=== PATIENT | female | born 1995 | race Caucasian/White ===

== ENCOUNTER → 2019-11-25 09:38 | Outpatient (CLI) | payer OTHER, SELFPAY ==
[2019-11-25 09:36] VITALS: BMI 23.1
--- NOTE | 2019-11-25 09:39 | RAD_ITS ---
STUDY: X-RAY - LEFT KNEE REASON FOR EXAM: Fall one month ago. TECHNIQUE: 4 view(s) of the knee. COMPARISON: None. FINDINGS: Normal visualized distal femur. Normal visualized proximal tibia and fibula. Normal proximal tibiofibular articulation. Normal medial femorotibial compartment. Normal lateral femorotibial compartment. Normal patellofemoral articulation. The soft tissue structures are unremarkable. RAD/Knee 4 or More Views IMPRESSION: Normal x-ray examination of the left knee. Electronically Signed: Pradeep Olivo MD at 10:12 EST Tel , Service support ,
== END ==
PROVIDERS: Referring Provider Orthopaedic Surgery; Visit Provider Orthopaedic Surgery
DX: M25.562 Pain in left knee (principal)
CPT/HCPCS: 73564

== ENCOUNTER 2019-12-01 12:55 | Outpatient (RCR) | payer OTHER, SELFPAY ==
[2019-11-25 09:36] VITALS: BMI 23.1
--- NOTE | 2019-12-01 14:41 | HP.PTEVAL ---
Patient's Visit Information NATHANAEL MOSCOSO is a 24 year old F referred to Physical Therapy by Dr. Kavitha Hrenandez DO with a diagnosis of LEFT ACL TEAR. Date of Evaluation: 12/01/19 Physical Therapist: Lino Ng, PT, Cert MDT, OCS - Visit Plan Frequency: 1-2x /Week Duration: 4 Weeks Plan: PLANNING FOR MRI. PT INTERVENTION FLEXABLITY ,PRE'S QUADS/HAMS/HIP ,ROM,FUNCTION STRENGTHENING,MODALITIES - Subjective Findings: This 24 y/o female presents to physical therapy left ACL . Patient injuried left knee Oct 25 at her Wedding sliiped hurt knee . Patient went on honey almanza and works pain was minimal and edema. Patient plaanning for MRI Sunday at [facility]. Major compliant espinal of motion pain with extension . Aggravting factors ,kneeling squatting ,sore at end of day. Denies parathesia/tingling. Patient sleeping good. Patient has h/o of tearing right ACL x2 with one surgery. Patient has. SOCAIL:. 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 GAIT: ambulated with knee slightly flexed left. PALAPTION: unremarkable. EDEMA: absent. AROM: 5-145 degrees pain with extension. MMT: quads 4-/5,hams 4/5,hip abd 4/5,hip add 4-/5,ankle 5/5. FLEXABLITY: hamstring WFL - Special Tests L Knee Mariel - Meniscus: Negative L Knee Leo - ACL: Positive L Knee Anterior Drawer - ACL: Positive L Knee Posterior Drawer - PCL: Negative L Knee Valgus - MCL: Negative L Knee Varus - LCL: Negative - Goals Goal 1:: Patient I HEP. Goal Time Frame: 4-6 Weeks Goal 2:: Patient to normalize gait Goal Time Frame: 4-6 Weeks Goal 3:: Patient to increase strength quad/hams /hip 5/5 to improve function. Goal Time Frame: 4-6 Weeks Goal 4:: Patient be able to perform housework tasks and ADLS' with no pain Goal Time Frame: 4-6 Weeks Goal 5:: Patient to improve LEFS score by 10 points or > to improve function. Goal Time Frame: 4-6 Weeks - Rehabilitation Potential Physical Therapy Diagnosis: Patient injuried left knee suspect ACL tear with pain with certain activities ,decrease extension ,affects kneeling and working all day. Rehabilitation Potential: Good - Anticipated Interventions Patient/Client Instruction: Educate patient on: Condition, Plan of Care For the Purpose of:: To decrease pain, To increase ROM, To improve muscle performance and motor function, To improve ability to perform ADL's, To increase tolerance to activity/condition/position, To improve performance and independence with ADL's, To improve ability of physical actions for home/community/work/leisure, To improve health of tissue, To decrease soft tissue restriction, To increase flexibility/ROM Therapeutic Exercise to Include: Strength training, Postural training, Flexibilty training, Active ROM Comment: PRE'S QUADS/HAMS/HIP For the Purpose of:: To decrease pain, To increase ROM, To improve muscle performance and motor function, To increase tolerance to activity/condition/position, To improve ability of physical actions for home/community/work/leisure, To improve gait and locomotor functions, To improve health of tissue, To decrease soft tissue restriction, To improve endurance, To improve balance, To improve ability to perform tasks related to life management TENS: Yes IF ES: Yes Cryotherapy (ice pack, ice massage): Yes Thermo therapy (hot pack): Yes Ultrasound (thermal/non thermal): Yes For the Purpose of:: To decrease pain, To increase ROM, To improve nutrient delivery to tissue, To increase oxygenation perfusion, To improve health of tissue, To decrease soft tissue restriction Thank you for the opportunity to evaluate your patient. For Medicare and Medicare HMO plans, please review the plan of care and approve it. It will need to be FAXED BACK to us at [phone] for Medicare purposes. For Medicare only, by signing this I certify the plan of care. Please let me know if there are questions or concerns regarding this plan of care. Physician Signature: Date:
--- NOTE | 2020-01-21 08:48 | HP.PT.NRP ---
NATHANAEL MOSCOSO was seen in my office for initial evaluation on 12/01/19. The following Plan of Care was established for this patient: Initial Frequency: 1-2x /Week Initial Duration: 4 Weeks Patient/Client Instruction: Educate patient on: Condition, Plan of Care For the Purpose of:: To decrease pain, To increase ROM, To improve muscle performance and motor function, To improve ability to perform ADL's, To increase tolerance to activity/condition/position, To improve performance and independence with ADL's, To improve ability of physical actions for home/community/work/leisure, To improve health of tissue, To decrease soft tissue restriction, To increase flexibility/ROM Therapeutic Exercise to Include: Strength training, Postural training, Flexibilty training, Active ROM For the Purpose of:: To decrease pain, To increase ROM, To improve muscle performance and motor function, To increase tolerance to activity/condition/position, To improve ability of physical actions for home/community/work/leisure, To improve gait and locomotor functions, To improve health of tissue, To decrease soft tissue restriction, To improve endurance, To improve balance, To improve ability to perform tasks related to life management TENS: Yes IF ES: Yes Cryotherapy (ice pack, ice massage): Yes Thermo therapy (hot pack): Yes Ultrasound (thermal/non thermal): Yes For the Purpose of:: To decrease pain, To increase ROM, To improve nutrient delivery to tissue, To increase oxygenation perfusion, To improve health of tissue, To decrease soft tissue restriction This patient was last seen in our office . Pertinent comments regarding their Physical therapy will appear below: Patient seen for knee pain . Anticipated ACL ,provided HEP. Did have MRI showing ACL tear. At this point I will be discontinuing this patient from physical therapy. I would be happy to see this patient again in the future if found appropriate by the physician. Thank you! Lino Ng, PT, Cert MDT, OCS
== END 2019-12-01 19:00 | disposition home or self-care (01) ==
LOC: PT 12:55
PROVIDERS: Referring Provider Orthopaedic Surgery; Visit Provider Orthopaedic Surgery
DX: S83.512D Sprain of anterior cruciate ligament of left knee, subsequent encounter (principal)
CPT/HCPCS: 97110; 97161

== ENCOUNTER → 2019-12-06 08:32 | Outpatient (CLI) | payer OTHER, SELFPAY ==
[2019-11-25 09:36] VITALS: BMI 23.1
--- NOTE | 2019-12-06 08:32 | MRI_ITS ---
STUDY: MRI LEFT KNEE REASON FOR EXAM: Female, 24 years old. Pain and tightness. Status post trauma. Unable to fully extend knee. TECHNIQUE: Standardized fat and water weighted pulse sequences were obtained in all 3 orthogonal planes. COMPARISON: None. FINDINGS: Normal medial meniscus. There is minimal low-grade cartilage degeneration in the medial joint compartment. Normal medial femoral condyle and tibial plateau. Normal medial collateral ligamentous complex (MCL). Normal distal semimembranosus, gracilis and semitendinosus tendons. Normal lateral meniscus. There is minimal low-grade cartilage degeneration in the lateral joint compartment. There is linear high signal identified in the proximal tibia which may represent a contusion however underlying microtrabecular fractures aren''t excluded. Normal proximal tibiofibular articulation. Normal lateral collateral (fibular) ligament. Normal popliteus tendon. Normal biceps femoris tendon. There is poor visualization of the anterior cruciate ligament suggestive of complete tear. Normal posterior cruciate ligament (PCL). Normal congruent patellofemoral articulation. Normal hyaline cartilage of the patellofemoral compartment. Normal medial and lateral patellar retinaculum. Normal quadriceps tendon. Normal patellar tendon. Normal Hoffa''s fat pad. There is a moderate suprapatellar effusion. There is a moderately sized Lee''s cyst. The soft tissues are unremarkable. The otherwise visualized osseous structures are unremarkable. MRI/Lower Ext Joint Only (Routine) IMPRESSION: Complete tear of the anterior cruciate ligament. Increased signal in the proximal tibia laterally may represent a contusion or stress reaction however underlying microtrabecular fractures aren''t excluded. Mild degenerative changes. Joint effusion and popliteal cyst. Electronically Signed: Chepe Malin, at 12:55 EST Tel , Service support ,
== END ==
PROVIDERS: Referring Provider Orthopaedic Surgery; Visit Provider Orthopaedic Surgery
DX: S89.92XA Unspecified injury of left lower leg, initial encounter (principal)
CPT/HCPCS: 73721

== ENCOUNTER 2020-04-21 06:01 | Day surgery (SDC) | payer OTHER, SELFPAY ==
[2020-02-12 10:02] VITALS: BMI 23.1
[2020-03-30 09:23] VITALS: BMI 23.1
[2020-04-21] VITALS (7 sets, daily range): BP systolic 122–141; BP diastolic 75–90; PULSE 81–116; RESP 16; TEMP 36.4–37.1; O2SAT 98–100; BMI 28.8
[2020-04-21 06:36] LABS: Internal QC Validated? YES +Cl - CLEAR BKGD; Pregnancy, Urine Negative Negative
[2020-04-21] MEDS: Lactated Ringers 1,000 ML 100 ML IV (06:54)
--- NOTE | 2020-04-21 07:24 | PCM.HP.BLA ---
History and Physical I have re-examined the patient. There are no clinical changes since date of exam. Patient is off of her control for the last month Intake Vital Signs 03/30/20 BMI 23.1 Intake Visit Reasons: left knee Allergies No Known Allergies Allergy (Verified 12/11/19 08:45) [facility] Social History (Updated 03/30/20 @ 09:[address] Kavitha Hernandez, DO) Smoking Status: Never smoker HPI HPI Details: Patient was informed that this visit will be billed to patient. This visit was conducted during COVID-19 pandemic. NATHANAEL MOSCOSO, is a 24 F who presents to the office today for left knee given out once since last visit. stopped control 1.5 weeks ago. Denies numbness, tingling or other associated symptoms. left knee instability, no locking up of left knee. see chart. ROS Const Constitutional: No anorexia, body ache, chills, excessive sweating, fatigue, fever(s), frequent falls, decreased energy, malaise, night sweats, weakness, weight change, sleep problems, abnormal sleep pattern, change in appetite or other Eyes Eyes: No blurry vision, change in vision, double vision, discharge, dry eyes, bulging eyes, floaters, visual disturbances, eye pain, light sensitivity, spots in vision, tunnel vision or other ENT ENT: No difficulty swallowing Cardio Cardiology: No chest pain at rest, chest pain with exertion, leg pain with exertion, excessive sweating, shortness of breath, dyspnea on exertion, generalized swelling, irregular heart rhythm, lightheadedness, orthopnea, radiating jaw, neck or arm pain, fast heart rate, slow heart rate, palpitations or other Gastro GI: No abdominal pain, belching, bloating, change in bowel habits, change in stool character, coffee ground emesis, constipation, cramping, diarrhea, heartburn, difficulty swallowing, feeling full early, excessive flatus, incontinent of stools, Vomiting blood/hematemesis, blood in stool, loose stools, Black,tarry stools, nausea/dyspepsia, pain with swallowing, vomiting or other Genitourinary-Female: No difficulty urinating, burning urination, painful urination, urinary incontinence, urinary frequency, urinary urgency, urinary hesitancy, urinary retention, blood in urine, Frequent nighttime urination/ nocturia, post void dribbling, suprapubic fullness, side pain, sexual problems, genital lesions, genital itching, hot flashes, abnormal periods, abnormal vaginal bleeding, absent period, painful periods, light periods, heavy periods, difficulty getting , painful intercourse, pelvic pain, vaginal dryness, vaginal odor, Vaginal Itching or other Musc Musculoskeletal: Positive for joint pain Neuro Neurology: No weakness, frequent falls or visual disturbances Psych Psychiatric: No abnormal sleep pattern, No change in appetite Endo Endocrine: No excessive sweating or fatigue Assessment & Plan Plan Reviewed the pre-operative plans with the patient. Risks and benefits of the procedure were fully explained, including but not limited to infection, neurovascular injury, continued pain, arthritis, stiffness, need for further surgery, re-injury, DVT, PE, general risks of anesthesia, and loss of limb or life. The patient understands all the risks and does wish to proceed with Surgery for left ACL with quad tendon graft.. remove nose rings remove one acrylic nail We discussed the current risk associated COVID-19. While it is understood that there is a community spread of COVID 19 the risk of katie COVID-19 while at [facility] is very low, however, the risk cannot be completely mitigated because of the community spread of the disease. We discussed in detail the risk of exposure to and or potential harm posed by the COVID-19 virus with having a surgery/procedure at this time versus the risk of delaying the surgery/procedure. Is not possible to know either the risk of delaying the surgery procedure or chance of getting an infection with perfect accuracy, but a joint decision was made to proceed at this time with a schedule surgery/procedure as indicated on the consent form. Patient was notified that we will need to comply with any screening or testing [facility] wishes to perform or that surgery may be delayed for any positive results. virtual video visit time spent 12 min Coding Level of Care Code Attention Lorenzo
[2020-04-21] MEDS: Cefazolin 2 GM in 0.9% Normal Saline 100 ML IV (07:26)
--- NOTE | 2020-04-21 07:30 | OP.PCM_ITS ---
Report of Operation Date of Procedure: 04/21/20 Pre-Operative Diagnosis: left knee acl tear Post-Operative Diagnosis: same Surgery/Procedure Performed:: left knee arthroscopy, acl reconstruction with quad tendon autograft with allograft supp math professor: Guanaco Mario Type of Anesthesia:: General Anesthesiologist: Hayden Amaya Estimated Blood Loss (mL): min Fluids Replaced: 1100ml lr Description of Procedure: Preop note Patient is a 25-year-old female who injured her left knee at a wedding. Patient continued instability episodes despite conservative therapy treatment. Patient failed conservative treatment MRI confirms a complete ACL tear. Risk benefits alternatives were discussed with patient. Risk include but not limited to blood loss, blood clot, infection, neurovascular, failure procedure, loss of life and loss of limb. Patient is aware like proceed with left knee arthroscopy ACL reconstruction allograft autograft repair as indicated. Operative note Patient seen and examined preoperative holding area. Left knee was marked. Patient brought the operating room placed supine on the operating table. Signed, anesthesia, antibiotics were administered. The left knee was prepped and draped in usual sterile technique with a tourniquet around her upper thigh. All bony prominences well-padded and SCDs placed on her contralateral limb. We marked out our incisions for our portal placement as well as anterior medial distal tibia and proximal femur for the laterally for the flip cut. We marked o ut our incision about a centimeter proximal to the pole of patella for quad tendon harvest. We measured about 7 cm proximal to this just for to get adequate length. The left leg was elevated exsanguinated and tourniquet was raised her pressure of 250 torr. Timeout was performed. We then used a 15 blade to make a transverse horizontal incision a centimeter proximal to the proximal pole of the patella about a centimeter half to 2 cm in length. We then directed down and remove the fat pad. We then used a Ray-Bo to sweep away any of the fat pad off the quad tendon we had good visualization of the quad tendon at that time. There were then used a 9 double blade cutter. We used our scope and let up the skin to know where the aim marked and then did a kevin on the skin at the angle that we need to position arm 9 double blade towards to harvest the quad tendon. We then cut starting a centimeter proximal patella and going proximal and ensuring that we had good cutting of the quad tendon. We then extended the incision of the quad distally to the patella and then started retrieving her patella tendon quad tendon. We note that the quad tendon was quite thin and we did breach the capsule so we repaired the capsule and the entire repaired the tendon and then we did harvest it proximally. We noted that we did have quite the size of wound wanted at least a 9 we had probably around a 7-1/2 quad tendon once we had harvested because is quite small we still had encroached upon the capsule at that point so we had maintained we then retrieve as much of the graft as we could without violating too much. Then prepared the graft in standard technique on the back table with the Arthrex graft link. We repaired the quad tendon harvest site again. We then moved to the arthroscopy. We created an anterior lateral portal began our diagnostic arthroscopy. The patellofemoral joint was unremarkable moved to the medial joint line created anteromedial portal under direct visualization. The medial meniscus was intact and stable probing. The medial meniscus medial femoral condyle medial to the tibial plateau were intact the ACL was obviously torn in the notch the PCL was intact. Please note that also preoperatively we did perform a Lockman on patient prior to obtaining her graft and she was positive. The lateral meniscus was intact and stable probing. We then performed extensive synovectomy she had extensive synovitis in the anterior lateral anteromedial recesses. We then performed a notchplasty as she had a quite narrow notch. We measured the graft on the back table to be a 10. We then used a flip braid cutter standard technique and and drilled her femoral tunnel tibia to backed about 25 mm. We then flipped him did our tibial tunnel and did that about 30 mm with a flip cutter. We then irrigated the knee with any copious wet with copious necessarily sterile saline to get rid of any bony debris. We then placed our graft through the medial portal up through the femoral tunnel flipped the button on the lateral femoral cortex and did visualize this. We then brought the graft through the tibial tunnel and then cycled the graft about 20 times. We then placed our button in standard technique on the anterior tibial cortex and then and performed a reverse Lockman as we are tightening it down to bone. We then oversewed and cut the remaining stitches. We then grabbed the femoral side again up with a white and pulled the quad tendon further into the femoral condyle if able we had a little bit more that we were able to bring into the femoral side. We then pe rformed a Lockman which was negative at that point. We irrigated the knee with copious nonsterile saline. Tourniquet was deflated. Sterile dressings were applied after the portals were closed with interrupted 4 oh nylons in the anterior tibia the incision was closed with Vicryl and a running 4-0 Monocryl in the distal lateral femoral incision was closed with 2-0 Vicryl and 4-0 nylon. Sterile dressings were applied ablation brace was applied to the left knee. Patient tolerated procedure no complication transferred recovery room in stable condition. Postoperative note Toe-touch weightbearing on left leg with crutches Range of motion 0-90 when seated Locked brace in extension during ambulation and at night Call with increased pain numbness tingling further issues arise Follow-up in 2 days Hospital pharmacy has prescriptions Dragon disclaimer This note was generated with [employer] dictation software. It may contain incorrect words, spelling, and punctuation that were not noted in checking the note before signing. Grafts/Implants Used: acl quad tendon autograft, supplemental ant tib allograft
--- NOTE | 2020-04-21 07:30 | DCINST_ITS ---
Discharge Diet: No Restrictions - ttwb left leg 2 weeks, january rom 0-90 as tolerated, lock brace in extension at night for sleep and during ambulation, follow up with janay for dressing change and brace adjustment, call with concerns, ice/elevate toes above nose/ankle pumps Discharge Activity: May Not Drive May shower in (days): 1 Ice area for (Minutes): 20 - Every hour while awake. Weight Bearing Status: Weight bearing as tolerated Keep extremity elevated above heart level: Operative Extremity Call your doctor if your incision/area has: Continuous Slow Oozing, Sudden Increased Bleeding, Increased Pain/ Swelling, Increased Redness, Foul Smelling Discharge Call your doctor if you observe: Fever of 101 or Higher, Coldness, Increased Pain, Numbness or Tingling, Change in Color, Calf discomfort Allergies/Adverse Reactions: Allergies No Known Allergies Allergy (Verified 04/21/20 06:24) Medications to take at Discharge Ibuprofen [Motrin] 400 mg PO Q6H PRN 05/07/14 norgestimate 0.25 mg-ethinyl estradiol 35 mcg tablet 1 tab PO DAILY 11/25/19 Ondansetron [Zofran] 8 mg PO Q8H PRN PRN #20 tab 04/21/20 Oxycodone HCl/Acetaminophen [Percocet 5/325] 1 - 2 tab PO Q6H PRN PRN 5 Days #28 tab 04/21/20 The following prescriptions were given: Oxycodone HCl/Acetaminophen [Percocet 5/325] 1 - 2 tab PO Q6H PRN PRN 5 Days #28 tab PRN Reason: Pain Transmission Status: Received by [facility] Ondansetron [Zofran] 8 mg PO Q8H PRN PRN #20 tab PRN Reason: Nausea Transmission Status: Received by [facility] Orders to be completed after discharge: CORONAVIRUS 19, MINH SCREEN Time Frame: 04/16/20, Facility: [facility], Location: Laboratory Primary Care Physician: Care Physician,No Primary [Primary Care Provider] - Test Results: Test results from this visit will be discussed in further detail at your follow- up appointment, if applicable. Please Follow Up With: Kavitha Hernandez, DO - [phone]
[2020-04-21] MEDS: Mupirocin Ointment 22gm Tube 1 APPLIC (10:14)
[2020-04-21] MEDS: Epinephrine (1 mg/ml) 1 MG/ML VIAL (10:14)
== END 2020-04-21 12:50 | disposition home or self-care (01) ==
LOC: SDC 06:02 → AC 06:03
PROVIDERS: Anesthesiology; Referring Provider Orthopaedic Surgery; Visit Provider Orthopaedic Surgery
PROC: (CPT 29888; principal; 2020-04-21 07:10)
DX: S83.512A Sprain of anterior cruciate ligament of left knee, initial encounter (principal); X58.XXXA Exposure to other specified factors, initial encounter; Y93.9 Activity, unspecified; Y92.89 Other specified places as the place of occurrence of the external cause
CPT/HCPCS: 01400; 29888; 64447; 81025; 87635; C1713; G2023; J7120; J2405; U0003

== ENCOUNTER 2021-11-10 10:10 | Outpatient (CLI) | payer BC, SELFPAY ==
[2021-11-10 10:51] LABS: Hemoglobin A1c 5.3 % (3.8-5.6)
[2021-11-10 11:22] LABS: Estradiol 53.3 pg/mL; Follicle Stimulating Hormone 4.6 mIU/mL; Luteinizing Hormone 11.5 mIU/mL
[2021-11-13 19:07] LABS: Testosterone, % Free 1.58 % (0.50-2.80); Testosterone, Free 0.84 ng/dL (0.10-0.85); Testosterone, Total 53 ng/dL (13-71)
[2021-11-14 17:02] LABS: HPV Reflexed? NOT INDICATED
== END 2021-11-10 23:59 | disposition home or self-care (01) ==
LOC: PAVLAB 10:11
PROVIDERS: Referring Provider Obstetrics & Gynecology; Visit Provider Obstetrics & Gynecology
DX: Z12.4 Encounter for screening for malignant neoplasm of cervix (principal); N91.2 Amenorrhea, unspecified
CPT/HCPCS: 36415; 82627; 82670; 83001; 83002; 83036; 84402; 84403; 84443; 88175; 82626; G0145

== ENCOUNTER 2021-11-22 07:54 | Outpatient (CLI) | payer BC, SELFPAY ==
--- NOTE | 2021-11-22 08:00 | US_ITS ---
STUDY: ULTRASOUND OF THE FEMALE PELVIS - COMPLETE REASON FOR EXAM: Female, 26 years old. Amenorrhea LMP: 11/21/2021. TECHNIQUE: Transabdominal and Transvaginal TECHNICAL QUALITY: Adequate. COMPARISON: None. FINDINGS: The uterus is anteverted and is tilted to the left side of the pelvis. The uterus measures 7.5 cm x 3.6 cm x 3.5 cm. There is a Nabothian cyst of the cervix. The endometrium measures 8.5 mm in thickness, and is hyperechoic. There is no demonstrated endometrial mass. There is no demonstrated myometrial mass. I.U.D. - The patient does not have an I.U.D. The right ovary is visualized. The right ovary measures 4.6 cm x 3.2 cm by 2.5 cm. Small follicles are seen. There is no visualized right adnexal mass or complex lesion. There is normal arterial and normal venous vascularity. The left ovary is visualized. The left ovary measures 4.6 cm x 3.6 cm x 1.9 cm. Small follicles are seen. There is no visualized left adnexal mass or complex lesion. There is normal arterial and normal venous vascularity. There is no fluid in the cul-de-sac. The pre void volume of the bladder was 409 ml. . US/Pelvic (Non ) IMPRESSION: Normal female pelvis. Electronically Signed: Maykel Toth MD at 12:23 EST ,
--- NOTE | 2021-11-22 08:00 | US_ITS ---
STUDY: ULTRASOUND OF THE FEMALE PELVIS - COMPLETE REASON FOR EXAM: Female, 26 years old. Amenorrhea LMP: 11/21/2021. TECHNIQUE: Transabdominal and Transvaginal TECHNICAL QUALITY: Adequate. COMPARISON: None. FINDINGS: The uterus is anteverted and is tilted to the left side of the pelvis. The uterus measures 7.5 cm x 3.6 cm x 3.5 cm. There is a Nabothian cyst of the cervix. The endometrium measures 8.5 mm in thickness, and is hyperechoic. There is no demonstrated endometrial mass. There is no demonstrated myometrial mass. I.U.D. - The patient does not have an I.U.D. The right ovary is visualized. The right ovary measures 4.6 cm x 3.2 cm by 2.5 cm. Small follicles are seen. There is no visualized right adnexal mass or complex lesion. There is normal arterial and normal venous vascularity. The left ovary is visualized. The left ovary measures 4.6 cm x 3.6 cm x 1.9 cm. Small follicles are seen. There is no visualized left adnexal mass or complex lesion. There is normal arterial and normal venous vascularity. There is no fluid in the cul-de-sac. The pre void volume of the bladder was 409 ml. . US/Transvaginal Non- IMPRESSION: Normal female pelvis. Electronically Signed: Maykel Toth MD at 12:23 EST ,
== END 2021-11-22 23:59 | disposition home or self-care (01) ==
PROVIDERS: Visit Provider Obstetrics & Gynecology
DX: N91.2 Amenorrhea, unspecified (principal)
CPT/HCPCS: 76830; 76856

== ENCOUNTER → 2022-08-31 | Outpatient (CLI) | payer BC, SELFPAY ==
[2022-08-31 12:28] LABS: Amphetamine Urine VISTA NEGATIVE (<1000 ng/mL); Barbiturate Urine VISTA NEGATIVE (< 200 ng/mL); Benzodiazepine Urine VISTA NEGATIVE (< 200 ng/mL); Cocaine Urine VISTA NEGATIVE (< 300 ng/mL); Ecstacy Urine VISTA NEGATIVE (< 500 ng/mL); Methadone Urine VISTA NEGATIVE (< 300 ng/mL); PCP Urine VISTA NEGATIVE (< 25 ng/mL); THC Urine VISTA NEGATIVE (< 50 ng/mL); Vista UDS pH Range 7
[2022-09-01 22:06] LABS: Chlamydia By Nucleic Acid AMP Negative (Negative)
[2022-09-01 22:50] LABS: Gonococcus By Nucleic Acid AMP Negative (Negative)
== END | disposition home or self-care (01) ==
PROVIDERS: Visit Provider Obstetrics & Gynecology
DX: Z34.90 Encounter for supervision of normal pregnancy, unspecified, unspecified trimester (principal)
CPT/HCPCS: 80307; 87086; 87088; 87491; 87591

== ENCOUNTER → 2022-10-02 | Outpatient (CLI) | payer BC, SELFPAY ==
[2022-10-02 12:11] LABS: Absolute Lymphocyte Count 1.87 X10^3/uL (0.83-4.51); Absolute Neutrophil Count 8.7 X10^3/uL (2.0-7.7); Basophil# 0.05 X10^3/uL; Basophil% 0.4 % (0-1); Eosinophil# 0.12 X10^3/uL; Hematocrit 38.1 % (37-47); Hemoglobin 12.8 g/dL (12.0-15.0); Lymphocyte # 1.87 X10^3/ul (0.83-4.51); Lymphocyte % 15.8 % (19-41); Mean Corp Hgb Conc 33.6 g/dL (32-36); Mean Corpuscular Hgb 27.9 pg (27.0-32.0); Mean Corpuscular Volume 83.2 fL (81-99); Mean Platelet Vol. 8.2 fl (6.2-12.0); Monocyte# 0.79 X10^3/uL; Monocyte% 6.7 % (0-10); NRBC Flagged by Analyzer 0 % (0-5); Neutrophil # 8.67 X10^3/uL (2.7-7.7); Neutrophil % 73.2 % (47-70); Platelet Count 354 K/mm3 (150-450); RBC Distribution Width CV 13.2 % (11.6-14.6); Red Blood Count 4.58 M/mm3 (4.2-5.4); White Blood Count 11.8 K/mm3 (4.4-11.0)
[2022-10-02 12:15] LABS: Glucose Challenge Gest 1H 50g 145 mg/dL (70-140)
[2022-10-03 11:09] LABS: HIV - WCH Non-Reactive (Nonreactive); Hepatitis B Surface Antigen Non-Reactive (Nonreactive); Hepatitis C Antibody Non-Reactive (Nonreactive); Rubella IgG Equiv (Nonreactive); Syphilis Antibodies Non-reactive
== END | disposition home or self-care (01) ==
LOC: LAB 11:46
PROVIDERS: Visit Provider Obstetrics & Gynecology
DX: Z34.90 Encounter for supervision of normal pregnancy, unspecified, unspecified trimester (principal)
CPT/HCPCS: 36415; 82950; 85025; 86703; 86762; 86780; 86803; 86850; 86900; 86901; 87340

== ENCOUNTER → 2022-10-09 | Outpatient (CLI) | payer BC, SELFPAY ==
[2022-10-09 08:08] LABS: Glucose GTT-Gestation. Fasting 90 mg/dL (<105)
[2022-10-09 08:09] LABS: Glucose GTT-Gestational 1 Hr 170 mg/dL (<190)
[2022-10-09 09:38] LABS: Glucose GTT-Gestational 2 Hr 151 mg/dL (<165)
[2022-10-09 11:13] LABS: Glucose GTT-Gestational 3 Hr 135 L (<145)
== END | disposition home or self-care (01) ==
LOC: LAB 06:51
PROVIDERS: Referring Provider Nurse Practitioner Women's Health; Visit Provider Nurse Practitioner Women's Health
DX: Z13.1 Encounter for screening for diabetes mellitus (principal)
CPT/HCPCS: 36415; 82951; 82952

== ENCOUNTER → 2023-01-08 | Outpatient (CLI) | payer BC, SELFPAY ==
[2023-01-08 08:26] LABS: Hematocrit 37.3 % (37-47); Mean Corp Hgb Conc 32.2 g/dL (32-36); Mean Corpuscular Hgb 27.9 pg (27.0-32.0); Mean Corpuscular Volume 86.7 fL (81-99); Mean Platelet Vol. 8.3 fl (6.2-12.0); POSITIVE COUNT YES; POSITIVE MORPHOLOGY YES; Platelet Count 265 K/mm3 (150-450); RBC Distribution Width CV 13.7 % (11.6-14.6); RBC Distribution Width SD 42.6 fl (35.1-43.9); White Blood Count 12.8 K/mm3 (4.4-11.0)
[2023-01-08 08:27] LABS: Differential Indicated MANUAL DIFF
[2023-01-08 09:07] LABS: Glucose Challenge Gest 1H 50g 162 mg/dL (70-140)
[2023-01-08 09:33] LABS: HIV - WCH Non-Reactive (Nonreactive); Syphilis Antibodies Non-reactive
[2023-01-08 09:49] LABS: Lymphocyte 15 % (19-41); Monocyte 2 % (0-10); Myelocyte 4 % (0-0); Neutrophil-Band 6 % (0-5); Neutrophil-Segmented 73 % (47-70); Nucleated Red Bld Cells,Manual 1 % (0-5); Total Cells Counted 100 (MANUAL DIFF)
[2023-01-08 09:50] LABS: Absolute Neutrophil Count 10.1 X10^3/uL (2.0-7.7)
[2023-01-08 09:51] LABS: Absolute Lymphocyte Count 1.95 X10^3/uL (0.83-4.51); Platelet Estimate ADEQUATE (ADEQ); Red Cell Morphology NORM C+C NORMAL (NORM C&C)
[2023-01-10 10:47] LABS: Pathologist Review Reviewed
== END | disposition home or self-care (01) ==
LOC: PAVLAB 08:07
PROVIDERS: Referring Provider Obstetrics & Gynecology; Visit Provider Obstetrics & Gynecology
DX: O09.90 Supervision of high risk pregnancy, unspecified, unspecified trimester (principal); Z3A.00 Weeks of gestation of pregnancy not specified
CPT/HCPCS: 36415; 82950; 85025; 86703; 86780

== ENCOUNTER → 2023-01-11 | Outpatient (CLI) | payer BC, SELFPAY ==
[2023-01-11 08:06] LABS: Glucose GTT-Gestation. Fasting 85 mg/dL (<105)
[2023-01-11 08:46] LABS: Glucose GTT-Gestational 1 Hr 181 mg/dL (<190)
[2023-01-11 09:54] LABS: Glucose GTT-Gestational 2 Hr 158 mg/dL (<165)
[2023-01-11 11:11] LABS: Glucose GTT-Gestational 3 Hr 76 L (<145)
== END | disposition home or self-care (01) ==
LOC: LAB 06:52
PROVIDERS: Referring Provider Registered Nurse; Visit Provider Registered Nurse
DX: Z13.1 Encounter for screening for diabetes mellitus (principal)
CPT/HCPCS: 36415; 82951; 82952

== ENCOUNTER → 2023-03-05 | Outpatient (CLI) | payer BC, SELFPAY | END | disposition home or self-care (01) | LOC: LABSPEC 13:15 | PROVIDERS: Referring Provider Obstetrics & Gynecology; Visit Provider Obstetrics & Gynecology | DX: O09.90 Supervision of high risk pregnancy, unspecified, unspecified trimester (principal); Z3A.00 Weeks of gestation of pregnancy not specified | CPT/HCPCS: 87081 ==

== ENCOUNTER 2023-03-24 22:55 | Outpatient (CLI) | payer BC, SELFPAY ==
[2023-03-24 23:11] VITALS: BP 126/79; PULSE 65; PULSE 68; TEMP 36.5; O2SAT 100
[2023-03-24 23:17] VITALS: BMI 34.2
[2023-03-25] MEDS: LACTATED RINGERS 500 ML 999 ML IV
--- NOTE | 2023-03-25 00:13 | US_ITS ---
STUDY: ABDOMINAL ULTRASOUND - RIGHT UPPER QUADRANT REASON FOR VISIT: Female, 27 years old Upper abdominal pain TECHNIQUE: Ultrasound evaluation of the right upper quadrant was performed with real-time and static parks-scale imaging. TECHNICAL QUALITY: Adequate. COMPARISON: None. FINDINGS: Liver: The liver measures 15.6 cm. There is normal echogenicity of the liver. The bile ducts are within normal limits. There is hepatic color flow. The direction of portal flow is hepatopetal. There is no demonstrated mass lesion. Gallbladder: Normal distended gallbladder. The gallbladder wall measures 3 mm. There is a negative sonographic Zelaya''s sign. There is no pericholecystic fluid. There are multiple echogenic structures within the gallbladder, consistent with multiple gallstones. Common Bile Duct (C.B.D.): The common bile duct measures 4 mm. Pancreas: Normal size of the head and body of the pancreas. There is normal echogenicity of the pancreas. There is no demonstrated pancreatic mass or cyst. Right Kidney: Normal size of the right kidney. The right kidney measures 12.6 x 4.8 x 5.7 cm. Normal renal cortex. The right cortex measures cm. There is no demonstrated renal mass or cyst. There is no right hydronephrosis. US/Gallbladder IMPRESSION: 1. Gallstones Electronically Signed: Tung Plascencia MD at 9:49 EDT ,
[2023-03-25 00:21] LABS: Absolute Lymphocyte Count 1.55 X10^3/uL (0.83-4.51); Absolute Neutrophil Count 10.5 X10^3/uL (2.0-7.7); Basophil# 0.08 X10^3/uL; Basophil% 0.6 % (0-1); Eosinophil# 0.02 X10^3/uL; Eosinophils% 0.2 % (0-5); Hematocrit 41.3 % (37-47); Hemoglobin 13.1 g/dL (12.0-15.0); Lymphocyte # 1.55 X10^3/ul (0.83-4.51); Lymphocyte % 11.9 % (19-41); Mean Corp Hgb Conc 31.7 g/dL (32-36); Mean Corpuscular Hgb 27.3 pg (27.0-32.0); Mean Corpuscular Volume 86.2 fL (81-99); Mean Platelet Vol. 9.2 fl (6.2-12.0); Monocyte# 0.61 X10^3/uL; Monocyte% 4.7 % (0-10); NRBC Flagged by Analyzer 0 % (0-5); Neutrophil % 80.2 % (47-70); Platelet Count 280 K/mm3 (150-450); RBC Distribution Width CV 13.8 % (11.6-14.6); RBC Distribution Width SD 42.7 fl (35.1-43.9); Red Blood Count 4.79 M/mm3 (4.2-5.4); White Blood Count 13.1 K/mm3 (4.4-11.0)
[2023-03-25] MEDS: Lactated Ringers 1,000 ML 200 ML IV ×2 (00:35→05:26)
[2023-03-25 00:42] LABS: ALB/GLOB Ratio 0.8 RATIO (0.9-2.4); AST(SGOT) 20 U/L (15-37); Alanine Aminotransfer ALT/SGPT 29 U/L (13-56); Albumin, Serum 3.2 g/dL (3.2-5.0); Alkaline Phosphatase 127 U/L (45-117); Amylase 115 U/L (25-115); Anion Gap 7 (5-15); BUN 8 mg/dL (7-18); BUN/Creat Ratio 12.6 RATIO (10-20); Calcium,Total 9.3 mg/dL (8.5-10.1); Chloride 107 mmol/L (98-107); Creatinine, Serum 0.64 mg/dL (0.55-1.02); EST Glomerular Filtration Rate 119 mL/min (>60); Est Glom Filt Rate - Afr Amer 144 mL/min (>60); Globulin 3.9 g/dL (2.2-4.2); Glucose 119 mg/dL (74-106); Lipase 47 U/L (13-75); Potassium 3.3 mmol/L (3.5-5.1); Protein, Total 7.1 g/dL (6.4-8.2); Sodium Level 138 mmol/L (136-145)
[2023-03-25 00:50] LABS: Color, Urine Yellow (Yellow); Glucose, Dipstick Normal (Normal); Leukocyte Esterase-Dipstick 25 /ul (Negative); Nitrite-Dipstick Negative (Negative); Occult Blood-Urine 10 /ul (Negative); Protein-Dipstick 30 mg/dl (Negative); Urine Bilirubin Dipstick Negative (Negative); Urine Clarity Clear (Clear); Urine Urobilinogen Normal (Normal); Urine pH 6.5 (5.0 - 8.0)
[2023-03-25 00:52] LABS: Ketone-Dipstick 150 mg/dl (Negative)
[2023-03-25] MEDS: Ondansetron 4 MG/2 ML Vial IV (01:21)
[2023-03-25] MEDS: Acetaminophen 500 MG Tablet 1000 MG PO (01:21)
[2023-03-25 02:59] VITALS: BP 120/74; PULSE 64; TEMP 36.5; O2SAT 99
[2023-03-25 07:16] VITALS: BP 109/64; PULSE 107
[2023-03-25 07:17] VITALS: TEMP 36.3
--- NOTE | 2023-03-25 08:10 | OB.TRI.HP_ITS ---
HPI - General General Date of Admission: 03/25/23 Date of Service: 03/25/23 HPI Narrative NATHANAEL MOSCOSO, is a 27 F who presents with complaints of bilateral upper abdominal pain and vomiting since eating at 1900 the night prior. She denies headache, dizziness, blurred vision, contractions, vaginal bleeding. + movement. Maternal Data Information ZEYNEP Calculator Estimated Delivery Date Method Current WG Current Estimate 03/30/23 LMP (Certain) 39w 2d Other Estimates 04/04/23 Ultrasound #1 38w 4d Final ZEYNEP: 03/30/23 Final ZEYNEP Source: US >20 weeks Gestational age: 39.2 weeks PFSH PFSH Medical History Amenorrhea Anovulatory cycle Single umbilical artery Home Medications PNV no.151-iron 27 mg-folic 800 mcg-omega3 260 qt-cal-ohc-fish capsule cap PO 08/29/22 [History Last Taken 03/24/23] blood sugar diagnostic (Blood Glucose Test strips) #50 ea 01/12/23 [Rx Last Taken Unknown] blood-glucose meter #1 ea 01/12/23 [Rx Last Taken Unknown] lancets #100 ea 01/12/23 [Rx Last Taken Unknown] blood-glucose sensor (Dexcom G6 Sensor device) #3 ea 02/06/23 [Rx Last Taken Unknown] Allergy/AdvReac Type Severity Reaction Status Date / Time No Known Allergies Allergy Verified 03/24/23 23:19 Surgical History S/P ACL repair Social History adopted: No household members: spouse housing: house current occupational status: employed 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 current occupational exposures/hazards: No pets and animals: Yes (Not managing litterbox ) pets and animals: cat(s), dog(s) and farm animals history of recent travel: No sexually active: Yes Smoking Status: Never smoker alcohol intake: never substance use type: does not use well-balanced diet: daily or most days caffeine: No eating out: 1-3 times/week during the past year weight has: remained stable what type of physical activity do you participate in: none wilfred/pentecostal: None seatbelt use: always do you feel safe at home: Yes 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 1 Elective abortions Hx Para 0 Spontaneous abortions Hx # Term Pregnancies Ectopic pregnancies Hx # Pregnancies Multiple births # of living children 0 Visit Details Expected Delivery Route/Plan Labor Preferences- CB/BF classes: signed up February 17 labor support person: Tito labor intervention preferences: [] pain management options preferred: [] cut cord/dad catch: [] : [] PP control planned: [] discussed possible routes of delivery and associated risks: [] special requests: [] Plans Covid status: discussed Flu vaccine: discussed Tdap vaccine: discussed benefits, thinking about recieving vaccine Rhogam: [] LARC form signed:completed Problem list reviewed and updated with the most current plan of care details and appropriate orders placed. Relevant counseling for the gestational age provided. Continue routine care and follow up unless otherwise noted in visit notes/problem list details OB Flowsheet Initial Weight: Not Recorded Date -?-?-?-?-?-?-?-?-?-?-?-?- EGA Weight BP Urine Prot -?-?-?-?-?-?-?-?-?-?-?-?- Glucose FHR FuHt Pres Dilation -?-?-?-?-?-?-?-?-?-?-?-?- Effaced St Visit Note 08/31/22 -?-?-?-?-?-?-?-?-?-?-?-?- 9w 6d 192 lb 136/88 -?-?-?-?-?-?-?-?-?-?-?-?- 185 -?-?-?-?-?-?-?-?-?-?-?-?- SM- some bleedin g postcoital, 2mm suchorionic hematoma resolving seen. CRL cons with LMP 09/29/22 -?-?-?-?-?-?-?-?-?-?-?-?- 14w 0d 196 lb 124/81 Negative -?-?-?-?-?-?-?-?-?-?-?-?- Negative 160 -?-?-?-?-?-?-?-?-?-?-?-?- SM- no vb lof 10/26/22 -?-?-?-?-?-?-?-?-?-?-?-?- 17w 6d 200 lb 6 oz 126/72 Nega tive -?-?-?-?-?-?-?-?-?-?-?-?- Negative 154 -?-?-?-?-?-?-?-?-?-?-?-?- -No VB, LOF. N o FM yet. Denies concerns. 11/20/22 -?-?-?-?-?-?-?-?-?-?-?-?- 21w 3d 204 lb 2 oz 118/70 Nega tive -?-?-?-?-?-?-?-?-?-?-?-?- Negative 148 -?-?-?-?-?-?-?-?-?-?-?-?- -No VB, LOF. G ood FM. echo and growth US is 12/0112/18/22 -?-?-?-?-?-?-?-?-?-?-?-?- 25w 3d 212 lb 6 oz 115/73 Nega tive -?-?-?-?-?-?-?-?-?-?-?-?- Negative 140 26 -?-?-?-?-?-?-?-?-?-?-?-?- SM- no vb lof go od fm no regular ctx 01/08/23 -?-?-?-?-?-?-?-?-?-?-?-?- 28w 3d 216 lb 125/82 Negative -?-?-?-?-?-?-?-?-?-?-?-?- Negative 153 29 -?-?-?-?-?-?-?-?-?-?-?-?- LC- no vb/lof/ct x. good fm. larc signed. awaiting glucose results. LC- no vb/lof/ctx. good fm. larc signed.1hr GCT 162, 3 hour GTT ordered. obtaining growth scan today for 2 VC 01/22/23 -?-?-?-?-?-?-?-?-?-?-?-?- 30w 3d 213 lb 8 oz 113/78 -?-?-?-?-?-?-?-?-?-?-?-?- 140 31 -?-?-?-?-?-?-?-?-?-?-?-?- SM- no vb lof go od fm no regular ctx discussed BS testing 02/06/23 -?-?-?-?-?-?-?-?-?-?-?-?- 32w 4d 215 lb 4 oz 119/80 Nega tive -?-?-?-?-?-?-?-?-?-?-?-?- Negative 140 34 -?-?-?-?-?-?-?-?-?-?-?-?- SM- no vb lof go od fm no regular ctx discussed possibly getting a dexcom reader. BS controlled 02/22/23 -?-?-?-?-?-?-?-?-?-?-?-?- 34w 6d 215 lb 2 oz 120/78 Nega tive -?-?-?-?-?-?-?-?-?-?-?-?- Negative 34 -?-?-?-?-?-?-?-?-?-?-?-?- JV- fasting leve ls in the 70's, 2 hr pp all normal but 2 in the 130's. overall doing well. Next ultrasound 03/06. 03/05/23 -?-?-?-?-?-?-?-?-?-?-?-?- 36w 3d 216 lb 6 oz 115/71 -?-?-?-?-?-?-?-?-?-?-?-?- 130 37 Cephalic -?-?-?-?-?-?-?-?-?-?-?-?- SM- no vb lof go od fm no regular ctx gbs today 03/15/23 -?-?-?-?-?-?-?-?-?-?-?-?- 37w 6d 216 lb 8 oz 114/79 Nega tive -?-?-?-?-?-?-?-?-?-?-?-?- Negative 140 38 Cephalic 2 -?-?-?-?-?-?-?-?-?-?-?-?- 30 -2 JV- reacti vce nst. glucose log normal, normal growth on ultrasound. no indication per m to deliver before 40 weeks at this time. continue monitoring and deliver at 40 weeks unless other problems arise. 03/20/23 -?-?-?-?-?-?-?-?-?--?-?-?- 38w 4d 213 lb 2 oz 110/75 Nega tive -?-?-?-?-?-?-?-?-?-?-?-?- Negative 120 38 Cephalic -?-?-?-?-?-?-?-?-?-?-?-?- JV- reactive nst . plan is for delivery at 40 weeks and continued nsts. growth is appropriate (done for 2 vessel cord) glucose levels do not exceed 120 pp) 03/24/23 -?-?-?-?-?-?-?-?-?-?-?-?- 39w 1d 211 lb 12.8 oz 126/7 9 120/74 109/64 -?-?-?-?-?-?-?-?-?-?-?-?- -?-?-?-?-?-?-?-?-?-?-?-?- ROS Constitutional Constitutional: Reports systems reviewed and no addt'l complaints, except as documented; Denies fever(s) Cardiovascular Cardiovascular: Reports systems reviewed and no addt'l complaints, except as documented Respiratory/Chest Respiratory/Chest: Reports systems reviewed and no addt'l complaints, except as documented Gastrointestinal Gastrointestinal: Reports abdominal pain, nausea and vomiting; Denies cramping or diarrhea Genitourinary Genitourinary: Reports movement Details: present; Denies burning urination, contractions, difficulty urinating, dysuria, flank pain, hematuria, urinary frequency, urinary hesitancy, urinary incontinence or urinary urgency Musculoskeletal Musculoskeletal: Reports back pain Integumentary Integumentary: Reports systems reviewed and no addt'l complaints, except as documented Neurologic Neurologic: Reports systems reviewed and no addt'l complaints, except as documented and headache(s); Denies confusion or dizziness Psychiatric Psychiatric: Reports systems reviewed and no addt'l complaints, except as documented Endocrine Endocrinology: Reports systems reviewed and no addt'l complaints, except as documented Hematologic/Lymphatic Hematologic/Lymphatic: Reports systems reviewed and no addt'l complaints, except as documented Allergic/Immunologic Allergic/Immunologic: Reports systems reviewed and no addt'l complaints, except as documented Physical Exam Const General Appearance: cooperative and comfortable Neck full ROM Resp normal respiratory effort, no retractions and no use of accessory muscles Cardio regular rate and regular rhythm GI soft to palpation, non-tender and non-distended Inspection: gravid Palpation: rebound tenderness present epigastric quandrants Back/Spine no CVA tenderness, normal ROM and normal to inspection Extremity normal to inspection and full ROM Neuro moves all extremities Psych mental status grossly normal NST FHR Rate Baby A Baseline: 135 Variability:: Moderate Accelerations:: 15 x 15 Decelerations:: None NST Reactive:: Yes FHR Category:: Category I Uterine Activity:: irregular Assessment & Plan (1) Abdominal pain affecting : COMMENT: 03/25-wp for evaluation PLAN: CBC, T/S CMP Lipase/ Amylase Urine culture Ultrasound of RUQ Plan reviewed with Dr Osorio, agrees with plan. (2) Gestational diabetes mellitus (GDM): COMMENT: nutrition consult, testing 4x daily, delivery by 40 weeks. IOL set up for 03/30/23 at 7am pit/art (3) Single umbilical artery: COMMENT: 2 vessel. nl echo. growth every 4 wks weekly NST at 36 weeks. 32wgrowth 62%-36 week growth 47% (4) Rubella non-immune status, antepartum: COMMENT: Update MMR post (5) Obesity affecting : COMMENT: 1 TM GCT encouraged healthy weight gain (6) Supervision of high risk , antepartum: COMMENT: [id number], ZEYNEP 03/30/23, boy Maximus Tito (7) : QUALIFIERS: Weeks of gestation: 38 weeks Qualified Code(s): Z3A.38 - 38 weeks gestation of COMMENT: GBS neg, declined genetic & carrier testing, 10/03/22 abn GCT, ordered 3 Hr GTT, 10/10 nl GTT. Charges/Coding Multi Select Codes Visit Charges Office Visit/Consults: 19239 OV L3 Est Urinary/Genital Urinary/Genital CPT Codes: 40109-52 non-stress test Interp
[2023-03-25] MEDS: Amox/Clavulanate 500 MG Tablet PO (09:09)
== END 2023-03-25 10:25 | disposition home or self-care (01) ==
LOC: WPOUT 22:58 → WP 22:58
PROVIDERS: Referring Provider Advanced Practice Midwife; Visit Provider Advanced Practice Midwife
DX: O99.891 Other specified diseases and conditions complicating pregnancy (principal); O24.419 Gestational diabetes mellitus in pregnancy, unspecified control; O99.213 Obesity complicating pregnancy, third trimester; R10.11 Right upper quadrant pain; R10.12 Left upper quadrant pain; E66.9 Obesity, unspecified; Z3A.38 38 weeks gestation of pregnancy
CPT/HCPCS: 96365; 96375; 96366 ×10; 36415; 59025; 59050; 76705; 80053; 81002; 82150; 83690; 85025; 86850; 86900; 86901; 87086; 87088; 99221; J7120; G0378; J2405

== ENCOUNTER 2023-03-30 07:00 | Inpatient (IN) | payer BC, SELFPAY ==
[2023-03-30] VITALS (84 sets, daily range): BP systolic 84–138; BP diastolic 51–91; PULSE 66–156; TEMP 35.9–37.3; O2SAT 80–100; BMI 34.0
[2023-03-30] MEDS: Lactated Ringers 1,000 ML 50 ML IV (07:56)
[2023-03-30 08:11] LABS: Absolute Lymphocyte Count 1.38 X10^3/uL (0.83-4.51); Absolute Neutrophil Count 6.1 X10^3/uL (2.0-7.7); Basophil# 0.04 X10^3/uL; Basophil% 0.5 % (0-1); Eosinophil# 0.06 X10^3/uL; Eosinophils% 0.7 % (0-5); Hematocrit 36.4 % (37-47); Hemoglobin 12.2 g/dL (12.0-15.0); Lymphocyte # 1.38 X10^3/ul (0.83-4.51); Mean Corp Hgb Conc 33.5 g/dL (32-36); Mean Corpuscular Hgb 28.1 pg (27.0-32.0); Mean Corpuscular Volume 83.9 fL (81-99); Mean Platelet Vol. 8.9 fl (6.2-12.0); Monocyte# 0.82 X10^3/uL; Monocyte% 9.5 % (0-10); NRBC Flagged by Analyzer 0 % (0-5); Neutrophil # 6.11 X10^3/uL (2.7-7.7); Neutrophil % 71.1 % (47-70); Platelet Count 268 K/mm3 (150-450); RBC Distribution Width CV 13.5 % (11.6-14.6); RBC Distribution Width SD 41.5 fl (35.1-43.9); Red Blood Count 4.34 M/mm3 (4.2-5.4); White Blood Count 8.6 K/mm3 (4.4-11.0)
[2023-03-30] MEDS: Oxytocin 15 Units/NS 250ml 15 UNITS/250 ML IV.SOLN 2 UNITS IV (08:26)
[2023-03-30 08:31] LABS: Bedside Glucose 81 mg/dL (74-106)
--- NOTE | 2023-03-30 08:31 | HP.PCM.OB_ITS ---
HPI - General General Date of Admission: 03/30/23 HPI Narrative NATHANAEL MOSCOSO, is a 27 F who presents for IOL secondary to GDM no vb lof good fm no regular ctx Maternal Data Information ZEYNEP Calculator Estimated Delivery Date Method Current WG Current Estimate 03/30/23 LMP (Certain) 40w 0d Other Estimates 04/04/23 Ultrasound #1 39w 2d PFSH PFSH Medical History Amenorrhea Anovulatory cycle Single umbilical artery Home Medications PNV no.151-iron 27 mg-folic 800 mcg-omega3 260 nz-eaz-ofy-fish capsule 1 cap PO DAILY 08/29/22 [History Last Taken 03/29/23] blood sugar diagnostic (Blood Glucose Test strips) #50 ea 01/12/23 [Rx Last Taken Unknown] blood-glucose meter #1 ea 01/12/23 [Rx Last Taken Unknown] lancets #100 ea 01/12/23 [Rx Last Taken Unknown] blood-glucose sensor (Dexcom G6 Sensor device) #3 ea 02/06/23 [Rx Last Taken Unknown] amoxicillin 500 mg-potassium clavulanate 125 mg tablet (Augmentin) 1 tab PO TID UTI 5 days #15 tabs 03/25/23 [Rx Last Taken 03/29/23] Allergy/AdvReac Type Severity Reaction Status Date / Time No Known Allergies Allergy Verified 03/28/23 08:32 Surgical History S/P ACL repair Social History adopted: No household members: spouse housing: house current occupational status: employed 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 current occupational exposures/hazards: No pets and animals: Yes (Not managing litterbox ) pets and animals: cat(s), dog(s) and farm animals history of recent travel: No sexually active: Yes Smoking Status: Never smoker alcohol intake: never substance use type: does not use well-balanced diet: daily or most days caffeine: No eating out: 1-3 times/week during the past year weight has: remained stable what type of physical activity do you participate in: none wilfred/jew: None seatbelt use: always do you feel safe at home: Yes 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 1 Elective abortions Hx Para 0 Spontaneous abortions Hx # Term Pregnancies Ectopic pregnancies Hx # Pregnancies Multiple births # of living children 0 Visit Details Expected Delivery Route/Plan Labor Preferences- CB/BF classes: signed up February 17 labor support person: Tito labor intervention preferences: [] pain management options preferred: [] cut cord/dad catch: [] : [] PP control planned: [] discussed possible routes of delivery and associated risks: [] special requests: [] Plans Covid status: discussed Flu vaccine: discussed Tdap vaccine: discussed benefits, thinking about recieving vaccine Rhogam: [] LARC form signed:completed Problem list reviewed and updated with the most current plan of care details and appropriate orders placed. Relevant counseling for the gestational age provided. Continue routine care and follow up unless otherwise noted in visit notes/problem list details OB Flowsheet Initial Weight: Not Recorded Date -?-?-?-?-?-?-?-?-?-?-?-?- EGA Weight BP Urine Prot -?-?-?-?-?-?-?-?-?-?-?-?- Glucose FHR FuHt Pres Dilation -?-?-?-?-?-?-?-?-?-?-?-?- Effaced St Visit Note 08/31/22 -?-?-?-?-?-?-?-?-?-?-?-?- 9w 6d 192 lb 136/88 -?-?-?-?-?-?-?-?-?-?-?-?- 185 -?-?-?-?-?-?-?-?-?-?-?-?- SM- some bleedin g postcoital, 2mm suchorionic hematoma resolving seen. CRL cons with LMP 09/29/22 -?-?-?-?-?-?-?-?-?-?-?-?- 14w 0d 196 lb 124/81 Negative -?-?-?-?-?-?-?-?-?-?-?-?- Negative 160 -?-?-?-?-?-?-?-?-?-?-?-?- SM- no vb lof 10/26/22 -?-?-?-?-?-?-?-?-?-?-?-?- 17w 6d 200 lb 6 oz 126/72 Nega tive -?-?-?-?-?-?-?-?-?-?-?-?- Negative 154 -?-?-?-?-?-?-?-?-?-?-?-?- MH-No VB, LOF. N o FM yet. Denies concerns. 11/20/22 -?-?-?-?-?-?-?-?-?-?-?-?- 21w 3d 204 lb 2 oz 118/70 Nega tive -?--?-?-?-?-?-?-?-?-?-?-?- Negative 148 -?-?-?-?-?-?-?-?-?-?-?-?- -No VB, LOF. G ood FM. echo and growth US is 12/0112/18/22 -?-?-?-?-?-?-?-?-?-?-?-?- 25w 3d 212 lb 6 oz 115/73 Nega tive -?-?-?-?-?-?-?-?-?-?-?-?- Negative 140 26 -?-?-?-?-?-?-?-?-?-?-?-?- SM- no vb lof go od fm no regular ctx 01/08/23 -?-?-?-?-?-?-?-?-?-?-?-?- 28w 3d 216 lb 125/82 Negative -?-?-?-?-?-?-?-?-?-?-?-?- Negative 153 29 -?-?-?-?-?-?-?-?-?-?-?-?- LC- no vb/lof/ct x. good fm. larc signed. awaiting glucose results. LC- no vb/lof/ctx. good fm. larc signed.1hr GCT 162, 3 hour GTT ordered. obtaining growth scan today for 2 VC 01/22/23 -?-?-?-?-?-?-?-?-?-?-?-?- 30w 3d 213 lb 8 oz 113/78 -?-?-?-?-?-?-?-?-?-?-?-?- 140 31 -?-?-?-?-?-?-?-?-?-?-?-?- SM- no vb lof go od fm no regular ctx discussed BS testing 02/06/23 -?-?-?-?-?-?-?-?-?-?-?-?- 32w 4d 215 lb 4 oz 119/80 Nega tive -?-?-?-?-?-?-?-?-?-?-?-?- Negative 140 34 -?-?-?-?-?-?-?-?-?-?-?-?- SM- no vb lof go od fm no regular ctx discussed possibly getting a dexcom reader. BS controlled 02/22/23 -?-?-?-?-?-?-?-?-?-?-?-?- 34w 6d 215 lb 2 oz 120/78 Nega tive -?-?-?-?-?-?-?-?-?-?-?-?- Negative 34 -?-?-?-?-?-?-?-?-?-?-?-?- JV- fasting leve ls in the 70's, 2 hr pp all normal but 2 in the 130's. overall doing well. Next ultrasound 03/06. 03/05/23 -?-?-?-?-?-?-?-?-?-?-?-?- 36w 3d 216 lb 6 oz 115/71 -?-?-?-?-?-?-?-?-?-?-?-?- 130 37 Cephalic -?-?-?-?-?-?-?-?-?-?-?-?- SM- no vb lof go od fm no regular ctx gbs today 03/15/23 -?-?-?-?-?-?-?-?-?-?-?-?- 37w 6d 216 lb 8 oz 114/79 Nega tive -?-?-?-?-?-?-?-?-?-?-?-?- Negative 140 38 Cephalic 2 -?-?-?-?-?-?-?-?-?-?-?-?- 30 -2 JV- reacti vce nst. glucose log normal, normal growth on ultrasound. no indication per [facility] to deliver before 40 weeks at this time. continue monitoring and deliver at 40 weeks unless other problems arise. 03/20/23 -?-?-?-?-?-?-?-?-?-?-?--?- 38w 4d 213 lb 2 oz 110/75 Nega tive -?-?-?-?-?-?-?-?-?-?-?-?- Negative 120 38 Cephalic -?-?-?-?-?-?-?-?-?-?-?-?- JV- reactive nst . plan is for delivery at 40 weeks and continued nsts. growth is appropriate (done for 2 vessel cord) glucose levels do not exceed 120 pp) 03/28/23 -?-?-?-?-?-?-?-?-?-?-?-?- 39w 5d 211 lb 6 oz 116/80 Nega tive -?-?-?-?-?-?-?-?-?-?-?-?- Negative 120 39 Cephalic 2 -?-?-?-?-?-?-?-?-?-?-?-?- 60 -2 LC- reacti ve nst. consent signed for IOL on sunday reviewed IOL process. membrane swept today.all fastings and pp in range NST FHR Rate Baby A Baseline: 130 Variability:: Moderate Accelerations:: 15 x 15 Decelerations:: None NST Reactive:: Yes FHR Category:: Category I Uterine Activity:: irregular ROS Constitutional Constitutional: Reports systems reviewed and no addt'l complaints, except as documented Eyes Eyes: Denies change in vision ENT HEENT: Reports systems reviewed and no addt'l complaints, except as documented; Denies headache(s) Cardiovascular Cardiovascular: Reports systems reviewed and no addt'l complaints, except as documented; Denies chest pain or dyspnea Respiratory/Chest Respiratory/Chest: Reports systems reviewed and no addt'l complaints, except as documented Gastrointestinal Gastrointestinal: Reports systems reviewed and no addt'l complaints, except as documented; Denies abdominal pain Genitourinary Genitourinary: Reports systems reviewed and no addt'l complaints, except as documented, contractions Details: present (irregular) and movement Details: present; Denies dysuria or genital lesions Musculoskeletal Musculoskeletal: Reports systems reviewed and no addt'l complaints, except as documented Neurologic Neurologic: Reports systems reviewed and no addt'l complaints, except as documented Endocrine Endocrinology: Reports systems reviewed and no addt'l complaints, except as documented Vital Signs Vital Signs Vital Signs: 03/30/23 07:23 03/30/23 07:23 03/30/23 07:28 Temperature Temperature Source Pulse Rate 89 84 Blood Pressure BP Systolic BP Diastolic Pulse Ox 97 03/30/23 07:28 03/30/23 07:33 03/30/23 07:33 Temperature Temperature Source Pulse Rate 85 Blood Pressure BP Systolic BP Diastolic Pulse Ox 97 97 03/30/23 07:40 03/30/23 08:04 03/30/23 08:05 Temperature Temperature Source Temporal Pulse Rate Blood Pressure 112/70 BP Systolic 112 BP Diastolic 70 Pulse Ox 82 03/30/23 08:05 03/30/23 08:04 Temperature 98.6 F Temperature Source Pulse Rate 81 Blood Pressure BP Systolic BP Diastolic Pulse Ox Weight Weight: 210 lb 6.4 oz Body Mass Index (BMI) 34.0 Physical Exam Const alert, oriented x3, no apparent distress and healthy appearing HEENT normocephalic and moist oral mucous membranes Head and Scalp: atraumatic Neck full ROM, no lymphadenopathy, supple and thyroid normal General: trachea midline Lymph Lymphatic: no lymphadenopathy noted Chest inspection of chest normal Resp normal respiratory effort Cardio regular rate GI normal to inspection, nondistended, normoactive bowel sounds, soft to palpation and non-tender Inspection: gravid external exam normal Manual OB Exam: estimated gestational size appropriate, presentation cephalic, dilated, effaced and station Extremity normal to inspection General Extremity: Negative for edema Skin no rashes or lesions noted Neuro no focal motor deficits and deep tendon reflexes 2+ bilaterally Motor Exam: strength 5/5 throughout and clonus absent Psych mental status grossly normal Labs Labs Labs: Blood Type A POSITIVE Antibody Screen NEGATIVE Hct 36.4 % (37-47) L Hgb 12.2 g/dL (12.0-15.0) Pap Smear Negative Syphilis Total Ab Non-reactive Rubella IgG Antibody Equiv (Nonreactive) Hep Bs Antigen Non-Reactive (Nonreactive) Chlamydia DNA ([facility]) Negative (Negative) Neisseria gonorrhoeae DNA ([facility]) Negative (Negative) HIV 1&2 Antibody Non-Reactive (Nonreactive) Glucose 1 Hr 50 gm 162 mg/dL (70-140) H Assessment & Plan (1) Gestational diabetes mellitus (GDM): COMMENT: nutrition consult, testing 4x daily, delivery by 40 weeks. IOL set up for 03/30/23 at 7am pit/art (2) Single umbilical artery: COMMENT: 2 vessel. nl echo. growth every 4 wks weekly NST at 36 weeks. 32wgrowth 62%-36 week growth 47% (3) Rubella non-immune status, antepartum: COMMENT: Update MMR post (4) Obesity affecting : COMMENT: 1 TM GCT encouraged healthy weight gain (5) Supervision of high risk , antepartum: COMMENT: [id number], ZEYNEP 03/30/23, boy Maximus Tito (6) : QUALIFIERS: Weeks of gestation: 39 weeks Qualified Code(s): Z3A.39 - 39 weeks gestation of COMMENT: GBS neg, declined genetic & carrier testing, 10/03/22 abn GCT, ordered 3 Hr GTT, 10/10 nl GTT. (7) Encounter for induction of labor: COMMENT: pit and fb PLAN: Plan Patient presents IOL, plan management for with fb pit. Pain management: plans epidural. GBS negative. Management of any complications: gdm check bs per protocol I have reviewed the PFSH and made any clinically relevant updates.
[2023-03-30 08:44] LABS: Syphilis Antibodies Non-reactive
[2023-03-30] MEDS: 0.9% Normal Saline Single 100 ML IV.SOLN. INTRA-UTER (08:44)
[2023-03-30 10:10] LABS: Bedside Glucose 77 mg/dL (74-106)
[2023-03-30] MEDS: LACTATED RINGERS 500 ML 999 ML IV ×3 (12:19→15:27)
[2023-03-30] MEDS: fentaNYL-bupivacaine (epidural) 100 ML BAG EPIDURAL (13:43)
[2023-03-30 14:31] LABS: Bedside Glucose 84 mg/dL (74-106)
[2023-03-30 15:07] LABS: Bedside Glucose 81 mg/dL (74-106)
[2023-03-30 16:06] LABS: Bedside Glucose 79 mg/dL (74-106)
[2023-03-30 17:33] LABS: Bedside Glucose 84 mg/dL (74-106)
--- NOTE | 2023-03-30 18:56 | OP.PCM_ITS ---
Assessment & Plan (1) Encounter for induction of labor: COMMENT: pit and fb (2) Gestational diabetes mellitus (GDM): COMMENT: nutrition consult, testing 4x daily, delivery by 40 weeks. IOL set up for 03/30/23 at 7am pit/art (3) Rubella non-immune status, antepartum: COMMENT: Update MMR post (4) Obesity affecting : COMMENT: 1 TM GCT encouraged healthy weight gain (5) Supervision of high risk , antepartum: COMMENT: [id number], ZEYNEP 03/30/23, boy Maximus Tito (6) : QUALIFIERS: Weeks of gestation: 39 weeks Qualified Code(s): Z3A.39 - 39 weeks gestation of COMMENT: GBS neg, declined genetic & carrier testing, 10/03/22 abn GCT, ordered 3 Hr GTT, 10/10 nl GTT. (7) Single umbilical artery: COMMENT: 2 vessel. nl echo. growth every 4 wks weekly NST at 36 weeks. 32wgrowth 62%-36 week growth 47% Maternal Data Information ZEYNEP Calculator Estimated Delivery Date Method Current WG Current Estimate 03/30/23 LMP (Certain) 40w 0d Other Estimates 04/04/23 Ultrasound #1 39w 2d Final ZEYNEP: 03/30/23 Gestational age: 40 weeks Vaginal Delivery Maternal Presentation Maternal Presentation: Medically Indicated Induction Type of Induction: Pitocin, Art Bulb and Amniotomy Operative Information Date of Procedure: 03/30/23 Pre-Operative Diagnosis: 27 y/o @ 40 weeks 0 days, IOL for single umbilical artery and gestational diabetes Post-Operative Diagnosis: 27 y/o @ 40 weeks 0 days, IOL for single umbilical artery and gestational diabetes Surgery / Procedure Performed: Spontaneous Vaginal Delivery Type of Anesthesia: Epidural Drain: Art to straight drain Estimated Blood Loss: 100cc Findings Description of Procedure: Patient began pushing and delivered the head in the MIRTHA presentation. The head was delivered atraumatically. The anterior and posterior shoulders delivered without complication followed by the rest of the and the infant was placed on the maternal abdomen. Delayed cord clamping was employed for approximately 60 seconds. Cord was clamped and cut and gentle traction was applied to the cord and the placenta delivered spontaneously immediately following it was noted to be intact with three-vessel cord. The perineum and vagina were inspected and noted to have no laceration. EBL was 100 cc. Patient and tolerated delivery well. Presentation: Vertex Amniotic Membrane Rupture Type: Artificial Amniotic Fluid Description: Clear Placental Delivery Description: Spontaneous Placenta Disposition: [facility] Cord Vessel Description: 2 Vessels A Gender: Male (1 minute): 8 (5 minute): 9 Delayed Cord Clamping: Yes Post Vaginal Delivery Medications Given After Delivery: IV Pitocin Episiotomy Description: None Laceration: None Complication Complications: None Multi Select Codes Urinary/Genital Urinary/Genital CPT Codes: 34527 Vaginal Delivery [facility]
[2023-03-30] MEDS: Oxytocin 15 Units/NS 250ml 15 UNITS/250 ML IV.SOLN 83 UNITS IV (19:23)
[2023-03-30 20:52] LABS: Bedside Glucose 89 mg/dL (74-106)
[2023-03-30] MEDS: Amox/Clavulanate 500 MG Tablet PO (21:42)
[2023-03-31 00:37] VITALS: BP 98/53; PULSE 83; RESP 16; TEMP 36.7
[2023-03-31 03:48] VITALS: BP 105/56; PULSE 92; RESP 16; TEMP 36.6
[2023-03-31] MEDS: Amox/Clavulanate 500 MG Tablet PO ×2 (06:07→15:13)
[2023-03-31 06:30] LABS: Bedside Glucose 73 mg/dL (74-106)
[2023-03-31] MEDS: Naproxen 500 MG Tablet PO (09:21)
[2023-03-31 09:22] VITALS: BP 113/70; PULSE 79; RESP 16; TEMP 36.6; O2SAT 98
--- NOTE | 2023-03-31 10:35 | DCINST_ITS ---
Discharge Instructions Diet Discharge Diet: No restrictions Activity Discharge Activity: Return to Normal Activity, May Not Drive (while taking narcotic pain medications.) and May Shower May resume sexual activity in: 4-6 weeks Dressing / Incision Call your doctor if your incision/area has: Continuous Slow Oozing, Sudden Increased Bleeding, Increased Pain/ Swelling, Increased Redness and Foul Smelling Discharge Follow Up Care Please Follow Up With: Dotty Hernandez, When: Call [phone] to make an appointment with your doctor in 6 weeks. If you had elevated blood pressure or 4th degree laceration, you will need to be seen in 2 weeks. Test Results: Test results from this visit will be discussed in further detail at your follow- up appointment, if applicable. Discharge Plan Admission Admit Date/Time: 03/30/23 07:00 Primary Reason for Your Visit: vaginal delivery Attending Provider: Dotty Hernandez Primary Care Provider: Jess Martin Primary Discharge Orders/Prescriptions Prescriptions: New naproxen 500 mg tablet 500 mg PO BID PRN (Reason: pain) Qty: 30 0RF Continued [id number] 27 mg iron-800 mcg-260 mg capsule 1 cap PO DAILY (DME) Dexcom G6 Sensor Device See Rx Instructions .Route Qty: 3 8RF Rx Instructions: As directed amoxicillin-pot clavulanate [Augmentin] 500-125 mg tablet 1 tab PO TID 5 Days Qty: 15 0RF (DME) blood-glucose meter Misc See Rx Instructions .MEDSUPPLY Qty: 1 0RF Rx Instructions: As directed- Test fasting and 2 hours after meals (DME) lancets Misc See Rx Instructions .MEDSUPPLY Qty: 100 6RF Rx Instructions: As directed (DME) Blood Glucose Test Strip See Rx Instructions .Route Qty: 50 10RF Rx Instructions: As directed-fasting & 2 HR PP Referrals / Follow Up: Care Physician,No Primary [Primary Care Provider] - Disposition Disposition (needs filled in before D/C Order can be placed): Home, Self Care
--- NOTE | 2023-03-31 10:38 | PCM.PN.OB ---
Subjective Subjective Patient doing well without complaints. Tolerating PO. Ambulating and voiding without difficulty. Feeding well. Denies chest pain, shortness of breath, calf pain/swelling, fevers, chills, lightheadedness. Objective Data Objective Data Vital Signs: Vital Signs Temp Pulse Resp BP Pulse Ox O2 Del Method 97.9 F 79 16 113/70 98 Room Air 03/31/23 09:22 03/31/23 09:22 03/31/23 09:22 03/31/23 09:22 03/31/23 09:22 03/31/23 09:22 Oxygen Delivery Method Room Air Weight: 210 lb 6.4 oz Body Mass Index (BMI) 34.0 Intake & Output: Intake and Output for Last 24 Hours 03/29/23 03/30/23 03/31/23 23:59 23:59 23:59 Intake Total 2950.64 / 2950.64 Output Total 985 / 985 1000 / 1000 Balance 1965.64 / 1965.64 -1000 / -1000 Lab / Micro Data 03/30/23 07:56 Labs: Laboratory Results - last 24 hr 03/30/23 13:20: POC Glucose 84 03/30/23 14:37: POC Glucose 81 03/30/23 15:41: POC Glucose 79 03/30/23 17:05: POC Glucose 84 03/30/23 20:27: POC Glucose 89 03/31/23 06:09: POC Glucose 73 L ROS Constitutional Constitutional: Denies chills, fatigue, fever(s), poor appetite or weakness Eyes Eyes: Denies blurry vision, change in vision, seeing flashes or spots in vision ENT HEENT: Denies dizziness, headache(s), loss taste/smell or sore throat Cardiovascular Cardiovascular: Denies chest pain, dizziness, dyspnea, irregular heart rhythm, palpitations or rapid heart rate Respiratory/Chest Respiratory/Chest: Denies chest tightness, cough, dyspnea or breast pain Gastrointestinal Gastrointestinal: Denies abdominal pain, constipation or vomiting Genitourinary Genitourinary: Denies dysuria or flank pain Musculoskeletal Musculoskeletal: Denies difficulty walking, joint pain, limited range of motion or numbness Neurologic Neurologic: Denies abnormal movements, abnormal speech, dizziness, numbness, seizure-like activity or syncope Psychiatric Psychiatric: Denies anxiety, behavioral changes, change in appetite, confusion, depression or suicidal thoughts Physical Exam Const alert, oriented x3 and no apparent distress General Appearance: cooperative and comfortable Resp normal respiratory effort Cardio regular rate GI normal to inspection, nondistended, normoactive bowel sounds GI Narrative: uterus is firm below umbilicus Palpation: soft Back/Spine no CVA tenderness and thoraco-lumbar ROM normal Extremity normal to inspection, no clubbing, cyanosis or edema, no calf tenderness and no pedal edema Psych mental status grossly normal, thought process normal, cooperative, affect normal, speech normal, activity/motor behavior normal, denies homicidal ideation and denies suicidal ideation Assessment & Plan (1) Gestational diabetes mellitus (GDM): COMMENT: nutrition consult, testing 4x daily, delivery by 40 weeks. IOL set up for 03/30/23 at 7am reny/rubens (2) Obesity affecting : COMMENT: 1 TM GCT encouraged healthy weight gain (3) Status post vaginal delivery: PLAN: Plan s/p PPD # 1, delivered at 7 pm last night 1. routine post delivery care 2. breast feeding- support given 3. rh positive 4. rubella non- immune- vaccinate before dc if patient agrees 5. plan for dc to home tomorrow
[2023-03-31 11:28] VITALS: BP 104/80; PULSE 98; RESP 16; TEMP 36.2; O2SAT 98
[2023-03-31 17:21] VITALS: BP 104/69; PULSE 73; RESP 16; TEMP 36.8
[2023-03-31 20:13] VITALS: BP 113/71; PULSE 72; RESP 18; TEMP 36.5
[2023-04-01 01:47] VITALS: BP 100/61; PULSE 70; RESP 18
[2023-04-01] MEDS: Amox/Clavulanate 500 MG Tablet PO (05:57)
[2023-04-01 08:30] VITALS: BP 120/74; PULSE 77; RESP 16; TEMP 37.1; O2SAT 98
--- NOTE | 2023-04-01 09:26 | PCM.PN.OB ---
Subjective Subjective Patient doing well without complaints. Tolerating PO. Ambulating and voiding without difficulty. Feeding well. Denies chest pain, shortness of breath, calf pain/swelling, fevers, chills, lightheadedness. Objective Data Objective Data Vital Signs: Vital Signs Temp Pulse Resp BP Pulse Ox O2 Del Method 98.7 F 77 16 120/74 98 Room Air 04/01/23 08:30 04/01/23 08:30 04/01/23 08:30 04/01/23 08:30 04/01/23 08:30 04/01/23 08:30 Oxygen Delivery Method Room Air Weight: 210 lb 6.4 oz Body Mass Index (BMI) 34.0 Intake & Output: Intake and Output for Last 24 Hours 03/30/23 03/31/23 04/01/23 23:59 23:59 23:59 Intake Total 2950.64 / 2950.64 Output Total 985 / 985 1000 / 1000 Balance 1965.64 / 1965.64 -1000 / -1000 Lab / Micro Data 03/30/23 07:56 ROS Constitutional Constitutional: Denies chills, fatigue, fever(s), poor appetite or weakness Eyes Eyes: Denies blurry vision, change in vision, seeing flashes or spots in vision ENT HEENT: Denies dizziness, headache(s), loss taste/smell or sore throat Cardiovascular Cardiovascular: Denies chest pain, dizziness, dyspnea, irregular heart rhythm, palpitations or rapid heart rate Respiratory/Chest Respiratory/Chest: Denies chest tightness, cough, dyspnea or breast pain Gastrointestinal Gastrointestinal: Denies abdominal pain, constipation or vomiting Genitourinary Genitourinary: Denies dysuria or flank pain Musculoskeletal Musculoskeletal: Denies difficulty walking, joint pain, limited range of motion or numbness Neurologic Neurologic: Denies abnormal movements, abnormal speech, dizziness, numbness, seizure-like activity or syncope Psychiatric Psychiatric: Denies anxiety, behavioral changes, change in appetite, confusion, depression or suicidal thoughts Physical Exam Const alert, oriented x3 and no apparent distress General Appearance: cooperative and comfortable Resp normal respiratory effort Cardio regular rate GI normal to inspection, nondistended, normoactive bowel sounds GI Narrative: uterus is firm below umbilicus Palpation: soft Back/Spine no CVA tenderness and thoraco-lumbar ROM normal Extremity normal to inspection, no clubbing, cyanosis or edema, no calf tenderness and no pedal edema Psych mental status grossly normal, thought process normal, cooperative, affect normal, speech normal, activity/motor behavior normal, denies homicidal ideation and denies suicidal ideation Assessment & Plan (1) Status post vaginal delivery: (2) Gestational diabetes mellitus (GDM): COMMENT: nutrition consult, testing 4x daily, delivery by 40 weeks. IOL set up for 03/30/23 at 7am pit/art (3) Rubella non-immune status, antepartum: COMMENT: Update MMR post (4) Obesity affecting : COMMENT: 1 TM GCT encouraged healthy weight gain (5) Supervision of high risk , antepartum: COMMENT: [id number], ZEYNEP 03/30/23, boy Maximus Tito (6) : QUALIFIERS: Weeks of gestation: 39 weeks Qualified Code(s): Z3A.39 - 39 weeks gestation of COMMENT: GBS neg, declined genetic & carrier testing, 10/03/22 abn GCT, ordered 3 Hr GTT, 10/10 nl GTT. (7) Single umbilical artery: COMMENT: 2 vessel. nl echo. growth every 4 wks weekly NST at 36 weeks. 32wgrowth 62%-36 week growth 47% PLAN: Plan s/p PPD # 2 1. routine post delivery care 2. breast feeding- support given 3. rh positive 4. rubella non- immune, vaccinated since delivery 5. dc to home today
== END 2023-04-01 11:14 | disposition home or self-care (01) | DRG 807 ==
PROVIDERS: Registered Nurse; Admitting Provider Obstetrics & Gynecology; Referring Provider Obstetrics & Gynecology; Visit Provider Obstetrics & Gynecology
DX: O24.420 Gestational diabetes mellitus in childbirth, diet controlled (principal); Z37.0 Single live birth; O43.193 Other malformation of placenta, third trimester; O99.214 Obesity complicating childbirth; Z3A.40 40 weeks gestation of pregnancy
CPT/HCPCS: 59025; 59050; 82962; 85025; 86780; 86850; 86900; 86901; 99221; J7120; G0378

== ENCOUNTER → 2023-05-09 | Outpatient (CLI) | payer BC, SELFPAY | END | disposition home or self-care (01) | PROVIDERS: Visit Provider Obstetrics & Gynecology | DX: N76.4 Abscess of vulva (principal) | CPT/HCPCS: 87070; 87077; 87186; 87205 ==

== ENCOUNTER → 2024-10-24 | Outpatient (CLI) | payer BC, SELFPAY ==
[2024-10-24 12:16] LABS: Absolute Lymphocyte Count 1.45 X10^3/uL (0.83-4.51); Absolute Neutrophil Count 7.3 X10^3/uL (2.0-7.7); Basophil# 0.04 X10^3/uL; Basophil% 0.4 % (0-1); Eosinophil# 0.28 X10^3/uL; Eosinophils% 2.9 % (0-5); Hematocrit 39.6 % (37-47); Hemoglobin 13.1 g/dL (12.0-15.0); Lymphocyte # 1.45 X10^3/ul (0.83-4.51); Lymphocyte % 14.8 % (19-41); Mean Corp Hgb Conc 33.1 g/dL (32-36); Mean Corpuscular Hgb 27.3 pg (27.0-32.0); Mean Corpuscular Volume 82.7 fL (81-99); Mean Platelet Vol. 8.6 fl (6.2-12.0); Monocyte# 0.67 X10^3/uL; Monocyte% 6.9 % (0-10); NRBC Flagged by Analyzer 0 % (0-5); Neutrophil # 7.27 X10^3/uL (2.7-7.7); Neutrophil % 74.3 % (47-70); Platelet Count 358 K/mm3 (150-450); RBC Distribution Width CV 13.2 % (11.6-14.6); RBC Distribution Width SD 39.6 fl (35.1-43.9); Red Blood Count 4.79 M/mm3 (4.2-5.4); White Blood Count 9.8 K/mm3 (4.4-11.0)
[2024-10-24 13:12] LABS: HIV - WCH Non-Reactive (Nonreactive); Hepatitis B Surface Antigen Non-Reactive (Nonreactive); Hepatitis C Antibody Non-Reactive (Nonreactive); Rubella IgG Equiv (Nonreactive); Syphilis Antibodies Non-reactive
[2024-10-24 13:35] LABS: Hemoglobin A1c 5.2 % (3.8-5.6)
[2024-10-29 22:06] LABS: Chlamydia By Nucleic Acid AMP Negative (Negative); Gonococcus By Nucleic Acid AMP Negative (Negative)
== END | disposition home or self-care (01) ==
LOC: BWCLAB 09:22
PROVIDERS: Referring Provider Advanced Practice Midwife; Visit Provider Advanced Practice Midwife
DX: O99.210 Obesity complicating pregnancy, unspecified trimester (principal); Z3A.00 Weeks of gestation of pregnancy not specified; O09.90 Supervision of high risk pregnancy, unspecified, unspecified trimester
CPT/HCPCS: 36415; 83036; 85025; 86703; 86762; 86780; 86803; 86850; 86900; 86901; 87086; 87340; 87491; 87591

== ENCOUNTER → 2025-02-18 | Outpatient (CLI) | payer BC, SELFPAY ==
[2025-02-18 12:23] LABS: Absolute Lymphocyte Count 1.57 X10^3/uL (0.83-4.51); Absolute Neutrophil Count 7.5 X10^3/uL (2.0-7.7); Basophil# 0.06 X10^3/uL; Basophil% 0.6 % (0-1); Eosinophil# 0.19 X10^3/uL; Eosinophils% 1.9 % (0-5); Hematocrit 37.2 % (37-47); Hemoglobin 12.3 g/dL (12.0-15.0); Lymphocyte # 1.57 X10^3/ul (0.83-4.51); Lymphocyte % 15.5 % (19-41); Mean Corp Hgb Conc 33.1 g/dL (32-36); Mean Corpuscular Hgb 28.2 pg (27.0-32.0); Mean Corpuscular Volume 85.3 fL (81-99); Monocyte% 5.9 % (0-10); NRBC Flagged by Analyzer 0 % (0-5); Neutrophil # 7.47 X10^3/uL (2.7-7.7); Platelet Count 324 K/mm3 (150-450); RBC Distribution Width CV 13.5 % (11.6-14.6); RBC Distribution Width SD 41.3 fl (35.1-43.9); Red Blood Count 4.36 M/mm3 (4.2-5.4); White Blood Count 10.1 K/mm3 (4.4-11.0)
[2025-02-18 13:52] LABS: Glucose Challenge Gest 1H 50g 112 mg/dL (70-140); HIV Nonreactive (Nonreactive); Syphilis Antibodies Nonreactive (Nonreactive)
== END | disposition home or self-care (01) ==
PROVIDERS: Obstetrics & Gynecology; Referring Provider Advanced Practice Midwife; Visit Provider Advanced Practice Midwife
DX: O09.92 Supervision of high risk pregnancy, unspecified, second trimester (principal); Z13.1 Encounter for screening for diabetes mellitus; Z3A.00 Weeks of gestation of pregnancy not specified
CPT/HCPCS: 36415; 82950; 85025; 86703; 86780

== ENCOUNTER → 2025-04-17 | Outpatient (CLI) | payer BC, SELFPAY | END | disposition home or self-care (01) | LOC: LABSPEC 16:13 | PROVIDERS: Referring Provider Obstetrics & Gynecology; Visit Provider Obstetrics & Gynecology | DX: O09.93 Supervision of high risk pregnancy, unspecified, third trimester (principal); Z3A.00 Weeks of gestation of pregnancy not specified | CPT/HCPCS: 87077; 87081; 87186 ==

== ENCOUNTER 2025-05-19 05:16 | Inpatient (IN) | payer BC, SELFPAY ==
[2025-05-19] VITALS (42 sets, daily range): BP systolic 107–152; BP diastolic 58–95; PULSE 77–110; RESP 15–16; TEMP 36.2–37; O2SAT 97–99; BMI 34.7
--- OUTSIDE RECORDS SUMMARY | 2025-05-19 04:26 | XMS RPT_ITS | CCD ---
Author Organization [facility] Care Team Providers Care Sql Analyst Name Role Phone Care Physician, No Primary Primary Care Provider Unavailable Care Physician, No Primary Referring Provider Un available Dr. Goldie Ng Attending Provider 1(330 ) Care Physician, No Primary Primary Care Provider Unavailable Care Physician, No Primary Referring Provider Un available Dr. Goldie Ng Attending Provider 1(330 ) Kvng MARKETING WRITER, JUNIOR Kang Attending Provider 1(330 ) FUNMI Basurto Attending Provider 1(330) Care Physician, No Primary Primary Care Provider Unavailable Care Physician, No Primary Referring Provider Un available Dr. Goldie Ng Attending Provider 1(330 ) Dr. Dotty Hernandez Attending Provider [phone] FUNMI Nieves Attending Provider 1(330) FUNMI Nieves Referring Provider 1(330) FUNMI Nieves Other Provider 1(330) Dr. Dotty Hernandez Admit Provider Dr. Dotty Hernandez Referring Provider 1( 30) Dr. Dotty Hernandez Other Provider Care Physician, No Primary Primary Care Provider Unavailable Care Physician, No Primary Referring Provider Un available Dr. Goldie Ng Attending Provider 1(330 ) FUNMI Basurto Attending Provider 1(330) NO PRIMARY CARE, MD Primary Care Unavailable ZIYAD BENNETT Attending Unavailable GOLDIE NG Referring Unavailabl e Care Physician, No Primary Primary Care Provider Unavailable Care Physician, No Primary Referring Provider Un available Tammi Nieves CNM Attending Provider [phone] Ezequiel CHOUDHARY, Tammi Referring Provider [phone] Jo PERDOMO, Dr. Amezcua Attending Provider [phone] Kvng GÓMEZ-CPearl Attending Provider 1(330) Dr. Dotty Hernandez DO Attending Provider Care Physician, No Primary Primary Care Provider Unavailable Care Physician, No Primary Referring Provider Un available Ezequiel CHOUDHARY, Tammi Attending Provider 1(330) Ezequiel CNM, Tammi Referring Provider [phone] Care Physician, No Primary Primary Care Provider Unavailable Care Physician, No Primary Referring Provider Un available Jo PERDOMO, Dr. Amezcua Attending Provider Dr. Goldie Ng MD Referring Provider [phone] Care Physician, No Primary Primary Care Provider Unavailable Care Physician, No Primary Referring Provider Un available Kvng GÓMEZ-CPearl Attending Provider [phone] Care Physician, No Primary Primary Care Unava ilable Goldie Ng Referring Unavailable Goldie Ng Attending Unavailable Care Physician, No Primary Primary Care Unava ilable Care Physician, No Primary Referring Unava ilable Goldie Ng Attending Unavailable Care Physician, No Primary Primary Care Unava ilable Care Physician, No Primary Referring Unava ilable Goldie Ng Attending Unavailable Care Physician, No Primary Primary Care Unava ilable Care Physician, No Primary Referring Unava ilable Tammi Nieves Attending Unavailable Care Physician, No Primary Primary Care Unava ilable Care Physician, No Primary Referring Unava ilable Dotty Hernandez [facility] Care Physician, No Primary Primary Care Unava ilable Care Physician, No Primary Referring Unava ilable Paty Romero Attending Unavailable Care Physician, No Primary Primary Care Unava ilable Care Physician, No Primary Referring Unava ilable Goldie Ng Attending Unavailable Care Physician, No Primary Primary Care Unava ilable Care Physician, No Primary Referring Unava ilable Tammi Nieves Attending Unavailable Care Physician, No Primary Primary Care Unava ilable Care Physician, No Primary Referring Unava ilable Pearl Calderon NP Attending Unavailable Care Physician, No Primary Primary Care Unava ilable Tammi Nieves Attending Unavailable Care Physician, No Primary Referring Unava ilable Care Physician, No Primary Referring Unava ilable Care Physician, No Primary Primary Care Unava ilable Kvng MARKETING WRITER, Pearl Attending Unavailable Care Physician, No Primary Primary Care Unava ilable Dotty Hernandez Attending Unavailabl e Care Physician, No Primary Referring Unava ilable Care Physician, No Primary Primary Care Unava ilable Care Physician, No Primary Referring Unava ilable Tammi Nieves Attending Unavailable Care Physician, No Primary Primary Care Unava ilable Care Physician, No Primary Referring Unava ilable Goldie Ng Attending Unavailable Care Physician, No Primary Referring Unava ilable Care Physician, No Primary Primary Care Unava ilable Goldie Ng Attending Unavailable Care Physician, No Primary Referring Unava ilable Care Physician, No Primary Primary Care Unava ilable Dotty Hernandez [facility] Care Physician, No Primary Primary Care Unava ilable Tammi Nieves Attending Unavailable Ezequiel, Tammi Referring Unavailable Care Physician, No Primary Primary Care Unava ilable Tammi Nieves Attending Unavailable Tammi Nieves Referring Unavailable Medications Current Medications Medication Drug Class(es) Dates Sig (Normalized) Sig (Original) [place]-3 Fatty Acids 1,000 mg capsule (12 sources) Start: 10-09-2024 take 1 capsule by mouth once daily [place]-3 Fatty Acids 1,000 mg capsule Active 2000 mg PO daily October 09, 2024 1:00am [id number]-Hkki-Tw-F0-J faye-Epa-Fish (7 sources) Start: 08-29-2022 take 1 capsule by mouth once daily Nqf838-Vnow-Fo-E6- Xrj-Nni-Mpqr Active 1 CAP PO DAILY August 29, 2022 1:00am Start: 08-29-2022 Qni488-Pgzn-Qa -R4-Qzr-Ahh-Fish Active CAP PO August 29, 2022 1:00am Start: 08-29-2022 Ajw370-Zita-Ia -U9-Icw-Dwd-Fish Active CAP PO August 29, 2022 12:00am Hwh594-Xmqg-Vm-C8-Sja-Ghe-Ud sh 27 mg iron-800 mcg-260 mg capsule (12 sources) Start: 08-29-2022 Ycm779-Glwj-Vr-F7-Ckv-Sdm-Yi sh 27 mg iron-800 mcg-260 mg capsule Active 1 NMA PO DAILY August 29, 2022 1:00am Start: 08-29-2022 Pgl099-Tqrf-Gg -X3-Oys-Tjf-Fish 27 mg iron-800 mcg-260 mg capsule Active 1 NMA PO DAILY August 29, 2022 1:00am Completed/Discontinued Medications Medication Drug Class(es) Dates Sig (Normalized) Sig (Original) acetaminophen 325 mg / oxyCODONE hydrochloride 5 mg oral tablet (19 sources) Opioid Agonist Start: 04-21-2020 End: 04-26-2020 take 1-2 tablets by mouth every six hours as needed for pain Oxycodone-Acetaminop hen 1 TABLET tablet Discontinued 1 - 2 {tbl} PO EVERY 6 HOURS NEEDED as needed for Pain 25 02April 21, 2020 April 25, 2020 12:00am April 26, 2020 12:02am Postoperative pain Other acute postprocedural pain stop all other tylenol and narcotics Start: 04-21-2020 End: 04-26-2020 take 1-2 tablets by mouth every six hours as needed Oxycodone-Acetaminophen Discontinued 1 - 2 TABLET PO EVERY 6 HOURS NEEDED 28 April 21, 2020 April 26, 2020 12:02am stop all other tylenol and narcotics amoxicillin 875 mg / clavulanate 125 mg oral tablet (20 sources) Penicillin-class Antibacterial Start: 05-09-2023 End: 05-21-2024 Amoxicillin-Pot Clavulanate 875-125 mg tablet Discontinued 1 {tbl} PO TWICE A DAY 14 0 May 09, 2023 12:00am May 21, 2024 11:25am Start: 05-09-2023 take 1 tablet by sahara twice daily Amoxicillin-Pot Clavulanate Active 1 TABLET PO TWICE A DAY 14 May 09, 2023 12:00am Start: 03-25-2023 End: 05-09-2023 Amoxicillin-Pot Clavulanate (Augmentin) 500-125 mg tablet Discontinued 1 {tbl} PO THREE TIMES A DAY 15 5 0 March 25, 2023 12:00am May 09, 2023 1:37pm Supervision of high risk , antepartum Urinary tract infection affecting , antepartum Supervision of high risk , unspecified, unspecified trimester Unspecified infection of urinary tract in , unspecified trimester UTI Blood-Glucose Meter (3 sources) Start: 01-12-2023 End: 05-09-2023 Blood-Glucose Meter Disconti nued 0 .MEDSUPPLY 1 January 12, 2023 12:00am May 09, 2023 1:38pm As directed- Test fasting and 2 hours after meals Start: 01-12-2023 Blood-Glucose Meter Active 0 .MEDSUPPLY 1 January 12, 2023 12:00am As directed- Test fasting and 2 hours after meals Blood-Glucose Meter misc (12 sources) Start: 01-12-2023 End: 05-09-2023 Blood-Glucose Meter misc Dis continued 0 .MEDSUPPLY 1 0 January 12, 2023 12:00am May 09, 2023 1:38pm As directed- Test fasting and 2 hours after meals Start: 01-12-2023 End: 05-09-2023 Blood-Glucose Meter misc Dis continued 0 .MEDSUPPLY 1 January 12, 2023 12:00am May 09, 2023 1:38pm As directed- Test fasting and 2 hours after meals Blood-Glucose Sensor (Dexcom G6 Sensor) device (15 sources) Start: 02-06-2023 End: 05-09-2023 Blood-Glucose Sensor (Dexcom G6 Sensor) device Discontinued 0 .Route 3 February 06, 2023 12:00am May 09, 2023 1:38pm As directed Start: 02-06-2023 End: 05-09-2023 Blood-Glucose Sensor (Dexcom G6 Sensor) device Discontinued 0 .Route February 06, 2023 12:00am May 09, 2023 1:38pm As directed Start: 02-06-2023 Blood-Glucose Sensor (Dexcom G6 Sensor) device Active 0 .Route 3 February 06, 2023 12:00am As directed cholecalciferol 0.05 mg oral capsule (13 sources) Vitamin D Start: 05-09-2023 End: 10-09-2024 take 1 capsule by mouth once daily Cholecalciferol (Vitamin D3) 50 mcg (2,000 unit) capsule Discontinued 50 ug PO DAILY May 09, 2023 12:00am October 09, 2024 9:22am clomiPHENE citrate 50 mg oral tablet (19 sources) Estrogen Agonist/Antago nist Start: 11-29-2021 End: 08-29-2022 take 3 tablets by mouth once daily Clomiphene Citrate 50 mg tablet Discontinued 50 mg PO DAILY 5 5 2 November 29, 2021 1:00am August 29, 2022 11:30am take on day 3 of cycle x 5 days Norgestimate-Ethinyl Estradiol (19 sources) Progestin, Estrogen Start: 11-25-2019 End: 11-10-2021 Norgestimate-Ethinyl Estradiol 0.25-35 mg-mcg tablet Discontinued 1 {tbl} PO DAILY November 25, 2019 1:00am November 10, 2021 10:39am Start: 11-25-2019 End: 11-10-2021 take 1 tablet by mouth once daily Norgestimate-Ethinyl Estradiol Discontinued 1 TABLET PO DAILY November 25, 2019 1:00am November 10, 2021 10:39am Start: 11-25-2019 End: 11-10-2021 take 1 tablet by mouth once daily Norgestimate-Ethinyl Estradiol Discontinued 1 TABLET PO DAILY November 25, 2019 12:00am November 10, 2021 9:39am ibuprofen 400 mg oral tablet (19 sources) Nonsteroidal Anti-inflammatory Drug Start: 05-07-2014 End: 11-10-2021 take 1 tablet by mouth every six hours as needed Ibuprofen 400 MG tablet Discontinued 400 mg PO EVERY 6 HOURS NEEDED May 07, 2014 12:00am November 10, 2021 10:38am medroxyPROGESTERone acetate 5 mg oral tablet (19 sources) Progestin Start: 11-10-2021 End: 08-29-2022 take 1 tablet by mouth once daily Medroxyprogesterone 5 mg tablet Discontinued 5 mg PO DAILY 7 8 November 10, 2021 1:00am August 29, 2022 11:30am naproxen 500 mg oral tablet (14 sources) Nonsteroidal Anti-inflammatory Drug Start: 03-31-2023 End: 05-09-2023 take 1 tablet by mouth twice daily as needed for pain Naproxen 500 mg tablet Discontinued 500 mg PO TWICE A DAY as needed for pain 30 0 March 31, 2023 12:00am May 09, 2023 1:37pm ondansetron 8 mg oral tablet (19 sources) Serotonin-3 Receptor Antagonist Start: 04-21-2020 End: 06-01-2020 take 1 tablet by mouth every eight hours as needed for nausea Ondansetron Hcl 8 MG tablet Discontinued 8 mg PO EVERY 8 HOURS NEEDED as needed for Nausea 20 0 April 21, 2020 12:00am June 01, 2020 8:24am polymyxin b 65073 unt/ml / trimethoprim 1 mg/ml ophthalmic solution (12 sources) Dihydrofolate Reductase Inhibitor Antibacterial, Polymyxin-class Antibacterial Start: 11-22-2023 End: 11-29-2023 Polymyxin B Sulf-Trimethoprim 10,000 unit- 1 mg/mL drops Discontinued 1 NMA OPHTHALMIC Q3H 10 7 0 November 22, 2023 1:00am November 28, 2023 1:00am November 29, 2023 1:05am while awake; do not exceed 6 doses in 24 hours Problems Active Problems Problem Classification Problem Date Documented Date Episodic/Chronic Bacterial infection; unspecified site (20 sources) Bacteria present; Translations: [Streptococcus, group B, as the cause of diseases classified elsewhere] Onset: 05-14-2025 04-20-2025 Episodic Comment on above: PCN in labor Cardiac and circulatory congenital anomalies (20 sources) Single umbilical artery; Translations: [Congenital absence and hypoplasia of umbilical artery] 01-08-2023 Chronic Comment on above: 2 vessel. nl e cho. growth every 4 wksweekly NST at 36 weeks. 32wgrowth 62%-36 week growth 47% Diabetes or abnormal glucose tolerance complicating ; childbirth; or the puerperium (20 sources) Impaired glucose tolerance in ; Translations: [Abnormal glucose complicating ] Onset: 05-14-2025 01-08-2023 Episodic Comment on above: 1 hour GCT 162, 3 ho ur GTT ordered nutrition consult, t esting 4x daily, delivery by 40 weeks.IOL set up for 03/30/23 at 7am pit/art Female infertility (19 sources) Anovulation; Translations: [Female infertility associated with anovulation] 08-29-2022 Chronic Inflammation; infection of eye (except that caused by tuberculosis or sexually transmitteddisease) (12 sources) Acute infectious conjunctivitis; Translations: [Unspecified acute conjunctivitis, bilateral] 10-09-2024 Episodic Inflammatory diseases of female pelvic organs (14 sources) Abscess of labia; Translations: [Abscess of vulva] 05-09-2023 Episodic Menstrual disorders (20 sources) Amenorrhea; Translations: [Amenorrhea, unspecified] Onset: 05-21-2024 08-29-2022 Chronic Other complications of (20 sources) Maternal obesity complicating , childbirth and the puerperium, antepartum; Translations: [Obesity complicating , unspecified trimester] 09-29-2022 Chronic Comment on above: HgbA1c 1 TM GCT encouraged healthy weight gain Other complications of (20 sources) Obesity complicating , unspecified trimester; Translations: [Obesity complicating , childbirth, or the puerperium, unspecified as to episode of care or not applicable] Onset: 11-25-2024 Chronic Other complications of (1 source) Obesity complicating , second trimester; Translations: [Obesity complicating , second trimester] Onset: 05-14-2025 Chronic Other complications of (20 sources) High risk ; Translations: [Supervision of high risk , unspecified, unspecified trimester] 08-29-2022 Episodic Comment on above: PRR, , ZEYNEP , PC Maximus, Tito [id number], ZEYNEP 03/30/23 , boy Maximus Tito PRR, , ZEYNEP , surprise PC Maximus, Tito Other complications of (20 sources) Rubella non-immune; Translations: [Supervision of other high risk pregnancies, unspecified trimester] 10-04-2022 Episodic Comment on above: Update MMR post part um(pt did not get booster after last ) Other complications of (20 sources) Supervision of other high risk pregnancies, unspecified trimester; Translations: [Other specified complications of , antepartum condition or complication] Onset: 05-14-2025 10-26-2022 Episodic Other complications of (15 sources) Abdominal pain in ; Translations: [Other specified related conditions, unspecified trimester] 03-25-2023 Episodic Comment on above: for evaluati on Other complications of (15 sources) Urinary tract infection in ; Translations: [Unspecified infection of urinary tract in , unspecified trimester] 03-25-2023 Episodic Comment on above: asymptomatic at 39 w eeks Augmentin Other complications of (5 sources) Other specified related conditions, unspecified trimester; Translations: [Other specified complications of , unspecified as to episode of care or not applicable] 03-25-2023 Episodic Other complications of (2 sources) Unspecified infection of urinary tract in , unspecified trimester; Translations: [Infections of genitourinary tract in , antepartum condition or complication] 03-28-2023 Episodic Other complications of (20 sources) History of gestational diabetes mellitus; Translations: [Supervision of with other poor reproductive or obstetric history, unspecified trimester] 12-24-2024 Episodic Comment on above: HgbA1c nl w/NOB Other complications of (1 source) Supervision of high risk , unspecified, third trimester; Translations: [Supervision of high risk , unspecified, third trimester] Onset: 05-14-2025 Episodic Other complications of (1 source) Supervision of with other poor reproductive or obstetric history, unspecified trimester; Translations: [Supervision of with other poor reproductive or obstetric history, unspecified trimester] Onset: 05-14-2025 Episodic Other complications of (1 source) Supervision of high risk , unspecified, second trimester; Translations: [Supervision of high risk , unspecified, second trimester] Onset: 02-24-2025 Episodic Other female genital disorders (17 sources) History of past delivery; Translations: [Status post vaginal delivery] 03-31-2023 Episodic Other nutritional; endocrine; and metabolic disorders (19 sources) Body mass index 30+ - obesity; Translations: [Body mass index (BMI) 30.0-30.9, adult] 09-29-2022 Chronic Other nutritional; endocrine; and metabolic disorders (3 sources) Body mass index (BMI) 30.0-30.9, adult; Translations: [Body Mass Index 30.0-30.9, adult] Chronic Other and delivery including normal (20 sources) ; Translations: [Encounter for supervision of normal , unspecified, unspecified trimester] Episodic Comment on above: pit and fb declined NIPT & Swain ier testing. nl anatomy. GBS neg, declined ge netic & carrier testing, 10/03/22 abn GCT, ordered 3 Hr GTT, 10/10 nl GTT. Update MMR post part um(pt did not get booster after last ) Residual codes; unclassified (1 source) 40 weeks gestation of ; Translations: [40 weeks gestation of ] Onset: 05-14-2025 Episodic Residual codes; unclassified (1 source) 39 weeks gestation of ; Translations: [39 weeks gestation of ] Onset: 05-07-2025 Episodic Residual codes; unclassified (1 source) 38 weeks gestation of ; Translations: [38 weeks gestation of ] Onset: 04-30-2025 Episodic Residual codes; unclassified (1 source) 37 weeks gestation of ; Translations: [37 weeks gestation of ] Onset: 04-23-2025 Episodic Residual codes; unclassified (1 source) 36 weeks gestation of ; Translations: [36 weeks gestation of ] Onset: 04-17-2025 Episodic Residual codes; unclassified (1 source) 27 weeks gestation of ; Translations: [27 weeks gestation of ] Onset: 02-18-2025 Episodic Unclassified (1 source) Other underimmunization status; Translations: [Other underimmunization status] Onset: 05-14-2025 Past or Other Problems Problem Classification Problem Date Documented Da te Episodic/Chronic Other complications of (20 sources) Supervision of high risk , unspecified, unspecified trimester; Translations: [Supervision of unspecified high-risk ] Onset: 10-24-2024 Episodic Residual codes; unclassified (1 source) 11 weeks gestation of ; Translations: [11 weeks gestation of ] Onset: 10-24-2024 Episodic Results Test Name Value Interpretation Reference Range Facility Chief Contract Officer Office Visit Reporton 05-18-2025 Chief Contract Officer Office Visit Report [facility] [address], [address] [place] [address] OFFICE VISIT Date of Service: 05/18/25 MR#: [id number] Acct: [id number] Name: NATHANAEL MOSCOSO Klever Rep #: [id number] : 1995 Provider: FUNMI Doe ams Age/Sex: 30/F Location: [facility] [place] Status: Signed Intake Vital Signs 05/14/25 09:27 05/18/25 08:37 Height 5 ft 6.5 in 5 ft 6.5 in Weight: 216 lb 4 oz BMI 34.4 BP 121/84 H Intake Visit Reasons: MEMBRANE SWEEP Chief Complaint: Membrane Sweep Veneer Layer Required: No Is patient in pain?: No Allergies No Known Allergies Allergy (Verified 05/18/25 08:34) Medications ???Medication ???Instructions ???Recorded ???Confirmed ???Type PNV no.151-iron 27 mg-folic 800 1 cap PO DAILY 08/29/22 05/18/25 History mcg-omega3 260 kn-pgn-xay-fish capsule omega-3 fatty acids 1,000 mg 2,000 mg PO QDAY 10/09/24 05/18/25 History capsule Last Menstrual Period: 08/07/24 : No PFSH PFSH Medical History UTI (urinary tract infection) Gallstone Gestational diabetes Single umbilical artery Anovulatory cycle Amenorrhea Surgical History S/P ACL repair Social History adopted: No household members: spouse and children housing: house number of children: 1 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 occupational exposures/hazards: No pets and animals: Yes (Not managing litterbox ) pets and animals: cat(s), dog(s) and farm animals history of recent travel: No sexually active: Yes Smoking Status: Never smoker alcohol intake: never substance use type: does not use well-balanced diet: daily or most days caffeine: No eating out: rarely or never during the past year weight has: decreased > 10 lbs what type of physical activity do you participate in: walking frequency: 3-4 times per week duration: 30-45 minutes/day wilfred/sabianism: None seatbelt use: always do you feel safe at home: Yes 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 Date Name GA/Weeks Outcome Route Bth Weight Infant Gen Labor Lgth Anesthesia Del Locatn Provider FOB 03/30/23 Maximus 40 live - full term 8lbs 3oz Male epidural [facility] Fredy Arreolash Delivery Date: 03/30/23 Last Updated by: Cinda Angeles Gestational diabetes, single umbilical artery HPI MEMBRANE SWEEP Details: NATHANAEL MOSCOSO is a 30 year old who presents for routine OB visit. OB Visit ZEYNEP Calculator Estimated Delivery Date Method Current WG Current Estimate 05/14/25 LMP (Certain) 40w 4d Other Estimates 05/20/25 Ultrasound #1 39w 5d Expected Delivery Route/Plan Labor Preferences- CB/BF classes: no labor support person: Tito labor intervention preferences: [] pain management options preferred: epidural cut cord/dad catch: cord : yes PP control planned: discussed discussed possible routes of delivery and associated risks: [] special requests: [] Specific Issue/Plans Covid status: [] Flu vaccine: [] Tdap vaccine: declines Rhogam: NA LARC form signed: yes . movement and labor precautions reviewed. Problem list reviewed and updated with the most current plan of care details and appropriate orders placed. Relevant counseling for the gestational age provided. Continue routine care and follow up unless otherwise noted in visit notes/problem list details Initial Weight: Not Recorded Date -???-???-???-???-???-?? ?-???-???-???-???-???-? ??- EGA Weight BP Urine Prot -???-???-???-???-???-?? ?-???-???-???-???-???-? ??- Glucose FHR FuHt Pres Dilation -???-???-???-???-???-?? ?-???-???-???-???-???-? ??- Effaced St Visit Note 10/24/24 -???-???-???-???-???-?? ?-???-???-???-???-???-? ??- 11w 1d 184 lb 116/70 -???-???-???-???-???-?? ?-???-???-???-???-???-? ??- 181 -???-???-???-???-???-?? ?-???-???-???-???-???-? ??- KW-CRL cons with dates. declines NIPT. 11/26/24 -???-???-???-???-???-?? ?-???-???-???-???-???-? ??- 15w 6d 189 lb 4 oz 129/78 -???-???-???-???-???-?? ?-???-???-???-???-???-? ??- 150 -???-???-???-???-???-?? ?-???-???-???-???-???-? ??- SM- no vb cr amping 12/24/24 -???-???-???-???-???-?? ?-???-???-???-???-???-? ??- 19w 6d 192 lb 6 oz 120/72 Negative -???-???-???-???-???-?? ?-???-???-???-???-???-? ??- Negative 156 -???-???-???-???-???-?? ?-???-???-???-???-???-? ??- -No VB. Violet herrera (more content not included)... Normal [facility] - Chemistry and C hemistry - challengeOrdered By: Goldie Ng on 05-14-2025 Glucose Ql (U) Negative [facility] - UrinalysisOrder ed By: Goldie Ng on 05-14-2025 Protein Ql (U) Negative [facility] Chief Contract Officer Office Visit Reporton 05-14-2025 Chief Contract Officer Office Visit Report [facility] [address], [address] [place] [address] OFFICE VISIT Date of Service: 05/14/25 MR#: [id number] Acct: [id number] Name: NATHANAEL MOSCOSO Rep #: [id number] : 1995 Provider: Dr. Goldie elizondo MD Age/Sex: 30/F Location: [facility] [place] Status: Signed Intake Vital Signs 03/04/25 08:52 05/07/25 10:19 05/14/25 09:24 05/14/25 09:27 Height 5 ft 6.5 in 5 ft 6.5 in 5 ft 6.5 in 5 ft 6.5 in Weight: 215 lb 7 oz BMI 34.2 BP 128/84 H Intake Visit Reasons: 40wk ob *HAPPY DUE DATE Veneer Layer Required: No Is patient in pain?: No Allergies No Known Allergies Allergy (Verified 05/14/25 09:24) Medications ???Medication ???Instructions ???Recorded ???Confirmed ???Type PNV no.151-iron 27 mg-folic 800 1 cap PO DAILY 08/29/22 05/14/25 History mcg-omega3 260 ro-akv-xpa-fish capsule omega-3 fatty acids 1,000 mg 2,000 mg PO QDAY 10/09/24 05/14/25 History capsule Last Menstrual Period: 08/07/24 Zika: Zika virus screening: Negative : No PFSH PFSH Medical History UTI (urinary tract infection) Gallstone Gestational diabetes Single umbilical artery Anovulatory cycle Amenorrhea Surgical History S/P ACL repair Social History adopted: No household members: spouse and children housing: house number of children: 1 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 occupational exposures/hazards: No pets and animals: Yes (Not managing litterbox ) pets and animals: cat(s), dog(s) and farm animals history of recent travel: No sexually active: Yes Smoking Status: Never smoker alcohol intake: never substance use type: does not use well-balanced diet: daily or most days caffeine: No eating out: rarely or never during the past year weight has: decreased > 10 lbs what type of physical activity do you participate in: walking frequency: 3-4 times per week duration: 30-45 minutes/day wilfred/sabianism: None seatbelt use: always do you feel safe at home: Yes 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 Date Name GA/Weeks Outcome Route Bth Weight Infant Gen Labor Lgth Anesthesia Del Locatn Provider FOB 03/30/23 Maximus 40 live - full term 8lbs 3oz Male epidural [facility] Fredy Hernandez [facility] Delivery Date: 03/30/23 Last Updated by: Cinda Angeles Gestational diabetes, single umbilical artery HPI 40wk ob *HAPPY DUE DATE Details: NATHANAEL MOSCOSO is a 30 year old who presents for routine OB visit. OB Visit ZEYNEP Calculator Estimated Delivery Date Method Current WG Current Estimate 05/14/25 LMP (Certain) 40w 0d Other Estimates 05/20/25 Ultrasound #1 39w 1d Expected Delivery Route/Plan Labor Preferences- CB/BF classes: no labor support person: Tito labor intervention preferences: [] pain management options preferred: epidural cut cord/dad catch: cord : yes PP control planned: discussed discussed possible routes of delivery and associated risks: [] special requests: [] Specific Issue/Plans Covid status: [] Flu vaccine: [] Tdap vaccine: declines Rhogam: NA LARC form signed: yes . movement and labor precautions reviewed. Problem list reviewed and updated with the most current plan of care details and appropriate orders placed. Relevant counseling for the gestational age provided. Continue routine care and follow up unless otherwise noted in visit notes/problem list details Initial Weight: Not Recorded Date -???-???-???-???-???-?? ?-???-???-???-???-???-? ??- EGA Weight BP Urine Prot -???-???-???-???-???-?? ?-???-???-???-???-???-? ??- Glucose FHR FuHt Pres Dilation -???-???-???-???-???-?? ?-???-???-???-???-???-? ??- Effaced St Visit Note 10/24/24 -???-???-???-???-???-?? ?-???-???-???-???-???-? ??- 11w 1d 184 lb 116/70 -???-???-???-???-???-?? ?-???-???-???-???-???-? ??- 181 -???-???-???-???-???-?? ?-???-???-???-???-???-? ??- KW-CRL cons with dates. declines NIPT. 11/26/24 -???-???-???-???-???-?? ?-???-???-???-???-???-? ??- 15w 6d 189 lb 4 oz 129/78 -???-???-???-???-???-?? ?-???-???-???-???-???-? ??- 150 -???-???-???-???-???-?? ?-???-???-???-???-???-? ??- SM- no vb cr amping 12/24/24 -???-???-???-???-???-?? ?-???-???-???-???-???-? ??- 19w 6d 192 lb 6 oz 120/72 Negative -???-???-???-???-???-?? ?-???-???-???-???-? (more content not included)... [facility] - Chemistry and C hemistry - challengeOrdered By: Dotty Olson on 05-07-2025 Glucose Ql (U) Negative [facility] - UrinalysisOrder ed By: Dotty Olson on 05-07-2025 Protein Ql (U) Negative [facility] Chief Contract Officer Office Visit Reporton 05-07-2025 Chief Contract Officer Office Visit Report [facility]'s [address], [address] [place] [address] OFFICE VISIT Date of Service: 05/07/25 MR#: [id number] Acct: [id number] Name: NATHANAEL MOSCOSO Klever Rep #: [id number] : 1995 Provider: Dr. Dotty Will DO Age/Sex: 30/F Location: [facility] [place] Status: Signed Intake Vital Signs 03/04/25 08:52 04/30/25 11:24 05/07/25 10:19 05/07/25 10:19 Height 5 ft 6.5 in 5 ft 6.5 in 5 ft 6.5 in 5 ft 6.5 in Weight: 212 lb 8 oz BMI 33.7 BP 126/82 H Intake Visit Reasons: 39wk ob Veneer Layer Required: No Is patient in pain?: No Allergies No Known Allergies Allergy (Verified 05/07/25 10:18) Medications ???Medication ???Instructions ???Recorded ???Confirmed ???Type PNV no.151-iron 27 mg-folic 800 1 cap PO DAILY 08/29/22 05/07/25 History mcg-omega3 260 mj-dyh-ire-fish capsule omega-3 fatty acids 1,000 mg 2,000 mg PO QDAY 10/09/24 05/07/25 History capsule Last Menstrual Period: 08/07/24 Zika: Zika virus screening: Negative : No PFSH PFSH Medical History UTI (urinary tract infection) Gallstone Gestational diabetes Single umbilical artery Anovulatory cycle Amenorrhea Surgical History S/P ACL repair Social History adopted: No household members: spouse and children housing: house number of children: 1 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 occupational exposures/hazards: No pets and animals: Yes (Not managing litterbox ) pets and animals: cat(s), dog(s) and farm animals history of recent travel: No sexually active: Yes Smoking Status: Never smoker alcohol intake: never substance use type: does not use well-balanced diet: daily or most days caffeine: No eating out: rarely or never during the past year weight has: decreased > 10 lbs what type of physical activity do you participate in: walking frequency: 3-4 times per week duration: 30-45 minutes/day wilfred/sabianism: None seatbelt use: always do you feel safe at home: Yes 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 Date Name GA/Weeks Outcome Route Bth Weight Gen Labor Lgth Anesthesia Del Locatn Provider FOB 03/30/23 Maximus 40 live - full term 8lbs 3oz Male epidural [facility] Fredy Hernandez [employer] Delivery Date: 03/30/23 Last Updated by: Cinda Angeles Gestational diabetes, single umbilical artery HPI 39wk ob Details: NATHANAEL MOSCOSO is a 30 year old who presents for routine OB visit. OB Visit ZEYNEP Calculator Estimated Delivery Date Method Current WG Current Estimate 05/14/25 LMP (Certain) 39w 0d Other Estimates 05/20/25 Ultrasound #1 38w 1d Expected Delivery Route/Plan Labor Preferences- CB/BF classes: no labor support person: Tito labor intervention preferences: [] pain management options preferred: epidural cut cord/dad catch: cord : yes PP control planned: discussed discussed possible routes of delivery and associated risks: [] special requests: [] Specific Issue/Plans Covid status: [] Flu vaccine: [] Tdap vaccine: declines Rhogam: NA LARC form signed: yes . movement and labor precautions reviewed. Problem list reviewed and updated with the most current plan of care details and appropriate orders placed. Relevant counseling for the gestational age provided. Continue routine care and follow up unless otherwise noted in visit notes/problem list details Initial Weight: Not Recorded Date -???-???-???-???-???-?? ?-???-???-???-???-???-? ??- EGA Weight BP Urine Prot -???-???-???-???-???-?? ?-???-???-???-???-???-? ??- Glucose FHR FuHt Pres Dilation -???-???-???-???-???-?? ?-???-???-???-???-???-? ??- Effaced St Visit Note 10/24/24 -???-???-???-???-???-?? ?-???-???-???-???-???-? ??- 11w 1d 184 lb 116/70 -???-???-???-???-???-?? ?-???-???-???-???-???-? ??- 181 -???-???-???-???-???-?? ?-???-???-???-???-???-? ??- KW-CRL cons with dates. declines NIPT. 11/26/24 -???-???-???-???-???-?? ?-???-???-???-???-???-? ??- 15w 6d 189 lb 4 oz 129/78 -???-???-???-???-???-?? ?-???-???-???-???-???-? ??- 150 -???-???-???-???-???-?? ?-???-???-???-???-???-? ??- SM- no vb cr amping 12/24/24 -???-???-???-???-???-?? ?-???-???-???-???-???-? ??- 19w 6d 192 lb 6 oz 120/72 Negative -???-???-???-???-???-?? ?-???-???-???-???-???-? ??- Negative 156 (more content not included)... Normal [facility] - Chemistry and C hemistry - challengeOrdered By: Tammi Nieves on 04-30-2025 Glucose Ql (U) Negative [facility] - UrinalysisOrder ed By: Tammi Nieves on 04-30-2025 Protein Ql (U) Negative [facility] Chief Contract Officer Office Visit Reporton 04-30-2025 Chief Contract Officer Office Visit Report [facility], [facility] [address] [place] [address] OFFICE VISIT Date of Service: 04/30/25 MR#: [id number] Acct: [id number] Name: NATHANAEL MOSCOSO Rep #: [id number] : 1995 Provider: FUNMI Doe ams Age/Sex: 30/F Location: [facility] [place] Status: Signed Intake Vital Signs 03/04/25 08:52 04/23/25 09:39 04/30/25 11:24 Height 5 ft 6.5 in 5 ft 6.5 in 5 ft 6.5 in Weight: 215 lb 8 oz BMI 34.2 BP 123/82 H Intake Visit Reasons: 38wk ob Chief Complaint: 38wk ob Veneer Layer Required: No Is patient in pain?: No Allergies No Known Allergies Allergy (Verified 04/30/25 11:23) Medications ???Medication ???Instructions ???Recorded ???Confirmed ???Type PNV no.151-iron 27 mg-folic 800 1 cap PO DAILY 08/29/22 04/30/25 History mcg-omega3 260 cw-zxw-hyl-fish capsule omega-3 fatty acids 1,000 mg 2,000 mg PO QDAY 10/09/24 04/30/25 History capsule Last Menstrual Period: 08/07/24 : No PFSH PFSH Medical History UTI (urinary tract infection) Gallstone Gestational diabetes Single umbilical artery Anovulatory cycle Amenorrhea Surgical History S/P ACL repair Social History adopted: No household members: spouse and children housing: house number of children: 1 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 occupational exposures/hazards: No pets and animals: Yes (Not managing litterbox ) pets and animals: cat(s), dog(s) and farm animals history of recent travel: No sexually active: Yes Smoking Status: Never smoker alcohol intake: never substance use type: does not use well-balanced diet: daily or most days caffeine: No eating out: rarely or never during the past year weight has: decreased > 10 lbs what type of physical activity do you participate in: walking frequency: 3-4 times per week duration: 30-45 minutes/day wilfred/sabianism: None seatbelt use: always do you feel safe at home: Yes 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 Date Name GA/Weeks Outcome Route Bth Weight Gen Labor Lgth Anesthesia Del Locatn Provider FOB 03/30/23 Maximus 40 live - full term 8lbs 3oz Male epidural [facility] Fredy Hernandez [employer] Delivery Date: 03/30/23 Last Updated by: Cinda Angeles Gestational diabetes, single umbilical artery HPI 38wk ob Details: NATHANAEL MOSCOSO is a 30 year old who presents for routine OB visit. OB Visit ZEYNEP Calculator Estimated Delivery Date Method Current WG Current Estimate 05/14/25 LMP (Certain) 38w 0d Other Estimates 05/20/25 Ultrasound #1 37w 1d Expected Delivery Route/Plan Labor Preferences- CB/BF classes: no labor support person: Tito labor intervention preferences: [] pain management options preferred: epidural cut cord/dad catch: cord : yes PP control planned: discussed discussed possible routes of delivery and associated risks: [] special requests: [] Specific Issue/Plans Covid status: [] Flu vaccine: [] Tdap vaccine: declines Rhogam: NA LARC form signed: yes . movement and labor precautions reviewed. Problem list reviewed and updated with the most current plan of care details and appropriate orders placed. Relevant counseling for the gestational age provided. Continue routine care and follow up unless otherwise noted in visit notes/problem list details Initial Weight: Not Recorded Date -???-???-???-???-???-?? ?-???-???-???-???-???-? ??- EGA Weight BP Urine Prot -???-???-???-???-???-?? ?-???-???-???-???-???-? ??- Glucose FHR FuHt Pres Dilation -???-???-???-???-???-?? ?-???-???-???-???-???-? ??- Effaced St Visit Note 10/24/24 -???-???-???-???-???-?? ?-???-???-???-???-???-? ??- 11w 1d 184 lb 116/70 -???-???-???-???-???-?? ?-???-???-???-???-???-? ??- 181 -???-???-???-???-???-?? ?-???-???-???-???-???-? ??- KW-CRL cons with dates. declines NIPT. 11/26/24 -???-???-???-???-???-?? ?-???-???-???-???-???-? ??- 15w 6d 189 lb 4 oz 129/78 -???-???-???-???-???-?? ?-???-???-???-???-???-? ??- 150 -???-???-???-???-???-?? ?-???-???-???-???-???-? ??- SM- no vb cr amping 12/24/24 -???-???-???-???-???-?? ?-???-???-???-???-???-? ??- 19w 6d 192 lb 6 oz 120/72 Negative -???-???-???-???-???-?? ?-???-???-???-???-???-? ??- Negative 156 -???-???-???-???-???-?? ?-???-???-???-???-???-? ??- MH-No VB. Fe (more content not included)... Normal [facility] - Chemistry and C hemistry - challengeOrdered By: Goldie Ng on 04-23-2025 Glucose Ql (U) Negative [facility] - UrinalysisOrder ed By: Goldie Ng on 04-23-2025 Protein Ql (U) Negative [facility] Chief Contract Officer Office Visit Reporton 04-23-2025 Chief Contract Officer Office Visit Report [facility] [address], [address] [place] [address] OFFICE VISIT Date of Service: 04/23/25 MR#: [id number] Acct: [id number] Name: NATHANAEL MOSCOSO Rep #: [id number] : 1995 Provider: Dr. Goldie elizondo MD Age/Sex: 30/F Location: [facility] [place] Status: Signed Intake Vital Signs 02/18/25 09:49 04/17/25 10:21 04/23/25 09:39 Height 5 ft 6.5 in 5 ft 6.5 in 5 ft 6.5 in Weight: 211 lb BMI 33.5 BP 131/77 H Intake Visit Reasons: 37 wk ob Veneer Layer Required: No Is patient in pain?: No Allergies No Known Allergies Allergy (Verified 04/23/25 09:42) Medications ???Medication ???Instructions ???Recorded ???Confirmed ???Type PNV no.151-iron 27 mg-folic 800 1 cap PO DAILY 08/29/22 04/23/25 History mcg-omega3 260 dr-xxq-jaq-fish capsule omega-3 fatty acids 1,000 mg 2,000 mg PO QDAY 10/09/24 04/23/25 History capsule Last Menstrual Period: 08/07/24 Zika: Zika virus screening: Negative : No PFSH PFSH Medical History UTI (urinary tract infection) Gallstone Gestational diabetes Single umbilical artery Anovulatory cycle Amenorrhea Surgical History S/P ACL repair Social History adopted: No household members: spouse and children housing: house number of children: 1 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 occupational exposures/hazards: No pets and animals: Yes (Not managing litterbox ) pets and animals: cat(s), dog(s) and farm animals history of recent travel: No sexually active: Yes Smoking Status: Never smoker alcohol intake: never substance use type: does not use well-balanced diet: daily or most days caffeine: No eating out: rarely or never during the past year weight has: decreased > 10 lbs what type of physical activity do you participate in: walking frequency: 3-4 times per week duration: 30-45 minutes/day wilfred/sabianism: None seatbelt use: always do you feel safe at home: Yes 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 Date Name GA/Weeks Outcome Route Bth Weight Gen Labor Lgth Anesthesia Del Locatn Provider FOB 03/30/23 Maximus 40 live - full term 8lbs 3oz Male epidural [facility] D r. Liz Wesley Francis Delivery Date: 03/30/23 Last Updated by: Cinda Angeles Gestational diabetes, single umbilical artery HPI 37 wk ob Details: NATHANAEL MOSCOSO is a 30 year old who presents for routine OB visit. OB Visit ZEYNEP Calculator Estimated Delivery Date Method Current WG Current Estimate 05/14/25 LMP (Certain) 37w 0d Other Estimates 05/20/25 Ultrasound #1 36w 1d Expected Delivery Route/Plan Labor Preferences- CB/BF classes: no labor support person: Tito labor intervention preferences: [] pain management options preferred: epidural cut cord/dad catch: cord : yes PP control planned: discussed discussed possible routes of delivery and associated risks: [] special requests: [] Specific Issue/Plans Covid status: [] Flu vaccine: [] Tdap vaccine: declines Rhogam: NA LARC form signed: yes . movement and labor precautions reviewed. Problem list reviewed and updated with the most current plan of care details and appropriate orders placed. Relevant counseling for the gestational age provided. Continue routine care and follow up unless otherwise noted in visit notes/problem list details Initial Weight: Not Recorded Date -???-???-???-???-???-?? ?-???-???-???-???-???-? ??- EGA Weight BP Urine Prot -???-???-???-???-???-?? ?-???-???-???-???-???-? ??- Glucose FHR FuHt Pres Dilation -???-???-???-???-???-?? ?-???-???-???-???-???-? ??- Effaced St Visit Note 10/24/24 -???-???-???-???-???-?? ?-???-???-???-???-???-? ??- 11w 1d 184 lb 116/70 -???-???-???-???-???-?? ?-???-???-???-???-???-? ??- 181 -???-???-???-???-???-?? ?-???-???-???-???-???-? ??- KW-CRL cons with dates. declines NIPT. 11/26/24 -???-???-???-???-???-?? ?-???-???-???-???-???-? ??- 15w 6d 189 lb 4 oz 129/78 -???-???-???-???-???-?? ?-???-???-???-???-???-? ??- 150 -???-???-???-???-???-?? ?-???-???-???-???-???-? ??- SM- no vb cr amping 12/24/24 -???-???-???-???-???-?? ?-???-???-???-???-???-? ??- 19w 6d 192 lb 6 oz 120/72 Negative -???-???-???-???-???-?? ?-???-???-???-???-???-? ??- Negative 156 -???-???-???-???-???-?? ?-???-???-???-?? (more content not included)... Normal [facility] Rule out Beta Strep (Grp. B) on 04-23-2025 THERESA Rule out Beta Strep (Grp. B) Streptococcus agalactiae (B) Amount Growth 3+ Streptococcus agalactiae (B): REACTION Ampicillin Islt OLIMPIA <=0.25 cefTRIAXone Islt OLIMPIA <=0.12 S Clindamycin Islt OLIMPIA R Clindamycin.induced Susc Islt POS Linezolid Islt OLIMPIA <=2 S Vancomycin Islt OLIMPIA 0.25 S Normal [facility] Comment on above: Performed By: #### M [id number] ####[facility] [id number] [place], [address] Chief Contract Officer Office Visit Reporton 04-17-2025 Chief Contract Officer Office Visit Report [facility]'s [address], [address] [place] [address] OFFICE VISIT Date of Service: 04/17/25 MR#: [id number] Acct: [id number] Name: NATHANAEL MOSCOSO Rep #: [id number] : 1995 Provider: Dr. Goldie elizondo MD Age/Sex: 29/F Location: [facility] [place] Status: Signed Intake Vital Signs 04/09/25 13:43 04/17/25 10:21 Height 5 ft 6.5 in 5 ft 6.5 in Weight: 210 lb BMI 33.3 BP 123/77 H Intake Visit Reasons: 36 WK OB Veneer Layer Required: No Is patient in pain?: No Allergies No Known Allergies Allergy (Verified 04/17/25 10:23) Medications ???Medication ???Instructions ???Recorded ???Confirmed ???Type PNV no.151-iron 27 mg-folic 800 1 cap PO DAILY 08/29/22 04/17/25 History mcg-omega3 260 dz-csb-nfd-fish capsule omega-3 fatty acids 1,000 mg 2,000 mg PO QDAY 10/09/24 04/17/25 History capsule Last Menstrual Period: 08/07/24 Zika: Zika virus screening: Negative : No PFSH PFSH Medical History UTI (urinary tract infection) Gallstone Gestational diabetes Single umbilical artery Anovulatory cycle Amenorrhea Surgical History S/P ACL repair Social History adopted: No household members: spouse and children housing: house number of children: 1 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 occupational exposures/hazards: No pets and animals: Yes (Not managing litterbox ) pets and animals: cat(s), dog(s) and farm animals history of recent travel: No sexually active: Yes Smoking Status: Never smoker alcohol intake: never substance use type: does not use well-balanced diet: daily or most days caffeine: No eating out: rarely or never during the past year weight has: decreased > 10 lbs what type of physical activity do you participate in: walking frequency: 3-4 times per week duration: 30-45 minutes/day wilfred/sabianism: None seatbelt use: always do you feel safe at home: Yes 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 Date Name GA/Weeks Outcome Route Bth Weight Gen Labor Lgth Anesthesia Del Locatn Provider FOB 03/30/23 Maximus 40 live - full term 8lbs 3oz Male epidural [facility] Fredy Arreolash Delivery Date: 03/30/23 Last Updated by: Cinda Angeles Gestational diabetes, single umbilical artery HPI 36 WK OB Details: NATHANAEL MOSCOSO is a 29 year old who presents for routine OB visit. OB Visit ZEYNEP Calculator Estimated Delivery Date Method Current WG Current Estimate 05/14/25 LMP (Certain) 36w 1d Other Estimates 05/20/25 Ultrasound #1 35w 2d Expected Delivery Route/Plan Labor Preferences- CB/BF classes: no labor support person: Tito labor intervention preferences: [] pain management options preferred: epidural cut cord/dad catch: cord : yes PP control planned: discussed discussed possible routes of delivery and associated risks: [] special requests: [] Specific Issue/Plans Covid status: [] Flu vaccine: [] Tdap vaccine: declines Rhogam: NA LARC form signed: yes . movement and labor precautions reviewed. Problem list reviewed and updated with the most current plan of care details and appropriate orders placed. Relevant counseling for the gestational age provided. Continue routine care and follow up unless otherwise noted in visit notes/problem list details Initial Weight: Not Recorded Date -???-???-???-???-???-?? ?-???-???-???-???-???-? ??- EGA Weight BP Urine Prot -???-???-???-???-???-?? ?-???-???-???-???-???-? ??- Glucose FHR FuHt Pres Dilation -???-???-???-???-???-?? ?-???-???-???-???-???-? ??- Effaced St Visit Note 10/24/24 -???-???-???-???-???-?? ?-???-???-???-???-???-? ??- 11w 1d 184 lb 116/70 -???-???-???-???-???-?? ?-???-???-???-???-???-? ??- 181 -???-???-???-???-???-?? ?-???-???-???-???-???-? ??- KW-CRL cons with dates. declines NIPT. 11/26/24 -???-???-???-???-???-?? ?-???-???-???-???-???-? ??- 15w 6d 189 lb 4 oz 129/78 -???-???-???-???-???-?? ?-???-???-???-???-???-? ??- 150 -???-???-???-???-???-?? ?-???-???-???-???-???-? ??- SM- no vb cr amping 12/24/24 -???-???-???-???-???-?? ?-???-???-???-???-???-? ??- 19w 6d 192 lb 6 oz 120/72 Negative -???-???-???-???-???-?? ?-???-???-???-???-???-? ??- Negative 156 -???-???-???-???-???-?? ?-???-???-???-???-???-? ??- MH-No VB. Fe e (more content not included)... Normal [facility] Screening beta-hemolytic Str eptococcus cultureOrdered By: Goldie Ng on 04-17-2025 Beta-hemolytic Streptococcus culture Streptococcus agalactiae (B) Abnormal [facility] - Chemistry and C hemistry - challengeOrdered By: Dotty Olson on 04-09-2025 Glucose Ql (U) Negative [facility] - UrinalysisOrder ed By: Dotty Olson on 04-09-2025 Protein Ql (U) Negative [facility] Chief Contract Officer Office Visit Reporton 04-09-2025 Chief Contract Officer Office Visit Report [address], [address] [place] [address] OFFICE VISIT Date of Service: 04/09/25 MR#: [id number] Acct: [id number] Name: NATHANAEL MOSCOSO Rep #: [id number] : 1995 Provider: Dr. Dotty Will DO Age/Sex: 29/F Location: [facility] [place] Status: Signed Intake Vital Signs 02/18/25 09:49 03/26/25 14:33 04/09/25 13:43 Height 5 ft 6.5 in 5 ft 6.5 in 5 ft 6.5 in Weight: 209 lb 2 oz BMI 33.2 BP 107/72 Intake Visit Reasons: 35 wk ob Veneer Layer Required: No Is patient in pain?: No Allergies No Known Allergies Allergy (Verified 04/09/25 13:44) Medications ???Medication ???Instructions ???Recorded ???Confirmed ???Type PNV no.151-iron 27 mg-folic 800 1 cap PO DAILY 08/29/22 04/09/25 History mcg-omega3 260 cm-awq-zde-fish capsule omega-3 fatty acids 1,000 mg 2,000 mg PO QDAY 10/09/24 04/09/25 History capsule Last Menstrual Period: 08/07/24 Zika: Zika virus screening: Negative : No PFSH PFSH Medical History UTI (urinary tract infection) Gallstone Gestational diabetes Single umbilical artery Anovulatory cycle Amenorrhea Surgical History S/P ACL repair Social History adopted: No household members: spouse and children housing: house number of children: 1 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 occupational 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/hazards: No pets and animals: Yes (Not managing litterbox ) pets and animals: cat(s), dog(s) and farm animals history of recent travel: No sexually active: Yes Smoking Status: Never smoker alcohol intake: never substance use type: does not use well-balanced diet: daily or most days caffeine: No eating out: rarely or never during the past year weight has: decreased > 10 lbs what type of physical activity do you participate in: walking frequency: 3-4 times per week duration: 30-45 minutes/day wilfred/sabianism: None seatbelt use: always do you feel safe at home: Yes 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 Date Name GA/Weeks Outcome Route Bth Weight Gen Labor Lgth Anesthesia Del Locatn Provider FOB 03/30/23 Maximus 40 live - full term 8lbs 3oz Male epidural [facility] D r. Liz Francis Delivery Date: 03/30/23 Last Updated by: Cinda Angeles Gestational diabetes, single umbilical artery HPI 35 wk ob Details: NATHANAEL MOSCOSO is a 29 year old who presents for routine OB visit. OB Visit ZEYNEP Calculator Estimated Delivery Date Method Current WG Current Estimate 05/14/25 LMP (Certain) 35w 0d Other Estimates 05/20/25 Ultrasound #1 34w 1d Expected Delivery Route/Plan Labor Preferences- CB/BF classes: no labor support person: Tito labor intervention preferences: [] pain management options preferred: epidural cut cord/dad catch: cord : yes PP control planned: discussed discussed possible routes of delivery and associated risks: [] special requests: [] Specific Issue/Plans Covid status: [] Flu vaccine: [] Tdap vaccine: declines Rhogam: NA LARC form signed: yes Problem list reviewed and updated with the most current plan of care details and appropriate orders placed. Relevant counseling for the gestational age provided. Continue routine care and follow up unless otherwise noted in visit notes/problem list details Initial Weight: Not Recorded Date -???-???-???-???-???-?? ?-???-???-???-???-???-? ??- EGA Weight BP Urine Prot -???-???-???-???-???-?? ?-???-???-???-???-???-? ??- Glucose FHR FuHt Pres Dilation -???-???-???-???-???-?? ?-???-???-???-???-???-? ??- Effaced St Visit Note 10/24/24 -???-???-???-???-???-?? ?-???-???-???-???-???-? ??- 11w 1d 184 lb 116/70 -???-???-???-???-???-?? ?-???-???-???-???-???-? ??- 181 -???-???-???-???-???-?? ?-???-???-???-???-???-? ??- KW-CRL cons with dates. declines NIPT. 11/26/24 -???-???-???-???-???-?? ?-???-???-???-???-???-? ??- 15w 6d 189 lb 4 oz 129/78 -???-???-???-???-???-?? ?-???-???-???-???-???-? ??- 150 -???-???-???-???-???-?? ?-???-???-???-???-???-? ??- SM- no vb cr amping 12/24/24 -???-???-???-???-???-?? ?-???-???-???-???-???-? ??- 19w 6d 192 lb 6 oz 120/72 Negative -???-???-???-???-???-?? ?-???-???-???-???-???-? ??- Negative 156 -???-???-???-???-???-?? ?-???-???-???-???-???-? ??- MH-No VB. Fe sharon david. MFM US (more content not included)... Normal [facility] - Chemistry and C hemistry - challengeOrdered By: Goldie Ng on 03-26-2025 Glucose Ql (U) Negative [facility] - UrinalysisOrder ed By: Goldie Ng on 03-26-2025 Protein Ql (U) Negative [facility] Chief Contract Officer Office Visit Reporton 03-26-2025 Chief Contract Officer Office Visit Report [facility] [address], [address] [place] [address] OFFICE VISIT Date of Service: 03/26/25 MR#: [id number] Acct: [id number] Name: NATHANAEL MOSCOSO Rep #: [id number] : 1995 Provider: Dr. Goldie elizondo MD Age/Sex: 29/F Location: [facility] [place] Status: Signed Intake Vital Signs 02/18/25 09:49 03/04/25 08:52 03/26/25 14:28 03/26/25 14:33 Height 5 ft 6.5 in 5 ft 6.5 in 5 ft 6.5 in 5 ft 6.5 in Weight: 199 lb 8 oz 203 lb 6 oz 209 lb BMI 31.7 32.3 33.2 BP 113/76 104/66 113/74 Intake Visit Reasons: 33 wk ob Veneer Layer Required: No Is patient in pain?: No Allergies No Known Allergies Allergy (Verified 03/26/25 14:28) Medications ???Medication ???Instructions ???Recorded ???Confirmed ???Type PNV no.151-iron 27 mg-folic 800 1 cap PO DAILY 08/29/22 03/26/25 History mcg-omega3 260 di-rtt-ven-fish capsule omega-3 fatty acids 1,000 mg 2,000 mg PO QDAY 10/09/24 03/26/25 History capsule Last Menstrual Period: 08/07/24 Zika: Zika virus screening: Negative : No PFSH PFSH Medical History UTI (urinary tract infection) Gallstone Gestational diabetes Single umbilical artery Anovulatory cycle Amenorrhea Surgical History S/P ACL repair Social History adopted: No household members: spouse and children housing: house number of children: 1 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 occupational exposures/hazards: No pets and animals: Yes (Not managing litterbox ) pets and animals: cat(s), dog(s) and farm animals history of recent travel: No sexually active: Yes Smoking Status: Never smoker alcohol intake: never substance use type: does not use well-balanced diet: daily or most days caffeine: No eating out: rarely or never during the past year weight has: decreased > 10 lbs what type of physical activity do you participate in: walking frequency: 3-4 times per week duration: 30-45 minutes/day wilfred/sabianism: None seatbelt use: always do you feel safe at home: Yes 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 Date Name GA/Weeks Outcome Route Bth Weight Infant Gen Labor Lgth [facility]esthesia Del [facility] Provider FOB 03/30/23 Maximus 40 live - full term 8lbs 3oz Male epidural [facility] Fredy Hernandez Tito Delivery Date: 03/30/23 Last Updated by: Cinda Angeles Gestational diabetes, single umbilical artery HPI 33 wk ob Details: NATHANAEL MOSCOSO is a 29 year old who presents for routine OB visit. OB Visit ZEYNEP Calculator Estimated Delivery Date Method Current WG Current Estimate 05/14/25 LMP (Certain) 33w 0d Other Estimates 05/20/25 Ultrasound #1 32w 1d Expected Delivery Route/Plan Labor Preferences- CB/BF classes: no labor support person: Tito labor intervention preferences: [] pain management options preferred: epidural cut cord/dad catch: cord : yes PP control planned: discussed discussed possible routes of delivery and associated risks: [] special requests: [] Specific Issue/Plans Covid status: [] Flu vaccine: [] Tdap vaccine: declines Rhogam: NA LARC form signed: yes Problem list reviewed and updated with the most current plan of care details and appropriate orders placed. Relevant counseling for the gestational age provided. Continue routine care and follow up unless otherwise noted in visit notes/problem list details Initial Weight: Not Recorded Date -???-???-???-???-???-?? ?-???-???-???-???-???-? ??- EGA Weight BP Urine Prot -???-???-???-???-???-?? ?-???-???-???-???-???-? ??- Glucose FHR FuHt Pres Dilation -???-???-???-???-???-?? ?-???-???-???-???-???-? ??- Effaced St Visit Note 10/24/24 -???-???-???-???-???-?? ?-???-???-???-???-???-? ??- 11w 1d 184 lb 116/70 -???-???-???-???-???-?? ?-???-???-???-???-???-? ??- 181 -???-???-???-???-???-?? ?-???-???-???-???-???-? ??- KW-CRL cons with dates. declines NIPT. 11/26/24 -???-???-???-???-???-?? ?-???-???-???-???-???-? ??- 15w 6d 189 lb 4 oz 129/78 -???-???-???-???-???-?? ?-???-???-???-???-???-? ??- 150 -???-???-???-???-???-?? ?-???-???-???-???-???-? ??- SM- no vb cr amping 12/24/24 -???-???-???-???-???-?? ?-???-???-???-???-???-? ??- 19w 6d 192 lb 6 oz 120/72 Negative -???-???-???-???-???-?? ?-???-???-???-???-???-? ??- Negative 156 -???-???-???-???-??? (more content not included)... Normal [facility] - Chemistry and C hemistry - challengeOrdered By: Pearl Calderon on 03-04-2025 Glucose Ql (U) Negative [facility] - UrinalysisOrder ed By: Pearl Calderon on 03-04-2025 Protein Ql (U) Negative [facility] Chief Contract Officer Office Visit Reporton 03-04-2025 Chief Contract Officer Office Visit Report [facility]'s [address], [address] [place] [address] OFFICE VISIT Date of Service: 03/04/25 MR#: [id number] Acct: [id number] Name: NATHANAEL MOSCOSO Rep #: [id number] : 1995 Provider: JUNIOR lopez Age/Sex: 29/F Location: [facility] [place] Status: Signed Intake Vital Signs 12/24/24 08:27 02/18/25 09:49 03/04/25 08:52 Height 5 ft 6.5 in 5 ft 6.5 in 5 ft 6.5 in Weight: 203 lb 6 oz BMI 32.3 BP 104/66 Intake Visit Reasons: 30 wk ob Chief Complaint: 30 Week OB Veneer Layer Required: No Is patient in pain?: No Allergies No Known Allergies Allergy (Verified 03/04/25 08:51) Medications ???Medication ???Instructions ???Recorded ???Confirmed ???Type PNV no.151-iron 27 mg-folic 800 1 cap PO DAILY 08/29/22 03/04/25 History mcg-omega3 260 gq-lgg-cgy-fish capsule omega-3 fatty acids 1,000 mg 2,000 mg PO QDAY 10/09/24 03/04/25 History capsule Last Menstrual Period: 08/07/24 Zika: Zika virus screening: Negative : Yes PFSH PFSH Medical History UTI (urinary tract infection) Gallstone Gestational diabetes Single umbilical artery Anovulatory cycle Amenorrhea Surgical History S/P ACL repair Social History adopted: No household members: spouse and children housing: house number of children: 1 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 occupational exposures/hazards: No pets and animals: Yes (Not managing litterbox ) pets and animals: cat(s), dog(s) and farm animals history of recent travel: No sexually active: Yes Smoking Status: Never smoker alcohol intake: never substance use type: does not use well-balanced diet: daily or most days caffeine: No eating out: rarely or never during the past year weight has: decreased > 10 lbs what type of physical activity do you participate in: walking frequency: 3-4 times per week duration: 30-45 minutes/day wilfred/sabianism: None seatbelt use: always do you feel safe at home: Yes 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 Date Name GA/Weeks Outcome Route Bth Weight Infant Gen Labor Lgth Anesthesia Del Locatn Provider FOB 03/30/23 Maximus 40 live - full term 8lbs 3oz Male epidural [facility] D r. Liz Francis Delivery Date: 03/30/23 Last Updated by: Cinda Angeles Gestational diabetes, single umbilical artery HPI 30 wk ob Details: NATHANAEL MOSCOSO is a 29 year old who presents for routine OB visit. OB Visit ZEYNEP Calculator Estimated Delivery Date Method Current WG Current Estimate 05/14/25 LMP (Certain) 29w 6d Other Estimates 05/20/25 Ultrasound #1 29w 0d Expected Delivery Route/Plan Labor Preferences- CB/BF classes: no labor support person: Tito labor intervention preferences: [] pain management options preferred: epidural cut cord/dad catch: cord : yes PP control planned: discussed discussed possible routes of delivery and associated risks: [] special requests: [] Specific Issue/Plans Covid status: [] Flu vaccine: [] Tdap vaccine: declines Rhogam: NA LARC form signed: yes Problem list reviewed and updated with the most current plan of care details and appropriate orders placed. Relevant counseling for the gestational age provided. Continue routine care and follow up unless otherwise noted in visit notes/problem list details Initial Weight: Not Recorded Date -???-???-???-???-???-?? ?-???-???-???-???-???-? ??- EGA Weight BP Urine Prot -???-???-???-???-???-?? ?-???-???-???-???-???-? ??- Glucose FHR FuHt Pres Dilation -???-???-???-???-???-?? ?-???-???-???-???-???-? ??- Effaced St Visit Note 10/24/24 -???-???-???-???-???-?? ?-???-???-???-???-???-? ??- 11w 1d 184 lb 116/70 -???-???-???-???-???-?? ?-???-???-???-???-???-? ??- 181 -???-???-???-???-???-?? ?-???-???-???-???-???-? ??- KW-CRL cons with dates. declines NIPT. 11/26/24 -???-???-???-???-???-?? ?-???-???-???-???-???-? ??- 15w 6d 189 lb 4 oz 129/78 -???-???-???-???-???-?? ?-???-???-???-???-???-? ??- 150 -???-???-???-???-???-?? ?-???-???-???-???-???-? ??- SM- no vb cr amping 12/24/24 -???-???-???-???-???-?? ?-???-???-???-???-???-? ??- 19w 6d 192 lb 6 oz 120/72 Negative -???-???-???-???-???-?? ?-???-???-???-???-???-? ??- Negative 156 -???-???-???-???-???-?? ?-???-???-???-???-???-? ??- -No V (more content not included)... Normal [facility] Absolute lymphocyte countOrd ered By: Dotty Olson on 02-18-2025 Lymphocytes Auto (Unsp spec) [#/Vol] 1.57 10*3/uL 0.83-4.51 [facility] Absolute neutrophil countOrd ered By: Dotty Olson on 02-18-2025 Neutrophils (Bld) [#/Vol] 7.5 10*3/uL 2.0-7.7 [facility] Automated lymphocyte count a s percentage of total leukocytesOrdered By: Dotty Olson on 02-18-2025 Lymphocytes/100 WBC Auto (Unsp spec) 15.5 % Low 19-41 [facility] Basophil percentageOrdered B y: Dotty Olson on 02-18-2025 Basophils/100 WBC (Bld) 0.6 % 0-1 [facility] CBC W/Diff, Automatedon 01-30 Absolute Lymph 1.57 X10 3/uL Normal 0.83-4.51 [facility] Comment on above: Performed By: #### L 3890.6006, L100.0100, L501.0250, L509.8002 ####[facility] [address] [place], [address] Absolute Neut 7.5 X10 3/uL Normal 2.0-7.7 [facility] Comment on above: Performed By: #### L 3890.6006, L100.0100, L501.0250, L509.8002 ####[facility] [address] [place], [address] Basophils/100 WBC (Bld) 0.6 % Normal 0-1 [facility] Comment on above: Performed By: #### L 3890.6006, L100.0100, L501.0250, L509.8002 ####[facility] [address] [place], [address] Eosinophils/100 WBC (Bld) 1.9 % Normal 0-5 [facility] Comment on above: Performed By: #### L 3890.6006, L100.0100, L501.0250, L509.8002 ####[facility] [address] [place], [address] Erythrocyte distribution width (RBC) [Ratio] 13.5 % Normal 11.6-14.6 [facility] Comment on above: Performed By: #### L 3890.6006, L100.0100, L501.0250, L509.8002 ####[facility] [address] [place], [address] Hematocrit (Bld) [Volume fraction] 37.2 % Normal 37-47 [facility] Comment on above: Performed By: #### L 3890.6006, L100.0100, L501.0250, L509.8002 ####[facility] [address] [place], [address] Hemoglobin (Bld) [Mass/Vol] 12.3 g/dL Normal 12.0-15.0 [facility] Comment on above: Performed By: #### L 3890.6006, L100.0100, L501.0250, L509.8002 ####[facility] [address] [place], [address] IG% 2.100 High 0.0-0.9 [facility] Comment on above: Result Comment: IG% - Immature Granulocytes (promyelocytes, myelocytes and metamyelocytes) > 1% indicates that a LEFT SHIFT is Present. Performed By: #### L 3890.6006, L100.0100, L501.0250, L509.8002 ####[facility] [address] [place], [address] Lymphocytes/100 WBC (Bld) 15.5 % Low 19-41 [facility] Comment on above: Performed By: #### L 3890.6006, L100.0100, L501.0250, L509.8002 ####[facility] [address] [place], [address] MCH (RBC) [Entitic mass] 28.2 pg Normal 27.0-32.0 [facility] Comment on above: Performed By: #### L 3890.6006, L100.0100, L501.0250, L509.8002 ####[facility] [address] [place], [address] MCHC (RBC) [Mass/Vol] 33.1 g/dL Normal 32-36 [facility] Comment on above: Performed By: #### L 3890.6006, L100.0100, L501.0250, L509.8002 ####[facility] [address] [place], [address] MCV (RBC) [Entitic vol] 85.3 fL Normal 81-99 [facility] Comment on above: Performed By: #### L 3890.6006, L100.0100, L501.0250, L509.8002 ####[facility] [address] [place], [address] Monocytes/100 WBC (Bld) 5.9 % Normal 0-10 [facility] Comment on above: Performed By: #### L 3890.6006, L100.0100, L501.0250, L509.8002 ####[facility] [address] [place], [address] Neutrophils/100 WBC (Bld) 74.0 % High 47-70 [facility] Comment on above: Performed By: #### L 3890.6006, L100.0100, L501.0250, L509.8002 ####[facility] [address] [place], [address] Nucleated RBC (Bld) [#/Vol] 0 10*3/uL Normal 0-5 [facility] Comment on above: Performed By: #### L 3890.6006, L100.0100, L501.0250, L509.8002 ####[facility] [address] [place], [address] Platelet mean volume (Bld) [Entitic vol] 9.0 fL Normal 6.2-12.0 [facility] Comment on above: Performed By: #### L 3890.6006, L100.0100, L501.0250, L509.8002 ####[facility] [address] [place], [address] Platelets (Bld) [#/Vol] 324 10*3/uL Normal 150-450 [facility] Comment on above: Performed By: #### L 3890.6006, L100.0100, L501.0250, L509.8002 ####[facility] [address] [place], [address] RBC (Bld) [#/Vol] 4.36 10*6/uL Normal 4.2-5.4 [facility] Comment on above: Performed By: #### L 3890.6006, L100.0100, L501.0250, L509.8002 ####[facility] [address] [place], [address] RDW SD 41.3 fl Normal 35.1-43.9 [facility] Comment on above: Performed By: #### L 3890.6006, L100.0100, L501.0250, L509.8002 ####[facility] [address] [place], [address] WBC (Bld) [#/Vol] 10.1 10*3/uL Normal 4.4-11.0 [facility] Comment on above: Performed By: #### L 3890.6006, L100.0100, L501.0250, L509.8002 ####[facility] [address] [place], [address] Eosinophil percentageOrdered By: Dotty Olson on 02-18-2025 Eosinophils/100 WBC (Bld) 1.9 % 0-5 [facility] Erythrocyte distribution wid th ratioOrdered By: Dotty Olson on 02-18-2025 Erythrocyte distribution width (RBC) [Ratio] 13.5 % 11.6-14.6 [facility] Erythrocyte distribution wid th standard deviationOrdered By: Dotty Olson on 02-18-2025 Erythrocyte distribution width (RBC) [Ratio] 41.3 fl 35.1-43.9 [facility] Glucose Challenge Gest 1H 50 kirt 02-18-2025 GLU GEST 50g 1H 112 mg/dL Normal 70-140 [facility] Comment on above: Performed By: #### L 3890.6006, L100.0100, L501.0250, L509.8002 ####[facility] [address] [place], [address] Glucose measurement at 2 bladimir rs post-dose gestational glucose tolerance testOrdered By: Dotty Olson on 02-18-2025 Glucose [Mass/Vol] 112 mg/dL 70-140 [facility] HIVon 02-18-2025 HIV Non-Reactive Normal Nonreactive [facility] Comment on above: Result Comment: Non- Reactive Reactive Repeatedly reactive samples must be confirmed according to CDC recommended confirmatory algorithms. The subresults for either HIVAG or AHIV can be used as an aid in the selection of the confirmation algorithm for reactive samples. Send out specimens with Reactive results to [facility] for confirmation. Order the HIV antibody detection and differentiation: #[id number] Performed By: #### L 3890.6006, L100.0100, L501.0250, L509.8002 ####[facility] [address] [place], [place], [id number] Hematocrit Auto (Bld) [Volum e fraction]Ordered By: Dotty Olson on 02-18-2025 Hematocrit (Bld) [Volume fraction] 37.2 % 37-47 [facility] Hemoglobin measurementOrdere d By: Dotty Olson on 02-18-2025 Hemoglobin (Bld) [Mass/Vol] 12.3 g/dL 12.0-15.0 [facility] Immature granulocytes/100 WB C Auto (Bld)Ordered By: Dotty Olson on 02-18-2025 Immature granulocytes/100 WBC (Bld) 2.100 % High 0.0-0.9 [facility] Comment on above: IG% - Immature Granu locytes (promyelocytes, myelocytes and metamyelocytes) > 1% indicates that a LEFT SHIFT is Present. Laboratory - Chemistry and C hemistry - challengeOrdered By: Tammi Nieves on 02-18-2025 Glucose Ql (U) Negative [facility] - UrinalysisOrder ed By: Tammi Nieves on 02-18-2025 Protein Ql (U) Negative [facility] MCV (mean corpuscular volume ) determinationOrdered By: Dotty Olson on 02-18-2025 MCV (RBC) [Entitic vol] 85.3 fL 81-99 [facility] Mean corpuscular hemoglobin (MCH) determinationOrdered By: Dotty Olson on 02-18-2025 MCH (RBC) [Entitic mass] 28.2 pg 27.0-32.0 [facility] Mean corpuscular hemoglobin concentration (MCHC) determinationOrdered By: Dotty Olson on 02-18-2025 MCHC (RBC) [Mass/Vol] 33.1 g/dL 32-36 [facility] Mean platelet volume determi nationOrdered By: Dotty Olson on 02-18-2025 Platelet mean volume (Bld) [Entitic vol] 9.0 fL 6.2-12.0 [facility] Monocyte percentageOrdered B y: Dotty Olson on 02-18-2025 Monocytes/100 WBC (Bld) 5.9 % 0-10 [facility] Neutrophil percentageOrdered By: Dotty Olson on 02-18-2025 Neutrophils/100 WBC (Bld) 74.0 % High 47-70 [facility] No Panel InformationOrdered By: Dotty Olson on 02-18-2025 HIV (1&2) Antibody Non-Reactive Nonreactive [facility] Comment on above: Non-ReactiveReactive Repeatedly reactive samples must be confirmed according to CDC recommended confirmatory algorithms. The subresults for either HIVAG or AHIV can be used as an aid in the selection of the confirmation algorithm for reactive samples.Send out specimens with Reactive results to [facility] for confirmation.Order the HIV antibody detection and differentiation: #[id number] Nucleated red blood cell per centageOrdered By: Dotty Olson on 02-18-2025 Nucleated RBC/100 WBC (Bld) [Ratio] 0 % 0-5 [facility] Chief Contract Officer Office Visit Reporton 02-18-2025 Chief Contract Officer Office Visit Report [facility] [place] [address], [address] [place] [address] OFFICE VISIT Date of Service: 02/18/25 MR#: [id number] Acct: [id number] Name: NATHANAEL MOSCOSO Rep #: [id number] : 1995 Provider: FUNMI Doe ams Age/Sex: 29/F Location: [facility] [place] Status: Signed Intake Vital Signs 12/24/24 08:27 01/21/25 09:31 02/18/25 09:49 Height 5 ft 6.5 in 5 ft 6.5 in 5 ft 6.5 in Weight: 199 lb 8 oz BMI 31.7 BP 113/76 Intake Visit Reasons: 26wk ob *25w6d Chief Complaint: 26 wk OB Veneer Layer Required: No Is patient in pain?: No Allergies No Known Allergies Allergy (Verified 02/18/25 09:47) Medications ???Medication ???Instructions ???Recorded ???Confirmed ???Type PNV no.151-iron 27 mg-folic 800 1 cap PO DAILY 08/29/22 02/18/25 History mcg-omega3 260 do-pfe-tpj-fish capsule omega-3 fatty acids 1,000 mg 2,000 mg PO QDAY 10/09/24 02/18/25 History capsule Last Menstrual Period: 08/07/24 : No Have you fallen in the past year?: No PFSH PFSH Medical History UTI (urinary tract infection) Gallstone Gestational diabetes Single umbilical artery Anovulatory cycle Amenorrhea Surgical History S/P ACL repair Social History adopted: No household members: spouse and children housing: house number of children: 1 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 occupational exposures/hazards: No pets and animals: Yes (Not managing litterbox ) pets and animals: cat(s), dog(s) and farm animals history of recent travel: No sexually active: Yes Smoking Status: Never smoker alcohol intake: never substance use type: does not use well-balanced diet: daily or most days caffeine: No eating out: rarely or never during the past year weight has: decreased > 10 lbs what type of physical activity do you participate in: walking frequency: 3-4 times per week duration: 30-45 minutes/day wilfred/sabianism: None seatbelt use: always do you feel safe at home: Yes 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 Date Name GA/Weeks Outcome Route Bth Weight Gen Labor Lgth Anesthesia Del Locatn Provider FOB 03/30/23 Maximus 40 live - full term 8lbs 3oz Male epidural [facility] D regine Hernandez [facility] Delivery Date: 03/30/23 Last Updated by: Cinda Angeles Gestational diabetes, single umbilical artery HPI 26wk ob *25w6d Details: NATHANAEL MOSCOSO is a 29 year old who presents for routine OB visit. OB Visit ZEYNEP Calculator Estimated Delivery Date Method Current WG Current Estimate 05/14/25 LMP (Certain) 27w 6d Other Estimates 05/20/25 Ultrasound #1 27w 0d Expected Delivery Route/Plan Labor Preferences- CB/BF classes: [] labor support person: [] labor intervention preferences: [] pain management options preferred: [] cut cord/dad catch: [] : [] PP control planned: [] discussed possible routes of delivery and associated risks: [] special requests: [] Specific Issue/Plans Covid status: [] Flu vaccine: [] Tdap vaccine: [] Rhogam: [] LARC form signed: [] Problem list reviewed and updated with the most current plan of care details and appropriate orders placed. Relevant counseling for the gestational age provided. Continue routine care and follow up unless otherwise noted in visit notes/problem list details Initial Weight: Not Recorded Date -???-???-???-???-???-?? ?-???-???-???-???-???-? ??- EGA Weight BP Urine Prot -???-???-???-???-???-?? ?-???-???-???-???-???-? ??- Glucose FHR FuHt Pres Dilation -???-???-???-???-???-?? ?-???-???-???-???-???-? ??- Effaced St Visit Note 10/24/24 -???-???-???-???-???-?? ?-???-???-???-???-???-? ??- 11w 1d 184 lb 116/70 -???-???-???-???-???-?? ?-???-???-???-???-???-? ??- 181 -???-???-???-???-???-?? ?-???-???-???-???-???-? ??- KW-CRL cons with dates. declines NIPT. 11/26/24 -???-???-???-???-???-?? ?-???-???-???-???-???-? ??- 15w 6d 189 lb 4 oz 129/78 -???-???-???-???-???-?? ?-???-???-???-???-???-? ??- 150 -???-???-???-???-???-?? ?-???-???-???-???-???-? ??- SM- no vb cr amping 03/26/25 -???-???-???-???-???-?? ?-???-???-???-???-???-? ??- 19w 6d 192 lb 6 oz 120/72 Negative -???-???-???-???-???-?? ?-???-???-???-???-???-? ??- Negative 156 -???-???-???-???-???-?? ?-???-???-???-???-???-? ??- -No ORQUIDEA. Violet david. M дмитрий (more content not included)... Normal [facility] Platelet countOrdered By: Joel Olson on 02-18-2025 Platelets (Bld) [#/Vol] 324 10*3/uL 150-450 [facility] RBC Auto (Bld) [#/Vol]Ordere d By: Dotty Olson on 02-18-2025 RBC (Bld) [#/Vol] 4.36 10*6/uL 4.2-5.4 [facility] Syphilis Antibodieson 2024 Syphilis Abs Non-Reactive Normal Nonreactive [facility] Comment on above: Performed By: #### L 3890.6006, L100.0100, L501.0250, L509.8002 ####[facility] [address] [place], [address] White blood cell (WBC) count Ordered By: Dotty Olson on 02-18-2025 WBC (Bld) [#/Vol] 10.1 10*3/uL 4.4-11.0 [facility] Laboratory - Chemistry and C hemistry - challengeOrdered By: Dotty Olson on 01-21-2025 Glucose Ql (U) Negative [facility] Laboratory - UrinalysisOrder ed By: Dotty Olson on 01-21-2025 Protein Ql (U) Negative [facility] Chief Contract Officer Office Visit Reporton 01-21-2025 Chief Contract Officer Office Visit Report [facility] [address], [address] [place] [address] OFFICE VISIT Date of Service: 01/21/25 MR#: [id number] Acct: [id number] Name: NATHANAEL MOSCOSO Rep #: [id number] : 1995 Provider: Dr. Dotty Will DO Age/Sex: 29/F Location: [facility] [place] Status: Signed Intake Vital Signs 12/24/24 08:27 01/21/25 09:30 01/21/25 09:31 Height 5 ft 6.5 in 5 ft 6.5 in 5 ft 6.5 in Weight: 197 lb 8 oz BMI 31.4 BP 108/68 Intake Visit Reasons: 22 wk ob Veneer Layer Required: No Is patient in pain?: No Allergies No Known Allergies Allergy (Verified 01/21/25 09:30) Medications ???Medication ???Instructions ???Recorded ???Confirmed ???Type PNV no.151-iron 27 mg-folic 800 1 cap PO DAILY 08/29/22 01/21/25 History mcg-omega3 260 bz-cgs-zva-fish capsule omega-3 fatty acids 1,000 mg 2,000 mg PO QDAY 10/09/24 01/21/25 History capsule Last Menstrual Period: 08/07/24 Zika: Zika virus screening: Negative : No PFSH PFSH Medical History UTI (urinary tract infection) Gallstone Gestational diabetes Single umbilical artery Anovulatory cycle Amenorrhea Surgical History S/P ACL repair Social History adopted: No household members: spouse and children housing: house number of children: 1 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 occupational exposures/hazards: No pets and animals: Yes (Not managing litterbox ) pets and animals: cat(s), dog(s) and farm animals history of recent travel: No sexually active: Yes Smoking Status: Never smoker alcohol intake: never substance use type: does not use well-balanced diet: daily or most days caffeine: No eating out: rarely or never during the past year weight has: decreased > 10 lbs what type of physical activity do you participate in: walking frequency: 3-4 times per week duration: 30-45 minutes/day wilfred/sabianism: None seatbelt use: always do you feel safe at home: Yes 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 Date Name GA/Weeks Outcome Route Bth Weight Infant Gen Labor Lgth Anesthesia Del Locatn Provider FOB 03/30/23 Maximus 40 live - full term 8lbs 3oz Male epidural [facility] D regine [facility] Delivery Date: 03/30/23 Last Updated by: Cinda Angeles Gestational diabetes, single umbilical artery HPI 22 wk ob Details: NATHANAEL MOSCOSO is a 29 year old who presents for routine OB visit. OB Visit ZEYNEP Calculator Estimated Delivery Date Method Current WG Current Estimate 05/14/25 LMP (Certain) 23w 6d Other Estimates 05/20/25 Ultrasound #1 23w 0d Expected Delivery Route/Plan Labor Preferences- CB/BF classes: [] labor support person: [] labor intervention preferences: [] pain management options preferred: [] cut cord/dad catch: [] : [] PP control planned: [] discussed possible routes of delivery and associated risks: [] special requests: [] Specific Issue/Plans Covid status: [] Flu vaccine: [] Tdap vaccine: [] Rhogam: [] LARC form signed: [] Problem list reviewed and updated with the most current plan of care details and appropriate orders placed. Relevant counseling for the gestational age provided. Continue routine care and follow up unless otherwise noted in visit notes/problem list details Initial Weight: Not Recorded Date -???-???-???-???-???-?? ?-???-???-???-???-???-? ??- EGA Weight BP Urine Prot -???-???-???-???-???-?? ?-???-???-???-???-???-? ??- Glucose FHR FuHt Pres Dilation -???-???-???-???-???-?? ?-???-???-???-???-???-? ??- Effaced St Visit Note 10/24/24 -???-???-???-???-???-?? ?-???-???-???-???-???-? ??- 11w 1d 184 lb 116/70 -???-???-???-???-???-?? ?-???-???-???-???-???-? ??- 181 -???-???-???-???-???-?? ?-???-???-???-???-???-? ??- KW-CRL cons with dates. declines NIPT. 11/26/24 -???-???-???-???-???-?? ?-???-???-???-???-???-? ??- 15w 6d 189 lb 4 oz 129/78 -???-???-???-???-???-?? ?-???-???-???-???-???-? ??- 150 -???-???-???-???-???-?? ?-???-???-???-???-???-? ??- SM- no vb cr amping 12/24/24 -???-???-???-???-???-?? ?-???-???-???-???-???-? ??- 19w 6d 192 lb 6 oz 120/72 Negative -???-???-???-???-???-?? ?-???-???-???-???-???-? ??- Negative 156 -???-???-???-???-???-?? ?-???-???-???-???-???-? ??- -No ORQUIDEA. Violet david. MFM US tomorrow 01/21/ (more content not included)... Normal [facility] Laboratory - Chemistry and C hemistry - challengeOrdered By: Pearl Calderon on 12-24-2024 Glucose Ql (U) Negative [facility] Laboratory - UrinalysisOrder ed By: Pearl Calderon on 12-24-2024 Protein Ql (U) Negative [facility] Chief Contract Officer Office Visit Reporton 12-24-2024 Chief Contract Officer Office Visit Report [facility] [address], [address] [place] [address] OFFICE VISIT Date of Service: 12/24/24 MR#: [id number] Acct: [id number] Name: NATHANAEL MOSCOSO Rep #: [id number] : 1995 Provider: JUNIOR lopez Age/Sex: 29/F Location: [facility] [place] Status: Signed Intake Vital Signs 11/26/24 11:29 12/24/24 08:27 Height 5 ft 6.5 in 5 ft 6.5 in Weight: 192 lb 6 oz BMI 30.6 BP 120/72 Intake Visit Reasons: 18wk ob Chief Complaint: 18 Week OB Veneer Layer Required: No Is patient in pain?: No Allergies No Known Allergies Allergy (Verified 12/24/24 08:26) Medications ???Medication ???Instructions ???Recorded ???Confirmed ???Type PNV no.151-iron 27 mg-folic 800 1 cap PO DAILY 08/29/22 12/24/24 History mcg-omega3 260 gg-wsb-mlo-fish capsule omega-3 fatty acids 1,000 mg 2,000 mg PO QDAY 10/09/24 12/24/24 History capsule Last Menstrual Period: 08/07/24 Zika: Zika virus screening: Negative : No PFSH PFSH Medical History UTI (urinary tract infection) Gallstone Gestational diabetes Single umbilical artery Anovulatory cycle Amenorrhea Surgical History S/P ACL repair Social History adopted: No household members: spouse and children housing: house number of children: 1 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 occupational exposures/hazards: No pets and animals: Yes (Not managing litterbox ) pets and animals: cat(s), dog(s) and farm animals history of recent travel: No sexually active: Yes Smoking Status: Never smoker alcohol intake: never substance use type: does not use well-balanced diet: daily or most days caffeine: No eating out: rarely or never during the past year weight has: decreased > 10 lbs what type of physical activity do you participate in: walking frequency: 3-4 times per week duration: 30-45 minutes/day wilfred/sabianism: None seatbelt use: always do you feel safe at home: Yes 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 Date Name GA/Weeks Outcome Route Bth Weight Infant Gen Labor Lgth Anesthesia Del Locatn Provider FOB 03/30/23 Maximus 40 live - full term 8lbs 3oz Male epidural [facility] Fredy Hernandez [facility] Delivery Date: 03/30/23 Last Updated by: Cinda Angeles Gestational diabetes, single umbilical artery HPI 18wk ob Details: NATHANAEL MOSCOSO is a 29 year old who presents for routine OB visit. OB Visit ZEYNEP Calculator Estimated Delivery Date Method Current WG Current Estimate 05/14/25 LMP (Certain) 19w 6d Other Estimates 05/20/25 Ultrasound #1 19w 0d Expected Delivery Route/Plan Labor Preferences- CB/BF classes: [] labor support person: [] labor intervention preferences: [] pain management options preferred: [] cut cord/dad catch: [] : [] PP control planned: [] discussed possible routes of delivery and associated risks: [] special requests: [] Specific Issue/Plans Covid status: [] Flu vaccine: [] Tdap vaccine: [] Rhogam: [] LARC form signed: [] Problem list reviewed and updated with the most current plan of care details and appropriate orders placed. Relevant counseling for the gestational age provided. Continue routine care and follow up unless otherwise noted in visit notes/problem list details Initial Weight: Not Recorded Date -???-???-???-???-???-?? ?-???-???-???-???-???-? ??- EGA Weight BP Urine Prot -???-???-???-???-???-?? ?-???-???-???-???-???-? ??- Glucose FHR FuHt Pres Dilation -???-???-???-???-???-?? ?-???-???-???-???-???-? ??- Effaced St Visit Note 10/24/24 -???-???-???-???-???-?? ?-???-???-???-???-???-? ??- 11w 1d 184 lb 116/70 -???-???-???-???-???-?? ?-???-???-???-???-???-? ??- 181 -???-???-???-???-???-?? ?-???-???-???-???-???-? ??- KW-CRL cons with dates. declines NIPT. 11/26/24 -???-???-???-???-???-?? ?-???-???-???-???-???-? ??- 15w 6d 189 lb 4 oz 129/78 -???-???-???-???-???-?? ?-???-???-???-???-???-? ??- 150 -???-???-???-???-???-?? ?-???-???-???-???-???-? ??- SM- no vb cr amping 12/24/24 -???-???-???-???-???-?? ?-???-???-???-???-???-? ??- 19w 6d 192 lb 6 oz 120/72 Negative -???-???-???-???-???-?? ?-???-???-???-???-???-? ??- Negative 156 -???-???-???-???-???-?? ?-???-???-???-???-???-? ??- -No VB. Violet david. MFM US tomorrow ACOG Fi (more content not included)... Normal [facility] Chief Contract Officer Office Visit Reporton 11-26-2024 Chief Contract Officer Office Visit Report [facility] [address], [address] [place] [address] OFFICE VISIT Date of Service: 11/26/24 MR#: [id number] Acct: [id number] Name: NATHANAEL MOSCOSO Rep #: [id number] : 1995 Provider: Dr. Goldie elizondo MD Age/Sex: 29/F Location: [facility] [place] Status: Signed Intake Vital Signs 05/21/24 11:22 11/26/24 11:29 Height 5 ft 6.5 in 5 ft 6.5 in Weight: 189 lb 4 oz BMI 30.0 BP 129/78 H Intake Visit Reasons: 14wk OB Veneer Layer Required: No Is patient in pain?: No Feel stressed/tense/nervous/ anxious/difficulty sleeping: not at all Allergies No Known Allergies Allergy (Verified 11/26/24 11:30) Medications ???Medication ???Instructions ???Recorded ???Confirmed ???Type PNV no.151-iron 27 mg-folic 800 1 cap PO DAILY 08/29/22 11/26/24 History mcg-omega3 260 mo-zrj-dqv-fish capsule omega-3 fatty acids 1,000 mg 2,000 mg PO QDAY 10/09/24 11/26/24 History capsule Last Menstrual Period: 08/07/24 Zika: Zika virus screening: Negative : No Have you fallen in the past year?: No PFSH PFSH Medical History UTI (urinary tract infection) Gallstone Gestational diabetes Single umbilical artery Anovulatory cycle Amenorrhea Surgical History S/P ACL repair Social History adopted: No household members: spouse and children housing: house number of children: 1 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 occupational exposures/hazards: No pets and animals: Yes (Not managing litterbox ) pets and animals: cat(s), dog(s) and farm animals history of recent travel: No sexually active: Yes Smoking Status: Never smoker alcohol intake: never substance use type: does not use well-balanced diet: daily or most days caffeine: No eating out: rarely or never during the past year weight has: decreased > 10 lbs what type of physical activity do you participate in: walking frequency: 3-4 times per week duration: 30-45 minutes/day wilfred/sabianism: None seatbelt use: always do you feel safe at home: Yes 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 Date Name GA/Weeks Outcome Route Bth Weight Infant Gen Labor Lgth Anesthesia Del Locatn Provider FOB 03/30/23 Maximus 40 live - full term 8lbs 3oz Male epidural [facility] Delivery Date: 03/30/23 Last Updated by: Cinda Angeles Gestational diabetes, single umbilical artery HPI 14wk OB Details: NATHANAEL MOSCOSO is a 29 year old who presents for routine OB visit. OB Visit ZEYNEP Calculator Estimated Delivery Date Method Current WG Current Estimate 05/14/25 LMP (Certain) 15w 6d Other Estimates 05/20/25 Ultrasound #1 15w 0d Expected Delivery Route/Plan Labor Preferences- CB/BF classes: [] labor support person: [] labor intervention preferences: [] pain management options preferred: [] cut cord/dad catch: [] : [] PP control planned: [] discussed possible routes of delivery and associated risks: [] special requests: [] Specific Issue/Plans Covid status: [] Flu vaccine: [] Tdap vaccine: [] Rhogam: [] LARC form signed: [] Problem list reviewed and updated with the most current plan of care details and appropriate orders placed. Relevant counseling for the gestational age provided. Continue routine care and follow up unless otherwise noted in visit notes/problem list details Initial Weight: Not Recorded Date -???-???-???-???-???-?? ?-???-???-???-???-???-? ??- EGA Weight BP Urine Prot -???-???-???-???-???-?? ?-???-???-???-???-???-? ??- Glucose FHR FuHt Pres Dilation -???-???-???-???-???-?? ?-???-???-???-???-???-? ??- Effaced St Visit Note 10/24/24 -???-???-???-???-???-?? ?-???-???-???-???-???-? ??- 11w 1d 184 lb 116/70 -???-???-???-???-???-?? ?-???-???-???-???-???-? ??- 181 -???-???-???-???-???-?? ?-???-???-???-???-???-? ??- KW-CRL cons with dates. declines NIPT. 11/26/24 -???-???-???-???-???-?? ?-???-???-???-???-???-? ??- 15w 6d 189 lb 4 oz 129/78 -???-???-???-???-???-?? ?-???-???-???-???-???-? ??- 150 -???-???-???-???-???-?? ?-???-???-???-???-???-? ??- SM- no vb cr amping ACOG First Trimester First Trimester: Discussed Second Trimester Second Trimester: Signs and Symptoms of Labor, Selecting a care provider, Reproductive Life Plan (more content not included)... Normal [facility] Chlamydia/GC MINH aptimaon CHLAMY,NUC ACID Negative Normal Negative [facility] Comment on above: Performed By: #### L 7000.1800, M1.0 ####[facility] [address] [place], [place], [id number] GC BY NUC ACID Negative Normal Negative [facility] Comment on above: Performed By: #### L 7000.1800, M100.2200 ####[facility] [address] [place], [address] Urine Cultureon 10-25-2024 URC Culture exhibits no growth. Normal [facility] Comment on above: Performed By: #### L 0.1800, M100.2200 #### [facility] [address] [place], [address] Absolute lymphocyte countOrd ered By: Tammi Nieves on 10-24-2024 Lymphocytes Auto (Unsp spec) [#/Vol] 1.45 10*3/uL 0.83-4.51 [facility] Absolute neutrophil countOrd ered By: Tammi Nieves on 10-24-2024 Neutrophils (Bld) [#/Vol] 7.3 10*3/uL 2.0-7.7 [facility] Automated lymphocyte count a s percentage of total leukocytesOrdered By: Tammi Ezequiel on 10-24-2024 Lymphocytes/100 WBC Auto (Unsp spec) 14.8 % Low 19-41 [facility] Basophil percentageOrdered B y: Tammi Nieves on 10-24-2024 Basophils/100 WBC (Bld) 0.4 % 0-1 [facility] CBC W/Diff, Automatedon 10-02 Absolute Lymph 1.45 X10 3/uL Normal 0.83-4.51 [facility] Comment on above: Performed By: #### L 509.8000, L501.9985, L3890.6300, L3890.6100, L509.4005, BTS, L100.0100, L3890.6005 ####[facility] [address] [place], [address] Absolute Neut 7.3 X10 3/uL Normal 2.0-7.7 [facility] Comment on above: Performed By: #### L 509.8000, L501.9985, L3890.6300, L3890.6100, L509.4005, BTS, L100.0100, L3890.6005 ####[facility] [address] [place], [address] Basophils/100 WBC (Bld) 0.4 % Normal 0-1 [facility] Comment on above: Performed By: #### L 509.8000, L501.9985, L3890.6300, L3890.6100, L509.4005, BTS, L100.0100, L3890.6005 ####[facility] [address] [place], [address] Eosinophils/100 WBC (Bld) 2.9 % Normal 0-5 [facility] Comment on above: Performed By: #### L 509.8000, L501.9985, L3890.6300, L3890.6100, L509.4005, BTS, L100.0100, L3890.6005 ####[facility] [address] [place], [address] Erythrocyte distribution width (RBC) [Ratio] 13.2 % Normal 11.6-14.6 [facility] Comment on above: Performed By: #### L 509.8000, L501.9985, L3890.6300, L3890.6100, L509.4005, BTS, L100.0100, L3890.6005 ####[facility] [address] [place], [address] Hematocrit (Bld) [Volume fraction] 39.6 % Normal 37-47 [facility] Comment on above: Performed By: #### L 509.8000, L501.9985, L3890.6300, L3890.6100, L509.4005, BTS, L100.0100, L3890.6005 ####[facility] [address] [place], [address] Hemoglobin (Bld) [Mass/Vol] 13.1 g/dL Normal 12.0-15.0 [facility] Comment on above: Performed By: #### L 509.8000, L501.9985, L3890.6300, L3890.6100, L509.4005, BTS, L100.0100, L3890.6005 ####[facility] [address] [place], [address] IG% 0.700 Normal 0.0-0.9 [facility] Comment on above: Result Comment: IG% - Immature Granulocytes (promyelocytes, myelocytes and metamyelocytes) > 1% indicates that a LEFT SHIFT is Present. Performed By: #### L 509.8000, L501.9985, L3890.6300, L3890.6100, L509.4005, BTS, L100.0100, L3890.6005 ####[facility] [address] [place], [address] Lymphocytes/100 WBC (Bld) 14.8 % Low 19-41 [facility] Comment on above: Performed By: #### L 509.8000, L501.9985, L3890.6300, L3890.6100, L509.4005, BTS, L100.0100, L3890.6005 ####[facility] [address] [place], [address] MCH (RBC) [Entitic mass] 27.3 pg Normal 27.0-32.0 [facility] Comment on above: Performed By: #### L 509.8000, L501.9985, L3890.6300, L3890.6100, L509.4005, BTS, L100.0100, L3890.6005 ####[facility] [address] [place], [address] MCHC (RBC) [Mass/Vol] 33.1 g/dL Normal 32-36 [facility] Comment on above: Performed By: #### L 509.8000, L501.9985, L3890.6300, L3890.6100, L509.4005, BTS, L100.0100, L3890.6005 ####[facility] [address] [place], [address] MCV (RBC) [Entitic vol] 82.7 fL Normal 81-99 [facility] Comment on above: Performed By: #### L 509.8000, L501.9985, L3890.6300, L3890.6100, L509.4005, BTS, L100.0100, L3890.6005 ####[facility] [address] [place], [address] Monocytes/100 WBC (Bld) 6.9 % Normal 0-10 [facility] Comment on above: Performed By: #### L 509.8000, L501.9985, L3890.6300, L3890.6100, L509.4005, BTS, L100.0100, L3890.6005 ####[facility] [address] [place], [address] Neutrophils/100 WBC (Bld) 74.3 % High 47-70 [facility] Comment on above: Performed By: #### L 509.8000, L501.9985, L3890.6300, L3890.6100, L509.4005, BTS, L100.0100, L3890.6005 ####[facility] [address] [place], [address] Nucleated RBC (Bld) [#/Vol] 0 10*3/uL Normal 0-5 [facility] Comment on above: Performed By: #### L 509.8000, L501.9985, L3890.6300, L3890.6100, L509.4005, BTS, L100.0100, L3890.6005 ####[facility] [address] [place], [address] Platelet mean volume (Bld) [Entitic vol] 8.6 fL Normal 6.2-12.0 [facility] Comment on above: Performed By: #### L 509.8000, L501.9985, L3890.6300, L3890.6100, L509.4005, BTS, L100.0100, L3890.6005 ####[facility] [address] [place], [address] Platelets (Bld) [#/Vol] 358 10*3/uL Normal 150-450 [facility] Comment on above: Performed By: #### L 509.8000, L501.9985, L3890.6300, L3890.6100, L509.4005, BTS, L100.0100, L3890.6005 ####[facility] [address] [place], [address] RBC (Bld) [#/Vol] 4.79 10*6/uL Normal 4.2-5.4 [facility] Comment on above: Performed By: #### L 509.8000, L501.9985, L3890.6300, L3890.6100, L509.4005, BTS, L100.0100, L3890.6005 ####[facility] [address] [place], [address] RDW SD 39.6 fl Normal 35.1-43.9 [facility] Comment on above: Performed By: #### L 509.8000, L501.9985, L3890.6300, L3890.6100, L509.4005, BTS, L100.0100, L3890.6005 ####[facility] [address] [place], [address] WBC (Bld) [#/Vol] 9.8 10*3/uL Normal 4.4-11.0 [facility] Comment on above: Performed By: #### L 509.8000, L501.9985, L3890.6300, L3890.6100, L509.4005, BTS, L100.0100, L3890.6005 ####[facility] [address] [place], [address] Chlamydia trachomatis rRNA d etection by probe and target amplification methodOrdered By: Tammi Nieves on 10-24-2024 C. trachomatis rRNA MINH+probe Ql (Unsp spec) Negative Negative [facility] Eosinophil percentageOrdered By: Tammi Nieves on 10-24-2024 Eosinophils/100 WBC (Bld) 2.9 % 0-5 [facility] Erythrocyte distribution wid th ratioOrdered By: Tammi Nieves on 10-24-2024 Erythrocyte distribution width (RBC) [Ratio] 13.2 % 11.6-14.6 [facility] Erythrocyte distribution wid th standard deviationOrdered By: Tammi Nieves on 10-24-2024 Erythrocyte distribution width (RBC) [Ratio] 39.6 fl 35.1-43.9 [facility] HIV - WCHon 10-24-2024 HIV Non-Reactive Normal Nonreactive [facility] Comment on above: Order Comment: Reaso n for Exam: Performed By: #### L 509.8000, L501.9985, L3890.6300, L3890.6100, L509.4005, BTS, L100.0100, L3890.6005 ####[facility] [address] [place], [place], [id number] HIV 1 and HIV-2 antibody ass ay with HIV-1 p24 antigen detectionOrdered By: Tammi Nieves on 10-24-2024 HIV 1+2 Ab+HIV1 p24 Ag IA Ql Non-Reactive Nonreactive [facility] Hematocrit Auto (Bld) [Volum e fraction]Ordered By: Tammi Nieves on 10-24-2024 Hematocrit (Bld) [Volume fraction] 39.6 % 37-47 [facility] Hemoglobin A1con 10-24-2024 HbA1c (Bld) [Mass fraction] 5.2 % Normal 3.8-5.6 [facility] Comment on above: Result Comment: Norm al < 5.7 % Prediabetic 5.7 - 6.4 % Diabetic >or= 6.5 % Please note range changes. Performed By: #### L 509.8000, L501.9985, L3890.6300, L3890.6100, L509.4005, BTS, L100.0100, L3890.6005 ####[facility] [address] [place], [address] Hemoglobin A1c percentageOrd ered By: Tammi Nieves on 10-24-2024 HbA1c (Bld) [Mass fraction] 5.2 % 3.8-5.6 [facility] Comment on above: Normal < 5.7 % Predi abetic 5.7 - 6.4 % Diabetic >or= 6.5 % Please note range changes. Hemoglobin measurementOrdere d By: Tammi Nieves on 10-24-2024 Hemoglobin (Bld) [Mass/Vol] 13.1 g/dL 12.0-15.0 [facility] Hepatitis B Surface Antigeno n 10-24-2024 HEP B Surf Ag Non-Reactive Normal Nonreactive [facility] Comment on above: Order Comment: Reaso n for Exam: Performed By: #### L 509.8000, L501.9985, L3890.6300, L3890.6100, L509.4005, BTS, L100.0100, L3890.6005 ####[facility] [address] [place], [address] Hepatitis C Antibodyon 10-24 Hepatitis C AB Non-Reactive Normal Nonreactive [facility] Comment on above: Order Comment: Reaso n for Exam: Result Comment: Non Reactive: < 0.8 Equivocal: >/= 0.8 to < 1.0 Reactive: >/= 1.0 The CDC requires that a reactive/equivocal HCV antibody result be sent out for confirmation. HCV Quant by PCR testing. Performed By: #### L 509.8000, L501.9985, L3890.6300, L3890.6100, L509.4005, BTS, L100.0100, L3890.6005 ####[facility] [address] [place], [address] Immature granulocytes/100 WB C Auto (Bld)Ordered By: Tammi Nieves on 10-24-2024 Immature granulocytes/100 WBC (Bld) 0.700 % 0.0-0.9 [facility] Comment on above: IG% - Immature Granu locytes (promyelocytes, myelocytes and metamyelocytes) > 1% indicates that a LEFT SHIFT is Present. L509.8000on 10-24-2024 Syphilis Abs Non-Reactive Normal [facility] Comment on above: Order Comment: Marlao n for Exam: Performed By: #### L 509.8000, L501.9985, L3890.6300, L3890.6100, L509.4005, BTS, L100.0100, L3890.6005 ####[facility] [address] [place], [address] MCV (mean corpuscular volume ) determinationOrdered By: Tammi Nieves on 10-24-2024 MCV (RBC) [Entitic vol] 82.7 fL 81-99 [facility] Mean corpuscular hemoglobin (MCH) determinationOrdered By: Tammi Nieves on 10-24-2024 MCH (RBC) [Entitic mass] 27.3 pg 27.0-32.0 [facility] Mean corpuscular hemoglobin concentration (MCHC) determinationOrdered By: Tammi Nieves on 10-24-2024 MCHC (RBC) [Mass/Vol] 33.1 g/dL 32-36 [facility] Mean platelet volume determi nationOrdered By: Tammi Nieves on 10-24-2024 Platelet mean volume (Bld) [Entitic vol] 8.6 fL 6.2-12.0 [facility] Monocyte percentageOrdered B y: Tammi Nieves on 10-24-2024 Monocytes/100 WBC (Bld) 6.9 % 0-10 [facility] Neisseria gonorrhoeae nuclei c acid detection by amplified probe techniqueOrdered By: Tammi Nieves on 10-24-2024 N. gonorrhoeae DNA MINH+probe Ql (Unsp spec) Negative Negative [facility] Neutrophil percentageOrdered By: Tammi Nieves on 10-24-2024 Neutrophils/100 WBC (Bld) 74.3 % High 47-70 [facility] Nucleated red blood cell per centageOrdered By: Tammi Nieves on 10-24-2024 Nucleated RBC/100 WBC (Bld) [Ratio] 0 % 0-5 [facility] Chief Contract Officer Office Visit Reporton 10-24-2024 Chief Contract Officer Office Visit Report [facility] [address] [place] [address], [address] [place] [address] OFFICE VISIT Date of Service: 10/24/24 MR#: [id number] Acct: [id number] Name: NATHANAEL MOSCOSO Rep #: [id number] : 1995 Provider: FUNMI Doe ams Age/Sex: 29/F Location: [facility] [place] Status: Signed Intake Vital Signs 05/21/24 11:22 10/24/24 08:58 10/24/24 08:58 Height 5 ft 6.5 in 5 ft 6.5 in Weight: 184 lb BMI 29.2 BP 116/70 Intake Visit Reasons: NOB LMP 08/07 Veneer Layer Required: No Is patient in pain?: No Allergies No Known Allergies Allergy (Verified 10/24/24 08:58) Medications ???Medication ???Instructions ???Recorded ???Confirmed ???Type PNV no.151-iron 27 mg-folic 800 1 cap PO DAILY 08/29/22 10/24/24 History mcg-omega3 260 gj-eam-ktc-fish capsule omega-3 fatty acids 1,000 mg 2,000 mg PO QDAY 10/09/24 10/24/24 History capsule Last Menstrual Period: 08/07/24 : Yes PFSH PFSH Medical History UTI (urinary tract infection) Gallstone Gestational diabetes Single umbilical artery Anovulatory cycle Amenorrhea Surgical History S/P ACL repair Social History adopted: No household members: spouse and children housing: house number of children: 1 service: No 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 occupational exposures/hazards: No pets and animals: Yes (Not managing litterbox ) pets and animals: cat(s), dog(s) and farm animals history of recent travel: No sexually active: Yes Smoking Status: Never smoker alcohol intake: never substance use type: does not use well-balanced diet: daily or most days caffeine: No eating out: rarely or never during the past year weight has: decreased > 10 lbs what type of physical activity do you participate in: walking frequency: 3-4 times per week duration: 30-45 minutes/day wilfred/sabianism: None seatbelt use: always do you feel safe at home: Yes 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 Date Name GA/Weeks Outcome Route Bth Weight Infant Gen Labor Lgth Anesthesia Del Locatn Provider FOB 03/30/23 Maximus 40 live - full term 8lbs 3oz Male epidural WC D r. Liz Francis Delivery Date: 03/30/23 Last Updated by: Cinda Angeles Gestational diabetes, single umbilical artery HPI NOB LMP 08/07 Details: NATHANAEL MOSCOSO is a 29 year old who presents for New OB visit. OB Visit ZEYNEP Calculator Estimated Delivery Date Method Current WG Current Estimate 05/14/25 LMP (Certain) 11w 1d Other Estimates 05/20/25 Ultrasound #1 10w 2d Comments: HIV: Urine Culture: Sequential Screen: NIPT Screen: Estimated Due Date: 05/14/25 Expected Delivery Route/Plan Labor Preferences- CB/BF classes: [] labor support person: [] labor intervention preferences: [] pain management options preferred: [] cut cord/dad catch: [] : [] PP control planned: [] discussed possible routes of delivery and associated risks: [] special requests: [] Specific Issue/Plans Covid status: [] Flu vaccine: [] Tdap vaccine: [] Rhogam: [] LARC form signed: [] Problem list reviewed and updated with the most current plan of care details and appropriate orders placed. Relevant counseling for the gestational age provided. Continue routine care and follow up unless otherwise noted in visit notes/problem list details Initial Weight: Not Recorded Date -???-???-???-???-???-?? ?-???-???-???-???-???-? ??- EGA Weight BP Urine Prot -???-???-???-???-???-?? ?-???-???-???-???-???-? ??- Glucose FHR FuHt Pres Dilation -???-???-???-???-???-?? ?-???-???-???-???-???-? ??- Effaced St Visit Note 10/24/24 -???-???-???-???-???-?? ?-???-???-???-???-???-? ??- 11w 1d 184 lb 116/70 -???-???-???-???-???-?? ?-???-???-???-???-???-? ??- 181 -???-???-???-???-???-?? ?-???-???-???-???-???-? ??- KW-CRL cons with dates. declines NIPT. Menstrual History Last Menstrual Period: 08/07/24 Reported LMP: definite Normal amount/duration: Yes Frequency in days: 35 post breast feeding On hormonal BC at conception: No hCG+: 09/13/24 Antepartum Record Genetic Screening: Congenital Heart Defect: Other, Neural Tube Defect: Other, Hemoglobinopathy Or Carrier: Other, Cystic Fibrosis: Other, Chromosome Abnormality: Other, Russ-Sachs: Other, Hemophilia: Oth (more content not included)... Normal [facility] Platelet countOrdered By: Shorty Nieves on 10-24-2024 Platelets (Bld) [#/Vol] 358 10*3/uL 150-450 [facility] RBC Auto (Bld) [#/Vol]Ordere d By: Tammi Nieves on 10-24-2024 RBC (Bld) [#/Vol] 4.79 10*6/uL 4.2-5.4 [facility] Rubella IgGon 10-24-2024 Rubella IgG Equiv Normal Nonreactive [facility] Comment on above: Order Comment: Reaso n for Exam: Result Comment: Anti body Results Interpretation of Immune Status Non Reactive Presumed Non-Immune Equivocal Equivocal Reactive Presumed Immune Performed By: #### L 509.8000, L501.9985, L3890.6300, L3890.6100, L509.4005, BTS, L100.0100, L3890.6005 ####[facility] [address] [place], [address] Serum Treponema species anti body detectionOrdered By: Tammi Nieves on 10-24-2024 Treponema sp Ab Ql (S) Non-Reactive [facility] Type AND Screenon 10-24-2024 ABO and Rh group Nom (Bld) Blood group A Rh(D) positive Normal [facility] Comment on above: Order Comment: PN Performed By: #### L 509.8000, L501.9985, L3890.6300, L3890.6100, L509.4005, BTS, L100.0100, L3890.6005 ####[facility] [address] [place], [address] Urine cultureOrdered By: Dave Nieves on 10-24-2024 Bacteria identified Cx Nom (U) Culture exhibits no growth. [facility] White blood cell (WBC) count Ordered By: Tammi Nieves on 10-24-2024 WBC (Bld) [#/Vol] 9.8 10*3/uL 4.4-11.0 [facility] Chief Contract Officer Office Visit Reporton 05-21-2024 Chief Contract Officer Office Visit Report 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) Veneer Layer Required: No Is patient in pain?: No Allergies No Known Allergies Allergy (Verified 05/21/24 11:24) Medications ???Medication ???Instructions ???Recorded ???Confirmed ???Type PNV no.151-iron 27 mg-folic 800 1 cap PO DAILY 08/29/22 05/21/24 History mcg-omega3 260 qb-ofx-oho-fish capsule cholecalciferol (vitamin D3) 50 50 mcg PO DAILY 05/09/23 05/21/24 History mcg (2,000 unit) capsule Is last menstrual period known: Yes Last Menstrual Period: 03/13/24 Post menopausal: No Patient : No : Yes Control Method: none PFSH Medical History UTI (urinary tract infection) Gallstone Gestational diabetes Single umbilical artery Anovulatory cycle Amenorrhea Surgical History S/P ACL repair Social History adopted: No household members: spouse housing: house number of children: 1 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 occupational exposures/hazards: No pets and animals: Yes (Not managing litterbox ) pets and animals: cat(s), dog(s) and farm animals history of recent travel: No sexually active: Yes Smoking Status: Never smoker alcohol intake: never substance use type: does not use well-balanced diet: daily or most days caffeine: No eating out: 1-3 times/week during the past year weight has: remained stable what type of physical activity do you participate in: none wilfred/sabianism: None seatbelt use: always do you feel safe at home: Yes 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 Date Name GA/Weeks Outcome Route Bth Weight Gen Labor Lgth Anesthesia Del Locatn Provider FOB 03/30/23 Maximus 40 live - full term 8lbs 3oz Male epidural [facility] D r. Liz Francis Delivery Date: 03/30/23 Last Updated by: Cinda Angeles Gestational diabetes, single umbilical artery HPI Encounter for routine gynecological examination Details: NATHANAEL MOSCOSO is a 29 year old who presents for annual exam. She is currently - just at night. LMP was March 13 and has not had one since. Last PAP: 2021; negative. History of abnormal PAP: no Last mammogram: None History of abnormal mammogram: n/a Colon cancer screening: None Other preventative health care screenings: Primary Care Doctor: Does not have. Female Reproductive History Last Menstrual Period: 03/13/24 Associated symptoms: irregular since; currently . Questions: metorrhagia: No, sexually active: Yes, dyspareunia: No and PCB: No ROS Const Constitutional: Denies chills, fatigue, fever(s), headache(s) or weight loss Eyes Eyes: Denies change in vision ENT ENT: Denies dizziness Resp Resp: Denies cough GI GI: Denies abdominal pain, constipation or nausea : Denies difficulty voiding, dysuria, hematuria, nipple discharge, pelvic pain, prolapse symptoms, urinary incontinence, vaginal discharge, vaginal dryness, vaginal odor or vaginal pruritus Skin Skin/Breast: Denies alopecia, rash, breast mass, breast pain, breast skin changes or nipple discharge Neuro Neuro: Denies dizziness Psych Psych: Denies anxiety or depression Endo Endo: Denies cold intolerance, excessive sweating or heat intolerance Exam Const General: cooperative, healthy appearing, comfortable, no acute distress, well groomed and well hydrated Nutritional Appearance: well nourished Orientation: alert, awake and oriented x3 HENMT Head: normal to inspection and normocephalic Ears: hearing grossly normal bilaterally and external ears normal Nose: external nose normal Face and sinus: normal facial exam Eyes General: appearance normal, both eyes and all related structures Neck Neck: normal visual inspection, full ROM and no lymphadenopathy Thyroid: thyroid normal Chest Chest palpation inspection: normal inspection of the chest Breast inspection: normal inspection of the breasts and parris (more content not included)... Normal [facility] Bacteria identified Cx Nom ( Wound)Ordered By: Dotty Olson on 05-09-2023 Wound Culture Staphylococcus epidermidis [facility] Gram stain for investigation of transfusion reactionOrdered By: Dotty Olson on 05-09-2023 Microscopic observation Gram stain Nom (Unsp spec) [facility] Glucose Glucometer (BldC) [M ass/Vol]Ordered By: Dottycasandra Olson on 03-31-2023 Glucose [Mass/Vol] 73 mg/dL 74-106 [facility] Comment on above: MANAGEMENT OF PATIEN T CARE PER NURSING PROTOCOL Absolute lymphocyte countOrd ered By: Genet Basurto on 03-30-2023 Lymphocytes Auto (Unsp spec) [#/Vol] 1.38 10*3/uL 0.83-4.51 [facility] Basophil percentageOrdered B y: Genet Basurto on 03-30-2023 Basophils/100 WBC (Bld) 0.5 % 0-1 [facility] Eosinophils/100 WBC (Bld) 0.7 % 0-5 [facility] Neutrophils (Bld) [#/Vol] 6.1 10*3/uL 2.0-7.7 [facility] Neutrophils/100 WBC (Bld) 71.1 % 47-70 [facility] WBC (Bld) [#/Vol] 8.6 10*3/uL 4.4-11.0 [facility] Blood erythrocytes count (nu mber/volume)Ordered By: Genet Basurto on 03-30-2023 RBC (Bld) [#/Vol] 4.34 10*6/uL 4.2-5.4 [facility] Blood hemoglobin measurement (mass/volume)Ordered By: Genet Basurto on 03-30-2023 Hemoglobin (Bld) [Mass/Vol] 12.2 g/dL 12.0-15.0 [facility] Blood lymphocytes/100 leukoc ytesOrdered By: Genet Basurto on 03-30-2023 Lymphocytes/100 WBC (Bld) 16.0 % 19-41 [facility] Blood monocytes/100 leukocyt esOrdered By: Genet Basurto on 03-30-2023 Monocytes/100 WBC (Bld) 9.5 % 0-10 [facility] Blood platelet mean volumeOr dered By: Genet Basurto on 03-30-2023 Platelet mean volume (Bld) [Entitic vol] 8.9 fL 6.2-12.0 [facility] Determination of erythrocyte mean corpuscular volume (MCV)Ordered By: Genet Basurto on 03-30-2023 MCV (RBC) [Entitic vol] 83.9 fL 81-99 [facility] Hematocrit Auto (Bld) [Volum e fraction]Ordered By: Genet Basurto on 03-30-2023 Hematocrit (Bld) [Volume fraction] 36.4 % 37-47 [facility] Laboratory - Hematology and Cell countsOrdered By: Genet Basurto on 03-30-2023 Erythrocyte distribution width (RBC) [Entitic vol] 41.5 fL 35.1-43.9 [facility] Erythrocyte distribution width (RBC) [Ratio] 13.5 % 11.6-14.6 [facility] Immature granulocytes/100 WBC (Bld) 2.200 % 0.0-0.9 [facility] Comment on above: IG% - Immature Granu locytes (promyelocytes, myelocytes and metamyelocytes) > 1% indicates that a LEFT SHIFT is Present. MCH (RBC) [Entitic mass] 28.1 pg 27.0-32.0 [facility] Nucleated RBC/100 WBC (Bld) [Ratio] 0 % 0-5 [facility] MCHC Auto (RBC) [Mass/Vol]Or dered By: Genet Basurto on 03-30-2023 MCHC (RBC) [Mass/Vol] 33.5 g/dL 32-36 [facility] Platelets bldOrdered By: Liberty Basurto on 03-30-2023 Platelets (Bld) [#/Vol] 268 10*3/uL 150-450 [facility] Serum Treponema species anti body detectionOrdered By: Genet Basurto on 03-30-2023 Treponema sp Ab Ql (S) Non-Reactive [facility] Laboratory - Chemistry and C hemistry - challengeon 03-28-2023 Glucose Ql (U) Negative [facility] Laboratory - Urinalysison Protein Ql (U) Negative [facility] Absolute lymphocyte countOrd ered By: Tammi Nieves on 03-24-2023 Lymphocytes Auto (Unsp spec) [#/Vol] 1.55 10*3/uL 0.83-4.51 [facility] Basophil percentageOrdered B y: Tammi Nieves on 03-24-2023 Amylase [Catalytic activity/Vol] 115 U/L 25-115 [facility] Basophils/100 WBC (Bld) 0.6 % 0-1 [facility] Bilirubin [Mass/Vol] 0.30 mg/dL 0.20-1.00 [facility] Comment on above: For patients on eltr ombopag therapy, use of Dimension [place] TBIL is not recommended. Chloride [Moles/Vol] 107 mmol/L 98-107 [facility] Eosinophils/100 WBC (Bld) 0.2 % 0-5 [facility] Glucose [Mass/Vol] 119 mg/dL 74-106 [facility] Comment on above: Fasting Glucose resu lt from 100 to 125 mg/dL suggests IMPAIRED HOMEOSTASIS per A.D.A. criteria. Neutrophils (Bld) [#/Vol] 10.5 10*3/uL 2.0-7.7 [facility] Neutrophils/100 WBC (Bld) 80.2 % 47-70 [facility] Potassium [Moles/Vol] 3.3 mmol/L 3.5-5.1 [facility] Protein [Mass/Vol] 7.1 g/dL 6.4-8.2 [facility] Sodium [Moles/Vol] 138 mmol/L 136-145 [facility] WBC (Bld) [#/Vol] 13.1 10*3/uL 4.4-11.0 [facility] Bilirubin Test strip Ql (U)O rdered By: Tammi Nieves on 03-24-2023 Bilirubin Ql (U) Negative Negative [facility] Blood erythrocytes count (nu mber/volume)Ordered By: Tammi Nieves on 03-24-2023 RBC (Bld) [#/Vol] 4.79 10*6/uL 4.2-5.4 [facility] Blood hemoglobin measurement (mass/volume)Ordered By: Tammi Nieves on 03-24-2023 Hemoglobin (Bld) [Mass/Vol] 13.1 g/dL 12.0-15.0 [facility] Blood lymphocytes/100 leukoc ytesOrdered By: Tammi Nieves on 03-24-2023 Lymphocytes/100 WBC (Bld) 11.9 % 19-41 [facility] Blood monocytes/100 leukocyt esOrdered By: Tammi Nieves on 03-24-2023 Monocytes/100 WBC (Bld) 4.7 % 0-10 [facility] Blood platelet mean volumeOr dered By: Tammi Nieves on 03-24-2023 Platelet mean volume (Bld) [Entitic vol] 9.2 fL 6.2-12.0 [facility] Culture, urineOrdered By: Shorty Nieves on 03-24-2023 Bacteria identified Cx Nom (U) Mixed Gram Pos & Gram Neg Org [facility] Determination of erythrocyte mean corpuscular volume (MCV)Ordered By: Tammi Nieves on 03-24-2023 MCV (RBC) [Entitic vol] 86.2 fL 81-99 [facility] Hematocrit Auto (Bld) [Volum e fraction]Ordered By: Tammi Nieves on 03-24-2023 Hematocrit (Bld) [Volume fraction] 41.3 % 37-47 [facility] Ketones Test strip Ql (U)Ord ered By: Tammi Nieves on 03-24-2023 Ketones Ql (U) 150 mg/dl Negative [facility] Comment on above: CRITICAL VALUE *HCRI TICAL VALUE VERIFIED. CALLED TO Fariha MITCHELL RN WP03/25/23 0051 Tristan Gutiérrez.RESULTS READ BACK BY SAME. Laboratory - Chemistry and C hemistry - challengeOrdered By: Tammi Nieves on 03-24-2023 ALP [Catalytic activity/Vol] 127 U/L 45-117 [facility] ALT [Catalytic activity/Vol] 29 U/L 13-56 [facility] CO2 [Moles/Vol] 24.0 mmol/L 21.0-32.0 [facility] Globulin (S) [Mass/Vol] 3.9 g/dL 2.2-4.2 [facility] Lipase [Catalytic activity/Vol] 47 U/L 13-75 [facility] Comment on above: Please note:LIPASE r evised reference range effective 23. New Lipase methodology. Expected to produce lower values than the previous assay method. NEW Reference Range: 13 - 75 U/L Urea nitrogen/Creatinine [Mass ratio] 12.6 mg/mg 10-20 [facility] Laboratory - Hematology and Cell countsOrdered By: Tammi Nieves on 03-24-2023 Erythrocyte distribution width (RBC) [Entitic vol] 42.7 fL 35.1-43.9 [facility] Erythrocyte distribution width (RBC) [Ratio] 13.8 % 11.6-14.6 [facility] Immature granulocytes/100 WBC (Bld) 2.400 % 0.0-0.9 [facility] Comment on above: IG% - Immature Granu locytes (promyelocytes, myelocytes and metamyelocytes) > 1% indicates that a LEFT SHIFT is Present. MCH (RBC) [Entitic mass] 27.3 pg 27.0-32.0 [facility] Nucleated RBC/100 WBC (Bld) [Ratio] 0 % 0-5 [facility] MCHC Auto (RBC) [Mass/Vol]Or dered By: Tammi Nieves on 03-24-2023 MCHC (RBC) [Mass/Vol] 31.7 g/dL 32-36 [facility] Nitrite Test strip Ql (U)Ord ered By: Tammi Nieves on 03-24-2023 Nitrite Ql (U) Negative Negative [facility] No Panel InformationOrdered By: Tammi Nieves on 03-24-2023 Estimated Creatinine Clearance Calc 124.70 ml/min [facility] Estimated GFR (MDRD) Amer 144 mL/min >60 [facility] Comment on above: GFR Calc Estimated GFR (MDRD) Non-Af Amer 119 mL/min >60 [facility] Comment on above: Non- GFR Calc Platelets bldOrdered By: Dave Nieves on 03-24-2023 Platelets (Bld) [#/Vol] 280 10*3/uL 150-450 [facility] Protein Test strip Ql (U)Ord ered By: Tammi Nieves on 03-24-2023 Protein Ql (U) 30 mg/dl Negative [facility] Serum or plasma albumin sarmad urement (mass/volume)Ordered By: Tammi Nieves on 03-24-2023 Albumin [Mass/Vol] 3.2 g/dL 3.2-5.0 [facility] Serum or plasma albumin/glob ulin mass ratioOrdered By: Tammi Nieves on 03-24-2023 Albumin/Globulin [Mass ratio] 0.8 {ratio} 0.9-2.4 [facility] Serum or plasma calcium sarmad urement (mass/volume)Ordered By: Tammi Nieves on 03-24-2023 Calcium [Mass/Vol] 9.3 mg/dL 8.5-10.1 [facility] Serum or plasma creatinine m easurement (mass/volume)Ordered By: Tammi Nieves on 03-24-2023 Creatinine [Mass/Vol] 0.64 mg/dL 0.55-1.02 [facility] Comment on above: The validity of the calculated GFR & GFRAA in patients over 70 years has not been determined. Clinical correlation is essential. Serum or plasma urea nitroge n measurement (mass/volume)Ordered By: Tammi Nieves on 03-24-2023 Urea nitrogen [Mass/Vol] 8 mg/dL 7-18 [facility] Thin prep Papanicolaou smear with manual screeningOrdered By: Tammi Nieves on 03-24-2023 Thin prep Papanicolaou smear with manual screening 20 U/L 15-37 [facility] Thin prep Papanicolaou smear with manual screening 7 5-15 [facility] Urine blood detectionOrdered By: Tammi Nieves on 03-24-2023 RBC Ql (U) 10 /ul Negative [facility] Urine clarityOrdered By: Dave Nieves on 03-24-2023 Clarity (U) Clear Clear [facility] Urine color determinationOrd ered By: Tammi Nieves on 03-24-2023 Color (U) Yellow Yellow [facility] Urine glucose detectionOrder ed By: Tammi Nieves on 03-24-2023 Glucose Ql (U) Normal mg/dl Normal [facility] Urine leukocyte esterase det ection by dipstickOrdered By: Tammi Nieves on 03-24-2023 Leukocyte esterase Test strip Ql (U) 25 /ul Negative [facility] Urine pHOrdered By: Tammi tavera on 03-24-2023 pH (U) 6.5 [pH] 5.0 - 8.0 [facility] Urine specific gravity measu rementOrdered By: Tammi Nieves on 03-24-2023 Specific gravity (U) [Rel density] 1.020 1.002-1.030 [facility] Urobilinogen Auto test strip Ql (U)Ordered By: Tammi Nieves on 03-24-2023 Urobilinogen Ql (U) Normal mg/dl Normal [facility] Laboratory - Chemistry and C hemistry - challengeon 03-20-2023 Glucose Ql (U) Negative [facility] Laboratory - Urinalysison Protein Ql (U) Negative [facility] Laboratory - Chemistry and C hemistry - challengeon 03-15-2023 Glucose Ql (U) Negative [facility] Laboratory - Urinalysison Protein Ql (U) Negative [facility] No Panel InformationOrdered By: Dr. Ng on 03-08-2023 Group B Streptococcus Culture Group B Beta Streptococcus is not isolated. [facility] No Panel InformationOrdered By: Goldie Ng on 03-05-2023 Group B Streptococcus Culture Group B Beta Streptococcus is not isolated. [facility] Laboratory - Chemistry and C hemistry - challengeon 02-22-2023 Glucose Ql (U) Negative [facility] Laboratory - Urinalysison Protein Ql (U) Negative [facility] Laboratory - Chemistry and C hemistry - challengeon 02-06-2023 Glucose Ql (U) Negative [facility] Laboratory - Urinalysison Protein Ql (U) Negative [facility] Quantitative serum or plasma 3 hour gestational glucose tolerance panelOrdered By: Genet Basurto on 01-11-2023 Glucose tolerance 3 hours gestational panel See comment [facility] Comment on above: FASTING 85 Col: 12/30 12/21 0656GLUCOSE TOLERANCE TEST FOR Reference Interval GESTATIONAL DIABETES Fasting <105 mg/dL 1 hour <190 mg/dl 2 hour <165 mg/dl 3 hour <145 mg/dl 1 HR GLU 181 Col: 01/11/23 0759 2 HR GLU 158 Col: 01/11/23 0900 3 HR GLU 76 Col: 01/11/23 1002 Absolute lymphocyte countOrd ered By: Dr. Ng on 01-08-2023 Lymphocytes Auto (Unsp spec) [#/Vol] 1.95 10*3/uL 0.83-4.51 [facility] Basophil percentageOrdered B y: Dr. Ng on 01-08-2023 Basophil percentage Not Reportable [facility] Basophil percentage 1 % 0-5 [facility] Neutrophils (Bld) [#/Vol] 10.1 10*3/uL 2.0-7.7 [facility] WBC (Bld) [#/Vol] 12.8 10*3/uL 4.4-11.0 [facility] Blood band neutrophil count as percentage of total leukocytesOrdered By: Dr. Ng on 01-08-2023 Band form neutrophils/100 WBC (Bld) 6 % 0-5 [facility] Blood erythrocytes count (nu mber/volume)Ordered By: Dr. Ng on 01-08-2023 RBC (Bld) [#/Vol] 4.30 10*6/uL 4.2-5.4 [facility] Blood hemoglobin measurement (mass/volume)Ordered By: Dr. Ng on 01-08-2023 Hemoglobin (Bld) [Mass/Vol] 12.0 g/dL 12.0-15.0 [facility] Blood lymphocytes/100 leukoc ytesOrdered By: Dr. Ng on 01-08-2023 Lymphocytes/100 WBC (Bld) 15 % 19-41 [facility] Blood monocytes/100 leukocyt esOrdered By: Dr. Ng on 01-08-2023 Monocytes/100 WBC (Bld) 2 % 0-10 [facility] Blood platelet adequacy dete ction by light microscopyOrdered By: Dr. Ng on 01-08-2023 Platelets LM Ql (Bld) ADEQUATE ADEQ [facility] Blood platelet mean volumeOr dered By: Dr. Ng on 01-08-2023 Platelet mean volume (Bld) [Entitic vol] 8.3 fL 6.2-12.0 [facility] Blood segmented neutrophils/ [address]: [address] Ng on 01-08-2023 Segmented neutrophils/100 WBC (Bld) 73 % 47-70 [facility] Determination of erythrocyte mean corpuscular volume (MCV)Ordered By: Dr. gN on 01-08-2023 MCV (RBC) [Entitic vol] 86.7 fL 81-99 [facility] Gestational diabetes screen 1-hour screen with 50g oral glucose loadOrdered By: Dr. Ng on 01-08-2023 Glucose 1 Hr post 50 g glucose PO [Mass/Vol] 162 mg/dL 70-140 [facility] HIV 1 and HIV-2 antibody ass ay with HIV-1 p24 antigen detectionOrdered By: Dr. Ng on 01-08-2023 HIV 1+2 Ab+HIV1 p24 Ag IA Ql Non-Reactive Nonreactive [facility] Hematocrit Auto (Bld) [Volum e fraction]Ordered By: Dr. Ng on 01-08-2023 Hematocrit (Bld) [Volume fraction] 37.3 % 37-47 [facility] Laboratory - Chemistry and C hemistry - challengeon 01-08-2023 Glucose Ql (U) Negative [facility] Laboratory - Hematology and Cell countsOrdered By: Dr. Ng on 01-08-2023 Erythrocyte distribution width (RBC) [Entitic vol] 42.6 fL 35.1-43.9 [facility] Erythrocyte distribution width (RBC) [Ratio] 13.7 % 11.6-14.6 [facility] MCH (RBC) [Entitic mass] 27.9 pg 27.0-32.0 [facility] Myelocytes/100 WBC (Bld) 4 % 0-0 [facility] Laboratory - Urinalysison Protein Ql (U) Negative [facility] MCHC Auto (RBC) [Mass/Vol]Or dered By: Dr. Ng on 01-08-2023 MCHC (RBC) [Mass/Vol] 32.2 g/dL 32-36 [facility] Platelets bldOrdered By: Dr. Ng on 01-08-2023 Platelets (Bld) [#/Vol] 265 10*3/uL 150-450 [facility] RBC morphologyOrdered By: Dr Emerson Ng on 01-08-2023 RBC morphology finding Nom (Bld) NORM C+C NORMAL NORM C&C [facility] Review by pathologistOrdered By: Dr. Ng on 01-08-2023 Pathologist review Karl (Unsp spec) [Interp] Reviewed [facility] Comment on above: Previous reported re sult: Cally melgar Edited by: RGOOD on 01/10/23:1047Neutrophilic leukocytosis with left shift. Clinical correlation necessary.Reynaldo Modi M.D. 01/10/23 AMENDED REPORT 01/10/23 1047 PATH REV previously reported as: January Serum Treponema species anti body detectionOrdered By: Dr. Ng on 01-08-2023 Treponema sp Ab Ql (S) Non-Reactive [facility] Total cell countOrdered By: Dr. Ng on 01-08-2023 Cells counted Molgen (Bld/Tiss) [#] 100 MANUAL DIFF [facility] Laboratory - Chemistry and C hemistry - challengeon 12-18-2022 Glucose Ql (U) Negative [facility] Laboratory - Urinalysison Protein Ql (U) Negative [facility] Laboratory - Chemistry and C hemistry - challengeon 11-20-2022 Glucose Ql (U) Negative [facility] Laboratory - Urinalysison Protein Ql (U) Negative [facility] Laboratory - Chemistry and C hemistry - challengeon 10-26-2022 Glucose Ql (U) Negative [facility] Laboratory - Urinalysison Protein Ql (U) Negative [facility] Quantitative serum or plasma 3 hour gestational glucose tolerance panelOrdered By: Pearl Calderon on 10-09-2022 Glucose tolerance 3 hours gestational panel See comment [facility] Comment on above: FASTING 90 Col: 06/23 0658GLUCOSE TOLERANCE TEST FOR Reference Interval GESTATIONAL DIABETES Fasting <105 mg/dL 1 hour <190 mg/dl 2 hour <165 mg/dl 3 hour <145 mg/dl 1 HR GLU 170 Col: 10/09/22 0754 2 HR GLU 151 Col: 10/09/22 0856 3 HR GLU 135 Col: 10/09/22 0957 Absolute lymphocyte countOrd ered By: Dr. Ng on 10-02-2022 Lymphocytes Auto (Unsp spec) [#/Vol] 1.87 10*3/uL 0.83-4.51 [facility] Basophil percentageOrdered B y: Dr. Ng on 10-02-2022 Basophils/100 WBC (Bld) 0.4 % 0-1 [facility] Eosinophils/100 WBC (Bld) 1.0 % 0-5 [facility] Neutrophils (Bld) [#/Vol] 8.7 10*3/uL 2.0-7.7 [facility] Neutrophils/100 WBC (Bld) 73.2 % 47-70 [facility] WBC (Bld) [#/Vol] 11.8 10*3/uL 4.4-11.0 [facility] Blood erythrocytes count (nu mber/volume)Ordered By: Dr. Ng on 10-02-2022 RBC (Bld) [#/Vol] 4.58 10*6/uL 4.2-5.4 [facility] Blood hemoglobin measurement (mass/volume)Ordered By: Dr. Ng on 10-02-2022 Hemoglobin (Bld) [Mass/Vol] 12.8 g/dL 12.0-15.0 [facility] Blood lymphocytes/100 leukoc ytesOrdered By: Dr. Ng on 10-02-2022 Lymphocytes/100 WBC (Bld) 15.8 % 19-41 [facility] Blood monocytes/100 leukocyt esOrdered By: Dr. Ng on 10-02-2022 Monocytes/100 WBC (Bld) 6.7 % 0-10 [facility] Blood platelet mean volumeOr dered By: Dr. Ng on 10-02-2022 Platelet mean volume (Bld) [Entitic vol] 8.2 fL 6.2-12.0 [facility] Determination of erythrocyte mean corpuscular volume (MCV)Ordered By: Dr. Ng on 10-02-2022 MCV (RBC) [Entitic vol] 83.2 fL 81-99 [facility] Gestational diabetes screen 1-hour screen with 50g oral glucose loadOrdered By: Dr. Ng on 10-02-2022 Glucose 1 Hr post 50 g glucose PO [Mass/Vol] 145 mg/dL 70-140 [facility] HIV 1 and HIV-2 antibody ass ay with HIV-1 p24 antigen detectionOrdered By: Dr. Ng on 10-02-2022 HIV 1+2 Ab+HIV1 p24 Ag IA Ql Non-Reactive Nonreactive [facility] Hematocrit Auto (Bld) [Volum e fraction]Ordered By: Dr. Ng on 10-02-2022 Hematocrit (Bld) [Volume fraction] 38.1 % 37-47 [facility] Laboratory - Hematology and Cell countsOrdered By: Dr. Ng on 10-02-2022 Erythrocyte distribution width (RBC) [Entitic vol] 40.0 fL 35.1-43.9 [facility] Erythrocyte distribution width (RBC) [Ratio] 13.2 % 11.6-14.6 [facility] Immature granulocytes/100 WBC (Bld) 2.900 % 0.0-0.9 [facility] Comment on above: IG% - Immature Granu locytes (promyelocytes, myelocytes and metamyelocytes) > 1% indicates that a LEFT SHIFT is Present. MCH (RBC) [Entitic mass] 27.9 pg 27.0-32.0 [facility] Nucleated RBC/100 WBC (Bld) [Ratio] 0 % 0-5 [facility] MCHC Auto (RBC) [Mass/Vol]Or dered By: Dr. Ng on 10-02-2022 MCHC (RBC) [Mass/Vol] 33.6 g/dL 32-36 [facility] No Panel InformationOrdered By: Dr. Ng on 10-02-2022 Hepatitis B Surface Antigen Non-Reactive Nonreactive [facility] Hepatitis C Antibody Non-Reactive Nonreactive [facility] Comment on above: Non Reactive: < 0.8 Equivocal: >/= 0.8 to < 1.0 Reactive: >/= 1.0The CDC recommends that a reactive/equivocal HCV antibody result be followed up by the HCV Nucleic Acid Amplificationtest (230353) Rubella IgG Antibody Equiv Nonreactive [facility] Comment on above: Antibody Results Int erpretation of Immune Status Non Reactive Presumed Non-Immune Equivocal Equivocal Reactive Presumed Immune Platelets bldOrdered By: Dr. Ng on 10-02-2022 Platelets (Bld) [#/Vol] 354 10*3/uL 150-450 [facility] Serum Treponema species anti body detectionOrdered By: Dr. Ng on 10-02-2022 Treponema sp Ab Ql (S) Non-Reactive [facility] Laboratory - Chemistry and C hemistry - challengeon 09-29-2022 Glucose Ql (U) Negative [facility] Laboratory - Urinalysison Protein Ql (U) Negative [facility] Culture, urineOrdered By: Dr Emerson Ng on 09-02-2022 Bacteria identified Cx Nom (U) Positive [facility] Chlamydia trachomatis rRNA d etection by probe and target amplification methodOrdered By: Dr. Ng on 08-31-2022 C. trachomatis rRNA MINH+probe Ql (Unsp spec) Negative Negative [facility] Laboratory - Drug toxicology Ordered By: Dr. Ng on 08-31-2022 Amphetamines Ql (U) Negative <1000 ng/mL [facility] Benzodiazepines Ql (U) Negative < 200 ng/mL [facility] Cannabinoids Screen Ql (U) Negative < 50 ng/mL [facility] Cocaine Ql (U) Negative < 300 ng/mL [facility] Opiates Ql (U) Negative < 300 ng/mL [facility] Laboratory - Microbiology an d Antimicrobial susceptibilityOrdered By: Dr. Ng on 08-31-2022 N. gonorrhoeae DNA MINH+probe Ql (Unsp spec) Negative Negative [facility] Comment on above: Performed at: =[address] [id number] Director: Abigail Wayne MD, Phone: [phone] No Panel InformationOrdered By: Dr. Ng on 08-31-2022 MDMA (Ecstasy) Screen Negative < 500 ng/mL [facility] Urine Barbiturates Screen Negative < 200 ng/mL [facility] Urine Drug Screen Comment [facility] Comment on above: CONFIRMATORY TESTING FOR ALL POSITIVE URINE DRUG SCREENRESULTS WILL ONLY BE SENT OUT UPON PHYSICIAN ORDER. VISTA Urine Drug Screen methods provide only preliminaryanalytical test results. A more specific alternate chemicalmethod must be used in order to obtain a confirmedanalytical result. Gas chromatography/mass spectrometery(GC/MS) is the preferred confirmatory method. Clinicalconsideration and professional judgement should be appliedto any drug of abuse test result, particularly whenpreliminary positive results are used. URINE TCA TESTING MUST BE ORDERED SEPARATELY. USE TESTMNEMONIC: [facility] Urine Methadone Screen Negative < 300 ng/mL [facility] Urine phencyclidine (PCP) de tectionOrdered By: Dr. Ng on 08-31-2022 Phencyclidine Ql (U) Negative < 25 ng/mL [facility] Culture, urine Bacteria identified Cx Nom (U) Positive [facility] Work Phone: Vital Signs Date Time Vital Sign Value Performing Clinician Radha ackerman 05-18-2025 08:37-0400 Body height 168.91 cm No Primary Care Physician [facility] 05-18-2025 08:37-0400 Body mass index (BMI) [Ratio] 34.4 kg/m2 No Primary Care Physician [facility] 05-18-2025 08:37-0400 Body weight 98.08 kg No Primary Care Physician [facility] 05-18-2025 08:37-0400 Diastolic blood pressure 84 mm[Hg] No Primary Care Physician [facility] 05-18-2025 08:37-0400 Systolic blood pressure 121 mm[Hg] No Primary Care Physician [facility] 05-14-2025 09:27-0400 Body height 168.91 cm No Primary Care Physician [facility] 05-14-2025 09:24-0400 Body mass index (BMI) [Ratio] 34.2 kg/m2 No Primary Care Physician [facility] 05-14-2025 09:24-0400 Body weight 97.72 kg No Primary Care Physician [facility] 05-14-2025 09:24-0400 Diastolic blood pressure 84 mm[Hg] No Primary Care Physician [facility] 05-14-2025 09:24-0400 Systolic blood pressure 128 mm[Hg] No Primary Care Physician [facility] 05-07-2025 10:19-0400 Body height 168.91 cm No Primary Care Physician [facility] 05-07-2025 10:19-0400 Body mass index (BMI) [Ratio] 33.7 kg/m2 No Primary Care Physician [facility] 05-07-2025 10:19-0400 Body weight 96.38 kg No Primary Care Physician [facility] 05-07-2025 10:19-0400 Diastolic blood pressure 82 mm[Hg] No Primary Care Physician [facility] 05-07-2025 10:19-0400 Systolic blood pressure 126 mm[Hg] No Primary Care Physician [facility] 04-30-2025 11:24-0400 Body height 168.91 cm No Primary Care Physician [facility] 04-30-2025 11:24-0400 Body mass index (BMI) [Ratio] 34.2 kg/m2 No Primary Care Physician [facility] 04-30-2025 11:24-0400 Body weight 97.74 kg No Primary Care Physician [facility] 04-30-2025 11:24-0400 Diastolic blood pressure 82 mm[Hg] No Primary Care Physician [facility] 04-30-2025 11:24-0400 Systolic blood pressure 123 mm[Hg] No Primary Care Physician [facility] 04-23-2025 09:39-0400 Body height 168.91 cm No Primary Care Physician [facility] 04-23-2025 09:39-0400 Body mass index (BMI) [Ratio] 33.5 kg/m2 No Primary Care Physician [facility] 04-23-2025 09:39-0400 Body weight 95.7 kg No Primary Care Physician [facility] 04-23-2025 09:39-0400 Diastolic blood pressure 77 mm[Hg] No Primary Care Physician [facility] 04-23-2025 09:39-0400 Systolic blood pressure 131 mm[Hg] No Primary Care Physician [facility] 04-17-2025 10:21-0400 Body height 168.91 cm No Primary Care Physician [facility] 04-17-2025 10:21-0400 Body mass index (BMI) [Ratio] 33.3 kg/m2 No Primary Care Physician [facility] 04-17-2025 10:21-0400 Body weight 95.25 kg No Primary Care Physician [facility] 04-17-2025 10:21-0400 Diastolic blood pressure 77 mm[Hg] No Primary Care Physician [facility] 04-17-2025 10:21-0400 Systolic blood pressure 123 mm[Hg] No Primary Care Physician [facility] 04-09-2025 13:43-0400 Body height 168.91 cm No Primary Care Physician [facility] 04-09-2025 13:43-0400 Body mass index (BMI) [Ratio] 33.2 kg/m2 No Primary Care Physician [facility] 04-09-2025 13:43-0400 Body weight 94.85 kg No Primary Care Physician [facility] 04-09-2025 13:43-0400 Diastolic blood pressure 72 mm[Hg] No Primary Care Physician [facility] 04-09-2025 13:43-0400 Systolic blood pressure 107 mm[Hg] No Primary Care Physician [facility] 03-26-2025 14:33-0400 Body height 168.91 cm No Primary Care Physician [facility] 03-26-2025 14:28-0400 Body mass index (BMI) [Ratio] 33.2 kg/m2 No Primary Care Physician [facility] 03-26-2025 14:28-0400 Body weight 94.8 kg No Primary Care Physician [facility] 03-26-2025 14:28-0400 Diastolic blood pressure 74 mm[Hg] No Primary Care Physician [facility] 03-26-2025 14:28-0400 Systolic blood pressure 113 mm[Hg] No Primary Care Physician [facility] 03-04-2025 08:52-0400 Body height 168.91 cm No Primary Care Physician [facility] 03-04-2025 08:52-0400 Body mass index (BMI) [Ratio] 32.3 kg/m2 No Primary Care Physician [facility] 03-04-2025 08:52-0400 Body weight 92.24 kg No Primary Care Physician [facility] 03-04-2025 08:52-0400 Diastolic blood pressure 66 mm[Hg] No Primary Care Physician [facility] 03-04-2025 08:52-0400 Systolic blood pressure 104 mm[Hg] No Primary Care Physician [facility] 02-18-2025 09:49-0400 Body height 168.91 cm No Primary Care Physician [facility] 02-18-2025 09:49-0400 Body mass index (BMI) [Ratio] 31.7 kg/m2 No Primary Care Physician [facility] 02-18-2025 09:49-0400 Body weight 90.49 kg No Primary Care Physician [facility] 02-18-2025 09:49-0400 Diastolic blood pressure 76 mm[Hg] No Primary Care Physician [facility] 02-18-2025 09:49-0400 Systolic blood pressure 113 mm[Hg] No Primary Care Physician [facility] 01-21-2025 09:30-0400 Body mass index (BMI) [Ratio] 31.4 kg/m2 No Primary Care Physician [facility] 01-21-2025 09:30-0400 Body weight 89.58 kg No Primary Care Physician [facility] 01-21-2025 09:30-0400 Diastolic blood pressure 68 mm[Hg] No Primary Care Physician [facility] 01-21-2025 09:30-0400 Systolic blood pressure 108 mm[Hg] No Primary Care Physician [facility] 12-24-2024 08:27-0400 Body mass index (BMI) [Ratio] 30.6 kg/m2 No Primary Care Physician [facility] 12-24-2024 08:27-0400 Body weight 87.25 kg No Primary Care Physician [facility] 12-24-2024 08:27-0400 Diastolic blood pressure 72 mm[Hg] No Primary Care Physician [facility] 12-24-2024 08:27-0400 Systolic blood pressure 120 mm[Hg] No Primary Care Physician [facility] 11-26-2024 11:29-0500 Body mass index (BMI) [Ratio] 30 kg/m2 No Primary Care Physician [facility] 11-26-2024 11:29-0500 Body weight 85.84 kg No Primary Care Physician [facility] 11-26-2024 11:29-0500 Diastolic blood pressure 78 mm[Hg] No Primary Care Physician [facility] 11-26-2024 11:29-0500 Systolic blood pressure 129 mm[Hg] No Primary Care Physician [facility] 10-24-2024 08:58-0500 Body mass index (BMI) [Ratio] 29.2 kg/m2 No Primary Care Physician [facility] 10-24-2024 08:58-0500 Body weight 83.46 kg No Primary Care Physician [facility] 10-24-2024 08:58-0500 Diastolic blood pressure 70 mm[Hg] No Primary Care Physician [facility] 10-24-2024 08:58-0500 Systolic blood pressure 116 mm[Hg] No Primary Care Physician [facility] 05-09-2023 13:35-0400 Body height 167.64 cm No Primary Care Physician [facility] 05-09-2023 13:33-0400 Body mass index (BMI) [Ratio] 30.7 kg/m2 No Primary Care Physician [facility] 05-09-2023 13:33-0400 Body weight 86.18 kg No Primary Care Physician [facility] 05-09-2023 13:33-0400 Diastolic blood pressure 88 mm[Hg] No Primary Care Physician [facility] 05-09-2023 13:33-0400 Systolic blood pressure 128 mm[Hg] No Primary Care Physician [facility] 04-01-2023 08:30-0400 Body temperature 98.7 [degF] No [facility] [facility] 08:30-0400 Diastolic blood pressure 74 mm[Hg] No Primary Care Physician [facility] 04-01-2023 08:30-0400 Heart rate 77 /min No Primary Care Phys[facility] 04-01-2023 08:30-0400 Respiratory rate 16 /min No Primary Care Physician [facility] 04-01-2023 08:30-0400 SaO2% (BldA) [Mass fraction] 98 % No Primary Care Physician [facility] 04-01-2023 08:30-0400 Systolic blood pressure 120 mm[Hg] No Primary Care Physician [facility] 03-30-2023 07:22-0400 Body height 167.64 cm No Primary Care Physician [facility] 03-30-2023 07:22-0400 Body mass index (BMI) [Ratio] 34 kg/m2 No Primary Care Physician [facility] 03-30-2023 07:22-0400 Body weight 95.43 kg No Primary Care Physician [facility] 03-28-2023 08:33-0400 Body mass index (BMI) [Ratio] 34.1 kg/m2 No Primary Care Physician [facility] 03-28-2023 08:33-0400 Body weight 95.87 kg No Primary Care Physician [facility] 03-28-2023 08:33-0400 Diastolic blood pressure 80 mm[Hg] No Primary Care Physician [facility] 03-28-2023 08:33-0400 Systolic blood pressure 116 mm[Hg] No Primary Care Physician [facility] 03-25-2023 07:17-0400 Body temperature 97.4 [degF] No Primary Care Physician [facility] 03-25-2023 07:16-0400 Diastolic blood pressure 64 mm[Hg] No Primary Care Physician [facility] 03-25-2023 07:16-0400 Heart rate 107 /min No Primary Care Physician [facility] 03-25-2023 07:16-0400 Systolic blood pressure 109 mm[Hg] No Primary Care Physician [facility] 03-25-2023 02:59-0400 SaO2% (BldA) [Mass fraction] 99 % No Primary Care Physician [facility] 03-24-2023 23:17-0400 Body height 167.64 cm No Primary Care Physician [facility] 03-24-2023 23:17-0400 Body mass index (BMI) [Ratio] 34.2 kg/m2 No Primary Care Physician [facility] 03-24-2023 23:17-0400 Body weight 96.07 kg No Primary Care Physician [facility] 03-20-2023 08:12-0400 Body mass index (BMI) [Ratio] 33.8 kg/m2 No Primary Care Physician [facility] 03-20-2023 08:12-0400 Body weight 96.67 kg No Primary Care Physician [facility] 03-20-2023 08:12-0400 Diastolic blood pressure 75 mm[Hg] No Primary Care Physician [facility] 03-20-2023 08:12-0400 Systolic blood pressure 110 mm[Hg] No Primary Care Physician [facility] 03-15-2023 09:31-0400 Body mass index (BMI) [Ratio] 34.4 kg/m2 No Primary Care Physician [facility] 03-15-2023 09:31-0400 Body weight 98.2 kg No Primary Care Physician [facility] 03-15-2023 09:31-0400 Diastolic blood pressure 79 mm[Hg] No Primary Care Physician [facility] 03-15-2023 09:31-0400 Systolic blood pressure 114 mm[Hg] No Primary Care Physician [facility] 03-05-2023 10:37-0400 Body weight 98.14 kg No Primary Care Physician [facility] 03-05-2023 10:37-0400 Diastolic blood pressure 71 mm[Hg] No Primary Care Physician [facility] 03-05-2023 10:37-0400 Systolic blood pressure 115 mm[Hg] No Primary Care Physician [facility] 02-22-2023 09:10-0400 Body mass index (BMI) [Ratio] 34.2 kg/m2 No Primary Care Physician [facility] 02-22-2023 09:10-0400 Body weight 97.57 kg No Primary Care Physician [facility] 02-22-2023 09:10-0400 Diastolic blood pressure 78 mm[Hg] No Primary Care Physician [facility] 02-22-2023 09:10-0400 Systolic blood pressure 120 mm[Hg] No Primary Care Physician [facility] 02-06-2023 08:56-0400 Diastolic blood pressure 80 mm[Hg] No Primary Care Physician [facility] 02-06-2023 08:56-0400 Systolic blood pressure 119 mm[Hg] No Primary Care Physician [facility] 02-06-2023 08:26-0400 Body mass index (BMI) [Ratio] 34.7 kg/m2 No Primary Care Physician [facility] 02-06-2023 08:26-0400 Body weight 97.63 kg No Primary Care Physician [facility] 01-22-2023 08:28-0400 Body mass index (BMI) [Ratio] 33.9 kg/m2 No Primary Care Physician [facility] 01-22-2023 08:28-0400 Body weight 96.84 kg No Primary Care Physician [facility] 01-22-2023 08:28-0400 Diastolic blood pressure 78 mm[Hg] No Primary Care Physician [facility] 01-22-2023 08:28-0400 Systolic blood pressure 113 mm[Hg] No Primary Care Physician [facility] 01-08-2023 08:36-0400 Body height 168.91 cm No Primary Care Physician [facility] 01-08-2023 08:36-0400 Body mass index (BMI) [Ratio] 34.3 kg/m2 No Primary Care Physician [facility] 01-08-2023 08:36-0400 Body weight 97.97 kg No Primary Care Physician [facility] 01-08-2023 08:36-0400 Diastolic blood pressure 82 mm[Hg] No Primary Care Physician [facility] 01-08-2023 08:36-0400 Systolic blood pressure 125 mm[Hg] No Primary Care Physician [facility] 12-18-2022 08:27-0400 Body mass index (BMI) [Ratio] 33.7 kg/m2 No Primary Care Physician [facility] 12-18-2022 08:27-0400 Body weight 96.33 kg No Primary Care Physician [facility] 12-18-2022 08:27-0400 Diastolic blood pressure 73 mm[Hg] No Primary Care Physician [facility] 12-18-2022 08:27-0400 Systolic blood pressure 115 mm[Hg] No Primary Care Physician [facility] 11-20-2022 09:53-0500 Body mass index (BMI) [Ratio] 32.4 kg/m2 No Primary Care Physician [facility] 11-20-2022 09:53-0500 Body weight 92.58 kg No Primary Care Physician [facility] 11-20-2022 09:53-0500 Diastolic blood pressure 70 mm[Hg] No Primary Care Physician [facility] 11-20-2022 09:53-0500 Systolic blood pressure 118 mm[Hg] No Primary Care Physician [facility] 10-26-2022 08:15-0500 Body mass index (BMI) [Ratio] 31.8 kg/m2 No Primary Care Physician [facility] 10-26-2022 08:15-0500 Body weight 90.88 kg No Primary Care Physician [facility] 10-26-2022 08:15-0500 Diastolic blood pressure 72 mm[Hg] No Primary Care Physician [facility] 10-26-2022 08:15-0500 Systolic blood pressure 126 mm[Hg] No Primary Care Physician [facility] 09-29-2022 08:04-0500 Body height 168.91 cm No Primary Care Physician [facility] 09-29-2022 08:04-0500 Body mass index (BMI) [Ratio] 31.1 kg/m2 No Primary Care Physician [facility] 09-29-2022 08:04-0500 Body weight 88.9 kg No Primary Care Physician [facility] 09-29-2022 08:04-0500 Diastolic blood pressure 81 mm[Hg] No Primary Care Physician [facility] 09-29-2022 08:04-0500 Systolic blood pressure 124 mm[Hg] No Primary Care Physician [facility] 08-31-2022 09:19-0500 Body height 168.91 cm No Primary Care Physician [facility] Work Phone: 08-31-2022 09:18-0500 Body mass index (BMI) [Ratio] 30.5 kg/m2 No Primary Care Physician [facility] 08-31-2022 09:18-0500 Body weight 87.08 kg No Primary Care Physician [facility] 08-31-2022 09:18-0500 Diastolic blood pressure 88 mm[Hg] No Primary Care Physician [facility] 08-31-2022 09:18-0500 Systolic blood pressure 136 mm[Hg] No Primary Care Physician [facility] Encounters Encounter Date Encounter Type Care Provider Facility Start: 05-18-2025 End: 05-18-2025 Patient encounter procedure Tammi Nieves CNM -[facility] Work Phone: Start: 05-18-2025 End: 05-18-2025 ambulatory No Primary Care Physician [facility] Start: 05-14-2025 End: 05-14-[address] Goldie Ng MD -[facility] Work Phone: Start: 05-14-2025 End: 05-14-2025 ambulatory No Primary Care Physician [facility] Start: 05-07-2025 End: 05-07-[address] Dotty Hernandez DO -[facility] Work Phone: Start: 05-07-2025 End: 05-07-2025 ambulatory No Primary Care Physician -[facility] Start: 04-30-2025 End: 04-30-2025 Patient encounter procedure Tammi Nieves CNM -[facility] Work Phone: Start: 04-30-2025 End: 04-30-2025 ambulatory No Primary Care Physician -[facility] Start: 04-23-2025 End: 04-23-[address] Goldie Ng MD -[facility] Work Phone: Start: 04-23-2025 End: 04-23-2025 ambulatory No Primary Care Physician [facility] Start: 04-17-2025 End: 04-17-2025 ambulatory No Primary Care Physician -[facility] Start: 04-17-2025 End: 04-17-[address] Goldie Ng MD -[facility] Work Phone: Start: 04-17-2025 End: 04-17-[address] Goldie Ng MD -[facility] Work Phone: Start: 04-17-2025 End: 04-17-2025 ambulatory No Primary Care Physician -[facility] Start: 04-17-2025 End: 04-17-2025 ambulatory No Primary Care Physician Facility:[facility] Start: 04-09-2025 End: 04-09-[address] Dotty Hernandez DO -[facility] Work Phone: Start: 04-09-2025 End: 04-09-2025 ambulatory No Primary Care Physician -[facility] Start: 03-26-2025 End: 03-26-[address] Goldie Ng MD -[facility] Work Phone: Start: 03-26-2025 End: 03-26-2025 ambulatory No Primary Care Physician [facility] Work Phone: Start: 03-04-2025 End: 03-04-2025 Patient encounter procedure Pearl PACHECO -[facility] Work Phone: Start: 03-04-2025 End: 03-04-2025 ambulatory No Primary Care Physician [facility] Work Phone: Start: 02-18-2025 End: 02-18-2025 Patient encounter procedure Tammi Nieves CNM -[facility] Work Phone: Start: 02-18-2025 End: 02-18-2025 ambulatory No Primary Care Physician [facility] Work Phone: Start: 02-18-2025 End: 02-18-2025 ambulatory No Primary Care Physician Facility:[facility] Start: 01-21-2025 End: 01-21-[address] Dotty Hernandez DO -[facility] Work Phone: Start: 01-21-2025 End: 01-21-2025 ambulatory No Primary Care Physician Facility:[facility] Start: 12-25-2024 End: 12-25-2024 ambulatory MD [facility] Start: 12-24-2024 End: 12-24-2024 Patient encounter procedure Pearl PACHECO -[facility] Work Phone: Start: 12-24-2024 End: 12-24-2024 ambulatory No Primary Care Physician Facility:[facility] Start: 11-26-2024 End: 11-26-[address] Goldie Ng MD -[facility] Work Phone: Start: 11-26-2024 End: 11-26-2024 ambulatory No Primary Care Physician Facility:[facility] Start: 10-24-2024 End: 10-24-2024 Patient encounter procedure Tammi Nieves CNM -[facility] Work Phone: Start: 10-24-2024 End: 10-24-2024 ambulatory No Primary Care Physician Facility:[facility] Start: 10-24-2024 End: 10-24-2024 ambulatory No Primary Care Physician Facility:[facility] Start: 05-21-2024 End: 05-21-2024 ambulatory No Primary Care Physician Facility:[facility] Start: 05-09-2023 End: 05-09-2023 ambulatory No Primary Care Physician [facility] Work Phone: Start: 05-09-2023 End: 05-09-2023 Patient encounter procedure No Primary Care Physician [facility] Spec[facility] Work Phone: Start: 05-09-2023 End: 05-09-2023 Patient encounter procedure No Primary Care Physician [facility] Work Phone: Start: 04-01-2023 Non-patient / Non-visit No Primary Care Physician [facility] Start: 03-31-2023 Non-patient / Non-visit No Primary Care Physician [facility] Start: 03-30-2023 Non-patient / Non-visit No Primary Care Physician [facility] Start: 03-30-2023 End: 04-01-2023 Evaluation and management of inpatient No Primary Care Physician [facility] Work Phone: Start: 03-28-2023 End: 03-28-2023 Patient encounter procedure No Primary Care Physician [facility] Work Phone: Start: 03-25-2023 Non-patient / Non-visit No Primary Care Physician [facility] Start: 03-24-2023 End: 03-25-2023 ambulatory No Primary Care Physician [facility] Work Phone: Start: 03-24-2023 End: 03-25-2023 Patient encounter procedure No Primary Care Physician [facility] Start: 03-20-2023 End: 03-20-2023 Patient encounter procedure No Primary Care Physician [facility] Start: 03-15-2023 End: 03-15-2023 Patient encounter procedure No Primary Care Physician [facility] Start: 03-05-2023 End: 03-05-2023 Patient encounter procedure No Primary Care Physician [facility] Start: 03-05-2023 End: 03-05-2023 Patient encounter procedure No Primary Care Physician [facility] Start: 02-22-2023 End: 02-22-2023 Patient encounter procedure No Primary Care Physician [facility] Start: 02-06-2023 End: 02-06-2023 Patient encounter procedure No Primary Care Physician [facility] Start: 01-22-2023 End: 01-22-2023 Patient encounter procedure No Primary Care Physician [facility] Start: 01-11-2023 End: 01-11-2023 Patient encounter procedure No Primary Care Physician [facility] Start: 01-08-2023 End: 01-08-2023 ambulatory No Primary Care Physician [facility] Work Phone: Start: 01-08-2023 End: 01-08-2023 Patient encounter procedure No Primary Care Physician [facility] Start: 12-18-2022 End: 12-18-2022 Patient encounter procedure No Primary Care Physician [facility] Start: 11-20-2022 End: 11-20-2022 Patient encounter procedure No Primary Care Physician [facility] Start: 10-26-2022 End: 10-26-2022 Patient encounter procedure No Primary Care Physician [facility] Start: 10-09-2022 End: 10-09-2022 ambulatory No Primary Care Physician [facility] Work Phone: Start: 10-09-2022 End: 10-09-2022 Patient encounter procedure No Primary Care Physician [facility] Start: 10-02-2022 End: 10-02-2022 ambulatory No Primary Care Physician [facility] Work Phone: Start: 10-02-2022 End: 10-02-2022 Patient encounter procedure No Primary Care Physician [facility] Start: 09-29-2022 End: 09-29-2022 Patient encounter procedure No Primary Care Physician [facility] Start: 08-31-2022 End: 08-31-2022 ambulatory No Primary Care Physician [facility] Work Phone: Start: 08-31-2022 End: 08-31-2022 Patient encounter procedure No Primary Care Physician [facility] Start: 08-31-2022 End: 08-31-2022 Patient encounter procedure No Primary Care Physician [facility] Procedures Date Procedure Procedure Detail Performing Clinician Start: 04-17-2025 Beta-hemolytic Streptococcus culture No Primary Care Physician Start: 02-18-2025 Serologic test for syphilis No Primary Care Physician Start: 10-24-2024 Urine culture No Primar y Care Physician Start: 10-24-2024 Hepatitis B surface antigen measurement No Primary Care Physician Start: 10-24-2024 Hepatitis C antibody measurement No Primary Care Physician Comment on above: Non Reactive: < 0.8 Equivocal: >/= 0.8 to < 1.0 Reactive: >/= 1.0The CDC requires that a reactive/equivocal HCV antibody result be sent out for confirmation. HCV Quant by PCR testing. Start: 10-24-2024 Rubella IgG measurement No Primary Care Physician Comment on above: Antibody Results Int erpretation of Immune Status Non Reactive Presumed Non-Immune Equivocal Equivocal Reactive Presumed Immune Start: 05-09-2023 Investigation of transfusion reaction No Primary Care Physician Start: 05-09-2023 Microbial culture, routine No Primary Care Physician Start: 03-25-2023 US scan of gallbladder No Primary Care Physician Start: 03-24-2023 Urine culture No Primar y Care Physician Start: 03-05-2023 Group B Streptococcu s Culture No Primary Care Physician Group B Streptococcu s Culture No Primary Care Physician Urine culture No Primary Car e Physician Urine culture No Primary Car e Physician Plan of Treatment Date Care Activity Detail Author Start: 04-17-2025 Beta-hemolytic Streptococcus culture Group B Streptococcus Culture [facility] Start: 04-17-2025 Streptococcus agalactiae [Presence] in Unspecified specimen by Organism specific culture [facility] Start: 02-18-2025 CBC W Auto Differential panel - Blood [facility] Start: 02-18-2025 Measurement of glucose 2 hours after glucose challenge for glucose tolerance test [facility] Start: 02-18-2025 Serologic test for syphilis [facility] Start: 02-18-2025 [facility] Start: 04-01-2023 Patient discharge [facility] Start: 03-30-2023 Administration of medication [facility] Start: 03-30-2023 Application of ice collar, cap or bag [facility] Start: 03-30-2023 Catheterization of vein [facility] Start: 03-30-2023 Introduction of urinary catheter [facility] Start: 03-30-2023 Measuring intake and output [facility] Start: 03-30-2023 Notification of physician [facility] Start: 03-30-2023 Procedure discontinued [facility] Start: 03-30-2023 Provision of activity privileges [facility] Start: 03-30-2023 Vital signs measurements [facility] Start: 03-30-2023 [facility] Start: 03-30-2023 Admission procedure [facility] Start: 03-25-2023 [facility] Start: 03-24-2023 Nonstress test [facility] Start: 03-24-2023 Obstetric monitoring [facility] Start: 03-24-2023 Vital signs measurements [facility] Start: 03-24-2023 [facility] Start: 03-24-2023 Iv infusion therapy prophylaxis/dx ea hour THER/PROPH/DIAG IV INF [facility] Start: 03-24-2023 Iv infusion therapy/prophylaxis /dx 1st to 1 hr THER/PROPH/DIAG IV INF INIT [facility] Start: 03-24-2023 Therapeutic injection iv push each new drug TX/PRO/DX INJ NEW DRUG [facility] Start: 03-24-2023 [facility] Start: 01-11-2023 [facility] Bacteria identified in Urine by Culture Urine Culture [facility] CBC W Auto Different ial panel - Blood [facility] Work Phone: Erythrocyte mean corpuscular volume determination [facility] Glucose [Mass/volume ] in Serum or Plasma --1 hour post 50 g glucose [facility] Work Phone: Hematocrit [Volume Fraction] of Blood [facility] Hemoglobin [Mass/vol ume] in Blood [facility] Hepatitis B surface antigen measurement [facility] Work Phone: Hepatitis C antibody measurement [facility] Work Phone: HIV 1+2 Ab+HIV1 p24 Ag [Presence] in Serum or Plasma by Immunoassay [facility] Work Phone: Leukocytes [#/volume ] in Blood [facility] Mean corpuscular hemoglobin concentration determination [facility] Mean corpuscular hemoglobin determination [facility] Neutrophil count [facility] Neutrophil percent differential count [facility] Patient Education [facility] Work Phone: Patient referral [facility] Work Phone: Platelets [#/volume] in Blood [facility] Red blood cell count [facility] Red cell distributio n width determination [facility] Rubella IgG measurement [facility] Work Phone: Streptococcus agalac tiae [Presence] in Unspecified specimen by Organism specific culture [facility] Treponema sp Ab [Pre sence] in Serum [facility] Work Phone: [facility] Payers Date Payer Category Payer Self-pay [id number] 2023 Unknown [id number] 1995 Unknown [id number] 2. [id number] Medicaid MEDICAID [id number] Unknown R EMANI [id number] 2.16.8 [id number] Unknown [id number] 2.16.8 [id number] Unknown [id number] 2.16.8 [id number] Unknown [id number] 2.16.8 [id number] Unknown [id number] 2.16.8 [id number] Unknown [id number] 2.16.8 [id number] Unknown [id number] 2.16.8 [id number] Unknown [id number] 2.16.8 [id number] Unknown [id number] 2.16.8 [id number] Unknown [id number] 2.16.8 [id number] Unknown [id number] 2.16.8 [id number] Unknown [id number] 2.16.8 [id number] Unknown [id number] 2.16.8 [id number] Unknown [id number] 2.16.8 [id number] Unknown [id number] 2.16.8 [id number] Unknown [id number] 2.16.8 [id number] Unknown [id number] 2.16.8 [id number] Unknown [id number] 2.16.8 [id number] Social History Date Type Detail Facility Start: 08-31-2022 End: 05-09-2023 Tobacco smoking status WAIS Unknown if ever smoked [facility] Start: 04-14-2020 Non-smoker [facility] Start: 1995 Sex Assigned At Female W [facility] Start: 10-09-2024 Tobacco smoking stat us WAIS Never smoked tobacco (finding) [facility] Medical Equipment Procedure Code Equipment Code Equipment Origin al Text Equipment Identifier Dates Arthroscopy, knee, with meniscectomy [employer] FDA Start: 04-21-2020 Arthroscopy, knee, with meniscectomy [employer]FT [employer] FDA Start: 04-21-2020 Arthroscopy, knee, with meniscectomy AUTOG[employer]FT [employer] FDA Start: 04-21-2020 Arthroscopy, knee, with meniscectomy AUTOG[employer]FT [employer] FDA Start: 04-21-2020 Arthroscopy, knee, with meniscectomy AUTOG[employer]FT [employer] FDA Start: 04-21-2020 Arthroscopy, knee, with meniscectomy AUTOGRAFT [employer] FDA Start: 04-21-2020 Arthroscopy, knee, with meniscectomy AUTOGRAFT [employer] FDA Start: 04-21-2020 Arthroscopy, knee, with meniscectomy AUTOG[employer]FT [employer] FDA Start: 04-21-2020 Arthroscopy, knee, with meniscectomy AUTOGRAFT [employer] FDA Start: 04-21-2020 Arthroscopy, knee, with meniscectomy AUTOG[employer]FT [employer] FDA Start: 04-21-2020 Arthroscopy, knee, with meniscectomy AUTOG[employer]FT [employer] FDA Start: 04-21-2020 Arthroscopy, knee, with meniscectomy AUTOG[employer]FT [employer] FDA Start: 04-21-2020 Arthroscopy, knee, with meniscectomy AUTOGRAFT [employer] FDA Start: 04-21-2020 Arthroscopy, knee, with meniscectomy AUTOG[employer]FT [employer] FDA Start: 04-21-2020 Arthroscopy, knee, with meniscectomy AUTOG[employer]FT [employer] FDA Start: 04-21-2020 Arthroscopy, knee, with meniscectomy AUTOG[employer]FT [employer] FDA Start: 04-21-2020 Arthroscopy, knee, with meniscectomy AUTOG[employer]FT [employer] FDA Start: 04-21-2020 Arthroscopy, knee, with meniscectomy [employer]FT [employer] FDA Start: 04-21-2020 Arthroscopy, knee, with meniscectomy [employer]FT [employer] FDA Start: 04-21-2020 Blood Sugar Diagnostic (Blood Glucose Test) strip Start: 01-12-2023 Lancets Start: 01-12-2023 Blood Sugar Diagnostic (Blood Glucose Test) strip Start: 01-12-2023 Lancets Start: 01-12-2023 Blood Sugar Diagnostic (Blood Glucose Test) strip Start: 01-12-2023 End: 05-09-2023 Lancets Start: 01-12-2023 End: 05-09-2023 Blood Sugar Diagnostic (Blood Glucose Test) strip Start: 01-12-2023 End: 05-09-2023 Lancets misc Start: 01-12-2023 End: 05-09-2023 Blood Sugar Diagnostic (Blood Glucose Test) strip Start: 01-12-2023 End: 05-09-2023 Lancets misc Start: 01-12-2023 End: 05-09-2023 Blood Sugar Diagnostic (Blood Glucose Test) strip Start: 01-12-2023 End: 05-09-2023 Lancets misc Start: 01-12-2023 End: 05-09-2023 Blood Sugar Diagnostic (Blood Glucose Test) strip Start: 01-12-2023 End: 05-09-2023 Lancets misc Start: 01-12-2023 End: 05-09-2023 Blood Sugar Diagnostic (Blood Glucose Test) strip Start: 01-12-2023 End: 05-09-2023 Lancets misc Start: 01-12-2023 End: 05-09-2023 Blood Sugar Diagnostic (Blood Glucose Test) strip Start: 01-12-2023 End: 05-09-2023 Lancets misc Start: 01-12-2023 End: 05-09-2023 Blood Sugar Diagnostic (Blood Glucose Test) strip Start: 01-12-2023 End: 05-09-2023 Lancets misc Start: 01-12-2023 End: 05-09-2023 Blood Sugar Diagnostic (Blood Glucose Test) strip Start: 01-12-2023 End: 05-09-2023 Lancets misc Start: 01-12-2023 End: 05-09-2023 Blood Sugar Diagnostic (Blood Glucose Test) strip Start: 01-12-2023 End: 05-09-2023 Lancets misc Start: 01-12-2023 End: 05-09-2023 Blood Sugar Diagnostic (Blood Glucose Test) strip Start: 01-12-2023 End: 05-09-2023 Lancets misc Start: 01-12-2023 End: 05-09-2023 Blood Sugar Diagnostic (Blood Glucose Test) strip Start: 01-12-2023 End: 05-09-2023 Lancets misc Start: 01-12-2023 End: 05-09-2023 Blood Sugar Diagnostic (Blood Glucose Test) strip Start: 01-12-2023 End: 05-09-2023 Lancets misc Start: 01-12-2023 End: 05-09-2023 Goals Date Patient Goal Desired Activity /State Clinical Notes 03-25-2023 to 05-18-2025 Note Date & Type Note Facility 05-18-2025 Progress note [facility] 05-14-2025 Progress note [facility] 05-07-2025 Progress note [facility] 04-30-2025 Progress note [facility] 04-23-2025 Progress note [facility] 04-17-2025 Progress note [facility] 02-18-2025 Progress note [facility] 01-21-2025 Evaluation note Diagnosis Onset Date Resolution History of gestational diabetes mellitus (GDM) in prior , currentl acute January 21, 2025 9:22am Obesity affecting acute January 21, 2025 9:22am acute January 21 9:22am Rubella non-immune status, antepartum acute January 21, 9:22am Supervision of high-risk acute January 21, 2025 9:22am History of gestational diabetes mellitus (GDM) in prior , currentl acute February 18, 2025 9 :44am Obesity affecting acute February 18, 2025 9 :44am acute February 18, 2025 9:44am Rubella non-immune status, antepartum acute February 18 9:44am Supervision of high-risk acute February 18 9:44am History of gestational diabetes mellitus (GDM) in prior , currentl acute March 04, 2025 8 :47am Obesity affecting acute March 04, 2025 8 :47am acute March 04, 2025 8:47am Rubella non-immune status, antepartum acute March 04 8:47am Supervision of high-risk acute March 04 8:47am History of gestational diabetes mellitus (GDM) in prior , currentl acute March 26, 2025 2:20pm Obesity affecting acute March 26, 2025 2:20pm acute March 26 2:20pm Rubella non-immune status, antepartum acute March 26 2:20pm Supervision of high-risk acute March 26 025 2:20pm History of gestational diabetes mellitus (GDM) in prior , currentl acute April 09, 2025 1:40pm Obesity affecting acute April 09, 2025 1:40pm acute April 09 1:40pm Rubella non-immune status, antepartum acute April 09 1:40pm Supervision of high-risk acute April 09 1:40pm History of gestational diabetes mellitus (GDM) in prior , currentl acute April 17, 2025 10:18am Obesity affecting acute April 17, 2025 10:18am acute April 17 10:18am Rubella non-immune status, antepartum acute April 17 10:18am Supervision of high-risk acute April 17 10:18am History of gestational diabetes mellitus (GDM) in prior , currentl acute April 23, 2025 9:34am Obesity affecting acute April 23, 2025 9:34am Positive GBS test acute April 232024 9:34am acute April 23 9:34am Rubella non-immune status, antepartum acute April 23 9:34am Supervision of high-risk acute April 23 9:34am History of gestational diabetes mellitus (GDM) in prior , currentl acute April 30, 2025 11:20am Obesity affecting acute April 30, 2025 11:20am Positive GBS test acute April 302024 11:20am acute April 30 11:20am Rubella non-immune status, antepartum acute April 30 11:20am Supervision of high-risk acute April 30 11:20am [facility] Work Phone: 1(398) 553-589104-23-2025 Evaluation note* Diagnosis Onset Date Resolution Status Admit Date History of gestational diabe guillermina mellitus (GDM) in prior , currentl acute January 21, 2025 9:22am Obesity affecting acute January 21, 2025 9:22am acute January 21 9:22am Rubella non-immune status, antepartum acute January 21, 2025 9:22am Supervision of high-risk acute January 21, 2025 9:22am History of gestational diabe guillermina mellitus (GDM) in prior , currentl acute February 18 9:44am Obesity affecting acute February 18, 2025 9:44am acute February 18, 2025 9:44am Rubella non-immune status, antepartum acute February 18, 2025 9 :44am Supervision of high-risk acute February 18, 2025 9 :44am History of gestational diabe guillermina mellitus (GDM) in prior , currentl acute March 04 8:47am Obesity affecting acute March 04, 2025 8:47am acute March 04, 2025 8:47am Rubella non-immune status, antepartum acute March 04, 2025 8 :47am Supervision of high-risk acute March 04, 2025 8 :47am History of gestational diabe guillermina mellitus (GDM) in prior , currentl acute March 26, 2:20pm Obesity affecting acute March 26, 2025 2:20pm acute March 26 2:20pm Rubella non-immune status, antepartum acute March 26, 2025 2:20pm Supervision of high-risk acute March 26, 2025 2:20pm History of gestational diabe guillermina mellitus (GDM) in prior , currentl acute April 09 1:40pm Obesity affecting acute April 09, 2025 1:40pm acute April 09 1:40pm Rubella non-immune status, antepartum acute April 09, 2025 1:40pm Supervision of high-risk acute April 09, 2025 1:40pm History of gestational diabe guillermina mellitus (GDM) in prior , currentl acute April 17 10:18am Obesity affecting acute April 17, 2025 10:18am acute April 17 10:18am Rubella non-immune status, antepartum acute April 17, 2025 10:18am Supervision of high-risk acute April 17, 2025 10:18am History of gestational diabe guillermina mellitus (GDM) in prior , currentl acute April 23 9:34am Obesity affecting acute April 23, 2025 9:34am Positive GBS test acute April 232024 9:34am acute April 23 9:34am Rubella non-immune status, antepartum acute April 23, 2025 9:34am Supervision of high-risk acute April 23, 2025 9:34am History of gestational diabe guillermina mellitus (GDM) in prior , currentl acute April 30 11:20am Obesity affecting acute April 30, 2025 11:20am Positive GBS test acute April 302024 11:20am acute April 30 11:20am Rubella non-immune status, antepartum acute April 30, 2025 11:20am Supervision of high-risk acute April 30, 2025 11:20am History of gestational diabe guillermina mellitus (GDM) in prior , currentl acute May 07, 2025 10:14am Obesity affecting acute May 07, 2025 10:14am Positive GBS test acute May 07, 2025 10:14am acute May 07 10:14am Rubella non-immune status, antepartum acute May 07, 2025 10:14am Supervision of high-risk acute May 07, 2025 10:14am [facility] Work Phone: 1([phone] 257-853304-23-2025 Evaluation note* Diagnosis Onset Date Resolution Status Admit Date History of gestational diabe guillermina mellitus (GDM) in prior , currentl acute January 21, 2025 9:22am Obesity affecting acute January 21, 2025 9:22am acute January 21 9:22am Rubella non-immune status, antepartum acute January 21, 2025 9:22am Supervision of high-risk acute January 21, 2025 9:22am History of gestational diabe guillermina mellitus (GDM) in prior , currentl acute February 18 9:44am Obesity affecting acute February 18, 2025 9:44am acute February 18, 2025 9:44am Rubella non-immune status, antepartum acute February 18, 2025 9 :44am Supervision of high-risk acute February 18, 2025 9 :44am History of gestational diabe guillermina mellitus (GDM) in prior , currentl acute March 04 8:47am Obesity affecting acute March 04, 2025 8:47am acute March 04, 2025 8:47am Rubella non-immune status, antepartum acute March 04, 2025 8 :47am Supervision of high-risk acute March 04, 2025 8 :47am History of gestational diabe guillermina mellitus (GDM) in prior , currentl acute March 26, 2 025 2:20pm Obesity affecting acute March 26, 2025 2:20pm acute March 26 2:20pm Rubella non-immune status, antepartum acute March 26, 2025 2:20pm Supervision of high-risk acute March 26, 2025 2:20pm History of gestational diabe guillermina mellitus (GDM) in prior , currentl acute April 09 1:40pm Obesity affecting acute April 09, 2025 1:40pm acute April 09 1:40pm Rubella non-immune status, antepartum acute April 09, 2025 1:40pm Supervision of high-risk acute April 09, 2025 1:40pm History of gestational diabe guillermina mellitus (GDM) in prior , currentl acute April 17 10:18am Obesity affecting acute April 17, 2025 10:18am acute April 17 10:18am Rubella non-immune status, antepartum acute April 17, 2025 10:18am Supervision of high-risk acute April 17, 2025 10:18am History of gestational diabe guillermina mellitus (GDM) in prior , currentl acute April 23 9:34am Obesity affecting acute April 23, 2025 9:34am Positive GBS test acute April 232024 9:34am acute April 23 9:34am Rubella non-immune status, antepartum acute April 23, 2025 9:34am Supervision of high-risk acute April 23, 2025 9:34am History of gestational diabe guillermina mellitus (GDM) in prior , currentl acute April 30 11:20am Obesity affecting acute April 30, 2025 11:20am Positive GBS test acute April 302024 11:20am acute April 30 11:20am Rubella non-immune status, antepartum acute April 30, 2025 11:20am Supervision of high-risk acute April 30, 2025 11:20am History of gestational diabe guillermina mellitus (GDM) in prior , currentl acute May 07, 2025 10:14am Obesity affecting acute May 07, 2025 10:14am Positive GBS test acute May 07, 2025 10:14am acute May 07 10:14am Rubella non-immune status, antepartum acute May 07, 2025 10:14am Supervision of high-risk acute May 07, 2025 10:14am History of gestational diabe guillermina mellitus (GDM) in prior , currentl acute May 14, 2025 9:18am Obesity affecting acute May 14, 2025 9:18am Positive GBS test acute May 14, 2025 9:18am acute May 14, 025 9:18am Rubella non-immune status, antepartum acute May 14 9:18am Supervision of high-risk acute May 14 9:18am [facility] Work Phone: [phone] 887-380404-23-2025 Evaluation note* Diagnosis Onset Date Resolution Status Admit Date History of gestational diabe guillermina mellitus (GDM) in prior , currentl acute January 21, 2025 9:22am Obesity affecting acute January 21, 2025 9:22am acute January 21 9:22am Rubella non-immune status, antepartum acute January 21, 2025 9:22am Supervision of high-risk acute January 21, 2025 9:22am History of gestational diabe guillermina mellitus (GDM) in prior , currentl acute February 18 9:44am Obesity affecting acute February 18, 2025 9:44am acute February 18, 2025 9:44am Rubella non-immune status, antepartum acute February 18, 2025 9 :44am Supervision of high-risk acute February 18, 2025 9 :44am History of gestational diabe guillermina mellitus (GDM) in prior , currentl acute March 04 8:47am Obesity affecting acute March 04, 2025 8:47am acute March 04, 2025 8:47am Rubella non-immune status, antepartum acute March 04, 2025 8 :47am Supervision of high-risk acute March 04, 2025 8 :47am History of gestational diabe guillermina mellitus (GDM) in prior , currentl acute March 26, 2 025 2:20pm Obesity affecting acute March 26, 2025 2:20pm acute March 26 2:20pm Rubella non-immune status, antepartum acute March 26, 2025 2:20pm Supervision of high-risk acute March 26, 2025 2:20pm History of gestational diabe guillermina mellitus (GDM) in prior , currentl acute April 09 1:40pm Obesity affecting acute April 09, 2025 1:40pm acute April 09 1:40pm Rubella non-immune status, antepartum acute April 09, 2025 1:40pm Supervision of high-risk acute April 09, 2025 1:40pm History of gestational diabe guillermina mellitus (GDM) in prior , currentl acute April 17 10:18am Obesity affecting acute April 17, 2025 10:18am acute April 17 10:18am Rubella non-immune status, antepartum acute April 17, 2025 10:18am Supervision of high-risk acute April 17, 2025 10:18am History of gestational diabe guillermina mellitus (GDM) in prior , currentl acute April 23 9:34am Obesity affecting acute April 23, 2025 9:34am Positive GBS test acute April 232024 9:34am acute April 23 9:34am Rubella non-immune status, antepartum acute April 23, 2025 9:34am Supervision of high-risk acute April 23, 2025 9:34am History of gestational diabe guillermina mellitus (GDM) in prior , currentl acute April 30 11:20am Obesity affecting acute April 30, 2025 11:20am Positive GBS test acute April 302024 11:20am acute April 30 11:20am Rubella non-immune status, antepartum acute April 30, 2025 11:20am Supervision of high-risk acute April 30, 2025 11:20am History of gestational diabe guillermina mellitus (GDM) in prior , currentl acute May 07, 2025 10:14am Obesity affecting acute May 07, 2025 10:14am Positive GBS test acute May 07, 2025 10:14am acute May 07 10:14am Rubella non-immune status, antepartum acute May 07, 2025 10:14am Supervision of high-risk acute May 07, 2025 10:14am History of gestational diabe guillermina mellitus (GDM) in prior , currentl acute May 14, 2025 9:18am Obesity affecting acute May 14, 2025 9:18am Positive GBS test acute May 14, 2025 9:18am acute May 14, 025 9:18am Rubella non-immune status, antepartum acute May 14 9:18am Supervision of high-risk acute May 14 9:18am History of gestational diabe guillermina mellitus (GDM) in prior , currentl acute May 18, 2025 8:33am Obesity affecting acute May 18, 2025 8:33am Positive GBS test acute May 18, 2025 8:33am acute May 18 8:33am Rubella non-immune status, antepartum acute May 18 8:33am Supervision of high-risk acute May 18 8:33am [facility] Work Phone: 1([phone] 413-659103-26-2025 Evaluation note* Diagnosis Onset Date Resolution Status Admit Date History of gestational diabe guillermina mellitus (GDM) in prior , currentl acute December 24, 2024 8:24am Obesity affecting acute December 24, 2024 8:24am acute December 24 8:24am Rubella non-immune status, antepartum acute December 24, 2024 8:24am Supervision of high-risk acute December 24, 2024 8:24am History of gestational diabe guillermina mellitus (GDM) in prior , currentl acute January 21, 2025 9:22am Obesity affecting acute January 21, 2025 9:22am acute January 21 9:22am Rubella non-immune status, antepartum acute January 21, 2025 9:22am Supervision of high-risk acute January 21, 2025 9:22am History of gestational diabe guillermina mellitus (GDM) in prior , currentl acute February 18 9:44am Obesity affecting acute February 18, 2025 9:44am acute February 18, 2025 9:44am Rubella non-immune status, antepartum acute February 18, 2025 9 :44am Supervision of high-risk acute February 18, 2025 9 :44am History of gestational diabe guillermina mellitus (GDM) in prior , currentl acute March 04 8:47am Obesity affecting acute March 04, 2025 8:47am acute March 04, 2025 8:47am Rubella non-immune status, antepartum acute March 04, 2025 8 :47am Supervision of high-risk acute March 04, 2025 8 :47am History of gestational diabe guillermina mellitus (GDM) in prior , currentl acute March 26, 025 2:20pm Obesity affecting acute March 26, 2025 2:20pm acute March 26 2:20pm Rubella non-immune status, antepartum acute March 26, 2025 2:20pm Supervision of high-risk acute March 26, 2025 2:20pm History of gestational diabe guillermina mellitus (GDM) in prior , currentl acute April 09, 025 1:40pm Obesity affecting acute April 09, 2025 1:40pm acute April 09 1:40pm Rubella non-immune status, antepartum acute April 09, 2025 1:40pm Supervision of high-risk acute April 09, 2025 1:40pm [facility] Work Phone: [phone] 738-396503-26-2025 Evaluation note* Diagnosis Onset Date Resolution Status Admit Date History of gestational diabe guillermina mellitus (GDM) in prior , currentl acute December 24, 2024 8:24am Obesity affecting acute December 24, 2024 8:24am acute December 24 8:24am Rubella non-immune status, antepartum acute December 24, 2024 8:24am Supervision of high-risk acute December 24, 2024 8:24am History of gestational diabe guillermina mellitus (GDM) in prior , currentl acute January 21, 2025 9:22am Obesity affecting acute January 21, 2025 9:22am acute January 21 9:22am Rubella non-immune status, antepartum acute January 21, 2025 9:22am Supervision of high-risk acute January 21, 2025 9:22am History of gestational diabe guillermina mellitus (GDM) in prior , currentl acute February 18 9:44am Obesity affecting acute February 18, 2025 9:44am acute February 18, 2025 9:44am Rubella non-immune status, antepartum acute February 18, 2025 9 :44am Supervision of high-risk acute February 18, 2025 9 :44am History of gestational diabe guillermina mellitus (GDM) in prior , currentl acute March 04 8:47am Obesity affecting acute March 04, 2025 8:47am acute March 04, 2025 8:47am Rubella non-immune status, antepartum acute March 04, 2025 8 :47am Supervision of high-risk acute March 04, 2025 8 :47am History of gestational diabe guillermina mellitus (GDM) in prior , currentl acute March 26, 025 2:20pm Obesity affecting acute March 26, 2025 2:20pm acute March 26 2:20pm Rubella non-immune status, antepartum acute March 26, 2025 2:20pm Supervision of high-risk acute March 26, 2025 2:20pm History of gestational diabe guillermina mellitus (GDM) in prior , currentl acute April 09, 025 1:40pm Obesity affecting acute April 09, 2025 1:40pm acute April 09 1:40pm Rubella non-immune status, antepartum acute April 09, 2025 1:40pm Supervision of high-risk acute April 09, 2025 1:40pm History of gestational diabe guillermina mellitus (GDM) in prior , currentl acute April 17, 10:18am Obesity affecting acute April 17, 2025 10:18am acute April 17 10:18am Rubella non-immune status, antepartum acute April 17, 2025 10:18am Supervision of high-risk acute April 17, 2025 10:18am [facility] Work Phone: [phone] Evaluation note* Diagnosis Onset Date Resolution Status Admit Date History of gestational diabe guillermina mellitus (GDM) in prior , currentl acute December 24, 2024 8:24am Obesity affecting acute December 24, 2024 8:24am acute December 24 8:24am Rubella non-immune status, antepartum acute December 24, 2024 8:24am Supervision of high-risk acute December 24, 2024 8:24am History of gestational diabe guillermina mellitus (GDM) in prior , currentl acute January 21, 2025 9:22am Obesity affecting acute January 21, 2025 9:22am acute January 21 9:22am Rubella non-immune status, antepartum acute January 21, 2025 9:22am Supervision of high-risk acute January 21, 2025 9:22am History of gestational diabe guillermina mellitus (GDM) in prior , currentl acute February 18 9:44am Obesity affecting acute February 18, 2025 9:44am acute February 18, 2025 9:44am Rubella non-immune status, antepartum acute February 18, 2025 9 :44am Supervision of high-risk acute February 18, 2025 9 :44am History of gestational diabe guillermina mellitus (GDM) in prior , currentl acute March 04 8:47am Obesity affecting acute March 04, 2025 8:47am acute March 04, 2025 8:47am Rubella non-immune status, antepartum acute March 04, 2025 8 :47am Supervision of high-risk acute March 04, 2025 8 :47am History of gestational diabe guillermina mellitus (GDM) in prior , currentl acute March 26, 025 2:20pm Obesity affecting acute March 26, 2025 2:20pm acute March 26 2:20pm Rubella non-immune status, antepartum acute March 26, 2025 2:20pm Supervision of high-risk acute March 26, 2025 2:20pm History of gestational diabe guillermina mellitus (GDM) in prior , currentl acute April 09, 025 1:40pm Obesity affecting acute April 09, 2025 1:40pm acute April 09 1:40pm Rubella non-immune status, antepartum acute April 09, 2025 1:40pm Supervision of high-risk acute April 09, 2025 1:40pm History of gestational diabe guillermina mellitus (GDM) in prior , currentl acute April 17, 2 025 10:18am Obesity affecting acute April 17, 2025 10:18am acute April 17 10:18am Rubella non-immune status, antepartum acute April 17, 2025 10:18am Supervision of high-risk acute April 17, 2025 10:18am History of gestational diabe guillermina mellitus (GDM) in prior , currentl acute April 23 9:34am Obesity affecting acute April 23, 2025 9:34am Positive GBS test acute April 232024 9:34am acute April 23 9:34am Rubella non-immune status, antepartum acute April 23, 2025 9:34am Supervision of high-risk acute April 23, 2025 9:34am [facility] Work Phone: 1([phone]) 313-354202-26-2025 Evaluation note* Diagnosis Onset Date Resolution Status Admit Date History of gestational diabetes mellitus (GDM) in prior , currentl acute 2024 11:25am Obesity affecting acute November 26, 2024 11:25am acute November 26, 2024 11:25am Rubella non-immune status, antepartum acute November 26 11:25am Supervision of high-risk acute November 26 11:25am History of gestational diabetes mellitus (GDM) in prior , currentl acute December 24, 2024 8:24am Obesity affecting acute December 24, 2024 8:24am acute December 24 8:24am Rubella non-immune status, antepartum acute December 24, 2024 8:24am Supervision of high-risk acute December 24, 2024 8:24am History of gestational diabetes mellitus (GDM) in prior , currentl acute January 21, 2025 9:22am Obesity affecting acute January 21, 2025 9:22am acute January 21 9:22am Rubella non-immune status, antepartum acute January 21, 2025 9:22am Supervision of high-risk acute January 21, 2025 9:22am History of gestational diabetes mellitus (GDM) in prior , currentl acute February 182024 9:44am Obesity affecting acute February 18, 2025 9:44am acute February 18, 2025 9:44am Rubella non-immune status, antepartum acute February 18, 2025 9 :44am Supervision of high-risk acute February 18, 2025 9 :44am [facility] Work Phone: 1([phone]) 457-684402-26-2025 Evaluation note* Diagnosis Onset Date Resolution Status Admit Date History of gestational diabetes mellitus (GDM) in prior , currentl acute 2024 11:25am Obesity affecting acute November 26, 2024 11:25am acute November 26, 2024 11:25am Rubella non-immune status, antepartum acute November 26 11:25am Supervision of high-risk acute November 26 11:25am History of gestational diabetes mellitus (GDM) in prior , currentl acute December 24, 2024 8:24am Obesity affecting acute December 24, 2024 8:24am acute December 24 8:24am Rubella non-immune status, antepartum acute December 24, 2024 8:24am Supervision of high-risk acute December 24, 2024 8:24am History of gestational diabetes mellitus (GDM) in prior , currentl acute January 21, 2025 9:22am Obesity affecting acute January 21, 2025 9:22am acute January 21 9:22am Rubella non-immune status, antepartum acute January 21, 2025 9:22am Supervision of high-risk acute January 21, 2025 9:22am History of gestational diabetes mellitus (GDM) in prior , currentl acute February 182024 9:44am Obesity affecting acute February 18, 2025 9:44am acute February 18, 2025 9:44am Rubella non-immune status, antepartum acute February 18, 2025 9 :44am Supervision of high-risk acute February 18, 2025 9 :44am History of gestational diabetes mellitus (GDM) in prior , currentl acute March 042024 8:47am Obesity affecting acute March 04, 2025 8:47am acute March 04, 2025 8:47am Rubella non-immune status, antepartum acute March 04, 2025 8 :47am Supervision of high-risk acute March 04, 2025 8 :47am [facility] Work Phone: 1(970) 353-450202-26-2025 Evaluation note* Diagnosis Onset Date Resolution Status Admit Date History of gestational diabetes mellitus (GDM) in prior , currentl acute 2024 11:25am Obesity affecting acute November 26, 2024 11:25am acute November 26, 2024 11:25am Rubella non-immune status, antepartum acute November 26 11:25am Supervision of high-risk acute November 26 11:25am History of gestational diabetes mellitus (GDM) in prior , currentl acute December 24, 2024 8:24am Obesity affecting acute December 24, 2024 8:24am acute December 24 8:24am Rubella non-immune status, antepartum acute December 24, 2024 8:24am Supervision of high-risk acute December 24, 2024 8:24am History of gestational diabetes mellitus (GDM) in prior , currentl acute January 21, 2025 9:22am Obesity affecting acute January 21, 2025 9:22am acute January 21 9:22am Rubella non-immune status, antepartum acute January 21, 2025 9:22am Supervision of high-risk acute January 21, 2025 9:22am History of gestational diabetes mellitus (GDM) in prior , currentl acute February 182024 9:44am Obesity affecting acute February 18, 2025 9:44am acute February 18, 2025 9:44am Rubella non-immune status, antepartum acute February 18, 2025 9 :44am Supervision of high-risk acute February 18, 2025 9 :44am History of gestational diabetes mellitus (GDM) in prior , currentl acute March 042024 8:47am Obesity affecting acute March 04, 2025 8:47am acute March 04, 2025 8:47am Rubella non-immune status, antepartum acute March 04, 2025 8 :47am Supervision of high-risk acute March 04, 2025 8 :47am History of gestational diabetes mellitus (GDM) in prior , currentl acute March 022024 2:20pm Obesity affecting acute March 26, 2025 2:20pm acute March 26 2:20pm Rubella non-immune status, antepartum acute March 26, 2025 2:20pm Supervision of high-risk acute March 26, 2025 2:20pm [facility] Work Phone: 1(445) 856-612601-24-2025 Evaluation note* Diagnosis Onset Date Resolution Status Admit Date History of gestational diabetes mellitus (GDM) in prior , currentl acute 2024 8:50am Obesity affecting acute October 24, 2024 8:50am acute October 24, 2024 8:50am Rubella non-immune status, antepartum acute October 24 8:50am Supervision of high-risk acute October 24 8:50am History of gestational diabetes mellitus (GDM) in prior , currentl acute 2024 11:25am Obesity affecting acute November 26, 2024 11:25am acute November 26, 2024 11:25am Rubella non-immune status, antepartum acute November 26, 025 11:25am Supervision of high-risk acute November 26 025 11:25am History of gestational diabetes mellitus (GDM) in prior , currentl acute December 24, 2024 8:24am Obesity affecting acute December 24, 2024 8:24am acute December 24 8:24am Rubella non-immune status, antepartum acute December 24, 2024 8:24am Supervision of high-risk acute December 24, 2024 8:24am History of gestational diabetes mellitus (GDM) in prior , currentl acute January 21, 2025 9:22am Obesity affecting acute January 21, 2025 9:22am acute January 21 9:22am Rubella non-immune status, antepartum acute January 21, 2025 9:22am Supervision of high-risk acute January 21, 2025 9:22am History of gestational diabetes mellitus (GDM) in prior , currentl acute February 182024 9:44am Obesity affecting acute February 18, 2025 9:44am acute February 18, 2025 9:44am Rubella non-immune status, antepartum acute February 18, 2025 9 :44am Supervision of high-risk acute February 18, 2025 9 :44am [facility] Work Phone: 1(434) 222-736807-01-2023 Progress note Author Dotty Olson [facility] March 31, 2023 10:40am Note Date/Time March 31, 2023 10:40 am [facility] Medical Records Department [address] [place] [address] Progress Note - OBGYN 03/31/23 1038 MR#: [id number] Acct: [id number] Name: NATHANAEL MOSCOSO Rep #:[id number] : 1995 27 From: Dotty Hernandez DO PCP: Care Physician,No Primary Status :ADM IN Location: [place] [address] Subjective Subjective Patient doing well without complaints. Tolerating PO. Ambulating and voiding without difficulty. Feeding well. Denies chest pain, shortness of breath, calf pain/swelling, fevers, chills, lightheadedness. Objective Data Objective Data Vital Signs: Vital Signs Temp Pulse Resp BP Pulse Ox O2 Del Method 97.9 F 79 16 113/70 98 Room Air 03/31/23 09:22 03/31/23 09:22 03/31/23 09:22 03/31/23 09:22 03/31/23 09:22 03/31/23 09:22 Oxygen Delivery Method Room Air Weight: 210 lb 6.4 oz Body Mass Index (BMI) 34.0 Intake & Output: Intake and Output for Last 24 Hours 03/29/23 03/30/23 03/31/23 23:59 23:59 23:59 Intake Total 2950.64 / 2950.64 Output Total 985 / 985 1000 / 1000 Balance 1965.64 / 1965.64 -1000 / -1000 Lab / Micro Data 03/30/23 07:56 Labs: Laboratory Results - last 24 hr 03/30/23 13:20: POC Glucose 84 03/30/23 14:37: POC Glucose 81 03/30/23 15:41: POC Glucose 79 03/30/23 17:05: POC Glucose 84 03/30/23 20:27: POC Glucose 89 03/31/23 06:09: POC Glucose 73 L ROS Constitutional Constitutional: Denies chills, fatigue, fever(s), poor appetite or weakness Eyes Eyes: Denies blurry vision, change in vision, seeing flashes or spots in vision ENT HEENT: Denies dizziness, headache(s), loss taste/smell or sore throat Cardiovascular Cardiovascular: Denies chest pain, dizziness, dyspnea, irregular heart rhythm, palpitations or rapid heart rate Respiratory/Chest Respiratory/Chest: Denies chest tightness, cough, dyspnea or breast pain Gastrointestinal Gastrointestinal: Denies abdominal pain, constipation or vomiting Genitourinary Genitourinary: Denies dysuria or flank pain Musculoskeletal Musculoskeletal: Denies difficulty walking, joint pain, limited range of motion or numbness Neurologic Neurologic: Denies abnormal movements, abnormal speech, dizziness, numbness, seizure-like activity or syncope Psychiatric Psychiatric: Denies anxiety, behavioral changes, change in appetite, confusion, depression or suicidal thoughts Physical Exam Const alert, oriented x3 and no apparent distress General Appearance: cooperative and comfortable Resp normal respiratory effort Cardio regular rate GI normal to inspection, nondistended, normoactive bowel sounds GI Narrative: uterus is firm below umbilicus Palpation: soft Back/Spine no CVA tenderness and thoraco-lumbar ROM normal Extremity normal to inspection, no clubbing, cyanosis or edema, no calf tenderness and no pedal edema Psych mental status grossly normal, thought process normal, cooperative, affect normal, speech normal, activity/motor behavior normal, denies homicidal ideationand denies suicidal ideation Assessment & Plan (1) Gestational diabetes mellitus (GDM): COMMENT: nutrition consult, testing 4x daily, delivery by 40 weeks. IOL set up for 03/30/23 at 7am reny/rubens (2) Obesity affecting : COMMENT: 1 TM GCT encouraged healthy weight gain (3) Status post vaginal delivery: PLAN: Plan s/p PPD # 1, delivered at 7 pm last night 1. routine post delivery care 2. breast feeding- support given 3. rh positive 4. rubella non- immune- vaccinate before dc if patient agrees 5. plan for dc to home tomorrow 03/31/23 1040 <Electronically signed by Dotty Hernandez DO> Cosigner Signature (if applicable): CC: ~ Signed [facility] Work Phone: 1(732) 932-818007-01-2023 Discharge summary Author Dotty Olson [facility] March 31, 2023 10:36am Note Date/Time March 31, 2023 10:35 am [facility] Medical Records Department [address] [place] [address] Instructions for Home/Discharge Instructions 03/31/23 1035 MR#: [id number] Acct: [id number] Name: NATHANAEL MOSCOSO Rep #:[id number] : 1995 27 From: Dotty Hernandez DO PCP: Care Physician,No Primary Status :ADM IN Discharge Instructions Diet Discharge Diet: No restrictions Activity Discharge Activity: Return to Normal Activity, May Not Drive (while taking narcotic pain medications.) and May Shower May resume sexual activity in: 4-6 weeks Dressing / Incision Call your doctor if your incision/area has: Continuous Slow Oozing, Sudden Increased Bleeding, Increased Pain/ Swelling, Increased Redness and Foul Smelling Discharge Follow Up Care Please Follow Up With: Dotty Hernandez DO When: Call [phone] to make an appointment with your doctor in 6 weeks. If you had elevated blood pressure or 4th degree laceration, you will need to be seen in 2 weeks. Test Results: Test results from this visit will be discussed in further detail at your follow- up appointment, if applicable. Discharge Plan Admission Admit Date/Time: 03/30/23 07:00 Primary Reason for Your Visit: vaginal delivery Attending Provider: Dotty Hernandez Primary Care Provider: Care Physician,No Primary Discharge Orders/Prescriptions Prescriptions: New naproxen 500 mg tablet 500 mg PO BID PRN (Reason: pain) Qty: 30 0RF Continued [id number] 27 mg iron-800 mcg-260 mg capsule 1 cap PO DAILY (DME) Dexcom G6 Sensor Device See Rx Instructions .Route Qty: 3 8RF Rx Instructions: As directed amoxicillin-pot clavulanate [Augmentin] 500-125 mg tablet 1 tab PO TID 5 Days Qty: 15 0RF (DME) blood-glucose meter Misc See Rx Instructions .MEDSUPPLY Qty: 1 0RF Rx Instructions: As directed- Test fasting and 2 hours after meals (DME) lancets Misc See Rx Instructions .MEDSUPPLY Qty: 100 6RF Rx Instructions: As directed (DME) Blood Glucose Test Strip See Rx Instructions .Route Qty: 50 10RF Rx Instructions: As directed-fasting & 2 HR PP Referrals / Follow Up: Care Physician,No Primary [Primary Care Provider] - Disposition Disposition (needs filled in before D/C Order can be placed): Home, Self Care 03/31/23 1036<Electronically signed by Dotty Hernandez DO>Dotty Hernandez DO CC: No Primary Care Physician ~ Signed [facility] Work Phone: 1(661) 928-739906-30-2023 Procedure [facility] 03-30-2023 History and physical note Author Goldie Ng [facility] March 30, 2023 8:33am Note Date/Time March 30, 2023 8:33 am [facility] Medical Records Department [address] [place] [id number] 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 03/30/23 0831 MR#: [id number] Acct: [id number] Name: NATHANAEL MOSCOSO Rep #:[id number] : 1995 27 From: Goldie harris MD PCP: Care Physician,No Primary Status :ADM IN Location: [id number] HPI - General General Date of Admission: 03/30/23 HPI Narrative NATHANAEL MOSCOSO, is a 27 F who presents for IOL secondary to GDM no vb lof good fm no regular ctx Maternal Data Information ZEYNEP Calculator Estimated Delivery Date Method Current WG Current Estimate 03/30/23 LMP (Certain) 40w 0d Other Estimates 04/04/23 Ultrasound #1 39w 2d PFSH PFSH Medical History Amenorrhea Anovulatory cycle Single umbilical artery Home Medications PNV no.151-iron 27 mg-folic 800 mcg-omega3 260 ph-gly-van-fish capsule 1 cap PO DAILY 08/29/22 [History Last Taken 03/29/23] blood sugar diagnostic (Blood Glucose Test strips) #50 ea 01/12/23 [Rx Last Taken Unknown] blood-glucose meter #1 ea 01/12/23 [Rx Last Taken Unknown] lancets #100 ea 01/12/23 [Rx Last Taken Unknown] blood-glucose sensor (Dexcom G6 Sensor device) #3 ea 02/06/23 [Rx Last Taken Unknown] amoxicillin 500 mg-potassium clavulanate 125 mg tablet (Augmentin) 1 tab PO TID UTI 5 days #15 tabs 03/25/23 [Rx Last Taken 03/29/23] Allergy/AdvReac Type Severity Reaction Status Date / Time No Known Allergies Allergy Verified 03/28/23 08:32 Surgical History S/P ACL repair Social History adopted: No household members: spouse housing: house 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 occupational exposures/hazards: No pets and animals: Yes (Not managing litterbox ) pets and animals: cat(s), dog(s) and farm animals history of recent travel: No sexually active: Yes Smoking Status: Never smoker alcohol intake: never substance use type: does not use well-balanced diet: daily or most days caffeine: No eating out: 1-3 times/week during the past year weight has: remained stable what type of physical activity do you participate in: none wilfred/sabianism: None seatbelt use: always do you feel safe at home: Yes additional social history: - [employer]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 History 1 Elective abortions Hx Para 0 Spontaneous abortions Hx # Term Pregnancies Ectopic pregnancies Hx # Pregnancies Multiple births # of living children 0 Visit Details Expected Delivery Route/Plan Labor Preferences- CB/BF classes: signed up February 17 labor support person: Tito labor intervention preferences: [] pain management options preferred: [] cut cord/dad catch: [] : [] PP control planned: [] discussed possible routes of delivery and associated risks: [] special requests: [] Plans Covid status: discussed Flu vaccine: discussed Tdap vaccine: discussed benefits, thinking about recieving vaccine Rhogam: [] LARC form signed:completed Problem list reviewed and updated with the most current plan of care details and appropriate orders placed. Relevant counseling for the gestational age provided. Continue routine care and follow up unless otherwise noted in visit notes/problem list details OB Flowsheet Initial Weight: Not Recorded Date -?-?-?-?-?-?-?-?-?-?-?-?- EGA Weight BP Urine Prot -?-?-?-?-?-?-?-?-?-?-?-?- Glucose FHR FuHt Pres Dilation -?-?-?-?-?-?-?-?-?-?-?-?- Effaced St Visit Note 08/31/22 -?-?-?-?-?-?-?-?-?-?-?-?- 9w 6d 192 lb 136/88 -?-?-?-?-?-?-?-?-?-?-?-?- 185 -?-?-?-?-?-?-?-?-?-?-?-?- SM- some bleedin g postcoital, 2mm suchorionic hematoma resolving seen. CRL cons with LMP 09/29/22 -?-?-?-?-?-?-?-?-?-?-?-?- 14w 0d 196 lb 124/81 Negative -?-?-?-?-?-?-?-?-?-?-?-?- Negative 160 -?-?-?-?-?-?-?-?-?-?--?-?- SM- no vb lof 10/26/22 -?-?-?-?-?-?-?-?-?-?-?-?- 17w 6d 200 lb 6 oz 126/72 Nega tive -?-?-?-?-?-?-?-?-?-?-?-?- Negative 154 -?-?-?-?-?-?-?-?-?-?-?-?- MH-No VB, LOF. N o FM yet. Denies concerns. 11/20/22 -?-?-?-?-?-?-?-?-?-?-?-?- 21w 3d 204 lb 2 oz 118/70 Nega tive -?-?-?-?-?-?-?-?-?-?-?-?- Negative 148 -?-?-?-?-?-?-?-?-?-?-?-?- MH-No VB, LOF. G ood FM. echo and growth US is 12/0112/18/22 -?-?-?-?-?-?-?-?-?-?-?-?- 25w 3d 212 lb 6 oz 115/73 Nega tive -?-?-?-?-?-?-?-?-?-?-?-?- Negative 140 26 -?-?-?-?-?-?-?-?-?-?-?-?- SM- no vb lof go od fm no regular ctx 01/08/23 -?-?-?-?-?-?-?-?-?-?-?-?- 28w 3d 216 lb 125/82 Negative -?-?-?-?-?-?-?-?-?-?-?-?- Negative 153 29 -?-?-?-?-?-?-?-?-?-?-?-?- LC- no vb/lof/ct x. good fm. larc signed. awaiting glucose results. LC- no vb/lof/ctx. good fm. larc signed.1hr GCT 162, 3 hour GTT ordered. obtaining growth scan today for 2 VC 01/22/23 -?-?-?-?-?-?-?-?-?-?-?-?- 30w 3d 213 lb 8 oz 113/78 -?-?-?-?-?-?-?-?-?-?-?-?- 140 31 -?-?-?-?-?-?-?-?-?-?-?-?- SM- no vb lof go od fm no regular ctx discussed BS testing 02/06/23 -?-?-?-?-?-?-?-?-?-?-?-?- 32w 4d 215 lb 4 oz 119/80 Nega tive -?-?-?-?-?-?-?-?-?-?-?-?- Negative 140 34 -?-?-?-?-?-?-?-?-?-?-?-?- SM- no vb lof go od fm no regular ctx discussed possibly getting a dexcom reader. BS controlled 02/22/23 -?-?-?-?-?-?-?-?-?-?-?-?- 34w 6d 215 lb 2 oz 120/78 Nega tive -?-?-?-?-?-?-?-?-?-?-?-?- Negative 34 -?-?-?-?-?-?-?-?-?-?-?-?- JV- fasting leve ls in the 70's, 2 hr pp all normal but 2 in the 130's. overall doing well. Next ultrasound 03/06. 03/05/23 -?-?-?-?-?-?-?-?-?-?-?-?- 36w 3d 216 lb 6 oz 115/71 -?-?-?-?-?-?-?-?-?-?-?-?- 130 37 Cephalic -?-?-?-?-?-?-?-?-?-?-?-?- SM- no vb lof go od fm no regular ctx gbs today 03/15/23 -?-?-?-?-?-?-?-?-?-?-?-?- 37w 6d 216 lb 8 oz 114/79 Nega tive -?-?-?-?-?-?-?-?-?-?-?-?- Negative 140 38 Cephalic 2 -?-?-?-?-?-?-?-?-?-?-?-?- 30 -2 JV- reacti vce nst. glucose log normal, normal growth on ultrasound. no indication per m to deliver before 40 weeks at this time. continue monitoring and deliver at 40 weeks unless other problems arise. 03/20/23 -?-?-?-?-?-?-?--?-?-?-?-?- 38w 4d 213 lb 2 oz 110/75 Nega tive -?-?-?-?-?-?-?-?-?-?-?-?- Negative 120 38 Cephalic -?-?-?-?-?-?-?-?-?-?-?-?- JV- reactive nst . plan is for delivery at 40 weeks and continued nsts. growth is appropriate (done for 2 vessel cord) glucose levels do not exceed 120 pp) 03/28/23 -?-?-?-?-?-?-?-?-?-?-?-?- 39w 5d 211 lb 6 oz 116/80 Nega tive -?-?-?-?-?-?-?-?-?-?-?-?- Negative 120 39 Cephalic 2 -?-?-?-?-?-?-?-?-?-?-?-?- 60 -2 LC- reacti ve nst. consent signed for IOL on sunday reviewed IOL process. membrane swept today.all fastings and pp in range NST FHR Rate Baby A Baseline: 130 Variability:: Moderate Accelerations:: 15 x 15 Decelerations:: None NST Reactive:: Yes FHR Category:: Category I Uterine Activity:: irregular ROS Constitutional Constitutional: Reports systems reviewed and no addt'l complaints, except as documented Eyes Eyes: Denies change in vision ENT HEENT: Reports systems reviewed and no addt'l complaints, except as documented; Denies headache(s) Cardiovascular Cardiovascular: Reports systems reviewed and no addt'l complaints, except as documented; Denies chest pain or dyspnea Respiratory/Chest Respiratory/Chest: Reports systems reviewed and no addt'l complaints, except as documented Gastrointestinal Gastrointestinal: Reports systems reviewed and no addt'l complaints, except as documented; Denies abdominal pain Genitourinary Genitourinary: Reports systems reviewed and no addt'l complaints, except as documented, contractions Details: present (irregular) and movement Details: present; Denies dysuria or genital lesions Musculoskeletal Musculoskeletal: Reports systems reviewed and no addt'l complaints, except as documented Neurologic Neurologic: Reports systems reviewed and no addt'l complaints, except as documented Endocrine Endocrinology: Reports systems reviewed and no addt'l complaints, except as documented Vital Signs Vital Signs Vital Signs: 03/30/23 07:23 03/30/23 07:23 03/30/23 07:28 Temperature Temperature Source Pulse Rate 89 84 Blood Pressure BP Systolic BP Diastolic Pulse Ox 97 03/30/23 07:28 03/30/23 07:33 03/30/23 07:33 Temperature Temperature Source Pulse Rate 85 Blood Pressure BP Systolic BP Diastolic Pulse Ox 97 97 03/30/23 07:40 03/30/23 08:04 03/30/23 08:05 Temperature Temperature Source Temporal Pulse Rate Blood Pressure 112/70 BP Systolic 112 BP Diastolic 70 Pulse Ox 82 03/30/23 08:05 03/30/23 08:04 Temperature 98.6 F Temperature Source Pulse Rate 81 Blood Pressure BP Systolic BP Diastolic Pulse Ox Weight Weight: 210 lb 6.4 oz Body Mass Index (BMI) 34.0 Physical Exam Const alert, oriented x3, no apparent distress and healthy appearing HEENT normocephalic and moist oral mucous membranes Head and Scalp: atraumatic Neck full ROM, no lymphadenopathy, supple and thyroid normal General: trachea midline Lymph Lymphatic: no lymphadenopathy noted Chest inspection of chest normal Resp normal respiratory effort Cardio regular rate GI normal to inspection, nondistended, normoactive bowel sounds, soft to palpation and non-tender Inspection: gravid external exam normal Manual OB Exam: estimated gestational size appropriate, presentation cephalic, dilated, effaced and station Extremity normal to inspection General Extremity: Negative for edema Skin no rashes or lesions noted Neuro no focal motor deficits and deep tendon reflexes 2+ bilaterally Motor Exam: strength 5/5 throughout and clonus absent Psych mental status grossly normal Labs Labs Labs: Blood Type A POSITIVE Antibody Screen NEGATIVE Hct 36.4 % (37-47) L Hgb 12.2 g/dL (12.0-15.0) Pap Smear Negative Syphilis Total Ab Non-reactive Rubella IgG Antibody Equiv (Nonreactive) Hep Bs Antigen Non-Reactive (Nonreactive) Chlamydia DNA ([facility]) Negative (Negative) Neisseria gonorrhoeae DNA ([facility]) Negative (Negative) HIV 1&2 Antibody Non-Reactive (Nonreactive) Glucose 1 Hr 50 gm 162 mg/dL (70-140) H Assessment & Plan (1) Gestational diabetes mellitus (GDM): COMMENT: nutrition consult, testing 4x daily, delivery by 40 weeks. IOL set up for 03/30/23 at 7am reny/rubens (2) Single umbilical artery: COMMENT: 2 vessel. nl echo. growth every 4 wks weekly NST at 36 weeks. 32wgrowth 62%-36 week growth 47% (3) Rubella non-immune status, antepartum: COMMENT: Update MMR post (4) Obesity affecting : COMMENT: 1 TM GCT encouraged healthy weight gain (5) Supervision of high risk , antepartum: COMMENT: [id number], ZEYNEP 03/30/23, boy Maximus Tito (6) : QUALIFIERS: Weeks of gestation: 39 weeks Qualified Code(s): Z3A.39 - 39 weeks gestation of COMMENT: GBS neg, declined genetic & carrier testing, 10/03/22 abn GCT, ordered 3 Hr GTT, 10/10 nl GTT. (7) Encounter for induction of labor: COMMENT: pit and fb PLAN: Plan Patient presents IOL, plan management for with fb pit. Pain management: plans epidural. GBS negative. Management of any complications: gdm check bs per protocol I have reviewed the [facility] and made any clinically relevant updates. 03/30/23 0833 <Electronically signed by Goldie Ng MD> Cosigner Signature (if applicable): CC: Dr. Goldie Ng MD; No Primary Care Physician~ Signed [facility] Work Phone: 1(987) 969-453606-25-2023 History and physical note Author Tammi Nieves [facility] March 25, 2023 8:19am Note Date/Time March 25, 2023 8:19 am [facility] Medical Records Department [address] [place] [id number] OB Triage Physician Note 03/25/23 0810 MR#: [id number] Acct: [id number] Name: NATHANAEL MOSCOSO Rep #:[id number] : 1995 27 From: Tammi Nieves CNM PCP: Care Physician,No Primary Status :REG CLI Y Location: [id number] HPI - General General Date of Admission: 03/25/23 Date of Service: 03/25/23 HPI Narrative NATHANAEL MOSCOSO, is a 27 F who presents with complaints of bilateral upper abdominal pain and vomiting since eating at 1900 the night prior. She denies headache, dizziness, blurred vision, contractions, vaginal bleeding. + movement. Maternal Data Information ZEYNEP Calculator Estimated Delivery Date Method Current WG Current Estimate 03/30/23 LMP (Certain) 39w 2d Other Estimates 04/04/23 Ultrasound #1 38w 4d Final ZEYNEP: 03/30/23 Final ZEYNEP Source: US >20 weeks Gestational age: 39.2 weeks [facility] PFS Medical History Amenorrhea Anovulatory cycle Single umbilical artery Home Medications PNV no.151-iron 27 mg-folic 800 mcg-omega3 260 hm-nqx-bwk-fish capsule cap PO 08/29/22 [History Last Taken 03/24/23] blood sugar diagnostic (Blood Glucose Test strips) #50 ea 01/12/23 [Rx Last Taken Unknown] blood-glucose meter #1 ea 01/12/23 [Rx Last Taken Unknown] lancets #100 ea 01/12/23 [Rx Last Taken Unknown] blood-glucose sensor (Dexcom G6 Sensor device) #3 ea 02/06/23 [Rx Last Taken Unknown] Allergy/AdvReac Type Severity Reaction Status Date / Time No Known Allergies Allergy Verified 03/24/23 23:19 Surgical History S/P ACL repair Social History adopted: No household members: spouse housing: house 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 occupational exposures/hazards: No pets and animals: Yes (Not managing litterbox ) pets and animals: cat(s), dog(s) and farm animals history of recent travel: No sexually active: Yes Smoking Status: Never smoker alcohol intake: never substance use type: does not use well-balanced diet: daily or most days caffeine: No eating out: 1-3 times/week during the past year weight has: remained stable what type of physical activity do you participate in: none wilfred/sabianism: None seatbelt use: always do you feel safe at home: Yes additional social history: - [employer]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 History 1 Elective abortions Hx Para 0 Spontaneous abortions Hx # Term Pregnancies Ectopic pregnancies Hx # Pregnancies Multiple births # of living children 0 Visit Details Expected Delivery Route/Plan Labor Preferences- CB/BF classes: signed up February 17 labor support person: Tito labor intervention preferences: [] pain management options preferred: [] cut cord/dad catch: [] : [] PP control planned: [] discussed possible routes of delivery and associated risks: [] special requests: [] Plans Covid status: discussed Flu vaccine: discussed Tdap vaccine: discussed benefits, thinking about recieving vaccine Rhogam: [] LARC form signed:completed Problem list reviewed and updated with the most current plan of care details and appropriate orders placed. Relevant counseling for the gestational age provided. Continue routine care and follow up unless otherwise noted in visit notes/problem list details OB Flowsheet Initial Weight: Not Recorded Date -?-?-?-?-?-?-?-?-?-?-?-?- EGA Weight BP Urine Prot -?-?-?-?-?-?-?-?-?-?-?-?- Glucose FHR FuHt Pres Dilation -?-?-?-?-?-?-?-?-?-?-?-?- Effaced St Visit Note 08/31/22 -?-?-?-?-?-?-?-?-?-?-?-?- 9w 6d 192 lb 136/88 -?-?-?-?-?-?-?-?-?-?-?-?- 185 -?-?-?-?-?-?-?-?-?-?-?-?- SM- some bleedin g postcoital, 2mm suchorionic hematoma resolving seen. CRL cons with LMP 09/29/22 -?-?-?-?-?-?-?-?-?-?-?-?- 14w 0d 196 lb 124/81 Negative -?-?-?-?-?-?-?-?-?-?-?-?- Negative 160 -?-?-?-?-?-?-?-?-?-?-?-?- SM- no vb lof 10/26/22 -?-?-?-?-?-?-?-?-?-?-?-?- 17w 6d 200 lb 6 oz 126/72 Nega tive -?-?-?-?-?-?-?-?-?-?-?-?- Negative 154 -?-?-?-?-?-?-?-?-?-?-?-?- MH-No VB, LOF. N o FM yet. Denies concerns. 11/20/22 -?-?-?-?-?-?-?-?-?-?-?-?- 21w 3d 204 lb 2 oz 118/70 Nega tive -?-?-?-?-?-?--?-?-?-?-?-?- Negative 148 -?-?-?-?-?-?-?-?-?-?-?-?- -No VB, LOF. G ood FM. echo and growth US is 12/0112/18/22 -?-?-?-?-?-?-?-?-?-?-?-?- 25w 3d 212 lb 6 oz 115/73 Nega tive -?-?-?-?-?-?-?-?-?-?-?-?- Negative 140 26 -?-?-?-?-?-?-?-?-?-?-?-?- SM- no vb lof go od fm no regular ctx 01/08/23 -?-?-?-?-?-?-?-?-?-?-?-?- 28w 3d 216 lb 125/82 Negative -?-?-?-?-?-?-?-?-?-?-?-?- Negative 153 29 -?-?-?-?-?-?-?-?-?-?-?-?- LC- no vb/lof/ct x. good fm. larc signed. awaiting glucose results. LC- no vb/lof/ctx. good fm. larc signed.1hr GCT 162, 3 hour GTT ordered. obtaining growth scan today for 2 VC 01/22/23 -?-?-?-?-?-?-?-?-?-?-?-?- 30w 3d 213 lb 8 oz 113/78 -?-?-?-?-?-?-?-?-?-?-?-?- 140 31 -?-?-?-?-?-?-?-?-?-?-?-?- SM- no vb lof go od fm no regular ctx discussed BS testing 02/06/23 -?-?-?-?-?-?-?-?-?-?-?-?- 32w 4d 215 lb 4 oz 119/80 Nega tive -?-?-?-?-?-?-?-?-?-?-?-?- Negative 140 34 -?-?-?-?-?-?-?-?-?-?-?-?- SM- no vb lof go od fm no regular ctx discussed possibly getting a dexcom reader. BS controlled 02/22/23 -?-?-?-?-?-?-?-?-?-?-?-?- 34w 6d 215 lb 2 oz 120/78 Nega tive -?-?-?-?-?-?-?-?-?-?-?-?- Negative 34 -?-?-?-?-?-?-?-?-?-?-?-?- JV- fasting leve ls in the 70's, 2 hr pp all normal but 2 in the 130's. overall doing well. Next ultrasound 03/06. 03/05/23 -?-?-?-?-?-?-?-?-?-?-?-?- 36w 3d 216 lb 6 oz 115/71 -?-?-?-?-?-?-?-?-?-?-?-?- 130 37 Cephalic -?-?-?-?-?-?-?-?-?-?-?-?- SM- no vb lof go od fm no regular ctx gbs today 03/15/23 -?-?-?-?-?-?-?-?-?-?-?-?- 37w 6d 216 lb 8 oz 114/79 Nega tive -?-?-?-?-?-?-?-?-?-?-?-?- Negative 140 38 Cephalic 2 -?-?-?-?-?-?-?-?-?-?-?-?- 30 -2 JV- reacti vce nst. glucose log normal, normal growth on ultrasound. no indication per mfm to deliver before 40 weeks at this time. continue monitoring and deliver at 40 weeks unless other problems arise. 03/20/23 -?-?-?-?-?-?-?-?-?-?-?-?- 38w 4d 213 lb 2 oz 110/75 Nega tive -?-?-?-?-?-?-?-?-?-?-?-?- Negative 120 38 Cephalic -?-?-?-?-?-?-?-?-?-?-?-?- JV- reactive nst . plan is for delivery at 40 weeks and continued nsts. growth is appropriate (done for 2 vessel cord) glucose levels do not exceed 120 pp) 03/24/23 -?-?-?-?-?-?-?-?-?-?-?-?- 39w 1d 211 lb 12.8 oz 126/7 9 120/74 109/64 -?-?-?-?-?-?-?-?-?-?-?-?- -?-?-?-?-?-?-?-?-?-?-?-?- ROS Constitutional Constitutional: Reports systems reviewed and no addt'l complaints, except as documented; Denies fever(s) Cardiovascular Cardiovascular: Reports systems reviewed and no addt'l complaints, except as documented Respiratory/Chest Respiratory/Chest: Reports systems reviewed and no addt'l complaints, except as documented Gastrointestinal Gastrointestinal: Reports abdominal pain, nausea and vomiting; Denies cramping or diarrhea Genitourinary Genitourinary: Reports movement Details: present; Denies burning urination, contractions, difficulty urinating, dysuria, flank pain, hematuria, urinary frequency, urinary hesitancy, urinary incontinence or urinary urgency Musculoskeletal Musculoskeletal: Reports back pain Integumentary Integumentary: Reports systems reviewed and no addt'l complaints, except as documented Neurologic Neurologic: Reports systems reviewed and no addt'l complaints, except as documented and headache(s); Denies confusion or dizziness Psychiatric Psychiatric: Reports systems reviewed and no addt'l complaints, except as documented Endocrine Endocrinology: Reports systems reviewed and no addt'l complaints, except as documented Hematologic/Lymphatic Hematologic/Lymphatic: Reports systems reviewed and no addt'l complaints, except as documented Allergic/Immunologic Allergic/Immunologic: Reports systems reviewed and no addt'l complaints, except as documented Physical Exam Const General Appearance: cooperative and comfortable Neck full ROM Resp normal respiratory effort, no retractions and no use of accessory muscles Cardio regular rate and regular rhythm GI soft to palpation, non-tender and non-distended Inspection: gravid Palpation: rebound tenderness present epigastric quandrants Back/Spine no CVA tenderness, normal ROM and normal to inspection Extremity normal to inspection and full ROM Neuro moves all extremities Psych mental status grossly normal NST FHR Rate Baby A Baseline: 135 Variability:: Moderate Accelerations:: 15 x 15 Decelerations:: None NST Reactive:: Yes FHR Category:: Category I Uterine Activity:: irregular Assessment & Plan (1) Abdominal pain affecting : COMMENT: 03/25-wp for evaluation PLAN: CBC, T/S CMP Lipase/ Amylase Urine culture Ultrasound of RUQ Plan reviewed with Dr Ng, agrees with plan. (2) Gestational diabetes mellitus (GDM): COMMENT: nutrition consult, testing 4x daily, delivery by 40 weeks. IOL set up for 03/30/23 at 7am pit/art (3) Single umbilical artery: COMMENT: 2 vessel. nl echo. growth every 4 wks weekly NST at 36 weeks. 32wgrowth 62%-36 week growth 47% (4) Rubella non-immune status, antepartum: COMMENT: Update MMR post (5) Obesity affecting : COMMENT: 1 TM GCT encouraged healthy weight gain (6) Supervision of high risk , antepartum: COMMENT: [id number], ZEYNEP 03/30/23, boy Maximus Tito (7) : QUALIFIERS: Weeks of gestation: 38 weeks Qualified Code(s): Z3A.38 - 38 weeks gestation of COMMENT: GBS neg, declined genetic & carrier testing, 10/03/22 abn GCT, ordered 3 Hr GTT, 10/10 nl GTT. Charges/Coding Multi Select Codes Visit Charges Office Visit/Consults: 49757 OV L3 Est Urinary/Genital Urinary/Genital CPT Codes: 54139-93 non-stress test Interp 03/25/23 0819 <Electronically signed by Tammi wright CNM> Date _ Tammi Nieves CNM [place] Signature (if applicable): Date CC: FUNMI Nieves; No Primary Care Physician ~ Signed [facility] Work Phone: evaluation note* Diagnosis Onset Date Resolution Status BMI 30.0-30.9,adult acute acute Supervision of high risk , antepartum acute [facility] Work Phone: evaluation note* Diagnosis Onset Date Resolution Status acute Supervision of high risk , antepartum acute BMI 30.0-30.9,adult resolved Obesity affecting acute acute Supervision of high risk , antepartum acute [facility] Work Phone: evaluation note* Diagnosis Onset Date Resolution Status Obesity affecting acute acute Supervision of high risk , antepartum acute Obesity affecting acute acute Rubella non-immune status, antepartum acute Supervision of high risk , antepartum acute Obesity affecting acute acute Rubella non-immune status, antepartum acute Single umbilical artery acut e Supervision of high risk , antepartum acute Obesity affecting acute acute Rubella non-immune status, antepartum acute Single umbilical artery acut e Supervision of high risk , antepartum acute Obesity affecting acute acute Rubella non-immune status, antepartum acute Single umbilical artery acut e Supervision of high risk , antepartum acute [facility] Work Phone: evaluation note* Diagnosis Onset Date Resolution Status Obesity affecting acute acute Rubella non-immune status, antepartum acute Single umbilical artery acut e Supervision of high risk , antepartum acute Obesity affecting acute acute Rubella non-immune status, antepartum acute Single umbilical artery acut e Supervision of high risk , antepartum acute Gestational diabetes mellitus (GDM) acute Obesity affecting acute acute Rubella non-immune status, antepartum acute Single umbilical artery acut e Supervision of high risk , antepartum acute Gestational diabetes mellitus (GDM) acute Obesity affecting acute acute Rubella non-immune status, antepartum acute Single umbilical artery acut e Supervision of high risk , antepartum acute Gestational diabetes mellitus (GDM) acute Obesity affecting acute acute Rubella non-immune status, antepartum acute Single umbilical artery acut e Supervision of high risk , antepartum acute Gestational diabetes mellitus (GDM) acute Obesity affecting acute acute Rubella non-immune status, antepartum acute Single umbilical artery acut e Supervision of high risk , antepartum acute Gestational diabetes mellitus (GDM) acute Obesity affecting acute acute Rubella non-immune status, antepartum acute Single umbilical artery acut e Supervision of high risk , antepartum acute Gestational diabetes mellitus (GDM) acute Obesity affecting acute acute Rubella non-immune status, antepartum acute Single umbilical artery acut e Supervision of high risk , antepartum acute Abdominal pain affecting acute Gestational diabetes mellitus (GDM) acute Obesity affecting acute acute Rubella non-immune status, antepartum acute Single umbilical artery acut e Supervision of high risk , antepartum acute [facility] Work Phone: Evaluation note* Diagnosis Onset Date Resolution Status Obesity affecting acute acute Rubella non-immune status, antepartum acute Single umbilical artery acut e Supervision of high risk , antepartum acute Obesity affecting acute acute Rubella non-immune status, antepartum acute Single umbilical artery acut e Supervision of high risk , antepartum acute Gestational diabetes mellitus (GDM) acute Obesity affecting acute acute Rubella non-immune status, antepartum acute Single umbilical artery acut e Supervision of high risk , antepartum acute Gestational diabetes mellitus (GDM) acute Obesity affecting acute acute Rubella non-immune status, antepartum acute Single umbilical artery acut e Supervision of high risk , antepartum acute Gestational diabetes mellitus (GDM) acute Obesity affecting acute acute Rubella non-immune status, antepartum acute Single umbilical artery acut e Supervision of high risk , antepartum acute Gestational diabetes mellitus (GDM) acute Obesity affecting acute acute Rubella non-immune status, antepartum acute Single umbilical artery acut e Supervision of high risk , antepartum acute Gestational diabetes mellitus (GDM) acute Obesity affecting acute acute Rubella non-immune status, antepartum acute Single umbilical artery acut e Supervision of high risk , antepartum acute Gestational diabetes mellitus (GDM) acute Obesity affecting acute acute Rubella non-immune status, antepartum acute Single umbilical artery acut e Supervision of high risk , antepartum acute Gestational diabetes mellitus (GDM) acute Obesity affecting acute acute Rubella non-immune status, antepartum acute Single umbilical artery acut e Supervision of high risk , antepartum acute Abdominal pain affecting resolved Gestational diabetes mellitus (GDM) acute Obesity affecting acute acute Rubella non-immune status, antepartum acute Single umbilical artery acut e Supervision of high risk , antepartum acute Abdominal pain affecting resolved Urinary tract infection affe cting , antepartum resolved Encounter for induction of labor acute Gestational diabetes mellitus (GDM) acute Obesity affecting acute acute Rubella non-immune status, antepartum acute Single umbilical artery acut e Status post vaginal delivery acute Supervision of high risk , antepartum acute [facility] Work Phone: Evaluation note* Diagnosis Onset Date Resolution Status Obesity affecting acute acute Rubella non-immune status, antepartum acute Single umbilical artery acut e Supervision of high risk , antepartum acute Gestational diabetes mellitus (GDM) resolved Obesity affecting acute acute Rubella non-immune status, antepartum acute Single umbilical artery acut e Supervision of high risk , antepartum acute Gestational diabetes mellitus (GDM) resolved Obesity affecting acute acute Rubella non-immune status, antepartum acute Single umbilical artery acut e Supervision of high risk , antepartum acute Gestational diabetes mellitus (GDM) resolved Obesity affecting acute acute Rubella non-immune status, antepartum acute Single umbilical artery acut e Supervision of high risk , antepartum acute Gestational diabetes mellitus (GDM) resolved Obesity affecting acute acute Rubella non-immune status, antepartum acute Single umbilical artery acut e Supervision of high risk , antepartum acute Gestational diabetes mellitus (GDM) resolved Obesity affecting acute acute Rubella non-immune status, antepartum acute Single umbilical artery acut e Supervision of high risk , antepartum acute Gestational diabetes mellitus (GDM) resolved Obesity affecting acute acute Rubella non-immune status, antepartum acute Single umbilical artery acut e Supervision of high risk , antepartum acute Abdominal pain affecting resolved Gestational diabetes mellitus (GDM) resolved Obesity affecting acute acute Rubella non-immune status, antepartum acute Single umbilical artery acut e Supervision of high risk , antepartum acute Abdominal pain affecting resolved Gestational diabetes mellitus (GDM) resolved Urinary tract infection affe cting , antepartum resolved Encounter for induction of labor acute Obesity affecting acute acute Rubella non-immune status, antepartum acute Single umbilical artery acut e Status post vaginal delivery acute Supervision of high risk , antepartum acute Gestational diabetes mellitus (GDM) resolved Abscess of right genital labia acute Status post vaginal delivery acute [facility] Work Phone: Progress note Author Dotty Olson [facility] April 01, 2023 9:30am Note Date/Time April 01, 2023 9:31a m [facility] Medical Records Department [address] [place] [address] Progress Note - OBGYN 04/01/23925 MR#: [id number] Acct: [id number] Name: NATHANAEL MOSCOSO Rep #:[id number] : 1995 27 From: Dotty Hernandez DO PCP: Care Physician,No Primary Status :ADM IN Location: [id number] Subjective Subjective Patient doing well without complaints. Tolerating PO. Ambulating and voiding without difficulty. Feeding well. Denies chest pain, shortness of breath, calf pain/swelling, fevers, chills, lightheadedness. Objective Data Objective Data Vital Signs: Vital Signs Temp Pulse Resp BP Pulse Ox O2 Del Method 98.7 F 77 16 120/74 98 Room Air 04/01/23 08:30 04/01/23 08:30 04/01/23 08:30 04/01/23 08:30 04/01/23 08:30 04/01/23 08:30 Oxygen Delivery Method Room Air Weight: 210 lb 6.4 oz Body Mass Index (BMI) 34.0 Intake & Output: Intake and Output for Last 24 Hours 03/30/23 03/31/23 04/01/23 23:59 23:59 23:59 Intake Total 2950.64 / 2950.64 Output Total 985 / 985 1000 / 1000 Balance 1965.64 / 1965.64 -1000 / -1000 Lab / Micro Data 03/30/23 07:56 ROS Constitutional Constitutional: Denies chills, fatigue, fever(s), poor appetite or weakness Eyes Eyes: Denies blurry vision, change in vision, seeing flashes or spots in vision ENT HEENT: Denies dizziness, headache(s), loss taste/smell or sore throat Cardiovascular Cardiovascular: Denies chest pain, dizziness, dyspnea, irregular heart rhythm, palpitations or rapid heart rate Respiratory/Chest Respiratory/Chest: Denies chest tightness, cough, dyspnea or breast pain Gastrointestinal Gastrointestinal: Denies abdominal pain, constipation or vomiting Genitourinary Genitourinary: Denies dysuria or flank pain Musculoskeletal Musculoskeletal: Denies difficulty walking, joint pain, limited range of motion or numbness Neurologic Neurologic: Denies abnormal movements, abnormal speech, dizziness, numbness, seizure-like activity or syncope Psychiatric Psychiatric: Denies anxiety, behavioral changes, change in appetite, confusion, depression or suicidal thoughts Physical Exam Const alert, oriented x3 and no apparent distress General Appearance: cooperative and comfortable Resp normal respiratory effort Cardio regular rate GI normal to inspection, nondistended, normoactive bowel sounds GI Narrative: uterus is firm below umbilicus Palpation: soft Back/Spine no CVA tenderness and thoraco-lumbar ROM normal Extremity normal to inspection, no clubbing, cyanosis or edema, no calf tenderness and no pedal edema Psych mental status grossly normal, thought process normal, cooperative, affect normal, speech normal, activity/motor behavior normal, denies homicidal ideationand denies suicidal ideation Assessment & Plan (1) Status post vaginal delivery: (2) Gestational diabetes mellitus (GDM): COMMENT: nutrition consult, testing 4x daily, delivery by 40 weeks. IOL set up for 03/30/23 at 7am pit/art (3) Rubella non-immune status, antepartum: COMMENT: Update MMR post (4) Obesity affecting : COMMENT: 1 TM GCT encouraged healthy weight gain (5) Supervision of high risk , antepartum: COMMENT: [id number], ZEYNEP 03/30/23, boy Maximus Tito (6) : QUALIFIERS: Weeks of gestation: 39 weeks Qualified Code(s): Z3A.39 - 39 weeks gestation of COMMENT: GBS neg, declined genetic & carrier testing, 10/03/22 abn GCT, ordered 3 Hr GTT, 10/10 nl GTT. (7) Single umbilical artery: COMMENT: 2 vessel. nl echo. growth every 4 wks weekly NST at 36 weeks. 32wgrowth 62%-36 week growth 47% PLAN: Plan s/p PPD # 2 1. routine post delivery care 2. breast feeding- support given 3. rh positive 4. rubella non- immune, vaccinated since delivery 5. dc to home today 04/01/23 0930 <Electronically signed by Dotty Hernandez DO> Cosigner Signature (if applicable): CC: ~ Signed [facility] Work Phone: Progress note Author Tammi Nieves [facility] Note Date/Time February 18, 2025 10:10 am [facility] [address] [place] [address], [address] [place] [address] OFFICE VISIT Date of Service: 02/18/25 MR#: [id number] Acct: [id number] Name: NATHANAEL MOSCOSO Rep #: [id number] : 1995 Provider: FUNMI Nieves Age/Sex: 29/F Location: [email or web address] Status: Signed Intake Vital Signs 12/24/24 08:27 01/21/25 09:31 02/18/25 09:49 Height 5 ft 6.5 in 5 ft 6.5 in 5 ft 6.5 in Weight: 199 lb 8 oz BMI 31.7 BP 113/76 Intake Visit Reasons: 26wk ob *25w6d Chief Complaint: 26 wk OB Veneer Layer Required: No Is patient in pain?: No Allergies No Known Allergies Allergy (Verified 02/18/25 09:47) Medications ?Medication ?Instructions ?Recorded ?Confirmed ?Type PNV no.151-iron 27 mg-folic 800 1 cap PO DAILY Pregnan cy 08/29/22 02/18/25 History mcg-omega3 260 kw-gwz-ifh-fish capsule omega-3 fatty acids 1,000 mg 2,000 mg PO QDAY 10/09/24 02/18/25 History capsule Last Menstrual Period: 08/07/24 : No Have you fallen in the past year?: No PFSH PFSH Medical History UTI (urinary tract infection) Gallstone Gestational diabetes Single umbilical artery Anovulatory cycle Amenorrhea Surgical History S/P ACL repair Social History adopted: No household members: spouse and children housing: house number of children: 1 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 occupational exposures/hazards: No pets and animals: Yes (Not managing litterbox ) pets and animals: cat(s), dog(s) and farm animals history of recent travel: No sexually active: Yes Smoking Status: Never smoker alcohol intake: never substance use type: does not use well-balanced diet: daily or most days caffeine: No eating out: rarely or never during the past year weight has: decreased > 10 lbs what type of physical activity do you participate in: walking frequency: 3-4 times per week duration: 30-45 minutes/day wilfred/sabianism: None seatbelt use: always do you feel safe at home: Yes 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 Date Name GA/Weeks Outcome Route Bth Weight Infant Gen Labor Lgth Anesthesia Del Locatn Provider FOB 03/30/23 Maximus 40 live - full term 8lbs 3oz Male epi dural H Dr. Farrar Delivery Date: 03/30/23 Last Updated by: Cinda Angeles Gestational diabetes, single umbilical artery HPI 26wk ob *25w6d Details: NATHANAEL MOSCOSO is a 29 year old who presents for routine OB visit. OB Visit ZEYNEP Calculator Estimated Delivery Date Method Current WG Current Estimate 05/14/25 LMP (Certain) 27w 6d Other Estimates 05/20/25 Ultrasound #1 27w 0d Expected Delivery Route/Plan Labor Preferences- CB/BF classes: [] labor support person: [] labor intervention preferences: [] pain management options preferred: [] cut cord/dad catch: [] : [] PP control planned: [] discussed possible routes of delivery and associated risks: [] special requests: [] Specific Issue/Plans Covid status: [] Flu vaccine: [] Tdap vaccine: [] Rhogam: [] LARC form signed: [] Problem list reviewed and updated with the most current plan of care details and appropriate orders placed. Relevant counseling for the gestational age provided. Continue routine care and follow up unless otherwise noted in visit notes/problem list details Initial Weight: Not Recorded Date -?-?-?-?-?-?-?-?-?-?-?-?- EGA Weight BP Urine Prot -?-?-?-?-?-?-?-?-?-?-?-?- Glucose FHR FuHt Pres Dilation -?-?-?-?-?-?-?-?-?-?-?-?- Effaced St Visit Note 10/24/24 -?-?-?-?-?-?-?-?-?-?-?-?- 11w 1d 184 lb 116/70 -?-?-?-?-?-?-?-?-?-?-?-?- 181 -?-?-?-?-?-?-?-?-?-?-?-?- KW-CRL cons with dates. declines NIPT. 11/26/24 -?-?-?-?-?-?-?-?-?-?-?-?- 15w 6d 189 lb 4 oz 129/78 -?-?-?-?-?-?-?-?-?-?-?-?- 150 -?-?-?-?-?-?-?-?-?-?-?-?- SM- no vb crampi ng 12/24/24 -?-?-?-?-?-?-?-?-?-?-?-?- 19w 6d 192 lb 6 oz 120/72 Nega tive -?-?-?-?-?-?-?-?-?-?-?-?- Negative 156 -?-?-?-?-?-?-?-?-?-?-?-?- MH-No VB. Neetu david. LILIBETHM US tomorrow 01/21/25 -?-?-?-?-?-?-?-?-?-?-?-?- 23w 6d 197 lb 8 oz 108/68 Nega tive -?-?-?-?-?-?-?-?-?-?-?-?- Negative 137 -?-?-?-?-?-?-?-?-?-?-?-?- JV- anatomy scan reviewed. no complaints today, feeling good movement. 02/18/25 -?-?-?-?-?-?-?-?-?-?-?-?- 27w 6d 199 lb 8 oz 113/76 Nega tive -?-?-?-?-?-?-?-?-?-?-?-?- Negative 155 29 -?-?-?-?-?-?-?-?-?-?-?-?- KW- no vb/lof/ct x. good fm. glucose and larc today. declines Tdap ACOG First Trimester First Trimester: Discussed Second Trimester Second Trimester: Signs and Symptoms of Labor, Selecting a care provider, Reproductive Life Planning & Contreception, Care Planning, Depression/Anxiety and Intimate Partner Violence; Discussed Tobacco Cessation Third Trimester Third Trimester: Pain Management Plans, Labor support person(s), Immediate Larc, Movement Monitoring, Signs and Symptoms of Preeclampsia and [place] Education ROS Const Reports system reviewed and no additional complaints, except as documented Eyes Reports system reviewed and no additional complaints, except as documented ENT Reports system reviewed and no additional complaints, except as documented Card Reports system reviewed and no additional complaints, except as documented Resp Reports system reviewed and no additional complaints, except as documented GI Reports system reviewed and no additional complaints, except as documented, Denies nausea and Denies vomiting Reports system reviewed and no additional complaints, except as documented Musc Reports system reviewed and no additional complaints, except as documented Skin/Breast Reports system reviewed and no additional complaints, except as documented Neuro Yes system reviewed and no additional complaints, except as documented Psych Reports system reviewed and no additional complaints, except as documented Endo Reports system reviewed and no additional complaints, except as documented Crow/Lymph Reports system reviewed and no additional complaints, except as documented Aller/Immun Reports system reviewed and no additional complaints, except as documented Exam Const General: cooperative, healthy appearing and no acute distress Orientation: alert, awake and oriented x3 Neck Neck: normal visual inspection and full ROM Resp Effort & Inspection: normal respiratory effort, able to speak in complete sentences and symmetric chest movement GI Inspection: normal to inspection Palpation: soft and other Other: gravid Skin General: no rashes or lesions noted Neuro General: patient alert, patient awake and patient oriented x3 Cognition: normal cognition Speech: speech normal Gait: normal gait Motor: muscle tone normal throughout Extrem General: normal to inspection and full ROM Psych Appearance: grossly normal Mental Status: mental status grossly normal Mood: congruent mood Affect: normal affect Speech and Movement: speech and movement normal Attitude: cooperative Thought Process: normal Thought Content: normal Judgment: judgment good Results POC Urinalysis 2 Dip (Clinic) Office Urine Glucose Negative Last Edit by Bev Snow on 02/18/25 10:00 Office Urine Protein Negative Last Edit by Bev Snow on 02/18/25 10:00 Coding Level of Care Code OB Routine Diagnoses Obesity affecting in second trimester, unspecified obesity type O99.212 Obesity type affecting : unspecified obesity Trimester: second trimester History of gestational diabetes mellitus (GDM) in prior , currently O09.299; Z86.32 27 weeks gestation of Z3A.27 Weeks of gestation: 27 weeks Supervision of high risk in second trimester O09.92 Trimester: second trimester Rubella non-immune status, antepartum O09.899; Z28.39 Assessment and Plan Assessment and Plan (1) Obesity affecting : Status: Acute Qualifiers: Obesity type affecting : unspecified obesity Trimester: second trimester Qualified Code(s): O99.212 - Obesity complicating , second trimester Comment: HgbA1c (2) History of gestational diabetes mellitus (GDM) in prior , currently : Status: Acute Comment: HgbA1c nl w/NOB (3) : Status: Acute Qualifiers: Weeks of gestation: 27 weeks Qualified Code(s): Z3A.27 - 27 weeks gestation of Comment: declined NIPT & Carrier testing. nl anatomy. (4) Supervision of high-risk : Status: Acute Qualifiers: Trimester: second trimester Qualified Code(s): O09.92 - Supervision of high risk , unspecified, second trimester Comment: PRR, , ZEYNEP 05/14/25, PC Maximus, Tito (5) Rubella non-immune status, antepartum: Status: Acute Comment: Update MMR post (pt did not get booster after last ) Orders: Orders POC Urinalysis 2 Dip (Clinic) Today Plan Details Additional Comments: ACOG trimester education reviewed and updated. see problem list details for updated plan management information and see below for orders placed at this visit. GA appropriate handout given. Clinical Quality Measures Falls Risk Screening/Assistive Devices Have you fallen in the past year?: No 02/18/25 1010 <Electronically signed by Tammi wright CNM> Date _ Tammi Nieves CNM Cosigner Signature: Date (if applicable) CC: ~ [facility] Work Phone: Progress note Author Goldie Ng [facility] Note Date/Time April 17, 2025 11:1 0am [facility] [address], [address] [place] [address] OFFICE VISIT Date of Service: 04/17/25 MR#: [id number] Acct: [id number] Name: NATHANAEL MOSCOSO Rep #: [id number] : 1995 Provider: Dr. Joel Ng MD Age/Sex: 29/F Location: [facility] [place] Status: Signed Intake Vital Signs 04/09/25 13:43 04/17/25 10:21 Height 5 ft 6.5 in 5 ft 6.5 in Weight: 210 lb BMI 33.3 BP 123/77 H Intake Visit Reasons: 36 WK OB Veneer Layer Required: No Is patient in pain?: No Allergies No Known Allergies Allergy (Verified 04/17/25 10:23) Medications ?Medication ?Instructions ?Recorded ?Confirmed ?Type PNV no.151-iron 27 mg-folic 800 1 cap PO DAILY Pregnan cy 08/29/22 04/17/25 History mcg-omega3 260 qq-sia-ivw-fish capsule omega-3 fatty acids 1,000 mg 2,000 mg PO QDAY 10/09/24 04/17/25 History capsule Last Menstrual Period: 08/07/24 Zika: Zika virus screening: Negative : No PFSH PFSH Medical History UTI (urinary tract infection) Gallstone Gestational diabetes Single umbilical artery Anovulatory cycle Amenorrhea Surgical History S/P ACL repair Social History adopted: No household members: spouse and children housing: house number of children: 1 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 occupational exposures/hazards: No pets and animals: Yes (Not managing litterbox ) pets and animals: cat(s), dog(s) and farm animals history of recent travel: No sexually active: Yes Smoking Status: Never smoker alcohol intake: never substance use type: does not use well-balanced diet: daily or most days caffeine: No eating out: rarely or never during the past year weight has: decreased > 10 lbs what type of physical activity do you participate in: walking frequency: 3-4 times per week duration: 30-45 minutes/day wilfred/sabianism: None seatbelt use: always do you feel safe at home: Yes 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 Date Name GA/Weeks Outcome Route Bth Weight Infant Gen Labor Lgth Anesthesia Del Locatn Provider FOB 03/30/23 Maximus 40 live - full term 8lbs 3oz Male epi dural [facility] Dr. Farrar Delivery Date: 03/30/23 Last Updated by: Cinda Angeles Gestational diabetes, single umbilical artery HPI 36 WK OB Details: NATHANAEL MOSCOSO is a 29 year old who presents for routine OB visit. OB Visit ZEYNEP Calculator Estimated Delivery Date Method Current WG Current Estimate 05/14/25 LMP (Certain) 36w 1d Other Estimates 05/20/25 Ultrasound #1 35w 2d Expected Delivery Route/Plan Labor Preferences- CB/BF classes: no labor support person: Tito labor intervention preferences: [] pain management options preferred: epidural cut cord/dad catch: cord : yes PP control planned: discussed discussed possible routes of delivery and associated risks: [] special requests: [] Specific Issue/Plans Covid status: [] Flu vaccine: [] Tdap vaccine: declines Rhogam: NA LARC form signed: yes . movement and labor precautions reviewed. Problem list reviewed and updated with the most current plan of care details and appropriate orders placed. Relevant counseling for the gestational age provided. Continue routine care and follow up unless otherwise noted in visit notes/problem list details Initial Weight: Not Recorded Date -?-?-?-?-?-?-?-?-?-?-?-?- EGA Weight BP Urine Prot -?-?-?-?-?-?-?-?-?-?-?-?- Glucose FHR FuHt Pres Dilation -?-?-?-?-?-?-?-?-?-?-?-?- Effaced St Visit Note 10/24/24 -?-?-?-?-?-?-?-?-?-?-?-?- 11w 1d 184 lb 116/70 -?-?-?-?-?-?-?-?-?-?-?-?- 181 -?-?-?-?-?-?-?-?-?-?-?-?- KW-CRL cons with dates. declines NIPT. 11/26/24 -?-?-?-?-?-?-?-?-?-?-?-?- 15w 6d 189 lb 4 oz 129/78 -?-?-?-?-?-?-?-?-?-?-?-?- 150 -?-?-?-?-?-?-?-?-?-?-?-?- SM- no vb crampi ng 12/24/24 -?-?-?-?-?-?-?-?-?-?-?-?- 19w 6d 192 lb 6 oz 120/72 Nega tive -?-?-?-?-?-?-?-?-?-?-?-?- Negative 156 -?-?-?-?--?-?-?-?-?-?-?-?- -No VB. Neetu david. MFM US tomorrow 01/21/25 -?-?-?-?-?-?-?-?-?-?-?-?- 23w 6d 197 lb 8 oz 108/68 Nega tive -?-?-?-?-?-?-?-?-?-?-?-?- Negative 137 -?-?-?-?-?-?-?-?-?-?-?-?- JV- anatomy scan reviewed. no complaints today, feeling good movement. 02/18/25 -?-?-?-?-?-?-?-?-?-?-?-?- 27w 6d 199 lb 8 oz 113/76 Nega tive -?-?-?-?-?-?-?-?-?-?-?-?- Negative 155 29 -?-?-?-?-?-?-?-?-?-?-?-?- KW- no vb/lof/ct x. good fm. glucose and larc today. declines Tdap 03/04/25 -?-?-?-?-?-?-?-?-?-?-?-?- 29w 6d 203 lb 6 oz 104/66 Nega tive -?-?-?-?-?-?-?-?-?-?-?-?- Negative 153 30 -?-?-?-?-?-?-?-?-?-?-?-?- -No VB, LOF. g ood FM. Nl 28 wk labs. 03/26/25 -?-?-?-?-?-?-?-?-?-?-?-?- 33w 0d 209 lb 113/74 Negative -?-?-?-?-?-?--?-?-?-?-?-?- Negative 160 34 -?-?-?-?-?-?-?-?-?-?-?-?- SM- no vb lof go od fm n oregular ctx 04/09/25 -?-?-?-?-?-?-?-?-?-?-?-?- 35w 0d 209 lb 2 oz 107/72 Nega tive -?-?-?-?-?-?-?-?-?-?-?-?- Negative 145 36 -?-?-?-?-?-?-?-?-?-?-?-?- JV- no lof, vagi nal bleeding, or dec fm. 04/17/25 -?-?-?-?-?-?-?-?-?-?-?-?- 36w 1d 210 lb 123/77 -?-?-?-?-?-?-?-?-?-?-?-?- 140 37 Cephalic 1 -?-?-?-?-?-?-?-?-?-?-?-?- SM- no vb lof go od fm n oreuglar ctx gbs today ACOG First Trimester First Trimester: Discussed Second Trimester Second Trimester: Signs and Symptoms of Labor, Selecting a care provider, Reproductive Life Planning & Contreception, Care Planning, Depression/Anxiety and Intimate Partner Violence; Discussed Tobacco Cessation Third Trimester Third Trimester: Pain Management Plans, Labor support person(s), Immediate Larc, Circumcision preference, Movement Monitoring, Signs and Symptoms of Preeclampsia, Infant Feeding No , [place] Education, Family Medical Leave or Disability Forms, Depression and Intimate Partner Violence Coding Level of Care Code OB Routine Diagnoses Obesity affecting in second trimester, unspecified obesity type O99.212 Obesity type affecting : unspecified obesity Trimester: second trimester History of gestational diabetes mellitus (GDM) in prior , currently O09.299; Z86.32 Supervision of high risk in third trimester O09.93 Trimester: third trimester 36 weeks gestation of Z3A.36 Weeks of gestation: 36 weeks Rubella non-immune status, antepartum O09.899; Z28.39 Assessment and Plan Assessment and Plan (1) Obesity affecting : Status: Acute Qualifiers: Obesity type affecting : unspecified obesity Trimester: second trimester Qualified Code(s): O99.212 - Obesity complicating , second trimester Comment: HgbA1c (2) History of gestational diabetes mellitus (GDM) in prior , currently : Status: Acute Comment: HgbA1c nl w/NOB (3) Supervision of high-risk : Status: Acute Qualifiers: Trimester: third trimester Qualified Code(s): O09.93 - Supervision of high risk , unspecified, third trimester Comment: PRR, , ZEYNEP 05/14/25, surprise PC Maximus, Tito (4) : Status: Acute Qualifiers: Weeks of gestation: 36 weeks Qualified Code(s): Z3A.36 - 36 weeks gestation of Comment: declined NIPT & Carrier testing. nl anatomy. (5) Rubella non-immune status, antepartum: Status: Acute Comment: Update MMR post (pt did not get booster after last ) Orders: Orders POC Urinalysis 2 Dip (Clinic) Today Culture, Group B Streptococcus Today O09.93 - Supervision of high risk , unspecified, third trimester 04/17/25 1110 <Electronically signed by Goldie cannon MD> Date _ Goldie Ng MD Cosigner Signature: Date (if applicable) CC: ~ [facility] Work Phone: Progress note Author Goldie Ng [facility] Note Date/Time April 23, 2025 10:2 3am [facility] [address] [place] [address], [address] [place] [address] OFFICE VISIT Date of Service: 04/23/25 MR#: [id number] Acct: [id number] Name: NATHANAEL MOSCOSO Rep #: [id number] : 1995 Provider: Dr. Joel Ng MD Age/Sex: 30/F Location: [facility] [place] Status: Signed Intake Vital Signs 02/18/25 09:49 04/17/25 10:21 04/23/25 09:39 Height 5 ft 6.5 in 5 ft 6.5 in 5 ft 6.5 in Weight: 211 lb BMI 33.5 BP 131/77 H Intake Visit Reasons: 37 wk ob Veneer Layer Required: No Is patient in pain?: No Allergies No Known Allergies Allergy (Verified 04/23/25 09:42) Medications ?Medication ?Instructions ?Recorded ?Confirmed ?Type PNV no.151-iron 27 mg-folic 800 1 cap PO DAILY Pregnan cy 08/29/22 04/23/25 History mcg-omega3 260 dh-awk-asq-fish capsule omega-3 fatty acids 1,000 mg 2,000 mg PO QDAY 10/09/24 04/23/25 History capsule Last Menstrual Period: 08/07/24 Zika: Zika virus screening: Negative : No PFSH PFSH Medical History UTI (urinary tract infection) Gallstone Gestational diabetes Single umbilical artery Anovulatory cycle Amenorrhea Surgical History S/P ACL repair Social History adopted: No household members: spouse and children housing: house number of children: 1 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 occupational exposures/hazards: No pets and animals: Yes (Not managing litterbox ) pets and animals: cat(s), dog(s) and farm animals history of recent travel: No sexually active: Yes Smoking Status: Never smoker alcohol intake: never substance use type: does not use well-balanced diet: daily or most days caffeine: No eating out: rarely or never during the past year weight has: decreased > 10 lbs what type of physical activity do you participate in: walking frequency: 3-4 times per week duration: 30-45 minutes/day wilfred/sabianism: None seatbelt use: always do you feel safe at home: Yes 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 Date Name GA/Weeks Outcome Route Bth Weight Gen Labor Lgth Anesthesia Del Locatn Provider FOB 03/30/23 Maximus 40 live - full term 8lbs 3oz Male epi dural [facility] Dr. Farrar Delivery Date: 03/30/23 Last Updated by: Cinda Angeles Gestational diabetes, single umbilical artery HPI 37 wk ob Details: NATHANAEL MOSCOSO is a 30 year old who presents for routine OB visit. OB Visit ZEYNEP Calculator Estimated Delivery Date Method Current WG Current Estimate 05/14/25 LMP (Certain) 37w 0d Other Estimates 05/20/25 Ultrasound #1 36w 1d Expected Delivery Route/Plan Labor Preferences- CB/BF classes: no labor support person: Tito labor intervention preferences: [] pain management options preferred: epidural cut cord/dad catch: cord : yes PP control planned: discussed discussed possible routes of delivery and associated risks: [] special requests: [] Specific Issue/Plans Covid status: [] Flu vaccine: [] Tdap vaccine: declines Rhogam: NA LARC form signed: yes . movement and labor precautions reviewed. Problem list reviewed and updated with the most current plan of care details and appropriate orders placed. Relevant counseling for the gestational age provided. Continue routine care and follow up unless otherwise noted in visit notes/problem list details Initial Weight: Not Recorded Date -?-?-?-?-?-?-?-?-?-?-?-?- EGA Weight BP Urine Prot -?-?-?-?-?-?-?-?-?-?-?-?- Glucose FHR FuHt Pres Dilation -?-?-?-?-?-?-?-?-?-?-?-?- Effaced St Visit Note 10/24/24 -?-?-?-?-?-?-?-?-?-?-?-?- 11w 1d 184 lb 116/70 -?-?-?-?-?-?-?-?-?-?-?-?- 181 -?-?-?-?-?-?-?-?-?-?-?-?- KW-CRL cons with dates. declines NIPT. 11/26/24 -?-?-?-?-?-?-?-?-?-?-?-?- 15w 6d 189 lb 4 oz 129/78 -?-?-?-?-?-?-?-?-?-?-?-?- 150 -?-?-?-?-?-?-?-?-?-?-?-?- SM- no vb crampi ng 12/24/24 -?-?-?-?-?-?-?-?-?-?-?-?- 19w 6d 192 lb 6 oz 120/72 Nega tive -?-?-?-?-?-?-?-?-?-?-?-?- Negative 156 -?-?-?-?-?-?-?-?-?-?-?-?- MH-No VB. Neetu david. MFM US tomorrow 01/21/25 -?-?-?-?-?-?-?-?-?-?-?-?- 23w 6d 197 lb 8 oz 108/68 Nega tive -?-?-?-?-?-?-?-?-?-?-?-?- Negative 137 -?-?-?-?-?-?-?-?-?-?-?-?- JV- anatomy scan reviewed. no complaints today, feeling good movement. 02/18/25 -?-?-?-?-?-?-?-?-?-?-?-?- 27w 6d 199 lb 8 oz 113/76 Nega tive -?-?-?-?-?-?-?-?-?-?-?-?- Negative 155 29 -?-?-?-?-?-?-?-?-?-?-?-?- KW- no vb/lof/ct x. good fm. glucose and larc today. declines Tdap 03/04/25 -?-?-?-?-?-?-?-?-?-?-?-?- 29w 6d 203 lb 6 oz 104/66 Nega tive -?-?-?-?-?-?-?-?--?-?-?-?- Negative 153 30 -?-?-?-?-?-?-?-?-?-?-?-?- MH-No VB, LOF. g ood FM. Nl 28 wk labs. 03/26/25 -?-?-?-?-?-?-?-?-?-?-?-?- 33w 0d 209 lb 113/74 Negative -?-?-?-?-?-?-?-?-?-?-?-?- Negative 160 34 -?-?-?-?-?-?-?-?-?-?-?-?- SM- no vb lof go od fm n oregular ctx 04/09/25 -?-?-?-?-?-?-?-?-?-?-?-?- 35w 0d 209 lb 2 oz 107/72 Nega tive -?-?-?-?-?-?-?-?-?-?-?-?- Negative 145 36 -?-?-?-?-?-?-?-?-?-?-?-?- JV- no lof, vagi nal bleeding, or dec fm. 04/17/25 -?-?-?-?-?-?-?-?-?-?-?-?- 36w 1d 210 lb 123/77 -?-?-?-?-?-?-?-?-?-?-?-?- 140 37 Cephalic 1 -?-?-?-?-?-?-?-?-?-?-?-?- SM- no vb lof go od fm n oreuglar ctx gbs today 04/23/25 -?-?-?-?-?-?-?-?-?-?-?-?- 37w 0d 211 lb 131/77 Negative -?-?-?-?-?-?-?-?-?-?-?-?- Negative 140 38 Cephalic 1 .5 -?-?-?-?-?-?-?-?-?-?-?-?- 40 -3 SM- no vb lof good fm no regular ctx gbs pos ACOG First Trimester First Trimester: Discussed Second Trimester Second Trimester: Signs and Symptoms of Labor, Selecting a care provider, Reproductive Life Planning & Contreception, Care Planning, Depression/Anxiety and Intimate Partner Violence; Discussed Tobacco Cessation Third Trimester Third Trimester: Pain Management Plans, Labor support person(s), Immediate Larc, Circumcision preference, Movement Monitoring, Signs and Symptoms of Preeclampsia, Feeding No , Education, Family Medical Leave or Disability Forms, Depression and Intimate Partner Violence ROS Const Denies fever(s) GI Reports as per HPI and Denies abdominal pain Reports as per HPI, Denies abnormal vaginal bleeding, Denies dysuria and Denies vaginal discharge Exam Const General: healthy appearing, comfortable and no acute distress GI Inspection: normal to inspection Palpation: soft and nontender Results POC Urinalysis 2 Dip (Clinic) Office Urine Glucose Negative Last Edit by Pearl Esposito on 04/23/25 09:45 Office Urine Protein Negative Last Edit by Pearl Esposito on 04/23/25 09:45 Coding Level of Care Code OB Routine Diagnoses Positive GBS test B95.1 Obesity affecting in second trimester, unspecified obesity type O99.212 Obesity type affecting : unspecified obesity Trimester: second trimester History of gestational diabetes mellitus (GDM) in prior , currently O09.299; Z86.32 Supervision of high risk in third trimester O09.93 Trimester: third trimester 37 weeks gestation of Z3A.37 Weeks of gestation: 37 weeks Rubella non-immune status, antepartum O09.899; Z28.39 Assessment and Plan Assessment and Plan (1) Positive GBS test: Status: Acute Comment: PCN in labor (2) Obesity affecting : Status: Acute Qualifiers: Obesity type affecting : unspecified obesity Trimester: second trimester Qualified Code(s): O99.212 - Obesity complicating , second trimester Comment: HgbA1c (3) History of gestational diabetes mellitus (GDM) in prior , currently : Status: Acute Comment: HgbA1c nl w/NOB (4) Supervision of high-risk : Status: Acute Qualifiers: Trimester: third trimester Qualified Code(s): O09.93 - Supervision of high risk , unspecified, third trimester Comment: PRR, , ZEYNEP 05/14/25, surprise PC Maximus, Tito (5) : Status: Acute Qualifiers: Weeks of gestation: 37 weeks Qualified Code(s): Z3A.37 - 37 weeks gestation of Comment: declined NIPT & Carrier testing. nl anatomy. (6) Rubella non-immune status, antepartum: Status: Acute Comment: Update MMR post (pt did not get booster after last ) Orders: Orders POC Urinalysis 2 Dip (Clinic) Today 04/23/25 1023 <Electronically signed by Goldie cannon MD> Date _ Goldie Ng MD Cosigner Signature: Date (if applicable) CC: ~ [facility] Work Phone: Progress note Author Tammi Nieves [facility] Note Date/Time April 30, 2025 11:[facility] [address] [place] [address], [address] [place] [address] OFFICE VISIT Date of Service: 04/30/25 MR#: [id number] Acct: [id number] Name: NATHANAEL MOSCOSO Rep #: [id number] : 1995 Provider: FUNMI Nieves Age/Sex: 30/F Location: [facility] Status: Signed Intake Vital Signs 03/04/25 08:52 04/23/25 09:39 04/30/25 11:24 Height 5 ft 6.5 in 5 ft 6.5 in 5 ft 6.5 in Weight: 215 lb 8 oz BMI 34.2 BP 123/82 H Intake Visit Reasons: 38wk ob Chief Complaint: 38wk ob Veneer Layer Required: No Is patient in pain?: No Allergies No Known Allergies Allergy (Verified 04/30/25 11:23) Medications ?Medication ?Instructions ?Recorded ?Confirmed ?Type PNV no.151-iron 27 mg-folic 800 1 cap PO DAILY Pregnan cy 08/29/22 04/30/25 History mcg-omega3 260 at-uvn-ipp-fish capsule omega-3 fatty acids 1,000 mg 2,000 mg PO QDAY 10/09/24 04/30/25 History capsule Last Menstrual Period: 08/07/24 : No PFSH PFSH Medical History UTI (urinary tract infection) Gallstone Gestational diabetes Single umbilical artery Anovulatory cycle Amenorrhea Surgical History S/P ACL repair Social History adopted: No household members: spouse and children housing: house number of children: 1 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 occupational exposures/hazards: No pets and animals: Yes (Not managing litterbox ) pets and animals: cat(s), dog(s) and farm animals history of recent travel: No sexually active: Yes Smoking Status: Never smoker alcohol intake: never substance use type: does not use well-balanced diet: daily or most days caffeine: No eating out: rarely or never during the past year weight has: decreased > 10 lbs what type of physical activity do you participate in: walking frequency: 3-4 times per week duration: 30-45 minutes/day wilfred/sabianism: None seatbelt use: always do you feel safe at home: Yes 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 Date Name GA/Weeks Outcome Route Bth Weight Infant Gen Labor Lgth Anesthesia Del Locatn Provider FOB 03/30/23 Maximus 40 live - full term 8lbs 3oz Male epi dural [facility] Farrar Delivery Date: 03/30/23 Last Updated by: Cinda Angeles Gestational diabetes, single umbilical artery HPI 38wk ob Details: NATHANAEL MOSCOSO is a 30 year old who presents for routine OB visit. OB Visit ZEYNEP Calculator Estimated Delivery Date Method Current WG Current Estimate 05/14/25 LMP (Certain) 38w 0d Other Estimates 05/20/25 Ultrasound #1 37w 1d Expected Delivery Route/Plan Labor Preferences- CB/BF classes: no labor support person: Tito labor intervention preferences: [] pain management options preferred: epidural cut cord/dad catch: cord : yes PP control planned: discussed discussed possible routes of delivery and associated risks: [] special requests: [] Specific Issue/Plans Covid status: [] Flu vaccine: [] Tdap vaccine: declines Rhogam: NA LARC form signed: yes . movement and labor precautions reviewed. Problem list reviewed and updated with the most current plan of care details and appropriate orders placed. Relevant counseling for the gestational age provided. Continue routine care and follow up unless otherwise noted in visit notes/problem list details Initial Weight: Not Recorded Date -?-?-?-?-?-?-?-?-?-?-?-?- EGA Weight BP Urine Prot -?-?-?-?-?-?-?-?-?-?-?-?- Glucose FHR FuHt Pres Dilation -?-?-?-?-?-?-?-?-?-?-?-?- Effaced St Visit Note 10/24/24 -?-?-?-?-?-?-?-?-?-?-?-?- 11w 1d 184 lb 116/70 -?-?-?-?-?-?-?-?-?-?-?-?- 181 -?-?-?-?-?-?-?-?-?-?-?-?- KW-CRL cons with dates. declines NIPT. 11/26/24 -?-?-?-?-?-?-?-?-?-?-?-?- 15w 6d 189 lb 4 oz 129/78 -?-?-?-?-?-?-?-?-?-?-?-?- 150 -?-?-?-?-?-?-?-?-?-?-?-?- SM- no vb crampi ng 12/24/24 -?-?-?-?-?-?-?-?-?-?-?-?- 19w 6d 192 lb 6 oz 120/72 Nega tive -?-?-?-?-?-?-?-?-?-?-?-?- Negative 156 -?-?-?-?-?-?-?-?-?-?-?-?- MH-No VB. Neetu david. MFM US tomorrow 01/21/25 -?-?-?-?-?-?-?-?-?-?-?-?- 23w 6d 197 lb 8 oz 108/68 Nega tive -?-?-?-?-?-?-?-?-?-?-?-?- Negative 137 -?-?-?-?-?-?-?-?-?-?-?-?- JV- anatomy scan reviewed. no complaints today, feeling good movement. 02/18/25 -?-?-?-?-?-?-?-?-?-?-?-?- 27w 6d 199 lb 8 oz 113/76 Nega tive -?-?-?-?-?-?-?-?-?-?-?-?- Negative 155 29 -?-?-?-?-?-?-?-?-?-?-?-?- KW- no vb/lof/ct x. good fm. glucose and larc today. declines Tdap 03/04/25 -?-?-?-?-?-?-?-?-?-?-?-?- 29w 6d 203 lb 6 oz 104/66 Nega tive -?-?-?-?-?-?-?-?-?-?-?-?- Negative 153 30 -?-?-?-?-?-?-?-?-?-?-?-?- MH-No VB, LOF. g ood FM. Nl 28 wk labs. 03/26/25 -?-?-?-?-?-?-?-?-?-?-?-?- 33w 0d 209 lb 113/74 Negative -?-?-?-?-?-?-?-?-?-?-?-?- Negative 160 34 -?-?-?-?-?-?-?-?-?-?-?-?- SM- no vb lof go od fm n oregular ctx 04/09/25 -?-?-?-?-?-?-?-?-?-?-?-?- 35w 0d 209 lb 2 oz 107/72 Nega tive -?-?-?-?-?-?-?-?-?-?-?-?- Negative 145 36 -?-?-?-?-?-?-?-?-?-?-?-?- JV- no lof, vagi nal bleeding, or dec fm. 04/17/25 -?-?-?-?-?-?-?-?-?-?-?-?- 36w 1d 210 lb 123/77 -?-?-?-?-?-?-?-?-?-?-?-?- 140 37 Cephalic 1 -?-?-?-?-?-?-?-?-?-?-?-?- SM- no vb lof go od fm n oreuglar ctx gbs today 04/23/25 -?-?-?-?-?-?-?-?-?-?-?-?- 37w 0d 211 lb 131/77 Negative -?-?-?-?-?-?-?-?-?-?-?-?- Negative 140 38 Cephalic 1 .5 -?-?-?-?-?-?-?-?-?-?-?-?- 40 -3 SM- no vb lof good fm no regular ctx gbs pos 04/30/25 -?-?-?-?-?-?-?-?-?-?-?-?- 38w 0d 215 lb 8 oz 123/82 Nega tive -?-?-?-?-?-?-?-?-?-?-?-?- Negative 145 39 Cephalic 1 .5 -?-?-?-?-?-?-?-?-?-?-?-?- 40 -4 KW- no vb/ lof/ctx. good fm. handheld US to verify cephalic. ACOG First Trimester First Trimester: Discussed Second Trimester Second Trimester: Signs and Symptoms of Labor, Selecting a care provider, Reproductive Life Planning & Contreception, Care Planning, Depression/Anxiety and Intimate Partner Violence; Discussed Tobacco Cessation Third Trimester Third Trimester: Pain Management Plans, Labor support person(s), Immediate Larc, Circumcision preference, Movement Monitoring, Signs and Symptoms of Preeclampsia, Feeding No , [place] Education, Family Medical Leave or Disability Forms, Depression and Intimate Partner Violence ROS Const Reports system reviewed and no additional complaints, except as documented Eyes Reports system reviewed and no additional complaints, except as documented ENT Reports system reviewed and no additional complaints, except as documented Card Reports system reviewed and no additional complaints, except as documented Resp Reports system reviewed and no additional complaints, except as documented GI Reports system reviewed and no additional complaints, except as documented, Denies nausea and Denies vomiting Reports system reviewed and no additional complaints, except as documented Musc Reports system reviewed and no additional complaints, except as documented Skin/Breast Reports system reviewed and no additional complaints, except as documented Neuro Yes system reviewed and no additional complaints, except as documented Psych Reports system reviewed and no additional complaints, except as documented Endo Reports system reviewed and no additional complaints, except as documented Crow/Lymph Reports system reviewed and no additional complaints, except as documented Aller/Immun Reports system reviewed and no additional complaints, except as documented Exam Const General: cooperative, healthy appearing and no acute distress Orientation: alert, awake and oriented x3 Neck Neck: normal visual inspection and full ROM Resp Effort & Inspection: normal respiratory effort, able to speak in complete sentences and symmetric chest movement GI Inspection: normal to inspection Palpation: soft and other Other: gravid Skin General: no rashes or lesions noted Neuro General: patient alert, patient awake and patient oriented x3 Cognition: normal cognition Speech: speech normal Gait: normal gait Motor: muscle tone normal throughout Extrem General: normal to inspection and full ROM Psych Appearance: grossly normal Mental Status: mental status grossly normal Mood: congruent mood Affect: normal affect Speech and Movement: speech and movement normal Attitude: cooperative Thought Process: normal Thought Content: normal Judgment: judgment good Results POC Urinalysis 2 Dip (Clinic) 2 Office Urine Glucose Negative Last Edit by Bev Snow on 04/30/25 11:28 Office Urine Protein Negative Last Edit by Bev Snow on 04/30/25 11:28 Coding Level of Care Code OB Routine Diagnoses Positive GBS test B95.1 Obesity affecting in second trimester, unspecified obesity type O99.212 Obesity type affecting : unspecified obesity Trimester: second trimester History of gestational diabetes mellitus (GDM) in prior , currently O09.299; Z86.32 38 weeks gestation of Z3A.38 Weeks of gestation: 38 weeks Supervision of high risk in third trimester O09.93 Trimester: third trimester Rubella non-immune status, antepartum O09.899; Z28.39 Assessment and Plan Assessment and Plan (1) Positive GBS test: Status: Acute Comment: PCN in labor (2) Obesity affecting : Status: Acute Qualifiers: Obesity type affecting : unspecified obesity Trimester: second trimester Qualified Code(s): O99.212 - Obesity complicating , second trimester Comment: HgbA1c (3) History of gestational diabetes mellitus (GDM) in prior , currently : Status: Acute Comment: HgbA1c nl w/NOB (4) : Status: Acute Qualifiers: Weeks of gestation: 38 weeks Qualified Code(s): Z3A.38 - 38 weeks gestation of Comment: declined NIPT & Carrier testing. nl anatomy. (5) Supervision of high-risk : Status: Acute Qualifiers: Trimester: third trimester Qualified Code(s): O09.93 - Supervision of high risk , unspecified, third trimester Comment: PRR, , ZEYNEP 05/14/25, surprise PC Maximus, Tito (6) Rubella non-immune status, antepartum: Status: Acute Comment: Update MMR post (pt did not get booster after last ) Orders: Orders POC Urinalysis 2 Dip (Clinic) Today Plan Details Additional Comments: ACOG trimester education reviewed and updated. see problem list details for updated plan management information and see below for orders placed at this visit. GA appropriate handout given. 04/30/25 1146 <Electronically signed by Tammi wright CNM> Date _ Tammi Nieves CNM Cosigner Signature: Date (if applicable) CC: ~ [facility] Work Phone: Progress note Author Dotty Olson [facility] Note Date/Time May 07, 2025 10: 36am [facility] [address] [place] [address], [address] [place] [address] OFFICE VISIT Date of Service: 05/07/25 MR#: [id number] Acct: [id number] Name: NATHANAEL MOSCOSO Rep #: [id number] : 1995 Provider: Dr. Nette Hernandez, Age/Sex: 30/F Location: [facility] [place] Status: Signed Intake Vital Signs 03/04/25 08:52 04/30/25 11:24 05/07/25 10:19 05/07/25 10:19 Height 5 ft 6.5 in 5 ft 6.5 in 5 ft 6.5 in 5 ft 6.5 in Weight: 212 lb 8 oz BMI 33.7 BP 126/82 H Intake Visit Reasons: 39wk ob Veneer Layer Required: No Is patient in pain?: No Allergies No Known Allergies Allergy (Verified 05/07/25 10:18) Medications ?Medication ?Instructions ?Recorded ?Confirmed ?Type PNV no.151-iron 27 mg-folic 800 1 cap PO DAILY Pregnan cy 08/29/22 05/07/25 History mcg-omega3 260 fo-set-fkc-fish capsule omega-3 fatty acids 1,000 mg 2,000 mg PO QDAY 10/09/24 05/07/25 History capsule Last Menstrual Period: 08/07/24 Zika: Zika virus screening: Negative : No PFSH PFSH Medical History UTI (urinary tract infection) Gallstone Gestational diabetes Single umbilical artery Anovulatory cycle Amenorrhea Surgical History S/P ACL repair Social History adopted: No household members: spouse and children housing: house number of children: 1 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 occupational exposures/hazards: No pets and animals: Yes (Not managing litterbox ) pets and animals: cat(s), dog(s) and farm animals history of recent travel: No sexually active: Yes Smoking Status: Never smoker alcohol intake: never substance use type: does not use well-balanced diet: daily or most days caffeine: No eating out: rarely or never during the past year weight has: decreased > 10 lbs what type of physical activity do you participate in: walking frequency: 3-4 times per week duration: 30-45 minutes/day wilfred/sabianism: None seatbelt use: always do you feel safe at home: Yes 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 Date Name GA/Weeks Outcome Route Bth Weight Gen Labor Lgth Anesthesia Del Locatn Provider FOB 03/30/23 Maximus 40 live - full term 8lbs 3oz Male epi dural [facility] Dr. Farrar Delivery Date: 03/30/23 Last Updated by: Cinda Angeles Gestational diabetes, single umbilical artery HPI 39wk ob Details: NATHANAEL MOSCOSO is a 30 year old who presents for routine OB visit. OB Visit ZEYNEP Calculator Estimated Delivery Date Method Current WG Current Estimate 05/14/25 LMP (Certain) 39w 0d Other Estimates 05/20/25 Ultrasound #1 38w 1d Expected Delivery Route/Plan Labor Preferences- CB/BF classes: no labor support person: Tito labor intervention preferences: [] pain management options preferred: epidural cut cord/dad catch: cord : yes PP control planned: discussed discussed possible routes of delivery and associated risks: [] special requests: [] Specific Issue/Plans Covid status: [] Flu vaccine: [] Tdap vaccine: declines Rhogam: NA LARC form signed: yes . movement and labor precautions reviewed. Problem list reviewed and updated with the most current plan of care details and appropriate orders placed. Relevant counseling for the gestational age provided. Continue routine care and follow up unless otherwise noted in visit notes/problem list details Initial Weight: Not Recorded Date -?-?-?-?-?-?-?-?-?-?-?-?- EGA Weight BP Urine Prot -?-?-?-?-?-?-?-?-?-?-?-?- Glucose FHR FuHt Pres Dilation -?-?-?-?-?-?-?-?-?-?-?-?- Effaced St Visit Note 10/24/24 -?-?-?-?-?-?-?-?-?-?-?-?- 11w 1d 184 lb 116/70 -?-?-?-?-?-?-?-?-?-?-?-?- 181 -?-?-?-?-?-?-?-?-?-?-?-?- KW-CRL cons with dates. declines NIPT. 11/26/24 -?-?-?-?-?-?-?-?-?-?-?-?- 15w 6d 189 lb 4 oz 129/78 -?-?-?-?-?-?-?-?-?-?-?-?- 150 -?-?-?-?-?-?-?-?-?-?-?-?- SM- no vb crampi ng 12/24/24 -?-?-?-?-?-?-?-?-?-?-?-?- 19w 6d 192 lb 6 oz 120/72 Nega tive -?-?-?-?-?-?-?-?-?-?-?-?- Negative 156 -?-?-?-?-?-?-?-?-?-?-?-?- MH-No VB. Neetu david. MFM US tomorrow 01/21/25 -?-?-?-?-?-?-?-?-?-?-?-?- 23w 6d 197 lb 8 oz 108/68 Nega tive -?-?-?-?-?-?-?-?-?-?-?-?- Negative 137 -?-?-?-?-?-?-?-?-?-?-?-?- JV- anatomy scan reviewed. no complaints today, feeling good movement. 02/18/25 -?-?-?-?-?-?-?-?-?-?-?-?- 27w 6d 199 lb 8 oz 113/76 Nega tive -?-?-?-?-?-?-?-?-?-?-?-?- Negative 155 29 -?-?-?-?-?-?-?-?-?-?-?-?- KW- no vb/lof/ct x. good fm. glucose and larc today. declines Tdap 03/04/25 -?-?-?-?-?-?-?-?-?-?-?-?- 29w 6d 203 lb 6 oz 104/66 Nega tive -?-?-?-?-?-?-?-?-?-?-?-?- Negative 153 30 -?-?-?-?-?-?-?-?-?-?-?-?- MH-No VB, LOF. g ood FM. Nl 28 wk labs. 03/26/25 -?-?-?-?-?-?-?-?-?-?-?-?- 33w 0d 209 lb 113/74 Negative -?-?-?-?-?-?-?-?-?-?-?-?- Negative 160 34 -?-?-?-?-?-?-?-?-?-?-?-?- SM- no vb lof go od fm n oregular ctx 04/09/25 -?-?-?-?-?-?-?-?-?-?-?-?- 35w 0d 209 lb 2 oz 107/72 Nega tive -?-?-?-?-?-?-?-?-?-?-?-?- Negative 145 36 -?-?-?-?-?-?-?-?-?-?-?-?- JV- no lof, vagi nal bleeding, or dec fm. 04/17/25 -?-?-?-?-?-?-?-?-?-?-?-?- 36w 1d 210 lb 123/77 -?-?-?-?-?-?-?-?-?-?-?-?- 140 37 Cephalic 1 -?-?-?-?-?-?-?-?-?-?-?-?- SM- no vb lof go od fm n oreuglar ctx gbs today 04/23/25 -?-?-?-?-?-?-?-?-?-?-?-?- 37w 0d 211 lb 131/77 Negative -?-?-?-?-?-?-?-?-?-?-?-?- Negative 140 38 Cephalic 1 .5 -?-?-?-?-?-?-?-?-?-?-?-?- 40 -3 SM- no vb lof good fm no regular ctx gbs pos 04/30/25 -?-?-?-?-?-?-?-?-?-?-?-?- 38w 0d 215 lb 8 oz 123/82 Nega tive -?-?-?-?-?-?-?-?-?-?-?-?- Negative 145 39 Cephalic 1 .5 -?-?-?-?-?-?-?-?-?-?-?-?- 40 -4 KW- no vb/ lof/ctx. good fm. handheld US to verify cephalic. 05/07/25 -?-?-?-?-?-?-?-?-?-?-?-?- 39w 0d 212 lb 8 oz 126/82 Nega tive -?-?-?-?-?-?-?-?-?-?-?-?- Negative 140 39 Cephalic 1 .5 -?-?-?-?-?-?-?-?-?-?-?-?- 40 -3 JV- head s till ballotable. no lof, vaginal bleeding, or dec fm. ACOG First Trimester First Trimester: Discussed Second Trimester Second Trimester: Signs and Symptoms of Labor, Selecting a care provider, Reproductive Life Planning & Contreception, Care Planning, Depression/Anxiety and Intimate Partner Violence; Discussed Tobacco Cessation Third Trimester Third Trimester: Pain Management Plans, Labor support person(s), Immediate Larc, Circumcision preference, Movement Monitoring, Signs and Symptoms of Preeclampsia, Feeding No , [place] Education, Family Medical Leave or Disability Forms, Depression and Intimate Partner Violence Results POC Urinalysis 2 Dip (Clinic) Office Urine Glucose Negative Last Edit by Cinda Angeles on 05/07/25 10: 25 Office Urine Protein Negative Last Edit by Cinda Angeles on 05/07/25 10: 25 Coding Level of Care Code OB Routine Diagnoses Positive GBS test B95.1 Obesity affecting in second trimester, unspecified obesity type O99.212 Obesity type affecting : unspecified obesity Trimester: second trimester History of gestational diabetes mellitus (GDM) in prior , currently O09.299; Z86.32 Supervision of high risk in third trimester O09.93 Trimester: third trimester 39 weeks gestation of Z3A.39 Weeks of gestation: 39 weeks Rubella non-immune status, antepartum O09.899; Z28.39 Assessment and Plan Assessment and Plan (1) Positive GBS test: Status: Acute Comment: PCN in labor (2) Obesity affecting : Status: Acute Qualifiers: Obesity type affecting : unspecified obesity Trimester: second trimester Qualified Code(s): O99.212 - Obesity complicating , second trimester Comment: HgbA1c (3) History of gestational diabetes mellitus (GDM) in prior , currently : Status: Acute Comment: HgbA1c nl w/NOB (4) Supervision of high-risk : Status: Acute Qualifiers: Trimester: third trimester Qualified Code(s): O09.93 - Supervision of high risk , unspecified, third trimester Comment: PRR, , ZEYNEP 05/14/25, surprise PC Maximus, Tito (5) : Status: Acute Qualifiers: Weeks of gestation: 39 weeks Qualified Code(s): Z3A.39 - 39 weeks gestation of Comment: declined NIPT & Carrier testing. nl anatomy. (6) Rubella non-immune status, antepartum: Status: Acute Comment: Update MMR post (pt did not get booster after last ) Orders: Orders POC Urinalysis 2 Dip (Clinic) Today 05/07/25 1036 <Electronically signed by Dotty Jacobs DO> Date _ Dotty Hernandez DO [place] Signature: Date (if applicable) CC: ~ [facility] Work Phone: Progress note Author Goldie Ng [facility] Note Date/Time May 14, 2025 9: 54am [facility] [address], [address] [place] [address] OFFICE VISIT Date of Service: 05/14/25 MR#: [id number] Acct: [id number] Name: NATHANAEL MOSCOSO Rep #: [id number] : 1995 Provider: Dr. Joel Ng MD Age/Sex: 30/F Location: [facility] Status: Signed Intake Vital Signs 03/04/25 08:52 05/07/25 10:19 05/14/25 09:24 05/14/25 09:27 Height 5 ft 6.5 in 5 ft 6.5 in 5 ft 6.5 in 5 ft 6.5 in Weight: 215 lb 7 oz BMI 34.2 BP 128/84 H Intake Visit Reasons: 40wk ob *HAPPY DUE DATE Veneer Layer Required: No Is patient in pain?: No Allergies No Known Allergies Allergy (Verified 05/14/25 09:24) Medications ?Medication ?Instructions ?Recorded ?Confirmed ?Type PNV no.151-iron 27 mg-folic 800 1 cap PO DAILY Pregnan cy 08/29/22 05/14/25 History mcg-omega3 260 pv-ebj-czk-fish capsule omega-3 fatty acids 1,000 mg 2,000 mg PO QDAY 10/09/24 05/14/25 History capsule Last Menstrual Period: 08/07/24 Zika: Zika virus screening: Negative : No PFSH PFSH Medical History UTI (urinary tract infection) Gallstone Gestational diabetes Single umbilical artery Anovulatory cycle Amenorrhea Surgical History S/P ACL repair Social History adopted: No household members: spouse and children housing: house number of children: 1 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 occupational exposures/hazards: No pets and animals: Yes (Not managing litterbox ) pets and animals: cat(s), dog(s) and farm animals history of recent travel: No sexually active: Yes Smoking Status: Never smoker alcohol intake: never substance use type: does not use well-balanced diet: daily or most days caffeine: No eating out: rarely or never during the past year weight has: decreased > 10 lbs what type of physical activity do you participate in: walking frequency: 3-4 times per week duration: 30-45 minutes/day wilfred/sabianism: None seatbelt use: always do you feel safe at home: Yes 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 Date Name GA/Weeks Outcome Route Bth Weight Infant Gen Labor Lgth Anesthesia Del Locatn Provider FOB 03/30/23 Maximus 40 live - full term 8lbs 3oz Male epi dural [facility] Dr. Farrar Delivery Date: 03/30/23 Last Updated by: Cinda Angeles Gestational diabetes, single umbilical artery HPI 40wk ob *HAPPY DUE DATE Details: NATHANAEL MOSCOSO is a 30 year old who presents for routine OB visit. OB Visit ZEYNEP Calculator Estimated Delivery Date Method Current WG Current Estimate 05/14/25 LMP (Certain) 40w 0d Other Estimates 05/20/25 Ultrasound #1 39w 1d Expected Delivery Route/Plan Labor Preferences- CB/BF classes: no labor support person: Tito labor intervention preferences: [] pain management options preferred: epidural cut cord/dad catch: cord : yes PP control planned: discussed discussed possible routes of delivery and associated risks: [] special requests: [] Specific Issue/Plans Covid status: [] Flu vaccine: [] Tdap vaccine: declines Rhogam: NA LARC form signed: yes . movement and labor precautions reviewed. Problem list reviewed and updated with the most current plan of care details and appropriate orders placed. Relevant counseling for the gestational age provided. Continue routine care and follow up unless otherwise noted in visit notes/problem list details Initial Weight: Not Recorded Date -?-?-?-?-?-?-?-?-?-?-?-?- EGA Weight BP Urine Prot -?-?-?-?-?-?-?-?-?-?-?-?- Glucose FHR FuHt Pres Dilation -?-?-?-?-?-?-?-?-?-?-?-?- Effaced St Visit Note 10/24/24 -?-?-?-?-?-?-?-?-?-?-?-?- 11w 1d 184 lb 116/70 -?-?-?-?-?-?-?-?-?-?-?-?- 181 -?-?-?-?-?-?-?-?-?-?-?-?- KW-CRL cons with dates. declines NIPT. 11/26/24 -?-?-?-?-?-?-?-?-?-?-?-?- 15w 6d 189 lb 4 oz 129/78 -?-?-?-?-?-?-?-?-?-?-?-?- 150 -?-?-?-?-?-?-?-?-?-?-?-?- SM- no vb crampi ng 12/24/24 -?-?-?-?-?-?-?-?-?-?-?-?- 19w 6d 192 lb 6 oz 120/72 Nega tive -?-?-?-?-?-?-?-?-?-?-?-?- Negative 156 -?-?-?-?-?-?-?-?-?-?-?-?- MH-No VB. Neetu david. MFM US tomorrow 01/21/25 -?-?-?-?-?-?-?-?-?-?-?-?- 23w 6d 197 lb 8 oz 108/68 Nega tive -?-?-?-?-?-?-?-?-?-?-?-?- Negative 137 -?-?-?-?-?-?-?-?-?-?-?-?- JV- anatomy scan reviewed. no complaints today, feeling good movement. 02/18/25 -?-?-?-?-?-?-?-?-?-?-?-?- 27w 6d 199 lb 8 oz 113/76 Nega tive -?-?-?-?-?-?--?-?-?-?-?-?- Negative 155 29 -?-?-?-?-?-?-?-?-?-?-?-?- KW- no vb/lof/ct x. good fm. glucose and larc today. declines Tdap 03/04/25 -?-?-?-?-?-?-?-?-?-?--?-?- 29w 6d 203 lb 6 oz 104/66 Nega tive -?-?-?-?-?-?-?-?-?-?-?-?- Negative 153 30 -?-?-?-?-?-?-?-?-?-?-?-?- MH-No VB, LOF. g ood FM. Nl 28 wk labs. 03/26/25 -?-?-?-?-?-?-?-?-?-?-?-?- 33w 0d 209 lb 113/74 Negative -?-?-?-?-?-?-?-?-?-?-?-?- Negative 160 34 -?-?-?-?-?-?-?-?-?-?--?-?- SM- no vb lof go od fm n oregular ctx 04/09/25 -?-?-?-?-?-?-?-?-?-?-?-?- 35w 0d 209 lb 2 oz 107/72 Nega tive -?-?-?-?-?-?-?-?-?-?-?-?- Negative 145 36 -?-?-?-?-?-?-?-?-?-?-?-?- JV- no lof, vagi nal bleeding, or dec fm. 04/17/25 -?-?-?-?-?-?-?-?-?-?-?-?- 36w 1d 210 lb 123/77 -?-?-?-?-?-?-?-?-?-?-?-?- 140 37 Cephalic 1 -?-?-?-?-?-?-?-?-?-?-?-?- SM- no vb lof go od fm n oreuglar ctx gbs today 04/23/25 -?-?-?-?-?-?-?-?-?-?--?-?- 37w 0d 211 lb 131/77 Negative -?-?-?-?-?-?-?-?-?-?-?-?- Negative 140 38 Cephalic 1 .5 -?-?-?-?-?-?-?-?-?-?-?-?- 40 -3 SM- no vb lof good fm no regular ctx gbs pos 04/30/25 -?-?-?-?-?-?-?-?-?-?-?-?- 38w 0d 215 lb 8 oz 123/82 Nega tive -?-?-?-?-?-?-?-?-?-?-?-?- Negative 145 39 Cephalic 1 .5 -?-?-?-?-?-?-?-?-?-?-?-?- 40 -4 KW- no vb/ lof/ctx. good fm. handheld US to verify cephalic. 05/07/25 -?-?-?-?-?-?-?-?-?-?-?-?- 39w 0d 212 lb 8 oz 126/82 Nega tive -?-?-?-?-?-?-?-?-?-?-?-?- Negative 140 39 Cephalic 1 .5 -?-?-?-?-?-?-?-?-?-?-?-?- 40 -3 JV- head s till ballotable. no lof, vaginal bleeding, or dec fm. 05/14/25 -?-?-?-?-?-?-?-?-?-?-?-?- 40w 0d 215 lb 7 oz 128/84 Nega tive -?-?-?-?-?-?-?-?-?-?-?-?- Negative 140 41 Cephalic 3 -?-?-?-?-?-?-?-?-?-?-?-?- 40 -3 SM- head s till ballotable unable to membrane sweep, will return next week to posibly sweep, IOL set for 41 weeks but may delay, discussed growth us and nst if is delayed past 41 weeks ACOG First Trimester First Trimester: Discussed Second Trimester Second Trimester: Signs and Symptoms of Labor, Selecting a care provider, Reproductive Life Planning & Contreception, Care Planning, Depression/Anxiety and Intimate Partner Violence; Discussed Tobacco Cessation Third Trimester Third Trimester: Pain Management Plans, Labor support person(s), Immediate Larc, Circumcision preference, Movement Monitoring, Signs and Symptoms of Preeclampsia, Feeding No , [place] Education, Family Medical Leave or Disability Forms, Depression and Intimate Partner Violence Results POC Urinalysis 2 Dip (Clinic) Office Urine Glucose Negative Last Edit by Pearl Esposito on 05/14/25 09:29 Office Urine Protein Negative Last Edit by Pearl Esposito on 05/14/25 09:29 Coding Level of Care Code OB Routine Diagnoses Positive GBS test B95.1 Obesity affecting in second trimester, unspecified obesity type O99.212 Obesity type affecting : unspecified obesity Trimester: second trimester History of gestational diabetes mellitus (GDM) in prior , currently O09.299; Z86.32 Supervision of high risk in third trimester O09.93 Trimester: third trimester 40 weeks gestation of Z3A.40 Weeks of gestation: 40 weeks Rubella non-immune status, antepartum O09.899; Z28.39 Assessment and Plan Assessment and Plan (1) Positive GBS test: Status: Acute Comment: PCN in labor (2) Obesity affecting : Status: Acute Qualifiers: Obesity type affecting : unspecified obesity Trimester: second trimester Qualified Code(s): O99.212 - Obesity complicating , second trimester Comment: HgbA1c (3) History of gestational diabetes mellitus (GDM) in prior , currently : Status: Acute Comment: HgbA1c nl w/NOB (4) Supervision of high-risk : Status: Acute Qualifiers: Trimester: third trimester Qualified Code(s): O09.93 - Supervision of high risk , unspecified, third trimester Comment: PRR, , ZEYNEP 05/14/25, surprise PC Maximus, Tito (5) : Status: Acute Qualifiers: Weeks of gestation: 40 weeks Qualified Code(s): Z3A.40 - 40 weeks gestation of Comment: declined NIPT & Carrier testing. nl anatomy. (6) Rubella non-immune status, antepartum: Status: Acute Comment: Update MMR post (pt did not get booster after last ) Orders: Orders POC Urinalysis 2 Dip (Clinic) Today 05/14/25 0954 <Electronically signed by Goldie cannon MD> Date _ Goldie Ng MD Cosigner Signature: Date (if applicable) CC: ~ [facility] Work Phone: Progress note Author Tammi Nieves [facility] Note Date/Time May 18, 2025 8: 58am [facility] [address] [place] [address], [address] [place] [address] OFFICE VISIT Date of Service: 05/18/25 MR#: [id number] Acct: [id number] Name: DANISNATALIAFrench Ernst Rep #: [id number] : 1995 Provider: FUNMI Nieves Age/Sex: 30/F Location: [facility] Status: Signed Intake Vital Signs 05/14/25 09:27 05/18/25 08:37 Height 5 ft 6.5 in 5 ft 6.5 in Weight: 216 lb 4 oz BMI 34.4 BP 121/84 H Intake Visit Reasons: MEMBRANE SWEEP Chief Complaint: Membrane Sweep Veneer Layer Required: No Is patient in pain?: No Allergies No Known Allergies Allergy (Verified 05/18/25 08:34) Medications ?Medication ?Instructions ?Recorded ?Confirmed ?Type PNV no.151-iron 27 mg-folic 800 1 cap PO DAILY Pregnan cy 08/29/22 05/18/25 History mcg-omega3 260 yl-qua-izs-fish capsule omega-3 fatty acids 1,000 mg 2,000 mg PO QDAY 10/09/24 05/18/25 History capsule Last Menstrual Period: 08/07/24 : No PFSH PFSH Medical History UTI (urinary tract infection) Gallstone Gestational diabetes Single umbilical artery Anovulatory cycle Amenorrhea Surgical History S/P ACL repair Social History adopted: No household members: spouse and children housing: house number of children: 1 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 occupational exposures/hazards: No pets and animals: Yes (Not managing litterbox ) pets and animals: cat(s), dog(s) and farm animals history of recent travel: No sexually active: Yes Smoking Status: Never smoker alcohol intake: never substance use type: does not use well-balanced diet: daily or most days caffeine: No eating out: rarely or never during the past year weight has: decreased > 10 lbs what type of physical activity do you participate in: walking frequency: 3-4 times per week duration: 30-45 minutes/day wilfred/sabianism: None seatbelt use: always do you feel safe at home: Yes 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 Date Name GA/Weeks Outcome Route Bth Weight Infant Gen Labor Lgth Anesthesia Del Locatn Provider FOB 03/30/23 Maximus 40 live - full term 8lbs 3oz Male epi dural [facility] Dr. Farrar Delivery Date: 03/30/23 Last Updated by: Cinda Angeles Gestational diabetes, single umbilical artery HPI MEMBRANE SWEEP Details: NATHANAEL MOSCOSO is a 30 year old who presents for routine OB visit. OB Visit ZEYNEP Calculator Estimated Delivery Date Method Current WG Current Estimate 05/14/25 LMP (Certain) 40w 4d Other Estimates 05/20/25 Ultrasound #1 39w 5d Expected Delivery Route/Plan Labor Preferences- CB/BF classes: no labor support person: Tito labor intervention preferences: [] pain management options preferred: epidural cut cord/dad catch: cord : yes PP control planned: discussed discussed possible routes of delivery and associated risks: [] special requests: [] Specific Issue/Plans Covid status: [] Flu vaccine: [] Tdap vaccine: declines Rhogam: NA LARC form signed: yes . movement and labor precautions reviewed. Problem list reviewed and updated with the most current plan of care details and appropriate orders placed. Relevant counseling for the gestational age provided. Continue routine care and follow up unless otherwise noted in visit notes/problem list details Initial Weight: Not Recorded Date -?-?-?-?-?-?-?-?-?-?-?-?- EGA Weight BP Urine Prot -?-?-?-?-?-?-?-?-?-?-?-?- Glucose FHR FuHt Pres Dilation -?-?-?-?-?-?-?-?-?-?-?-?- Effaced St Visit Note 10/24/24 -?-?-?-?-?-?-?-?-?-?-?-?- 11w 1d 184 lb 116/70 -?-?-?-?-?-?-?-?-?-?-?-?- 181 -?-?-?-?-?-?-?-?-?-?-?-?- KW-CRL cons with dates. declines NIPT. 11/26/24 -?-?-?-?-?-?-?-?-?-?-?-?- 15w 6d 189 lb 4 oz 129/78 -?-?-?-?-?-?-?-?-?-?-?-?- 150 -?-?-?-?-?-?-?-?-?-?-?-?- SM- no vb crampi ng 12/24/24 -?-?-?-?-?-?-?-?-?-?-?-?- 19w 6d 192 lb 6 oz 120/72 Nega tive -?-?-?-?-?-?-?-?-?-?-?-?- Negative 156 -?-?-?-?-?-?-?-?--?-?-?-?- MH-No VB. Neetu david. MFM US tomorrow 01/21/25 -?-?-?-?-?-?-?-?-?-?-?-?- 23w 6d 197 lb 8 oz 108/68 Nega tive -?-?-?-?-?-?-?-?-?-?-?-?- Negative 137 -?-?-?-?-?-?-?-?-?-?-?-?- JV- anatomy scan reviewed. no complaints today, feeling good movement. 02/18/25 -?-?-?-?-?-?-?-?-?-?-?-?- 27w 6d 199 lb 8 oz 113/76 Nega tive -?-?-?-?-?-?-?-?-?-?-?-?- Negative 155 29 -?-?-?-?-?-?-?-?-?-?-?-?- KW- no vb/lof/ct x. good fm. glucose and larc today. declines Tdap 03/04/25 -?-?-?-?-?-?-?-?-?-?-?-?- 29w 6d 203 lb 6 oz 104/66 Nega tive -?-?-?-?-?-?-?-?-?-?-?-?- Negative 153 30 -?-?-?-?-?-?-?-?-?-?-?-?- MH-No VB, LOF. g ood FM. Nl 28 wk labs. 03/26/25 -?-?-?-?-?-?-?-?-?-?-?-?- 33w 0d 209 lb 113/74 Negative -?-?-?-?-?-?-?-?-?-?--?-?- Negative 160 34 -?-?-?-?-?-?-?-?-?-?-?-?- SM- no vb lof go od fm n oregular ctx 04/09/25 -?-?-?-?-?-?-?-?-?-?-?-?- 35w 0d 209 lb 2 oz 107/72 Nega tive -?-?-?-?-?-?-?-?-?-?-?-?- Negative 145 36 -?-?-?-?-?-?-?-?-?-?-?-?- JV- no lof, vagi nal bleeding, or dec fm. 04/17/25 -?-?-?-?-?-?-?-?-?-?-?-?- 36w 1d 210 lb 123/77 -?-?-?-?-?-?-?-?-?-?-?-?- 140 37 Cephalic 1 -?-?-?-?-?-?-?-?-?-?-?-?- SM- no vb lof go od fm n oreuglar ctx gbs today 04/23/25 -?-?-?-?-?-?-?-?-?-?-?-?- 37w 0d 211 lb 131/77 Negative -?-?-?-?-?-?-?-?-?-?-?-?- Negative 140 38 Cephalic 1 .5 -?-?-?-?-?-?-?-?-?-?-?-?- 40 -3 SM- no vb lof good fm no regular ctx gbs pos 04/30/25 -?-?-?-?-?-?-?-?-?-?-?-?- 38w 0d 215 lb 8 oz 123/82 Nega tive -?-?-?-?-?-?-?-?-?-?-?-?- Negative 145 39 Cephalic 1 .5 -?-?-?-?-?-?-?-?-?-?-?-?- 40 -4 KW- no vb/ lof/ctx. good fm. handheld US to verify cephalic. 05/07/25 -?-?-?-?-?-?-?-?-?-?-?-?- 39w 0d 212 lb 8 oz 126/82 Nega tive -?-?-?-?-?-?-?-?-?-?-?-?- Negative 140 39 Cephalic 1 .5 -?-?-?-?-?-?-?-?-?-?-?--?- 40 -3 JV- head s till ballotable. no lof, vaginal bleeding, or dec fm. 05/14/25 -?-?-?-?-?-?-?-?-?-?-?-?- 40w 0d 215 lb 7 oz 128/84 Nega tive -?-?-?-?-?-?-?-?-?-?-?-?- Negative 140 41 Cephalic 3 -?-?-?-?-?-?-?-?-?-?-?-?- 40 -3 SM- head s till ballotable unable to membrane sweep, will return next week to posibly sweep, IOL set for 41 weeks but may delay, discussed growth us and nst if is delayed past 41 weeks 05/18/25 -?-?-?-?-?-?-?-?-?-?-?-?- 40w 4d 216 lb 4 oz 121/84 Nega tive -?-?-?-?-?-?-?-?-?-?-?-?- Negative 135 40 Cephalic 4 .5 -?-?-?-?-?-?-?-?-?-?-?-?- 70 -3 KW- head b bc applied today and membrane sweep done. ACOG First Trimester First Trimester: Discussed Second Trimester Second Trimester: Signs and Symptoms of Labor, Selecting a care provider, Reproductive Life Planning & Contreception, Care Planning, Depression/Anxiety and Intimate Partner Violence; Discussed Tobacco Cessation Third Trimester Third Trimester: Pain Management Plans, Labor support person(s), Immediate Larc, Circumcision preference, Movement Monitoring, Signs and Symptoms of Preeclampsia, Infant Feeding No , Education, Family Medical Leave or Disability Forms, Depression and Intimate Partner Violence ROS Const Reports system reviewed and no additional complaints, except as documented Eyes Reports system reviewed and no additional complaints, except as documented ENT Reports system reviewed and no additional complaints, except as documented Card Reports system reviewed and no additional complaints, except as documented Resp Reports system reviewed and no additional complaints, except as documented GI Reports system reviewed and no additional complaints, except as documented, Denies nausea and Denies vomiting Reports system reviewed and no additional complaints, except as documented Musc Reports system reviewed and no additional complaints, except as documented Skin/Breast Reports system reviewed and no additional complaints, except as documented Neuro Yes system reviewed and no additional complaints, except as documented Psych Reports system reviewed and no additional complaints, except as documented Endo Reports system reviewed and no additional complaints, except as documented Crow/Lymph Reports system reviewed and no additional complaints, except as documented Aller/Immun Reports system reviewed and no additional complaints, except as documented Exam Const General: cooperative, healthy appearing and no acute distress Orientation: alert, awake and oriented x3 Neck Neck: normal visual inspection and full ROM Resp Effort & Inspection: normal respiratory effort, able to speak in complete sentences and symmetric chest movement GI Inspection: normal to inspection Palpation: soft and other Other: gravid Skin General: no rashes or lesions noted Neuro General: patient alert, patient awake and patient oriented x3 Cognition: normal cognition Speech: speech normal Gait: normal gait Motor: muscle tone normal throughout Extrem General: normal to inspection and full ROM Psych Appearance: grossly normal Mental Status: mental status grossly normal Mood: congruent mood Affect: normal affect Speech and Movement: speech and movement normal Attitude: cooperative Thought Process: normal Thought Content: normal Judgment: judgment good Results POC Urinalysis 2 Dip (Clinic) Office Urine Glucose Negative Last Edit by Bev nSow on 05/18/25 08:42 Office Urine Protein Negative Last Edit by Bev Snow on 05/18/25 08:42 Coding Level of Care Code OB Routine Diagnoses Positive GBS test B95.1 Obesity affecting in second trimester, unspecified obesity type O99.212 Obesity type affecting : unspecified obesity Trimester: second trimester History of gestational diabetes mellitus (GDM) in prior , currently O09.299; Z86.32 Supervision of high risk in third trimester O09.93 Trimester: third trimester 40 weeks gestation of Z3A.40 Weeks of gestation: 40 weeks Rubella non-immune status, antepartum O09.899; Z28.39 Assessment and Plan Assessment and Plan (1) Positive GBS test: Status: Acute Comment: PCN in labor (2) Obesity affecting : Status: Acute Qualifiers: Obesity type affecting : unspecified obesity Trimester: second trimester Qualified Code(s): O99.212 - Obesity complicating , second trimester Comment: HgbA1c (3) History of gestational diabetes mellitus (GDM) in prior , currently : Status: Acute Comment: HgbA1c nl w/NOB (4) Supervision of high-risk : Status: Acute Qualifiers: Trimester: third trimester Qualified Code(s): O09.93 - Supervision of high risk , unspecified, third trimester Comment: PRR, , ZEYNEP 05/14/25, surprise PC Maximus, Tito (5) : Status: Acute Qualifiers: Weeks of gestation: 40 weeks Qualified Code(s): Z3A.40 - 40 weeks gestation of Comment: declined NIPT & Carrier testing. nl anatomy. (6) Rubella non-immune status, antepartum: Status: Acute Comment: Update MMR post (pt did not get booster after last ) Orders: Orders POC Urinalysis 2 Dip (Clinic) Today Plan Details Additional Comments: ACOG trimester education reviewed and updated. see problem list details for updated plan management information and see below for orders placed at this visit. GA appropriate handout given. 05/18/25 0858 <Electronically signed by Tammi wright CNM> Date _ Tammi Nieves CNM Cosigner Signature: Date (if applicable) CC: ~ [place] [facility] Work Phone: Reason for referral (narrative)No reason for referral information availableStevensburg Medical Services Work Phone: Chief Complaint and Reason for Visit Chief Complaint NOB LMP 06/23 Reason for Visit BMI 30.0-30.9,adult Supervision of high risk , antepartum Chief Complaint NOB LMP 06/23 14 WK OB Reason for Visit Supervision of high risk , antepartum BMI 30.0-30.9,adult Obesity affecting Supervision of high risk , antepartum Chief Complaint 14 WK OB 18 WK OB 22 WK OB 26 WK OB 29 WK OB SCREENING FOR DIABETES MELLITUS Reason for Visit Obesity affecting pr egnancy Supervision of high risk , antepartum Obesity affecting Rubella non-immune status, antepartum Supervision of high risk , antepartum Obesity affecting Rubella non-immune status, antepartum Single umbilical artery Supervision of high risk , antepartum Obesity affecting Rubella non-immune status, antepartum Single umbilical artery Supervision of high risk , antepartum Obesity affecting Rubella non-immune status, antepartum Single umbilical artery Supervision of high risk , antepartum Chief Complaint 26 WK OB 29 WK OB SCREENING FOR DIABETES MELLITUS 31 WK OB 32 WK OB 34 WK OB 36 WK OB/NST SUPERVISION OF HIGH RISK , UNSPECIFIED 37 WK OB/NST 38 WK OB/NST RULE OUT RULE OUT Reason for Visit Obesity affecting pr egnancy Rubella non-immune status, antepartum Single umbilical artery Supervision of high risk , antepartum Obesity affecting Rubella non-immune status, antepartum Single umbilical artery Supervision of high risk , antepartum Gestational diabetes mellitus (GDM) Obesity affecting Rubella non-immune status, antepartum Single umbilical artery Supervision of high risk , antepartum Gestational diabetes mellitus (GDM) Obesity affecting Rubella non-immune status, antepartum Single umbilical artery Supervision of high risk , antepartum Gestational diabetes mellitus (GDM) Obesity affecting Rubella non-immune status, antepartum Single umbilical artery Supervision of high risk , antepartum Gestational diabetes mellitus (GDM) Obesity affecting Rubella non-immune status, antepartum Single umbilical artery Supervision of high risk , antepartum Gestational diabetes mellitus (GDM) Obesity affecting Rubella non-immune status, antepartum Single umbilical artery Supervision of high risk , antepartum Gestational diabetes mellitus (GDM) Obesity affecting Rubella non-immune status, antepartum Single umbilical artery Supervision of high risk , antepartum Abdominal pain affecting Gestational diabetes mellitus (GDM) Obesity affecting Rubella non-immune status, antepartum Single umbilical artery Supervision of high risk , antepartum Chief Complaint 26 WK OB 29 WK OB SCREENING FOR DIABETES MELLITUS 31 WK OB 32 WK OB 34 WK OB 36 WK OB/NST SUPERVISION OF HIGH RISK , UNSPECIFIED 37 WK OB/NST 38 WK OB/NST RULE OUT RULE OUT 39 WK OB/NST VAG DELIVERY INDUCTION VAG DELIVERY VAG DELIVERY Reason for Visit Obesity affecting pr egnancy Rubella non-immune status, antepartum Single umbilical artery Supervision of high risk , antepartum Obesity affecting Rubella non-immune status, antepartum Single umbilical artery Supervision of high risk , antepartum Gestational diabetes mellitus (GDM) Obesity affecting Rubella non-immune status, antepartum Single umbilical artery Supervision of high risk , antepartum Gestational diabetes mellitus (GDM) Obesity affecting Rubella non-immune status, antepartum Single umbilical artery Supervision of high risk , antepartum Gestational diabetes mellitus (GDM) Obesity affecting Rubella non-immune status, antepartum Single umbilical artery Supervision of high risk , antepartum Gestational diabetes mellitus (GDM) Obesity affecting Rubella non-immune status, antepartum Single umbilical artery Supervision of high risk , antepartum Gestational diabetes mellitus (GDM) Obesity affecting Rubella non-immune status, antepartum Single umbilical artery Supervision of high risk , antepartum Gestational diabetes mellitus (GDM) Obesity affecting Rubella non-immune status, antepartum Single umbilical artery Supervision of high risk , antepartum Gestational diabetes mellitus (GDM) Obesity affecting Rubella non-immune status, antepartum Single umbilical artery Supervision of high risk , antepartum Abdominal pain affecting Gestational diabetes mellitus (GDM) Obesity affecting Rubella non-immune status, antepartum Single umbilical artery Supervision of high risk , antepartum Abdominal pain affecting Urinary tract infection affecting , antepartum Encounter for induction of labor Gestational diabetes mellitus (GDM) Obesity affecting Rubella non-immune status, antepartum Single umbilical artery Status post vaginal delivery Supervision of high risk , antepartum Chief Complaint 31 WK OB 32 WK OB 34 WK OB 36 WK OB/NST SUPERVISION OF HIGH RISK , UNSPECIFIED 37 WK OB/NST 38 WK OB/NST RULE OUT RULE OUT 39 WK OB/NST VAG DELIVERY INDUCTION VAG DELIVERY VAG DELIVERY 6 wk Post Reason for Visit Obesity affecting pr egnancy Rubella non-immune status, antepartum Single umbilical artery Supervision of high risk , antepartum Gestational diabetes mellitus (GDM) Obesity affecting Rubella non-immune status, antepartum Single umbilical artery Supervision of high risk , antepartum Gestational diabetes mellitus (GDM) Obesity affecting Rubella non-immune status, antepartum Single umbilical artery Supervision of high risk , antepartum Gestational diabetes mellitus (GDM) Obesity affecting Rubella non-immune status, antepartum Single umbilical artery Supervision of high risk , antepartum Gestational diabetes mellitus (GDM) Obesity affecting Rubella non-immune status, antepartum Single umbilical artery Supervision of high risk , antepartum Gestational diabetes mellitus (GDM) Obesity affecting Rubella non-immune status, antepartum Single umbilical artery Supervision of high risk , antepartum Gestational diabetes mellitus (GDM) Obesity affecting Rubella non-immune status, antepartum Single umbilical artery Supervision of high risk , antepartum Abdominal pain affecting Gestational diabetes mellitus (GDM) Obesity affecting Rubella non-immune status, antepartum Single umbilical artery Supervision of high risk , antepartum Abdominal pain affecting Gestational diabetes mellitus (GDM) Urinary tract infection affecting , antepartum Encounter for induction of labor Obesity affecting Rubella non-immune status, antepartum Single umbilical artery Status post vaginal delivery Supervision of high risk , antepartum Gestational diabetes mellitus (GDM) Abscess of right genital labia Status post vaginal delivery Chief Complaint Admit Date NOB LMP 08/07October 24, 2024 8 :50am 14wk OB November 26, 2024 11:25am 18wk ob December 24, 2024 8:2 4am 22 wk ob January 21, 2025 9:2 2am 27w 6 d February 18, 2025 9:44a m Reason for Visit Admit Date History of gestational diabe guillermina mellitus (GDM) in prior , currentl October 24, 2024 8:50am Obesity affecting October 8:50am October 24, 2024 8 :50am Rubella non-immune status, antepartum Ja nuary 2024 8:50am Supervision of high-risk Janua ry 2024 8:50am History of gestational diabe guillermina mellitus (GDM) in prior , currentl November 26, 2024 11:25am Obesity affecting November 11:25am November 26, 2024 11:25am Rubella non-immune status, antepartum Fe bruary 2024 11:25am Supervision of high-risk Febru zach 2024 11:25am History of gestational diabe guillermina mellitus (GDM) in prior , currentl December 24, 2024 8:24am Obesity affecting December 24, 2024 8:24am December 24, 2024 8:2 4am Rubella non-immune status, antepartum Ma [facility] 2024 8:24am Supervision of high-risk December 24, 2024 8:24am History of gestational diabe guillermina mellitus (GDM) in prior , currentl January 21, 2025 9:22am Obesity affecting January 21, 2025 9:22am January 21, 2025 9:2 2am Rubella non-immune status, antepartum Ap ril 2024 9:22am Supervision of high-risk January 21, 2025 9:22am History of gestational diabe guillermina mellitus (GDM) in prior , currentl February 18, 2025 9:44am Obesity affecting February 18 9:44am February 18, 2025 9:44a m Rubella non-immune status, antepartum Ma y 2024 9:44am Supervision of high-risk January [id number] 9:44am Chief Complaint Admit Date 14wk OB November 26, 2024 11:25am 18wk ob December 24, 2024 8:2 4am 22 wk ob January 21, 2025 9:2 2am 27w 6 d February 18, 2025 9:44a m Reason for Visit Admit Date History of gestational diabe guillermina mellitus (GDM) in prior , currentl November 26, 2024 11:25am Obesity affecting November 11:25am November 26, 2024 11:25am Rubella non-immune status, antepartum Fe bruary 2024 11:25am Supervision of high-risk Febru [email or web address] 11:25am History of gestational diabe guillermina mellitus (GDM) in prior , currentl December 24, 2024 8:24am Obesity affecting December 24, 2024 8:24am December 24, 2024 8:2 4am Rubella non-immune status, antepartum Ma [facility] 2024 8:24am Supervision of high-risk December 24, 2024 8:24am History of gestational diabe guillermina mellitus (GDM) in prior , currentl January 21, 2025 9:22am Obesity affecting January 21, 2025 9:22am January 21, 2025 9:2 2am Rubella non-immune status, antepartum Ap ril 2024 9:22am Supervision of high-risk January 21, 2025 9:22am History of gestational diabe guillermina mellitus (GDM) in prior , currentl February 18, 2025 9:44am Obesity affecting February 18 9:44am February 18, 2025 9:44a m Rubella non-immune status, antepartum Ma y 2024 9:44am Supervision of high-risk January [id number] 9:44am Chief Complaint Admit Date 14wk OB November 26, 2024 11:25am 18wk ob December 24, 2024 8:2 4am 22 wk ob January 21, 2025 9:2 2am 27w 6 d February 18, 2025 9:44a m 30 wk ob March 04, 2025 8:47a m Reason for Visit Admit Date History of gestational diabe guillermina mellitus (GDM) in prior , currentl November 26, 2024 11:25am Obesity affecting November 11:25am November 26, 2024 11:25am Rubella non-immune status, antepartum Fe bruary 2024 11:25am Supervision of high-risk Febru [email or web address] 11:25am History of gestational diabe guillermina mellitus (GDM) in prior , currentl December 24, 2024 8:24am Obesity affecting December 24, 2024 8:24am December 24, 2024 8:2 4am Rubella non-immune status, antepartum Ma [facility] 2024 8:24am Supervision of high-risk December 24, 2024 8:24am History of gestational diabe guillermina mellitus (GDM) in prior , currentl January 21, 2025 9:22am Obesity affecting January 21, 2025 9:22am January 21, 2025 9:2 2am Rubella non-immune status, antepartum Ap ril 2024 9:22am Supervision of high-risk January 21, 2025 9:22am History of gestational diabe guillermina mellitus (GDM) in prior , currentl February 18, 2025 9:44am Obesity affecting February 18 9:44am February 18, 2025 9:44a m Rubella non-immune status, antepartum Ma 2024 9:44am Supervision of high-risk January [id number] 9:44am History of gestational diabe guillermina mellitus (GDM) in prior , currentl March 04, 2025 8:47am Obesity affecting March 04 8:47am March 04, 2025 8:47a m Rubella non-immune status, antepartum Ju 2024 8:47am Supervision of high-risk March 04, 2025 8:47am Chief Complaint Admit Date 14wk OB November 26, 2024 11:25am 18wk ob December 24, 2024 8:2 4am 22 wk ob January 21, 2025 9:2 2am 27w 6 d February 18, 2025 9:44a m 30 wk ob March 04, 2025 8:47a m 33 wk ob March 26, 2025 2:20 pm Reason for Visit Admit Date History of gestational diabe guillermina mellitus (GDM) in prior , currentl November 26, 2024 11:25am Obesity affecting November 11:25am November 26, 2024 11:25am Rubella non-immune status, antepartum Fe bruary 2024 11:25am Supervision of high-risk Febru zach 2024 11:25am History of gestational diabe guillermina mellitus (GDM) in prior , currentl December 24, 2024 8:24am Obesity affecting December 24, 2024 8:24am December 24, 2024 8:2 4am Rubella non-immune status, antepartum Ma [facility] 2024 8:24am Supervision of high-risk December 24, 2024 8:24am History of gestational diabe guillermina mellitus (GDM) in prior , currentl January 21, 2025 9:22am Obesity affecting January 21, 2025 9:22am January 21, 2025 9:2 2am Rubella non-immune status, antepartum Ap ril 2024 9:22am Supervision of high-risk January 21, 2025 9:22am History of gestational diabe guillermina mellitus (GDM) in prior , currentl February 18, 2025 9:44am Obesity affecting February 18 9:44am February 18, 2025 9:44a m Rubella non-immune status, antepartum Ma y 2024 9:44am Supervision of high-risk January [id number] 9:44am History of gestational diabe guillermina mellitus (GDM) in prior , currentl March 04, 2025 8:47am Obesity affecting March 04 8:47am March 04, 2025 8:47a m Rubella non-immune status, antepartum Ju ne 2024 8:47am Supervision of high-risk March 04, 2025 8:47am History of gestational diabe guillermina mellitus (GDM) in prior , currentl March 26, 2025 2:20pm Obesity affecting March 26, 2 025 2:20pm March 26, 2025 2:20 pm Rubella non-immune status, antepartum Ju ne 2024 2:20pm Supervision of high-risk March 26, 2025 2:20pm Chief Complaint Admit Date 18wk ob December 24, 2024 8:2 4am 22 wk ob January 21, 2025 9:2 2am 27w 6 d February 18, 2025 9:44a m 30 wk ob March 04, 2025 8:47a m 33 wk ob March 26, 2025 2:20 pm 35 wk ob April 09, 2025 1:40 pm Reason for Visit Admit Date History of gestational diabe guillermina mellitus (GDM) in prior , currentl December 24, 2024 8:24am Obesity affecting December 24, 2024 8:24am December 24, 2024 8:2 4am Rubella non-immune status, antepartum Ma [facility] 2024 8:24am Supervision of high-risk December 24, 2024 8:24am History of gestational diabe guillermina mellitus (GDM) in prior , currentl January 21, 2025 9:22am Obesity affecting January 21, 2025 9:22am January 21, 2025 9:2 2am Rubella non-immune status, antepartum Ap ril 2024 9:22am Supervision of high-risk January 21, 2025 9:22am History of gestational diabe guillermina mellitus (GDM) in prior , currentl February 18, 2025 9:44am Obesity affecting February 18 9:44am February 18, 2025 9:44a m Rubella non-immune status, antepartum Ma y 2024 9:44am Supervision of high-risk January 302024 9:44am History of gestational diabe guillermina mellitus (GDM) in prior , currentl March 04, 2025 8:47am Obesity affecting March 04 8:47am March 04, 2025 8:47a m Rubella non-immune status, antepartum Ju ne 2024 8:47am Supervision of high-risk March 04, 2025 8:47am History of gestational diabe guillermina mellitus (GDM) in prior , currentl March 26, 2025 2:20pm Obesity affecting March 26, 025 2:20pm March 26, 2025 2:20 pm Rubella non-immune status, antepartum Ju ne 2024 2:20pm Supervision of high-risk March 26, 2025 2:20pm History of gestational diabe guillermina mellitus (GDM) in prior , currentl April 09, 2025 1:40pm Obesity affecting April 09, 025 1:40pm April 09, 2025 1:40 pm Rubella non-immune status, antepartum Ju ly 2024 1:40pm Supervision of high-risk April 09, 2025 1:40pm Chief Complaint Admit Date 18wk ob December 24, 2024 8:2 4am 22 wk ob January 21, 2025 9:2 2am 27w 6 d February 18, 2025 9:44a m 30 wk ob March 04, 2025 8:47a m 33 wk ob March 26, 2025 2:20 pm 35 wk ob April 09, 2025 1:40 pm 36 WK OB April 17, 2025 10:1 8am Reason for Visit Admit Date History of gestational diabe guillermina mellitus (GDM) in prior , currentl December 24, 2024 8:24am Obesity affecting December 24, 2024 8:24am December 24, 2024 8:2 4am Rubella non-immune status, antepartum Ma [facility] 2024 8:24am Supervision of high-risk December 24, 2024 8:24am History of gestational diabe guillermina mellitus (GDM) in prior , currentl January 21, 2025 9:22am Obesity affecting January 21, 2025 9:22am January 21, 2025 9:2 2am Rubella non-immune status, antepartum Ap ril 2024 9:22am Supervision of high-risk January 21, 2025 9:22am History of gestational diabe guillermina mellitus (GDM) in prior , currentl February 18, 2025 9:44am Obesity affecting February 18 9:44am February 18, 2025 9:44a m Rubella non-immune status, antepartum Ma y 2024 9:44am Supervision of high-risk January 302024 9:44am History of gestational diabe guillermina mellitus (GDM) in prior , currentl March 04, 2025 8:47am Obesity affecting March 04 8:47am March 04, 2025 8:47a m Rubella non-immune status, antepartum Ju 2024 8:47am Supervision of high-risk March 04, 2025 8:47am History of gestational diabe guillermina mellitus (GDM) in prior , currentl March 26, 2025 2:20pm Obesity affecting March 26, 025 2:20pm March 26, 2025 2:20 pm Rubella non-immune status, antepartum Ju ne 2024 2:20pm Supervision of high-risk March 26, 2025 2:20pm History of gestational diabe guillermina mellitus (GDM) in prior , currentl April 09, 2025 1:40pm Obesity affecting April 09, 025 1:40pm April 09, 2025 1:40 pm Rubella non-immune status, antepartum Ju ly 2024 1:40pm Supervision of high-risk April 09, 2025 1:40pm History of gestational diabe guillermina mellitus (GDM) in prior , currentl April 17, 2025 10:18am Obesity affecting April 17 025 10:18am April 17, 2025 10:1 8am Rubella non-immune status, antepartum Ju ly 2024 10:18am Supervision of high-risk April 17, 2025 10:18am Chief Complaint Admit Date 18wk ob December 24, 2024 8:2 4am 22 wk ob January 21, 2025 9:2 2am 27w 6 d February 18, 2025 9:44a m 30 wk ob March 04, 2025 8:47a m 33 wk ob March 26, 2025 2:20 pm 35 wk ob April 09, 2025 1:40 pm 36 WK OB April 17, 2025 10:1 8am 37 wk ob April 23, 2025 9:34 am Reason for Visit Admit Date History of gestational diabe guillermina mellitus (GDM) in prior , currentl December 24, 2024 8:24am Obesity affecting December 24, 2024 8:24am December 24, 2024 8:2 4am Rubella non-immune status, antepartum Ma [facility] 2024 8:24am Supervision of high-risk December 24, 2024 8:24am History of gestational diabe guillermina mellitus (GDM) in prior , currentl January 21, 2025 9:22am Obesity affecting January 21, 2025 9:22am January 21, 2025 9:2 2am Rubella non-immune status, antepartum Ap ril 2024 9:22am Supervision of high-risk January 21, 2025 9:22am History of gestational diabe guillermina mellitus (GDM) in prior , currentl February 18, 2025 9:44am Obesity affecting February 18 9:44am February 18, 2025 9:44a m Rubella non-immune status, antepartum Ma y 2024 9:44am Supervision of high-risk January 302024 9:44am History of gestational diabe guillermina mellitus (GDM) in prior , currentl March 04, 2025 8:47am Obesity affecting March 04 8:47am March 04, 2025 8:47a m Rubella non-immune status, antepartum Ju ne 2024 8:47am Supervision of high-risk March 04, 2025 8:47am History of gestational diabe guillermina mellitus (GDM) in prior , currentl March 26, 2025 2:20pm Obesity affecting March 26, 025 2:20pm March 26, 2025 2:20 pm Rubella non-immune status, antepartum Ju ne 2024 2:20pm Supervision of high-risk March 26, 2025 2:20pm History of gestational diabe guillermina mellitus (GDM) in prior , currentl April 09, 2025 1:40pm Obesity affecting April 09, 025 1:40pm April 09, 2025 1:40 pm Rubella non-immune status, antepartum Ju ly 2024 1:40pm Supervision of high-risk April 09, 2025 1:40pm History of gestational diabe guillermina mellitus (GDM) in prior , currentl April 17, 2025 10:18am Obesity affecting April 17, 2 025 10:18am April 17, 2025 10:1 8am Rubella non-immune status, antepartum Ju ly 2024 10:18am Supervision of high-risk April 17, 2025 10:18am History of gestational diabe guillermina mellitus (GDM) in prior , currentl April 23, 2025 9:34am Obesity affecting April 23, 025 9:34am Positive GBS test April 23, 2025 9:34 am April 23, 2025 9:34 am Rubella non-immune status, antepartum Ju ly 2024 9:34am Supervision of high-risk April 23, 2025 9:34am Chief Complaint Admit Date 22 wk ob January 21, 2025 9:2 2am 27w 6 d February 18, 2025 9:44a m 30 wk ob March 04, 2025 8:47a m 33 wk ob March 26, 2025 2:20 pm 35 wk ob April 09, 2025 1:40 pm 36 WK OB April 17, 2025 10:1 8am 37 wk ob April 23, 2025 9:34 am 38wk ob April 30, 2025 11:2 0am Reason for Visit Admit Date History of gestational diabe guillermina mellitus (GDM) in prior , currentl January 21, 2025 9:22am Obesity affecting January 21, 2025 9:22am January 21, 2025 9:2 2am Rubella non-immune status, antepartum Ap ril 2024 9:22am Supervision of high-risk January 21, 2025 9:22am History of gestational diabe guillermina mellitus (GDM) in prior , currentl February 18, 2025 9:44am Obesity affecting February 18 9:44am February 18, 2025 9:44a m Rubella non-immune status, antepartum Ma y 2024 9:44am Supervision of high-risk January 302024 9:44am History of gestational diabe guillermina mellitus (GDM) in prior , currentl March 04, 2025 8:47am Obesity affecting March 04 8:47am March 04, 2025 8:47a m Rubella non-immune status, antepartum Ju 2024 8:47am Supervision of high-risk March 04, 2025 8:47am History of gestational diabe guillermina mellitus (GDM) in prior , currentl March 26, 2025 2:20pm Obesity affecting March 26, 2:20pm March 26, 2025 2:20 pm Rubella non-immune status, antepartum Ju ne 2024 2:20pm Supervision of high-risk March 26, 2025 2:20pm History of gestational diabe guillermina mellitus (GDM) in prior , currentl April 09, 2025 1:40pm Obesity affecting April 09 1:40pm April 09, 2025 1:40 pm Rubella non-immune status, antepartum Ju ly 2024 1:40pm Supervision of high-risk April 09, 2025 1:40pm History of gestational diabe guillermina mellitus (GDM) in prior , currentl April 17, 2025 10:18am Obesity affecting April 17 10:18am April 17, 2025 10:1 8am Rubella non-immune status, antepartum Ju ly 2024 10:18am Supervision of high-risk April 17, 2025 10:18am History of gestational diabe guillermina mellitus (GDM) in prior , currentl April 23, 2025 9:34am Obesity affecting April 23 9:34am Positive GBS test April 23, 2025 9:34 am April 23, 2025 9:34 am Rubella non-immune status, antepartum Ju ly 2024 9:34am Supervision of high-risk April 23, 2025 9:34am History of gestational diabe guillermina mellitus (GDM) in prior , currentl April 30, 2025 11:20am Obesity affecting April 30 11:20am Positive GBS test April 30, 2025 11:2 0am April 30, 2025 11:2 0am Rubella non-immune status, antepartum Ju ly 2024 11:20am Supervision of high-risk April 30, 2025 11:20am Chief Complaint Admit Date 22 wk ob January 21, 2025 9:2 2am 27w 6 d February 18, 2025 9:44a m 30 wk ob March 04, 2025 8:47a m 33 wk ob March 26, 2025 2:20 pm 35 wk ob April 09, 2025 1:40 pm 36 WK OB April 17, 2025 10:1 8am 37 wk ob April 23, 2025 9:34 am 38wk ob April 30, 2025 11:2 0am 39wk ob May 07, 2025 10: 14am Reason for Visit Admit Date History of gestational diabe guillermina mellitus (GDM) in prior , currentl January 21, 2025 9:22am Obesity affecting January 21, 2025 9:22am January 21, 2025 9:2 2am Rubella non-immune status, antepartum Ap ril 2024 9:22am Supervision of high-risk January 21, 2025 9:22am History of gestational diabe guillermina mellitus (GDM) in prior , currentl February 18, 2025 9:44am Obesity affecting February 18 9:44am February 18, 2025 9:44a m Rubella non-immune status, antepartum Ma y 2024 9:44am Supervision of high-risk January 302024 9:44am History of gestational diabe guillermina mellitus (GDM) in prior , currentl March 04, 2025 8:47am Obesity affecting March 04 8:47am March 04, 2025 8:47a m Rubella non-immune status, antepartum Ju ne 2024 8:47am Supervision of high-risk March 04, 2025 8:47am History of gestational diabe guillermina mellitus (GDM) in prior , currentl March 26, 2025 2:20pm Obesity affecting March 26, 025 2:20pm March 26, 2025 2:20 pm Rubella non-immune status, antepartum Ju ne 2024 2:20pm Supervision of high-risk March 26, 2025 2:20pm History of gestational diabe guillermina mellitus (GDM) in prior , currentl April 09, 2025 1:40pm Obesity affecting April 09, 025 1:40pm April 09, 2025 1:40 pm Rubella non-immune status, antepartum Ju ly 2024 1:40pm Supervision of high-risk April 09, 2025 1:40pm History of gestational diabe guillermina mellitus (GDM) in prior , currentl April 17, 2025 10:18am Obesity affecting April 17, 025 10:18am April 17, 2025 10:1 8am Rubella non-immune status, antepartum Ju ly 2024 10:18am Supervision of high-risk April 17, 2025 10:18am History of gestational diabe guillermina mellitus (GDM) in prior , currentl April 23, 2025 9:34am Obesity affecting April 23 025 9:34am Positive GBS test April 23, 2025 9:34 am April 23, 2025 9:34 am Rubella non-immune status, antepartum Ju ly 2024 9:34am Supervision of high-risk April 23, 2025 9:34am History of gestational diabe guillermina mellitus (GDM) in prior , currentl April 30, 2025 11:20am Obesity affecting April 30 025 11:20am Positive GBS test April 30, 2025 11:2 0am April 30, 2025 11:2 0am Rubella non-immune status, antepartum Ju ly 2024 11:20am Supervision of high-risk April 30, 2025 11:20am History of gestational diabe guillermina mellitus (GDM) in prior , currentl May 07, 2025 10:14am Obesity affecting May 07, 2025 10:14am Positive GBS test May 07, 2025 10: 14am May 07, 2025 10: 14am Rubella non-immune status, antepartum Au yoselin 2024 10:14am Supervision of high-risk Augus t 2024 10:14am Chief Complaint Admit Date 22 wk ob January 21, 2025 9:2 2am 27w 6 d February 18, 2025 9:44a m 30 wk ob March 04, 2025 8:47a m 33 wk ob March 26, 2025 2:20 pm 35 wk ob April 09, 2025 1:40 pm 36 WK OB April 17, 2025 10:1 8am 37 wk ob April 23, 2025 9:34 am 38wk ob April 30, 2025 11:2 0am 39wk ob May 07, 2025 10: 14am 40wk ob *HAPPY DUE DATE May 14 9:18am Reason for Visit Admit Date History of gestational diabe guillermina mellitus (GDM) in prior , currentl January 21, 2025 9:22am Obesity affecting January 21, 2025 9:22am January 21, 2025 9:2 2am Rubella non-immune status, antepartum Ap ril 2024 9:22am Supervision of high-risk January 21, 2025 9:22am History of gestational diabe guillermina mellitus (GDM) in prior , currentl February 18, 2025 9:44am Obesity affecting February 18 9:44am February 18, 2025 9:44a m Rubella non-immune status, antepartum Ma y 2024 9:44am Supervision of high-risk January 302024 9:44am History of gestational diabe guillermina mellitus (GDM) in prior , currentl March 04, 2025 8:47am Obesity affecting March 04 8:47am March 04, 2025 8:47a m Rubella non-immune status, antepartum Ju ne 2024 8:47am Supervision of high-risk March 04, 2025 8:47am History of gestational diabe guillermina mellitus (GDM) in prior , currentl March 26, 2025 2:20pm Obesity affecting March 26, 025 2:20pm March 26, 2025 2:20 pm Rubella non-immune status, antepartum Ju ne 2024 2:20pm Supervision of high-risk March 26, 2025 2:20pm History of gestational diabe guillermina mellitus (GDM) in prior , currentl April 09, 2025 1:40pm Obesity affecting April 09, 025 1:40pm April 09, 2025 1:40 pm Rubella non-immune status, antepartum Ju ly 2024 1:40pm Supervision of high-risk April 09, 2025 1:40pm History of gestational diabe guillermina mellitus (GDM) in prior , currentl April 17, 2025 10:18am Obesity affecting April 17, 2 025 10:18am April 17, 2025 10:1 8am Rubella non-immune status, antepartum Ju ly 2024 10:18am Supervision of high-risk April 17, 2025 10:18am History of gestational diabe guillermina mellitus (GDM) in prior , currentl April 23, 2025 9:34am Obesity affecting April 23, 2 025 9:34am Positive GBS test April 23, 2025 9:34 am April 23, 2025 9:34 am Rubella non-immune status, antepartum Ju ly 2024 9:34am Supervision of high-risk April 23, 2025 9:34am History of gestational diabe guillermina mellitus (GDM) in prior , currentl April 30, 2025 11:20am Obesity affecting April 30, 025 11:20am Positive GBS test April 30, 2025 11:2 0am April 30, 2025 11:2 0am Rubella non-immune status, antepartum Ju ly 2024 11:20am Supervision of high-risk April 30, 2025 11:20am History of gestational diabe guillermina mellitus (GDM) in prior , currentl May 07, 2025 10:14am Obesity affecting May 07, 2025 10:14am Positive GBS test May 07, 2025 10: 14am May 07, 2025 10: 14am Rubella non-immune status, antepartum Au yoselin 2024 10:14am Supervision of high-risk Augus t 2024 10:14am History of gestational diabe guillermina mellitus (GDM) in prior , currentl May 14, 2025 9:18am Obesity affecting May 14, 2025 9:18am Positive GBS test May 14, 2025 9: 18am May 14, 2025 9: 18am Rubella non-immune status, antepartum Au yoselin 2024 9:18am Supervision of high-risk Augus t 2024 9:18am Chief Complaint Admit Date 22 wk ob January 21, 2025 9:2 2am 27w 6 d February 18, 2025 9:44a m 30 wk ob March 04, 2025 8:47a m 33 wk ob March 26, 2025 2:20 pm 35 wk ob April 09, 2025 1:40 pm 36 WK OB April 17, 2025 10:1 8am 37 wk ob April 23, 2025 9:34 am 38wk ob April 30, 2025 11:2 0am 39wk ob May 07, 2025 10: 14am 40wk ob *HAPPY DUE DATE May 14 9:18am 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, 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 8: 33am Reason for Visit Admit Date History of gestational diabe guillermina mellitus (GDM) in prior , currentl January 21, 2025 9:22am Obesity affecting January 21, 2025 9:22am January 21, 2025 9:2 2am Rubella non-immune status, antepartum Ap ril 2024 9:22am Supervision of high-risk January 21, 2025 9:22am History of gestational diabe guillermina mellitus (GDM) in prior , currentl February 18, 2025 9:44am Obesity affecting February 18 9:44am February 18, 2025 9:44a m Rubella non-immune status, antepartum Ma y 2024 9:44am Supervision of high-risk January 302024 9:44am History of gestational diabe guillermina mellitus (GDM) in prior , currentl March 04, 2025 8:47am Obesity affecting March 04 8:47am March 04, 2025 8:47a m Rubella non-immune status, antepartum Ju ne 2024 8:47am Supervision of high-risk March 04, 2025 8:47am History of gestational diabe guillermina mellitus (GDM) in prior , currentl March 26, 2025 2:20pm Obesity affecting March 26, 025 2:20pm March 26, 2025 2:20 pm Rubella non-immune status, antepartum Ju ne 2024 2:20pm Supervision of high-risk March 26, 2025 2:20pm History of gestational diabe guillermina mellitus (GDM) in prior , currentl April 09, 2025 1:40pm Obesity affecting April 09, 2 025 1:40pm April 09, 2025 1:40 pm Rubella non-immune status, antepartum Ju ly 2024 1:40pm Supervision of high-risk April 09, 2025 1:40pm History of gestational diabe guillermina mellitus (GDM) in prior , currentl April 17, 2025 10:18am Obesity affecting April 17, 2 025 10:18am April 17, 2025 10:1 8am Rubella non-immune status, antepartum Ju ly 2024 10:18am Supervision of high-risk April 17, 2025 10:18am History of gestational diabe guillermina mellitus (GDM) in prior , currentl April 23, 2025 9:34am Obesity affecting April 23 9:34am Positive GBS test April 23, 2025 9:34 am April 23, 2025 9:34 am Rubella non-immune status, antepartum Ju ly 2024 9:34am Supervision of high-risk April 23, 2025 9:34am History of gestational diabe guillermina mellitus (GDM) in prior , currentl April 30, 2025 11:20am Obesity affecting April 30 11:20am Positive GBS test April 30, 2025 11:2 0am April 30, 2025 11:2 0am Rubella non-immune status, antepartum Ju ly 2024 11:20am Supervision of high-risk April 30, 2025 11:20am History of gestational diabe guillermina mellitus (GDM) in prior , currentl May 07, 2025 10:14am Obesity affecting May 07, 2025 10:14am Positive GBS test May 07, 2025 10: 14am May 07, 2025 10: 14am Rubella non-immune status, antepartum Au yoselin 2024 10:14am Supervision of high-risk Augus t 2024 10:14am History of gestational diabe guillermina mellitus (GDM) in prior , currentl May 14, 2025 9:18am Obesity affecting May 14, 2025 9:18am Positive GBS test May 14, 2025 9: 18am May 14, 2025 9: 18am Rubella non-immune status, antepartum Au yoselin 2024 9:18am Supervision of high-risk Augus t 2024 9:18am History of gestational diabe guillermina mellitus (GDM) in prior , currentl May 18, 2025 8:33am Obesity affecting May 18, 2025 8:33am Positive GBS test May 18, 2025 8: 33am May 18, 2025 8: 33am Rubella non-immune status, antepartum Au yoselin 2024 8:33am Supervision of high-risk Augus t 2024 8:33am Advance Directives No Advanced Directives Records Found Advance Directive Response Recorded Date/ Time Advance Directives No May 07 014 12:56pm Living Will No April 14, 2020 12:44pm Power of Measurement Analyst No April 14 12:44pm Advance Directive Response Recorded Date/ Time Advance Directives No October 26, 2022 9:27am Living Will No October 26 9:27am Power of Measurement Analyst No October 26, 2022 9:27am Advance Directive Response Recorded Date/ Time Advance Directives No January 22 023 9:32am Living Will No January 22, 2023 9:32am Power of Measurement Analyst No January 22 9:32am Advance Directive Response Recorded Date/ Time Advance Directives No January 22 023 9:32am Living Will No March 30, 2023 8:55am Power of Measurement Analyst No March 30 8:55am Advance Directive Response Recorded Date/ Time Advance Directives No January 22 9:32am Summary Purpose Family History No Family History Records FoundNo Family History Records Found Additional Source Comments Goals (unrecognized section and content) Goals may be documented in a n alternate sectionGoals may be documented in an alternate sectionGoals may be documented in an alternate sectionGoals may be documented in an alternate sectionGoals may be documented in an alternate sectionGoals may be documented in an alternate sectionGoals may be documented in an alternate sectionGoals may be documented in an alternate sectionGoals may be documented in an alternate sectionGoals may be documented in an alternate sectionGoals may be documented in an alternate sectionGoals may be documented in an alternate sectionGoals may be documented in an alternate sectionGoals may be documented in an alternate sectionGoals may be documented in an alternate sectionGoals may be documented in an alternate sectionGoals may be documented in an alternate section Care Teams (unrecognized sec tion and content) Team Status: Active Member Role Status Dates No Primary Care Physician Primary Care Provider Active Team Status: Inactive Member Role Status Dates No Primary Care Physician Primary Care Provider, Refer ring Provider Active Dr. Goldie Ng MD Attending Provider Active Team Status: Inactive Member Role Status Dates No Primary Care Physician Primary Care Provider Active Dr. Goldie Ng MD Attending Provider Active Team Status: Inactive Member Role Status Dates No Primary Care Physician Primary Care Provider Active Pearl Kvng MARKETING WRITER, MARKETING WRITER-C Attending Provider, Referring Provider Active Team Status: Inactive Member Role Status Dates No Primary Care Physician Primary Care Provider, Refer ring Provider Active Pearl Calderon MARKETING WRITER, MARKETING WRITER-C Attending Provider Active Team Status: Inactive Member Role Status Dates No Primary Care Physician Primary Care Provider, Refer ring Provider Active Genet Basurto CNM Attending Provider Active Team Status: Inactive Member Role Status Dates No Primary Care Physician Primary Care Provider Active Dr. Goldie Ng MD Attending Provider, Referr ing Provider Active Team Status: Active Member Role Status Dates No Primary Care Physician Primary Care Provider Active Genet Basurto CNM Attending Provider, Referring Pr ovider Active Team Status: Inactive Member Role Status Dates No Primary Care Physician Primary Care Provider, Refer ring Provider Active Dr. Dotty Hernandez DO Attending Provider Activ e Team Status: Active Member Role Status Dates No Primary Care Physician Primary Care Provider Active Tammi Nieves CNM Attending Provider, Referring Provider, Other Provider Active Team Status: Inactive Member Role Status Dates No Primary Care Physician Primary Care Provider Active Genet Basurto CNM Attending Provider, Referring Pr ovider Active Team Status: Inactive Member Role Status Dates No Primary Care Physician Primary Care Provider Active Tammi Nieves CNM Attending Provider, Referring Pro vider Active Team Status: Active Member Role Status Dates No Primary Care Physician Primary Care Provider Active Dr. Dotty Hernandez DO Admit Prov ider, Referring Provider, Other Provider Active Dr. Goldie Ng MD Attending Provider Active Team Status: Active Member Role Status Dates No Primary Care Physician Primary Care Provider Active Dr. Dotty Hernandez DO Admit Prov ider, Attending Provider, Referring Provider, Other Provider Active Team Status: Inactive Member Role Status Dates No Primary Care Physician Primary Care Provider Active Dr. Dotty Hernandez DO Admit Prov ider, Attending Provider, Referring Provider Active Team Status: Inactive Member Role Status Dates No Primary Care Physician Primary Care Provider Active Dr. Dotty Hernandez DO Attending Provider Activ e Team Status: Inactive Member Role Status Dates No Primary Care Physician Primary Care Provider Active Start: October 24, 2024 End: October 24, 2024 No Primary Care Physician Referring Provider Active Start: October 24, 2024 End: October 24, 2024 Tammi Nieves CNM Attending Provider Active S tart: October 24, 2024 End: October 24, 2024 Team Status: Inactive Member Role Status Dates No Primary Care Physician Primary Care Provider Active Start: October 24, 2024 End: October 24, 2024 Tammi Nieves CNM Attending Provider Active S tart: October 24, 2024 End: October 24, 2024 Tammi Nieves CNM Referring Provider Active S tart: October 24, 2024 End: October 24, 2024 Team Status: Inactive Member Role Status Dates No Primary Care Physician Primary Care Provider Active Start: November 26, 2024 End: November 26, 2024 No Primary Care Physician Referring Provider Active Start: November 26, 2024 End: November 26, 2024 Dr. Goldie Ng MD Attending Provider Active Start: November 26, 2024 End: November 26, 2024 Team Status: Inactive Member Role Status Dates No Primary Care Physician Primary Care Provider Active Start: December 24, 2024 End: December 24, 2024 No Primary Care Physician Referring Provider Active Start: December 24, 2024 End: December 24, 2024 Pearl Calderon NP, MARKETING WRITER-C Attending Provider Active Start: December 24, 2024 End: December 24, 2024 Team Status: Inactive Member Role Status Dates No Primary Care Physician Primary Care Provider Active Start: January 21, 2025 End: January 21, 2025 No Primary Care Physician Referring Provider Active Start: January 21, 2025 End: January 21, 2025 Dr. Dotty Hernandez DO Attending Provider Activ e Start: January 21, 2025 End: January 21, 2025 Team Status: Inactive Member Role Status Dates No Primary Care Physician Primary Care Provider Active Start: February 18, 2025 End: February 18, 2025 No Primary Care Physician Referring Provider Active Start: February 18, 2025 End: February 18, 2025 Tammi Nieves CNM Attending Provider Active S tart: February 18, 2025 End: February 18, 2025 Team Status: Active Member Role Status Dates No Primary Care Physician Primary Care Provider Active Start: February 18, 2025 Tammi Nieves CNM Attending Provider Active S tart: February 18, 2025 Tammi Nieves CNM Referring Provider Active S tart: February 18, 2025 Team Status: Inactive Member Role Status Dates No Primary Care Physician Primary Care Provider Active Start: February 18, 2025 End: February 18, 2025 Tammi Nieves CNM Attending Provider Active S tart: February 18, 2025 End: February 18, 2025 Tammi Nieves CNM Referring Provider Active S tart: February 18, 2025 End: February 18, 2025 Team Status: Inactive Member Role Status Dates No Primary Care Physician Primary Care Provider Active Start: March 04, 2025 End: March 04, 2025 No Primary Care Physician Referring Provider Active Start: March 04, 2025 End: March 04, 2025 Pearl Calderon NP, MARKETING WRITER-C Attending Provider Active Start: March 04, 2025 End: March 04, 2025 Team Status: Inactive Member Role Status Dates No Primary Care Physician Primary Care Provider Active Start: March 26, 2025 End: March 26, 2025 No Primary Care Physician Referring Provider Active Start: March 26, 2025 End: March 26, 2025 Dr. Goldie Ng MD Attending Provider Active Start: March 26, 2025 End: March 26, 2025 Team Status: Active Member Role/Relationship Status Dates No Primary Care Physician Primary Care Provider Active Team Status: Inactive Member Role/Relationship Status Dates No Primary Care Physician Primary Care Provider Active Start: December 24, 2024 End: December 24, 2024 No Primary Care Physician Referring Provider Active Start: December 24, 2024 End: December 24, 2024 Pearl Calderon NP, MARKETING WRITER-C Attending Provider Active Start: December 24, 2024 End: December 24, 2024 Team Status: Inactive Member Role/Relationship Status Dates No Primary Care Physician Primary Care Provider Active Start: January 21, 2025 End: January 21, 2025 No Primary Care Physician Referring Provider Active Start: January 21, 2025 End: January 21, 2025 Dr. Dotty Hernandez DO Attending Provider Activ e Start: January 21, 2025 End: January 21, 2025 Team Status: Inactive Member Role/Relationship Status Dates No Primary Care Physician Primary Care Provider Active Start: February 18, 2025 End: February 18, 2025 No Primary Care Physician Referring Provider Active Start: February 18, 2025 End: February 18, 2025 Tammi Nieves CNM Attending Provider Active S tart: February 18, 2025 End: February 18, 2025 Team Status: Inactive Member Role/Relationship Status Dates No Primary Care Physician Primary Care Provider Active Start: February 18, 2025 End: February 18, 2025 Tammi Nieves CNM Attending Provider Active S tart: February 18, 2025 End: February 18, 2025 Tammi Nieves CNM Referring Provider Active S tart: February 18, 2025 End: February 18, 2025 Team Status: Inactive Member Role/Relationship Status Dates No Primary Care Physician Primary Care Provider Active Start: March 04, 2025 End: March 04, 2025 No Primary Care Physician Referring Provider Active Start: March 04, 2025 End: March 04, 2025 Pearl Calderon NP, MARKETING WRITER-C Attending Provider Active Start: March 04, 2025 End: March 04, 2025 Team Status: Inactive Member Role/Relationship Status Dates No Primary Care Physician Primary Care Provider Active Start: March 26, 2025 End: March 26, 2025 No Primary Care Physician Referring Provider Active Start: March 26, 2025 End: March 26, 2025 Dr. Goldie Ng MD Attending Provider Active Start: March 26, 2025 End: March 26, 2025 Team Status: Inactive Member Role/Relationship Status Dates No Primary Care Physician Primary Care Provider Active Start: April 09, 2025 End: April 09, 2025 No Primary Care Physician Referring Provider Active Start: April 09, 2025 End: April 09, 2025 Dr. Dotty Hernandez DO Attending Provider Activ e Start: April 09, 2025 End: April 09, 2025 Team Status: Inactive Member Role/Relationship Status Dates No Primary Care Physician Primary Care Provider Active Start: April 17, 2025 End: April 17, 2025 No Primary Care Physician Referring Provider Active Start: April 17, 2025 End: April 17, 2025 Dr. Goldei Ng MD Attending Provider Active Start: April 17, 2025 End: April 17, 2025 Team Status: Inactive Member Role/Relationship Status Dates No Primary Care Physician Primary Care Provider Active Start: April 17, 2025 End: April 17, 2025 Dr. Goldie Ng MD Attending Provider Active Start: April 17, 2025 End: April 17, 2025 Dr. Goldie Ng MD Referring Provider Active Start: April 17, 2025 End: April 17, 2025 Team Status: Inactive Member Role/Relationship Status Dates No Primary Care Physician Primary Care Provider Active Start: April 23, 2025 End: April 23, 2025 No Primary Care Physician Referring Provider Active Start: April 23, 2025 End: April 23, 2025 Dr. Goldie Ng MD Attending Provider Active Start: April 23, 2025 End: April 23, 2025 Team Status: Inactive Member Role/Relationship Status Dates No Primary Care Physician Primary Care Provider Active Start: January 21, 2025 End: January 21, 2025 No Primary Care Physician Referring Provider Active Start: January 21, 2025 End: January 21, 2025 Dr. Dotty Hernandez DO Attending Provider Activ e Start: January 21, 2025 End: January 21, 2025 Team Status: Inactive Member Role/Relationship Status Dates No Primary Care Physician Primary Care Provider Active Start: February 18, 2025 End: February 18, 2025 No Primary Care Physician Referring Provider Active Start: February 18, 2025 End: February 18, 2025 Tammi Nieves CNM Attending Provider Active S tart: February 18, 2025 End: February 18, 2025 Team Status: Inactive Member Role/Relationship Status Dates No Primary Care Physician Primary Care Provider Active Start: February 18, 2025 End: February 18, 2025 Tammi Nieves CNM Attending Provider Active S tart: February 18, 2025 End: February 18, 2025 Tammi Nieves CNM Referring Provider Active S tart: February 18, 2025 End: February 18, 2025 Team Status: Inactive Member Role/Relationship Status Dates No Primary Care Physician Primary Care Provider Active Start: March 04, 2025 End: March 04, 2025 No Primary Care Physician Referring Provider Active Start: March 04, 2025 End: March 04, 2025 Pearl Calderon NP, MARKETING WRITER-C Attending Provider Active Start: March 04, 2025 End: March 04, 2025 Team Status: Inactive Member Role/Relationship Status Dates No Primary Care Physician Primary Care Provider Active Start: March 26, 2025 End: March 26, 2025 No Primary Care Physician Referring Provider Active Start: March 26, 2025 End: March 26, 2025 Dr. Goldie Ng MD Attending Provider Active Start: March 26, 2025 End: March 26, 2025 Team Status: Inactive Member Role/Relationship Status Dates No Primary Care Physician Primary Care Provider Active Start: April 09, 2025 End: April 09, 2025 No Primary Care Physician Referring Provider Active Start: April 09, 2025 End: April 09, 2025 Dr. Dotty Hernandez DO Attending Provider Activ e Start: April 09, 2025 End: April 09, 2025 Team Status: Inactive Member Role/Relationship Status Dates No Primary Care Physician Primary Care Provider Active Start: April 17, 2025 End: April 17, 2025 No Primary Care Physician Referring Provider Active Start: April 17, 2025 End: April 17, 2025 Dr. Goldie Ng MD Attending Provider Active Start: April 17, 2025 End: April 17, 2025 Team Status: Inactive Member Role/Relationship Status Dates No Primary Care Physician Primary Care Provider Active Start: April 17, 2025 End: April 17, 2025 Dr. Goldie Ng MD Attending Provider Active Start: April 17, 2025 End: April 17, 2025 Dr. Goldie Ng MD Referring Provider Active Start: April 17, 2025 End: April 17, 2025 Team Status: Inactive Member Role/Relationship Status Dates No Primary Care Physician Primary Care Provider Active Start: April 23, 2025 End: April 23, 2025 No Primary Care Physician Referring Provider Active Start: April 23, 2025 End: April 23, 2025 Dr. Goldie Ng MD Attending Provider Active Start: April 23, 2025 End: April 23, 2025 Team Status: Inactive Member Role/Relationship Status Dates No Primary Care Physician Primary Care Provider Active Start: April 30, 2025 End: April 30, 2025 No Primary Care Physician Referring Provider Active Start: April 30, 2025 End: April 30, 2025 Tammi Nieves CNM Attending Provider Active S tart: April 30, 2025 End: April 30, 2025 Team Status: Inactive Member Role/Relationship Status Dates No Primary Care Physician Primary Care Provider Active Start: May 07, 2025 End: May 07, 2025 No Primary Care Physician Referring Provider Active Start: May 07, 2025 End: May 07, 2025 Dr. Dotty Hernandez DO Attending Provider Activ e Start: May 07, 2025 End: May 07, 2025 Team Status: Inactive Member Role/Relationship Status Dates No Primary Care Physician Primary Care Provider Active Start: May 14, 2025 End: May 14, 2025 No Primary Care Physician Referring Provider Active Start: May 14, 2025 End: May 14, 2025 Dr. Goldie Ng MD Attending Provider Active Start: May 14, 2025 End: May 14, 2025 Team Status: Inactive Member Role/Relationship Status Dates No Primary Care Physician Primary Care Provider Active Start: May 18, 2025 End: May 18, 2025 No Primary Care Physician Referring Provider Active Start: May 18, 2025 End: May 18, 2025 Tammi Nieves CNM Attending Provider Active S tart: May 18, 2025 End: May 18, 2025 INFORMATION SOURCE (unrecogn ized section and content) DATE CREATED AUTHOR 12/26/2024 [facility] DATE CREATED AUTHOR AUTHOR'S ORGANIZ ATION 05/18/2025 [facility] FOR RECORDS PERTAINING TO PATIENTS WHO ARE OR HAVE BEEN ENROLLED IN A CHEMICAL DEPENDENCY/SUBSTANCEABUSE PROGRAM, SOME INFORMATION MAY BE OMITTED. This clinical summary was aggregated from multiple sources. Caution should be exercised in using it in the provision of clinical care. This summary normalizes information from multiple sources, and as a consequence, information in this document may materially change the coding, format and clinical context of patient data. In addition, data may be omitted in some cases. CLINICAL DECISIONS SHOULD BE BASED ON THE PRIMARY CLINICAL RECORDS. [facility] [employer] [facility] provides no warranty or guarantee of the accuracy or completeness of information in this document.
--- OUTSIDE RECORDS SUMMARY | 2025-05-19 05:26 | XMS RPT_ITS | CCD ---
Author Organization [facility] CliniSyal Care Team Providers Care Editorial Project Manager Name Role Phone Care Physician, No Primary Primary Care Provider Unavailable Care Physician, No Primary Referring Provider Un available Dr. Goldie Ng Attending Provider [phone] Care Physician, No Primary Primary Care Provider Unavailable Care Physician, No Primary Referring Provider Un available Dr. Goldie Ng Attending Provider [phone] Kvng CARE TRANSITION MGR, JUNIOR Kang Attending Provider [phone] FUNMI [...] available Tammi Nieves CNM Attending Provider [phone] Ezequiel CHOUDHARY, Tammi Referring Provider [phone] Jo PERDOMO, Dr. Amezcua Attending Provider Kvng GÓMEZ-CPearl Attending Provider [phone] Dr. Dotty Hernandez DO Attending Provider Care Physician, No Primary Primary Care Provider Unavailable Care Physician, No Primary Referring Provider Un available Ezequiel CHOUDHARY, Tammi Attending Provider [phone] Ezequiel CNM, Tammi Referring Provider [phone] Care Physician, No Primary Primary Care Provider Unavailable Care Physician, No Primary Referring Provider Un available Jo PERDOMO, Dr. Amezcua Attending Provider [phone] Dr. Goldie Ng MD Referring Provider [phone] Care Physician, No Primary Primary Care Provider Unavailable Care Physician, No Primary Referring Provider Un available Kvng GÓMEZ-CPearl Attending Provider [phone] Care Physician, No Primary Primary Care Unava [...] Primary Referring Unava ilable Dotty Hernandez [facility] Care Physician, No Primary Primary [...] No Primary Primary Care Unava ilable Kvng CARE TRANSITION MGR, Pearl Attending Unavailable Care Physician, No Primary [...] Primary Care Unava ilable Dotty Hernandez Att[facility] Care Physician, No Primary Primary Care Unava ilable Tammi Nieves Attending Unavailable Ezequiel, Tammi Referring Unavailable Care Physician, No Primary Primary Care Unava ilable Tammi Nieves Attending Unavailable Tammi Nieves Referring Unavailable Medications Current Medications Medication Drug Class(es) Dates Sig (Normalized) Sig (Original) [place]-3 Fatty Acids 1,000 mg capsule (12 sources) Start: 10-09-2024 take 1 capsule by mouth once daily [place]-3 Fatty Acids 1,000 mg capsule Active 2000 mg PO daily October 09, 2024 1:00am Wme403-Qnzv-Xe-I6-Z faye-Epa-Fish (7 sources) Start: 08-29-2022 take 1 capsule by mouth once daily Omn979-Eiid-Vn-H4- Gbp-Qfw-Urvi Active 1 CAP PO DAILY August 29, 2022 1:00am Start: 08-29-2022 Zyy547-Ojrx-My -O3-Gqo-Vhe-Fish Active CAP PO August 29, 2022 1:00am Start: 08-29-2022 Dpb796-Zjip-Zw -D1-Ybu-Ltn-Fish Active CAP PO August 29, 2022 12:00am Qae267-Wons-Zl-P4-Msm-Jkv-Ds sh 27 mg iron-800 mcg-260 mg capsule (12 sources) Start: 08-29-2022 Gfo957-Bxgj-Qc-A1-Kwu-Ant-Pd sh 27 mg iron-800 mcg-260 mg capsule Active 1 NMA PO DAILY August 29, 2022 1:00am Start: 08-29-2022 Kdt018-Wkuj-Ag -J5-Aar-Ohi-Fish 27 mg iron-800 mcg-260 mg capsule Active [...] 12:00am June 01, 2020 8:24am polymyxin b 71504 unt/ml / trimethoprim 1 mg/ml ophthalmic solution [...] PRR, , ZEYNEP , PC Maximus, Tito [id number], ZEYNEP 03/30/23 , boy Maximus Tito PRR, [...] Test Name Value Interpretation Reference Range Facility [facility] Reporton 05-18-2025 [facility] Report [facility] [address], [address] [place] [address] OFFICE VISIT Date of Service: 05/18/25 MR#: [id number] Acct: [id number] Name: NATHANAEL MOSCOSO Klever Rep #: [id number] : 1995 Provider: FUNMI Doe ams Age/Sex: 30/F [place] [facility] Status: Signed Intake Vital Signs 05/14/25 09:27 05/18/25 08:37 Height 5 ft 6.5 in 5 ft 6.5 in Weight: 216 lb 4 oz BMI 34.4 BP 121/84 H Intake Visit Reasons: MEMBRANE SWEEP Chief Complaint: Membrane Sweep Switch Engineer Required: No Is patient in pain?: No Allergies No Known Allergies Allergy (Verified 05/18/25 08:34) Medications ???Medication ???Instructions ???Recorded ???Confirmed ???Type PNV no.151-iron 27 mg-folic 800 1 cap PO DAILY 08/29/22 05/18/25 History mcg-omega3 260 ef-bbq-kqs-fish capsule omega-3 fatty acids 1,000 mg 2,000 mg PO QDAY 10/09/24 05/18/25 History capsule Last Menstrual Period: 08/07/24 : No PFSH PFSH Medical History UTI (urinary tract infection) Gallstone Gestational diabetes Single umbilical artery Anovulatory cycle Amenorrhea Surgical History S/P ACL repair Social History adopted: No household members: spouse and children housing: house number of children: 1 current occupational status: 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 Date Name GA/Weeks Outcome Route Bth Weight Infant Gen Labor Lgth Anesthesia Del Locatn Provider FOB 03/30/23 Maximus 40 live - full term 8lbs 3oz Male epidural [facility] Fredy Arreolash Delivery Date: 03/30/23 Last Updated [...] Violet herrera (more content not included)... Normal [facility] Laboratory - Chemistry and C hemistry - challengeOrdered By: Goldie Ng on 05-14-2025 Glucose Ql (U) Negative [facility] Laboratory - UrinalysisOrder ed By: Goldie Ng on 05-14-2025 Protein Ql (U) Negative [facility] Reporton 05-14-2025 [facility] Report [facility]'s [address], [address] [place] [address] OFFICE VISIT Date of Service: 05/14/25 MR#: [id number] Acct: [id number] Name: NATHANAEL MOSCOSO Rep #: [id number] : 1995 Provider: Dr. Goldie elizondo MD Age/Sex: 30/F Location[place] [facility] [place]: Signed Intake Vital Signs 03/04/25 08:52 05/07/25 10:19 05/14/25 09:24 05/14/25 09:27 Height 5 ft 6.5 in 5 ft 6.5 in 5 ft 6.5 in 5 ft 6.5 in Weight: 215 lb 7 oz BMI 34.2 BP 128/84 H Intake Visit Reasons: 40wk ob *HAPPY DUE DATE Switch Engineer Required: No Is patient in pain?: No Allergies No Known Allergies Allergy (Verified 05/14/25 09:24) Medications ???Medication ???Instructions ???Recorded ???Confirmed ???Type PNV no.151-iron 27 mg-folic 800 1 cap PO DAILY 08/29/22 05/14/25 History mcg-omega3 260 eb-mdb-syw-fish capsule omega-3 fatty acids 1,000 mg 2,000 [...] 1 current occupational status: 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 Date Name GA/Weeks Outcome Route Bth Weight Infant Gen Labor Lgth Anesthesia Del Locatn Provider FOB 03/30/23 Maximus 40 live - full term 8lbs 3oz Male epidural [facility] Fredy Hernandez [facility] Delivery Date: 03/30/23 Last Updated by: Cinda [...] -???-???-???-???-???-?? ?-???-???-???-???-? (more content not included)... Normal [facility] Laboratory - Chemistry and C hemistry - challengeOrdered By: Dotty Olson on 05-07-2025 Glucose Ql (U) Negative [facility] Laboratory - UrinalysisOrder ed By: Dotty Olson on 05-07-2025 Protein Ql (U) Negative [facility] Reporton 05-07-2025 [facility] Report [facility] [address], [address] [place] [address] OFFICE VISIT Date of Service: 05/07/25 MR#: [id number] Acct: [id number] Name: NATHANAEL MOSCOSO Klever Rep #: [id number] : 1995 Provider: Dr. Dotty Will DO Age/Sex: 30/F Location: [facility] Status: Signed Intake Vital Signs 03/04/25 08:52 04/30/25 11:24 05/07/25 10:19 05/07/25 10:19 Height 5 ft 6.5 in 5 ft 6.5 in 5 ft 6.5 in 5 ft 6.5 in Weight: 212 lb 8 oz BMI 33.7 BP 126/82 H Intake Visit Reasons: 39wk ob Switch Engineer Required: No Is patient in pain?: No Allergies No Known Allergies Allergy (Verified 05/07/25 10:18) Medications ???Medication ???Instructions ???Recorded ???Confirmed ???Type PNV no.151-iron 27 mg-folic 800 1 cap PO DAILY 08/29/22 05/07/25 History mcg-omega3 260 uc-hkh-umz-fish capsule omega-3 fatty acids 1,000 mg 2,000 [...] 1 current occupational status: 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 Date Name GA/Weeks Outcome Route Bth Weight Gen Labor Lgth Anesthesia Del Locatn Provider FOB 03/30/23 Maximus 40 live - full term 8lbs 3oz Male epidural [facility] Fredy Hernandez Tito Delivery Date: 03/30/23 Last [...] Negative 156 (more content not included)... Normal [facility] Laboratory - Chemistry and C hemistry - challengeOrdered By: Tammi Nieves on 04-30-2025 Glucose Ql (U) Negative [facility] Laboratory - UrinalysisOrder ed By: Tammi Nieves on 04-30-2025 Protein Ql (U) Negative [facility] Reporton 04-30-2025 [facility] Report [facility], [facility] [address] [place] [address] OFFICE VISIT Date of Service: 04/30/25 MR#: [id number] Acct: [id number] Name: NATHANAEL MOSCOSO Rep #: [id number] : 1995 Provider: FUNMI Doe ams Age/Sex: 30/F [place] [facility] Status: Signed Intake Vital Signs 03/04/25 08:52 04/23/25 09:39 04/30/25 11:24 Height 5 ft 6.5 in 5 ft 6.5 in 5 ft 6.5 in Weight: 215 lb 8 oz BMI 34.2 BP 123/82 H Intake Visit Reasons: 38wk ob Chief Complaint: 38wk ob Switch Engineer Required: No Is patient in pain?: No Allergies No Known Allergies Allergy (Verified 04/30/25 11:23) Medications ???Medication ???Instructions ???Recorded ???Confirmed ???Type PNV no.151-iron 27 mg-folic 800 1 cap PO DAILY 08/29/22 04/30/25 History mcg-omega3 260 wv-iem-ajp-fish capsule omega-3 fatty acids 1,000 mg 2,000 mg PO QDAY 10/09/24 04/30/25 History capsule Last Menstrual Period: 08/07/24 : No PFSH PFSH Medical History UTI (urinary tract infection) Gallstone Gestational diabetes Single umbilical artery Anovulatory cycle Amenorrhea Surgical History S/P ACL repair Social History adopted: No household members: spouse and children housing: house number of children: 1 current occupational status: 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 Date Name GA/Weeks Outcome Route Bth Weight Gen Labor Lgth Anesthesia Del Locatn Provider FOB 03/30/23 Maximus 40 live - full term 8lbs 3oz Male epidural [facility] Fredy Hernandez Tito Delivery Date: 03/30/23 Last [...] VB. Fe (more content not included)... Normal [facility] Laboratory - Chemistry and C hemistry - challengeOrdered By: Goldie Ng on 04-23-2025 Glucose Ql (U) Negative [facility] Laboratory - UrinalysisOrder ed By: Goldie Ng on 04-23-2025 Protein Ql (U) Negative [facility] Reporton 04-23-2025 [facility] Report [facility] [address], [address] [place] [address] OFFICE VISIT Date of Service: 04/23/25 MR#: [id number] Acct: [id number] Name: NATHANAEL MOSCOSO Rep #: [id number] : 1995 Provider: Dr. Goldie elizondo MD Age/Sex: 30/F Location[place] [facility] Status: Signed Intake Vital Signs 02/18/25 09:49 04/17/25 10:21 04/23/25 09:39 Height 5 ft 6.5 in 5 ft 6.5 in 5 ft 6.5 in Weight: 211 lb BMI 33.5 BP 131/77 H Intake Visit Reasons: 37 wk ob Switch Engineer Required: No Is patient in pain?: No Allergies No Known Allergies Allergy (Verified 04/23/25 09:42) Medications ???Medication ???Instructions ???Recorded ???Confirmed ???Type PNV no.151-iron 27 mg-folic 800 1 cap PO DAILY 08/29/22 04/23/25 History mcg-omega3 260 dw-vxu-ruw-fish capsule omega-3 fatty acids 1,000 mg 2,000 [...] 1 current occupational status: 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 Date Name GA/Weeks Outcome Route Bth Weight Gen Labor Lgth Anesthesia Del Locatn Provider FOB 03/30/23 Maximus 40 live - full term 8lbs 3oz Male epidural [facility] D r. Liz Wesley Francis Delivery Date: [...] -???-???-???-???-???-?? ?-???-???-???-?? (more content not included)... Normal [facility] Rule out Beta Strep (Grp. B) on 04-23-2025 THERESA Rule out Beta Strep (Grp. B) Streptococcus agalactiae (B) Amount Growth 3+ Streptococcus agalactiae (B): REACTION Ampicillin Islt OLIMPIA <=0.25 cefTRIAXone Islt OLIMPIA <=0.12 S Clindamycin Islt OLIMPIA R Clindamycin.induced Susc Islt POS Linezolid Islt OLIMPIA <=2 S Vancomycin Islt OLIMPIA 0.25 S Normal [facility] Comment on above: Performed By: #### M 100.3400 ####[facility] [id number] [place], [address] [facility] Reporton 04-17-2025 [facility] Report [facility] [address], [address] [place] [address] OFFICE VISIT Date of Service: 04/17/25 MR#: [id number] Acct: [id number] Name: NATHANAEL MOSCOSO Rep #: [id number] : 1995 Provider: Dr. Goldie elizondo MD Age/Sex: 29/F Location[place] [facility] Status: Signed Intake Vital Signs 04/09/25 13:43 04/17/25 10:21 Height 5 ft 6.5 in 5 ft 6.5 in Weight: 210 lb BMI 33.3 BP 123/77 H Intake Visit Reasons: 36 WK OB Switch Engineer Required: No Is patient in pain?: No Allergies No Known Allergies Allergy (Verified 04/17/25 10:23) Medications ???Medication ???Instructions ???Recorded ???Confirmed ???Type PNV no.151-iron 27 mg-folic 800 1 cap PO DAILY 08/29/22 04/17/25 History mcg-omega3 260 zq-lgy-pmb-fish capsule omega-3 fatty acids 1,000 mg 2,000 [...] 1 current occupational status: 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 Date Name GA/Weeks Outcome Route Bth Weight Gen Labor Lgth Anesthesia Del Locatn Provider FOB 03/30/23 Maximus 40 live - full term 8lbs 3oz Male epidural [facility] Fredy Arreolash Delivery Date: 03/30/23 Last Updated [...] Fe e (more content not included)... Normal [facility] Screening beta-hemolytic Str eptococcus cultureOrdered By: Goldie Ng on 04-17-2025 Beta-hemolytic Streptococcus culture Streptococcus agalactiae (B) Abnormal [facility] Laboratory - Chemistry and C hemistry - challengeOrdered By: Dotty Olson on 04-09-2025 Glucose Ql (U) Negative [facility] Laboratory - UrinalysisOrder ed By: Dotty Olson on 04-09-2025 Protein Ql (U) Negative [facility] Reporton 04-09-2025 [facility] Report [address], [address] [place] [address] OFFICE VISIT Date of Service: 04/09/25 MR#: [id number] Acct: [id number] Name: NATHANAEL MOSCOSO Rep #: [id number] : 1995 Provider: Dr. Dotty Will DO Age/Sex: 29/F Location[place] [facility] Status: Signed Intake Vital Signs 02/18/25 09:49 03/26/25 14:33 04/09/25 13:43 Height 5 ft 6.5 in 5 ft 6.5 in 5 ft 6.5 in Weight: 209 lb 2 oz BMI 33.2 BP 107/72 Intake Visit Reasons: 35 wk ob Switch Engineer Required: No Is patient in pain?: No Allergies No Known Allergies Allergy (Verified 04/09/25 13:44) Medications ???Medication ???Instructions ???Recorded ???Confirmed ???Type PNV no.151-iron 27 mg-folic 800 1 cap PO DAILY 08/29/22 04/09/25 History mcg-omega3 260 oe-ufv-qsx-fish capsule omega-3 fatty acids 1,000 mg 2,000 [...] 1 current occupational status: 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 Date Name GA/Weeks Outcome Route Bth Weight Gen Labor Lgth Anesthesia Del Locatn Provider FOB 03/30/23 Maximus 40 live - full term 8lbs 3oz Male epidural [facility] D r. Liz Franics Delivery Date: 03/30/23 Last Updated by: Cinda [...] MFM US (more content not included)... Normal [facility] Laboratory - Chemistry and C hemistry - challengeOrdered By: Goldie Ng on 03-26-2025 Glucose Ql (U) Negative [facility] Laboratory - UrinalysisOrder ed By: Goldie Ng on 03-26-2025 Protein Ql (U) Negative [facility] Reporton 03-26-2025 [facility] Report [facility] [address], [address] [place] [address] OFFICE VISIT Date of Service: 03/26/25 MR#: [id number] Acct: [id number] Name: NATHANAEL MOSCOSO Rep #: [id number] : 1995 Provider: Dr. Goldie elizondo MD Age/Sex: 29/F Location: [facility] Status: Signed Intake Vital Signs 02/18/25 09:49 03/04/25 08:52 03/26/25 14:28 03/26/25 14:33 Height 5 ft 6.5 in 5 ft 6.5 in 5 ft 6.5 in 5 ft 6.5 in Weight: 199 lb 8 oz 203 lb 6 oz 209 lb BMI 31.7 32.3 33.2 BP 113/76 104/66 113/74 Intake Visit Reasons: 33 wk ob Switch Engineer Required: No Is patient in pain?: No Allergies No Known Allergies Allergy (Verified 03/26/25 14:28) Medications ???Medication ???Instructions ???Recorded ???Confirmed ???Type PNV no.151-iron 27 mg-folic 800 1 cap PO DAILY 08/29/22 03/26/25 History mcg-omega3 260 mz-wdw-akq-fish capsule omega-3 fatty acids 1,000 mg 2,000 [...] 1 current occupational status: 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 Date Name GA/Weeks Outcome Route Bth Weight [facility] Maximus 40 live - full term 8lbs 3oz Male epidural [facility] Fredy Hernandez Tito Delivery Date: 03/30/23 Last [...] 156 -???-???-???-???-??? (more content not included)... Normal [facility] Laboratory - Chemistry and C hemistry - challengeOrdered By: Pearl Calderon on 03-04-2025 Glucose Ql (U) Negative [facility] Laboratory - UrinalysisOrder ed By: Pearl Calderon on 03-04-2025 Protein Ql (U) Negative [facility] Reporton 03-04-2025 [facility] Report [facility] [address], [address] [place] [address] OFFICE VISIT Date of Service: 03/04/25 MR#: [id number] Acct: [id number] Name: NATHANAEL MOSCOSO Rep #: [id number] : 1995 Provider: JUNIOR lopez Age/Sex: 29/F Location: [facility] Status: Signed Intake Vital Signs 12/24/24 08:27 02/18/25 09:49 03/04/25 08:52 Height 5 ft 6.5 in 5 ft 6.5 in 5 ft 6.5 in Weight: 203 lb 6 oz BMI 32.3 BP 104/66 Intake Visit Reasons: 30 wk ob Chief Complaint: 30 Week OB Switch Engineer Required: No Is patient in pain?: No Allergies No Known Allergies Allergy (Verified 03/04/25 08:51) Medications ???Medication ???Instructions ???Recorded ???Confirmed ???Type PNV no.151-iron 27 mg-folic 800 1 cap PO DAILY 08/29/22 03/04/25 History mcg-omega3 260 mg-ihn-lnt-fish capsule omega-3 fatty acids 1,000 mg 2,000 [...] 1 current occupational status: 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 Date Name GA/Weeks Outcome Route Bth Weight Infant Gen Labor Lgth Anesthesia Del Locatn Provider FOB 03/30/23 Maximus 40 live - full term 8lbs 3oz Male epidural [facility] D r. Liz Francis Delivery Date: 03/30/23 [...] -No V (more content not included)... Normal [facility] Absolute lymphocyte countOrd ered By: Dotty Olson on 02-18-2025 Lymphocytes Auto (Unsp spec) [#/Vol] 1.57 10*3/uL 0.83-4.51 [facility] Absolute neutrophil countOrd ered By: Dotty Olson on 02-18-2025 Neutrophils (Bld) [#/Vol] 7.5 10*3/uL 2.0-7.7 [facility] Automated lymphocyte count a s percentage of total leukocytesOrdered By: Dotty Olson on 02-18-2025 Lymphocytes/100 WBC Auto (Unsp spec) 15.5 % Low 19-41 [facility] Basophil percentageOrdered B y: Dotty Olson on 02-18-2025 Basophils/100 WBC (Bld) 0.6 % 0-1 [facility] CBC W/Diff, Automatedon 01-30 Absolute Lymph 1.57 X10 3/uL Normal 0.83-4.51 [facility] Comment on above: Performed By: #### L 3890.6006, L100.0100, L501.0250, L509.8002 ####[facility] [address] [place], [address] Absolute Neut 7.5 X10 3/uL Normal 2.0-7.7 [facility] Comment on above: Performed By: #### L 3890.6006, L100.0100, L501.0250, L509.8002 ####[facility] [address] [place], [address] Basophils/100 WBC (Bld) 0.6 % Normal 0-1 [facility] Comment on above: Performed By: #### L 3890.6006, L100.0100, L501.0250, L509.8002 ####[facility] [address] [place], [address] Eosinophils/100 WBC (Bld) 1.9 % Normal 0-5 [facility] Comment on above: Performed By: #### L 3890.6006, L100.0100, L501.0250, L509.8002 ####[facility] [address] [place], [address] Erythrocyte distribution width (RBC) [Ratio] 13.5 % Normal 11.6-14.6 [facility] Comment on above: Performed By: #### L 3890.6006, L100.0100, L501.0250, L509.8002 ####[facility] [address] [place], [address] Hematocrit (Bld) [Volume fraction] 37.2 % Normal 37-47 [facility] Comment on above: Performed By: #### L 3890.6006, L100.0100, L501.0250, L509.8002 ####[facility] [address] [place], [address] Hemoglobin (Bld) [Mass/Vol] 12.3 g/dL Normal 12.0-15.0 [facility] Comment on above: Performed By: #### L 3890.6006, L100.0100, L501.0250, L509.8002 ####[facility] [address] [place], [address] IG% 2.100 High 0.0-0.9 [facility] Comment on above: Result Comment: IG% - Immature Granulocytes (promyelocytes, myelocytes and metamyelocytes) > 1% indicates that a LEFT SHIFT is Present. Performed By: #### L 3890.6006, L100.0100, L501.0250, L509.8002 ####[facility] [address] [place], [address] Lymphocytes/100 WBC (Bld) 15.5 % Low 19-41 [facility] Comment on above: Performed By: #### L 3890.6006, L100.0100, L501.0250, L509.8002 ####[facility] [address] [place], [address] MCH (RBC) [Entitic mass] 28.2 pg Normal 27.0-32.0 [facility] Comment on above: Performed By: #### L 3890.6006, L100.0100, L501.0250, L509.8002 ####[facility] [address] [place], [address] MCHC (RBC) [Mass/Vol] 33.1 g/dL Normal 32-36 [facility] Comment on above: Performed By: #### L 3890.6006, L100.0100, L501.0250, L509.8002 ####[facility] [address] [place], [address] MCV (RBC) [Entitic vol] 85.3 fL Normal 81-99 [facility] Comment on above: Performed By: #### L 3890.6006, L100.0100, L501.0250, L509.8002 ####[facility] [address] [place], [address] Monocytes/100 WBC (Bld) 5.9 % Normal 0-10 [facility] Comment on above: Performed By: #### L 3890.6006, L100.0100, L501.0250, L509.8002 ####[facility] [address] [place], [address] Neutrophils/100 WBC (Bld) 74.0 % High 47-70 [facility] Comment on above: Performed By: #### L 3890.6006, L100.0100, L501.0250, L509.8002 ####[facility] [address] [place], [address] Nucleated RBC (Bld) [#/Vol] 0 10*3/uL Normal 0-5 [facility] Comment on above: Performed By: #### L 3890.6006, L100.0100, L501.0250, L509.8002 ####[facility] [address] [place], [address] Platelet mean volume (Bld) [Entitic vol] 9.0 fL Normal 6.2-12.0 [facility] Comment on above: Performed By: #### L 3890.6006, L100.0100, L501.0250, L509.8002 ####[facility] [address] [place], [address] Platelets (Bld) [#/Vol] 324 10*3/uL Normal 150-450 [facility] Comment on above: Performed By: #### L 3890.6006, L100.0100, L501.0250, L509.8002 ####[facility] [address] [place], [address] RBC (Bld) [#/Vol] 4.36 10*6/uL Normal 4.2-5.4 [facility] Comment on above: Performed By: #### L 3890.6006, L100.0100, L501.0250, L509.8002 ####[facility] [address] [place], [address] RDW SD 41.3 fl Normal 35.1-43.9 [facility] Comment on above: Performed By: #### L 3890.6006, L100.0100, L501.0250, L509.8002 ####[facility] [address] [place], [address] WBC (Bld) [#/Vol] 10.1 10*3/uL Normal 4.4-11.0 [facility] Comment on above: Performed By: #### L 3890.6006, L100.0100, L501.0250, L509.8002 ####[facility] [address] [place], [address] Eosinophil percentageOrdered By: Dotty Olson on 02-18-2025 Eosinophils/100 WBC (Bld) 1.9 % 0-5 [facility] Erythrocyte distribution wid th ratioOrdered By: Dotty Olson on 02-18-2025 Erythrocyte distribution width (RBC) [Ratio] 13.5 % 11.6-14.6 [facility] Erythrocyte distribution wid th standard deviationOrdered By: Dotty Olson on 02-18-2025 Erythrocyte distribution width (RBC) [Ratio] 41.3 fl 35.1-43.9 [facility] Glucose Challenge Gest 1H 50 kirt 02-18-2025 GLU GEST 50g 1H 112 mg/dL Normal 70-140 [facility] Comment on above: Performed By: #### L 3890.6006, L100.0100, L501.0250, L509.8002 ####[facility] [address] [place], [address] Glucose measurement at 2 bladimir rs post-dose gestational glucose tolerance testOrdered By: Dotty Olson on 02-18-2025 Glucose [Mass/Vol] 112 mg/dL 70-140 [facility] HIVon 02-18-2025 HIV Non-Reactive Normal Nonreactive [facility] Comment on above: Result Comment: Non- Reactive Reactive Repeatedly reactive samples must be confirmed according to CDC recommended confirmatory algorithms. The subresults for either HIVAG or AHIV can be used as an aid in the selection of the confirmation algorithm for reactive samples. Send out specimens with Reactive results to [facility] for confirmation. Order the HIV antibody detection and differentiation: #[id number] Performed By: #### L 3890.6006, L100.0100, L501.0250, L509.8002 ####[facility] [address] [place], [place], [address] Hematocrit Auto (Bld) [Volum e fraction]Ordered By: Dotty Olson on 02-18-2025 Hematocrit (Bld) [Volume fraction] 37.2 % 37-47 [facility] Hemoglobin measurementOrdere d By: Dotty Olson on 02-18-2025 Hemoglobin (Bld) [Mass/Vol] 12.3 g/dL 12.0-15.0 [facility] Immature granulocytes/100 WB C Auto (Bld)Ordered By: Dotty Olson on 02-18-2025 Immature granulocytes/100 WBC (Bld) 2.100 % High 0.0-0.9 [facility] Comment on above: IG% - Immature Granu locytes (promyelocytes, myelocytes and metamyelocytes) > 1% indicates that a LEFT SHIFT is Present. Laboratory - Chemistry and C hemistry - challengeOrdered By: Tammi Nieves on 02-18-2025 Glucose Ql (U) Negative [facility] Laboratory - UrinalysisOrder ed By: Tammi Nieves on 02-18-2025 Protein Ql (U) Negative [facility] MCV (mean corpuscular volume ) determinationOrdered By: Dotty Olson on 02-18-2025 MCV (RBC) [Entitic vol] 85.3 fL 81-99 [facility] Mean corpuscular hemoglobin (MCH) determinationOrdered By: Dotty Olson on 02-18-2025 MCH (RBC) [Entitic mass] 28.2 pg 27.0-32.0 [facility] Mean corpuscular hemoglobin concentration (MCHC) determinationOrdered By: Dotty Olson on 02-18-2025 MCHC (RBC) [Mass/Vol] 33.1 g/dL 32-36 [facility] Mean platelet volume determi nationOrdered By: Dotty Olson on 02-18-2025 Platelet mean volume (Bld) [Entitic vol] 9.0 fL 6.2-12.0 [facility] Monocyte percentageOrdered B y: Dotty Olson on 02-18-2025 Monocytes/100 WBC (Bld) 5.9 % 0-10 [facility] Neutrophil percentageOrdered By: Dotty Olson on 02-18-2025 Neutrophils/100 WBC (Bld) 74.0 % High 47-70 [facility] No Panel InformationOrdered By: Dotty Olson on 02-18-2025 HIV (1&2) Antibody Non-Reactive Nonreactive [facility] Comment on above: Non-ReactiveReactive Repeatedly reactive samples must be confirmed according to CDC recommended confirmatory algorithms. The subresults for either HIVAG or AHIV can be used as an aid in the selection of the confirmation algorithm for reactive samples.Send out specimens with Reactive results to [facility] for confirmation.Order the HIV antibody detection and differentiation: #[id number] Nucleated red blood cell per centageOrdered By: Dotty Olson on 02-18-2025 Nucleated RBC/100 WBC (Bld) [Ratio] 0 % 0-5 [facility] Visit Reporton 02-18-2025 [facility] Visit Report [facility] [address], [address] [place] [address] OFFICE VISIT Date of Service: 02/18/25 MR#: [id number] Acct: [id number] Name: NATHANAEL MOSCOSO Rep #: [id number] : 1995 Provider: FUNMI Doe ams Age/Sex: 29/F Location: [facility] Status: Signed Intake Vital Signs 12/24/24 08:27 01/21/25 09:31 02/18/25 09:49 Height 5 ft 6.5 in 5 ft 6.5 in 5 ft 6.5 in Weight: 199 lb 8 oz BMI 31.7 BP 113/76 Intake Visit Reasons: 26wk ob *25w6d Chief Complaint: 26 wk OB Switch Engineer Required: No Is patient in pain?: No Allergies No Known Allergies Allergy (Verified 02/18/25 09:47) Medications ???Medication ???Instructions ???Recorded ???Confirmed ???Type PNV no.151-iron 27 mg-folic 800 1 cap PO DAILY 08/29/22 02/18/25 History mcg-omega3 260 fs-ehd-syt-fish capsule omega-3 fatty acids 1,000 mg 2,000 [...] 1 current occupational status: 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 Date Name GA/Weeks Outcome Route Bth Weight Gen Labor Lgth Anesthesia Del Locatn Provider FOB 03/30/23 Maximus 40 live - full term 8lbs 3oz Male epidural [facility] D regine Hernandez [place] Delivery Date: 03/30/23 [...] M дмитрий (more content not included)... Normal [facility] Platelet countOrdered By: Joel Olson on 02-18-2025 Platelets (Bld) [#/Vol] 324 10*3/uL 150-450 [facility] RBC Auto (Bld) [#/Vol]Ordere d By: Dotty Olson on 02-18-2025 RBC (Bld) [#/Vol] 4.36 10*6/uL 4.2-5.4 [facility] Syphilis Antibodieson 2024 Syphilis Abs Non-Reactive Normal Nonreactive [facility] Comment on above: Performed By: #### L 3890.6006, L100.0100, L501.0250, L509.8002 ####[facility] [address] [place], [address] White blood cell (WBC) count Ordered By: Dotty Olson on 02-18-2025 WBC (Bld) [#/Vol] 10.1 10*3/uL 4.4-11.0 [facility] Laboratory - Chemistry and C hemistry - challengeOrdered By: Dotty Olson on 01-21-2025 Glucose Ql (U) Negative [facility] Laboratory - UrinalysisOrder ed By: Dotty Olson on 01-21-2025 Protein Ql (U) Negative [facility] Visit Reporton 01-21-2025 [facility] Visit Report [facility] [address], [address] [place] [address] OFFICE VISIT Date of Service: 01/21/25 MR#: [id number] Acct: [id number] Name: NATHANAEL MOSCOSO Rep #: [id number] : 1995 Provider: Dr. Dotty Will DO Age/Sex: 29/F Location[place] [facility] Status: Signed Intake Vital Signs 12/24/24 08:27 01/21/25 09:30 01/21/25 09:31 Height 5 ft 6.5 in 5 ft 6.5 in 5 ft 6.5 in Weight: 197 lb 8 oz BMI 31.4 BP 108/68 Intake Visit Reasons: 22 wk ob Switch Engineer Required: No Is patient in pain?: No Allergies No Known Allergies Allergy (Verified 01/21/25 09:30) Medications ???Medication ???Instructions ???Recorded ???Confirmed ???Type PNV no.151-iron 27 mg-folic 800 1 cap PO DAILY 08/29/22 01/21/25 History mcg-omega3 260 ty-xkb-nbk-fish capsule omega-3 fatty acids 1,000 mg 2,000 [...] 1 current occupational status: 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 Date Name GA/Weeks Outcome Route Bth Weight Infant Gen Labor Lgth Anesthesia Del Locatn Provider FOB 03/30/23 Maximus 40 live - full term 8lbs 3oz Male epidural [facility] D regine [facility] Delivery Date: [...] tomorrow 01/21/ (more content not included)... Normal [facility] Laboratory - Chemistry and C hemistry - challengeOrdered By: Pearl Calderon on 12-24-2024 Glucose Ql (U) Negative [facility] Laboratory - UrinalysisOrder ed By: Pearl Calderon on 12-24-2024 Protein Ql (U) Negative [facility] Visit Reporton 12-24-2024 [facility] Visit Report [facility] [address], [address] [place] [address] OFFICE VISIT Date of Service: 12/24/24 MR#: [id number] Acct: [id number] Name: NATHANAEL MOSCOSO Rep #: [id number] : 1995 Provider: JUNIOR lopez Age/Sex: 29/F Location: [facility] Status: Signed Intake Vital Signs 11/26/24 11:29 12/24/24 08:27 Height 5 ft 6.5 in 5 ft 6.5 in Weight: 192 lb 6 oz BMI 30.6 BP 120/72 Intake Visit Reasons: 18wk ob Chief Complaint: 18 Week OB Switch Engineer Required: No Is patient in pain?: No Allergies No Known Allergies Allergy (Verified 12/24/24 08:26) Medications ???Medication ???Instructions ???Recorded ???Confirmed ???Type PNV no.151-iron 27 mg-folic 800 1 cap PO DAILY 08/29/22 12/24/24 History mcg-omega3 260 vc-xcp-gaw-fish capsule omega-3 fatty acids 1,000 mg 2,000 [...] 1 current occupational status: 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 Date Name GA/Weeks Outcome Route Bth Weight Infant Gen Labor Lgth Anesthesia Del Locatn Provider FOB 03/30/23 Maximus 40 live - full term 8lbs 3oz Male epidural [facility] Fredy Hernandez [place] Delivery Date: 03/30/23 Last [...] ACOG Fi (more content not included)... Normal [facility] Visit Reporton 11-26-2024 [facility] Visit Report [facility] [address], [address] [place] [address] OFFICE VISIT Date of Service: 11/26/24 MR#: [id number] Acct: [id number] Name: NATHANAEL MOSCOSO Rep #: [id number] : 1995 Provider: Dr. Goldie elizondo MD Age/Sex: 29/F Location: [facility] Status: Signed Intake Vital Signs 05/21/24 11:22 11/26/24 11:29 Height 5 ft 6.5 in 5 ft 6.5 in Weight: 189 lb 4 oz BMI 30.0 BP 129/78 H Intake Visit Reasons: 14wk OB Switch Engineer Required: No Is patient in pain?: No Feel stressed/tense/nervous/ anxious/difficulty sleeping: not at all Allergies No Known Allergies Allergy (Verified 11/26/24 11:30) Medications ???Medication ???Instructions ???Recorded ???Confirmed ???Type PNV no.151-iron 27 mg-folic 800 1 cap PO DAILY 08/29/22 11/26/24 History mcg-omega3 260 gv-lcr-thf-fish capsule omega-3 fatty acids 1,000 mg 2,000 [...] 1 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 Normal [facility] Chlamydia/GC MINH aptimaon CHLAMY,NUC ACID Negative Normal Negative [facility] Comment on above: Performed By: #### L 7000.1800, M1.0 ####[facility] [address] [place], [place], [id number] GC BY NUC ACID Negative Normal Negative [facility] Comment on above: Performed By: #### L 7000.1800, M100.2200 ####[facility] [address] [place], [address] Urine Cultureon 10-25-2024 URC Culture exhibits no growth. Normal [facility] Comment on above: Performed By: #### L 0.1800, M100.2200 #### [facility] Laboratory [address] [place], [address] Absolute lymphocyte countOrd ered By: Tammi Nieves on 10-24-2024 Lymphocytes Auto (Unsp spec) [#/Vol] 1.45 10*3/uL 0.83-4.51 [facility] Absolute neutrophil countOrd ered By: Tammi Nieves on 10-24-2024 Neutrophils (Bld) [#/Vol] 7.3 10*3/uL 2.0-7.7 [facility] Automated lymphocyte count a s percentage of total leukocytesOrdered By: Tammi Ezequiel on 10-24-2024 Lymphocytes/100 WBC Auto (Unsp spec) 14.8 % Low 19-41 [facility] Basophil percentageOrdered B y: Tammi Nieves on 10-24-2024 Basophils/100 WBC (Bld) 0.4 % 0-1 [facility] CBC W/Diff, Automatedon 10-02 Absolute Lymph 1.45 X10 3/uL Normal 0.83-4.51 [facility] Comment on above: Performed By: #### L 509.8000, L501.9985, L3890.6300, L3890.6100, L509.4005, BTS, L100.0100, L3890.6005 ####[facility] [address] [place], [address] Absolute Neut 7.3 X10 3/uL Normal 2.0-7.7 [facility] Comment on above: Performed By: #### L 509.8000, L501.9985, L3890.6300, L3890.6100, L509.4005, BTS, L100.0100, L3890.6005 ####[facility] [address] [place], [address] Basophils/100 WBC (Bld) 0.4 % Normal 0-1 [facility] Comment on above: Performed By: #### L 509.8000, L501.9985, L3890.6300, L3890.6100, L509.4005, BTS, L100.0100, L3890.6005 ####[facility] [address] [place], [address] Eosinophils/100 WBC (Bld) 2.9 % Normal 0-5 [facility] Comment on above: Performed By: #### L 509.8000, L501.9985, L3890.6300, L3890.6100, L509.4005, BTS, L100.0100, L3890.6005 ####[facility] [address] [place], [address] Erythrocyte distribution width (RBC) [Ratio] 13.2 % Normal 11.6-14.6 [facility] Comment on above: Performed By: #### L 509.8000, L501.9985, L3890.6300, L3890.6100, L509.4005, BTS, L100.0100, L3890.6005 ####[facility] [address] [place], [address] Hematocrit (Bld) [Volume fraction] 39.6 % Normal 37-47 [facility] Comment on above: Performed By: #### L 509.8000, L501.9985, L3890.6300, L3890.6100, L509.4005, BTS, L100.0100, L3890.6005 ####[facility] [address] [place], [address] Hemoglobin (Bld) [Mass/Vol] 13.1 g/dL Normal 12.0-15.0 [facility] Comment on above: Performed By: #### L 509.8000, L501.9985, L3890.6300, L3890.6100, L509.4005, BTS, L100.0100, L3890.6005 ####[facility] [address] [place], [address] IG% 0.700 Normal 0.0-0.9 [facility] Comment on above: Result Comment: IG% - Immature Granulocytes (promyelocytes, myelocytes and metamyelocytes) > 1% indicates that a LEFT SHIFT is Present. Performed By: #### L 509.8000, L501.9985, L3890.6300, L3890.6100, L509.4005, BTS, L100.0100, L3890.6005 ####[facility] [address] [place], [address] Lymphocytes/100 WBC (Bld) 14.8 % Low 19-41 [facility] Comment on above: Performed By: #### L 509.8000, L501.9985, L3890.6300, L3890.6100, L509.4005, BTS, L100.0100, L3890.6005 ####[facility] [address] [place], [address] MCH (RBC) [Entitic mass] 27.3 pg Normal 27.0-32.0 [facility] Comment on above: Performed By: #### L 509.8000, L501.9985, L3890.6300, L3890.6100, L509.4005, BTS, L100.0100, L3890.6005 ####[facility] [address] [place], [address] MCHC (RBC) [Mass/Vol] 33.1 g/dL Normal 32-36 [facility] Comment on above: Performed By: #### L 509.8000, L501.9985, L3890.6300, L3890.6100, L509.4005, BTS, L100.0100, L3890.6005 ####[facility] [address] [place], [address] MCV (RBC) [Entitic vol] 82.7 fL Normal 81-99 [facility] Comment on above: Performed By: #### L 509.8000, L501.9985, L3890.6300, L3890.6100, L509.4005, BTS, L100.0100, L3890.6005 ####[facility] [address] [place], [address] Monocytes/100 WBC (Bld) 6.9 % Normal 0-10 [facility] Comment on above: Performed By: #### L 509.8000, L501.9985, L3890.6300, L3890.6100, L509.4005, BTS, L100.0100, L3890.6005 ####[facility] [address] [place], [address] Neutrophils/100 WBC (Bld) 74.3 % High 47-70 [facility] Comment on above: Performed By: #### L 509.8000, L501.9985, L3890.6300, L3890.6100, L509.4005, BTS, L100.0100, L3890.6005 ####[facility] [address] [place], [address] Nucleated RBC (Bld) [#/Vol] 0 10*3/uL Normal 0-5 [facility] Comment on above: Performed By: #### L 509.8000, L501.9985, L3890.6300, L3890.6100, L509.4005, BTS, L100.0100, L3890.6005 ####[facility] [address] [place], [address] Platelet mean volume (Bld) [Entitic vol] 8.6 fL Normal 6.2-12.0 [facility] Comment on above: Performed By: #### L 509.8000, L501.9985, L3890.6300, L3890.6100, L509.4005, BTS, L100.0100, L3890.6005 ####[facility] [address] [place], [address] Platelets (Bld) [#/Vol] 358 10*3/uL Normal 150-450 [facility] Comment on above: Performed By: #### L 509.8000, L501.9985, L3890.6300, L3890.6100, L509.4005, BTS, L100.0100, L3890.6005 ####[facility] [address] [place], [address] RBC (Bld) [#/Vol] 4.79 10*6/uL Normal 4.2-5.4 [facility] Comment on above: Performed By: #### L 509.8000, L501.9985, L3890.6300, L3890.6100, L509.4005, BTS, L100.0100, L3890.6005 ####[facility] [address] [place], [address] RDW SD 39.6 fl Normal 35.1-43.9 [facility] Comment on above: Performed By: #### L 509.8000, L501.9985, L3890.6300, L3890.6100, L509.4005, BTS, L100.0100, L3890.6005 ####[facility] [address] [place], [address] WBC (Bld) [#/Vol] 9.8 10*3/uL Normal 4.4-11.0 [facility] Comment on above: Performed By: #### L 509.8000, L501.9985, L3890.6300, L3890.6100, L509.4005, BTS, L100.0100, L3890.6005 ####[facility] [address] [place], [address] Chlamydia trachomatis rRNA d etection by probe and target amplification methodOrdered By: Tammi Nieves on 10-24-2024 C. trachomatis rRNA MINH+probe Ql (Unsp spec) Negative Negative [facility] Eosinophil percentageOrdered By: Tammi Nieves on 10-24-2024 Eosinophils/100 WBC (Bld) 2.9 % 0-5 [facility] Erythrocyte distribution wid th ratioOrdered By: Tammi Nieves on 10-24-2024 Erythrocyte distribution width (RBC) [Ratio] 13.2 % 11.6-14.6 [facility] Erythrocyte distribution wid th standard deviationOrdered By: Tammi Nieves on 10-24-2024 Erythrocyte distribution width (RBC) [Ratio] 39.6 fl 35.1-43.9 [facility] HIV - WCHon 10-24-2024 HIV Non-Reactive Normal Nonreactive [facility] Comment on above: Order Comment: Reaso n for Exam: Performed By: #### L 509.8000, L501.9985, L3890.6300, L3890.6100, L509.4005, BTS, L100.0100, L3890.6005 ####[facility] [address] [place], [place], [id number] HIV 1 and HIV-2 antibody ass ay with HIV-1 p24 antigen detectionOrdered By: Tammi Nieves on 10-24-2024 HIV 1+2 Ab+HIV1 p24 Ag IA Ql Non-Reactive Nonreactive [facility] Hematocrit Auto (Bld) [Volum e fraction]Ordered By: Tammi Nieves on 10-24-2024 Hematocrit (Bld) [Volume fraction] 39.6 % 37-47 [facility] Hemoglobin A1con 10-24-2024 HbA1c (Bld) [Mass fraction] 5.2 % Normal 3.8-5.6 [facility] Comment on above: Result Comment: Norm al < 5.7 % Prediabetic 5.7 - 6.4 % Diabetic >or= 6.5 % Please note range changes. Performed By: #### L 509.8000, L501.9985, L3890.6300, L3890.6100, L509.4005, BTS, L100.0100, L3890.6005 ####[facility] [address] [place], [address] Hemoglobin A1c percentageOrd ered By: Tammi Nieves on 10-24-2024 HbA1c (Bld) [Mass fraction] 5.2 % 3.8-5.6 [facility] Comment on above: Normal < 5.7 % Predi abetic 5.7 - 6.4 % Diabetic >or= 6.5 % Please note range changes. Hemoglobin measurementOrdere d By: Tammi Nieves on 10-24-2024 Hemoglobin (Bld) [Mass/Vol] 13.1 g/dL 12.0-15.0 [facility] Hepatitis B Surface Antigeno n 10-24-2024 HEP B Surf Ag Non-Reactive Normal Nonreactive [facility] Comment on above: Order Comment: Reaso n for Exam: Performed By: #### L 509.8000, L501.9985, L3890.6300, L3890.6100, L509.4005, BTS, L100.0100, L3890.6005 ####[facility] [address] [place], [address] Hepatitis C Antibodyon 10-24 Hepatitis C AB Non-Reactive Normal Nonreactive [facility] Comment on above: Order Comment: Reaso n for Exam: Result Comment: Non Reactive: < 0.8 Equivocal: >/= 0.8 to < 1.0 Reactive: >/= 1.0 The CDC requires that a reactive/equivocal HCV antibody result be sent out for confirmation. HCV Quant by PCR testing. Performed By: #### L 509.8000, L501.9985, L3890.6300, L3890.6100, L509.4005, BTS, L100.0100, L3890.6005 ####[facility] [address] [place], [address] Immature granulocytes/100 WB C Auto (Bld)Ordered By: Tammi Nieves on 10-24-2024 Immature granulocytes/100 WBC (Bld) 0.700 % 0.0-0.9 [facility] Comment on above: IG% - Immature Granu locytes (promyelocytes, myelocytes and metamyelocytes) > 1% indicates that a LEFT SHIFT is Present. L509.8000on 10-24-2024 Syphilis Abs Non-Reactive Normal [facility] Comment on above: Order Comment: Marlao n for Exam: Performed By: #### L 509.8000, L501.9985, L3890.6300, L3890.6100, L509.4005, BTS, L100.0100, L3890.6005 ####[facility] [address] [place], [address] MCV (mean corpuscular volume ) determinationOrdered By: Tammi Nieves on 10-24-2024 MCV (RBC) [Entitic vol] 82.7 fL 81-99 [facility] Mean corpuscular hemoglobin (MCH) determinationOrdered By: Tammi Nieves on 10-24-2024 MCH (RBC) [Entitic mass] 27.3 pg 27.0-32.0 [facility] Mean corpuscular hemoglobin concentration (MCHC) determinationOrdered By: Tammi Nieves on 10-24-2024 MCHC (RBC) [Mass/Vol] 33.1 g/dL 32-36 [facility] Mean platelet volume determi nationOrdered By: Tammi Nieves on 10-24-2024 Platelet mean volume (Bld) [Entitic vol] 8.6 fL 6.2-12.0 [facility] Monocyte percentageOrdered B y: Tammi Nieves on 10-24-2024 Monocytes/100 WBC (Bld) 6.9 % 0-10 [facility] Neisseria gonorrhoeae nuclei c acid detection by amplified probe techniqueOrdered By: Tammi Nieves on 10-24-2024 N. gonorrhoeae DNA MINH+probe Ql (Unsp spec) Negative Negative [facility] Neutrophil percentageOrdered By: Tammi Nieves on 10-24-2024 Neutrophils/100 WBC (Bld) 74.3 % High 47-70 [facility] Nucleated red blood cell per centageOrdered By: Tammi Nieves on 10-24-2024 Nucleated RBC/100 WBC (Bld) [Ratio] 0 % 0-5 [facility] Reporton 10-24-2024 [facility] Visit Report [facility] [address] [place] [address], [address] [place] [address] OFFICE VISIT Date of Service: 10/24/24 MR#: [id number] Acct: [id number] Name: NATHANAEL MOSCOSO Rep #: [id number] : 1995 Provider: FUNMI Doe ams Age/Sex: 29/F Location: [facility] Status: Signed Intake Vital Signs 05/21/24 11:22 10/24/24 08:58 10/24/24 08:58 Height 5 ft 6.5 in 5 ft 6.5 in Weight: 184 lb BMI 29.2 BP 116/70 Intake Visit Reasons: NOB LMP 08/07 Switch Engineer Required: No Is patient in pain?: No Allergies No Known Allergies Allergy (Verified 10/24/24 08:58) Medications ???Medication ???Instructions ???Recorded ???Confirmed ???Type PNV no.151-iron 27 mg-folic 800 1 cap PO DAILY 08/29/22 10/24/24 History mcg-omega3 260 mi-mzd-bmv-fish capsule omega-3 fatty acids 1,000 mg 2,000 [...] No current occupational status: employed 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 Normal [facility] Platelet countOrdered By: Shorty Nieves on 10-24-2024 Platelets (Bld) [#/Vol] 358 10*3/uL 150-450 [facility] RBC Auto (Bld) [#/Vol]Ordere d By: Tammi Nieves on 10-24-2024 RBC (Bld) [#/Vol] 4.79 10*6/uL 4.2-5.4 [facility] Rubella IgGon 10-24-2024 Rubella IgG Equiv Normal Nonreactive [facility] Comment on above: Order Comment: Reaso n for Exam: Result Comment: Anti body Results Interpretation of Immune Status Non Reactive Presumed Non-Immune Equivocal Equivocal Reactive Presumed Immune Performed By: #### L 509.8000, L501.9985, L3890.6300, L3890.6100, L509.4005, BTS, L100.0100, L3890.6005 ####[facility] [address] [place], [address] Serum Treponema species anti body detectionOrdered By: Tammi Nieves on 10-24-2024 Treponema sp Ab Ql (S) Non-Reactive [facility] Type AND Screenon 10-24-2024 ABO and Rh group Nom (Bld) Blood group A Rh(D) positive Normal [facility] Comment on above: Order Comment: PN Performed By: #### L 509.8000, L501.9985, L3890.6300, L3890.6100, L509.4005, BTS, L100.0100, L3890.6005 ####[facility] [address] [place], [address] Urine cultureOrdered By: Dave Nieves on 10-24-2024 Bacteria identified Cx Nom (U) Culture exhibits no growth. [facility] White blood cell (WBC) count Ordered By: Tammi Nieves on 10-24-2024 WBC (Bld) [#/Vol] 9.8 10*3/uL 4.4-11.0 [facility] Visit Reporton 05-21-2024 [facility] Visit Report [facility] [address], [address] [place] [address] OFFICE VISIT Date of Service: 05/21/24 MR#: [id number] Acct: [id number] Name: NATHANAEL MOSCOSO Rep #: [id number] : 1995 Provider: JUNIOR Mcleod Age/Sex: 29/F Location: [facility] Status: Signed Intake Vital Signs 05/09/23 13:35 11/22/23 09:15 05/21/24 11:22 Height 5 ft 6 in 5 ft 6.5 in 5 ft 6.5 in Weight: 175 lb BMI 27.8 BP 125/80 H 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 Is patient in pain?: No Allergies No Known Allergies Allergy (Verified 05/21/24 11:24) Medications ???Medication ???Instructions ???Recorded ???Confirmed ???Type PNV no.151-iron 27 mg-folic 800 1 cap PO DAILY 08/29/22 05/21/24 History mcg-omega3 260 zd-dva-fjv-fish capsule cholecalciferol (vitamin D3) 50 50 mcg [...] 1 current occupational status: employed 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 Date Name GA/Weeks Outcome Route Bth Weight Gen Labor Lgth Anesthesia Del Locatn Provider FOB 03/30/23 Maximus 40 live - full term 8lbs 3oz Male epidural [facility] D r. Liz Francis Delivery Date: 03/30/23 [...] and parris (more content not included)... Normal [facility] Bacteria identified Cx Nom ( Wound)Ordered By: Dotty Olson on 05-09-2023 Wound Culture Staphylococcus epidermidis [facility] Gram stain for investigation of transfusion reactionOrdered By: Dotty Olson on 05-09-2023 Microscopic observation Gram stain Nom (Unsp spec) [facility] Glucose Glucometer (BldC) [M ass/Vol]Ordered By: Dottycasandra Olson on 03-31-2023 Glucose [Mass/Vol] 73 mg/dL 74-106 [facility] Comment on above: MANAGEMENT OF PATIEN T CARE PER NURSING PROTOCOL Absolute lymphocyte countOrd ered By: Genet Basurto on 03-30-2023 Lymphocytes Auto (Unsp spec) [#/Vol] 1.38 10*3/uL 0.83-4.51 [facility] Basophil percentageOrdered B y: Genet Basurto on 03-30-2023 Basophils/100 WBC (Bld) 0.5 % 0-1 [facility] Eosinophils/100 WBC (Bld) 0.7 % 0-5 [facility] Neutrophils (Bld) [#/Vol] 6.1 10*3/uL 2.0-7.7 [facility] Neutrophils/100 WBC (Bld) 71.1 % 47-70 [facility] WBC (Bld) [#/Vol] 8.6 10*3/uL 4.4-11.0 [facility] Blood erythrocytes count (nu mber/volume)Ordered By: Genet Basurto on 03-30-2023 RBC (Bld) [#/Vol] 4.34 10*6/uL 4.2-5.4 [facility] Blood hemoglobin measurement (mass/volume)Ordered By: Genet Basurto on 03-30-2023 Hemoglobin (Bld) [Mass/Vol] 12.2 g/dL 12.0-15.0 [facility] Blood lymphocytes/100 leukoc ytesOrdered By: Genet Basurto on 03-30-2023 Lymphocytes/100 WBC (Bld) 16.0 % 19-41 [facility] Blood monocytes/100 leukocyt esOrdered By: Genet Basurto on 03-30-2023 Monocytes/100 WBC (Bld) 9.5 % 0-10 [facility] Blood platelet mean volumeOr dered By: Genet Basurto on 03-30-2023 Platelet mean volume (Bld) [Entitic vol] 8.9 fL 6.2-12.0 [facility] Determination of erythrocyte mean corpuscular volume (MCV)Ordered By: Genet Basurto on 03-30-2023 MCV (RBC) [Entitic vol] 83.9 fL 81-99 [facility] Hematocrit Auto (Bld) [Volum e fraction]Ordered By: Genet Basurto on 03-30-2023 Hematocrit (Bld) [Volume fraction] 36.4 % 37-47 [facility] Laboratory - Hematology and Cell countsOrdered By: Genet Basurto on 03-30-2023 Erythrocyte distribution width (RBC) [Entitic vol] 41.5 fL 35.1-43.9 [facility] Erythrocyte distribution width (RBC) [Ratio] 13.5 % 11.6-14.6 [facility] Immature granulocytes/100 WBC (Bld) 2.200 % 0.0-0.9 [facility] Comment on above: IG% - Immature Granu locytes (promyelocytes, myelocytes and metamyelocytes) > 1% indicates that a LEFT SHIFT is Present. MCH (RBC) [Entitic mass] 28.1 pg 27.0-32.0 [facility] Nucleated RBC/100 WBC (Bld) [Ratio] 0 % 0-5 [facility] MCHC Auto (RBC) [Mass/Vol]Or dered By: Genet Basurto on 03-30-2023 MCHC (RBC) [Mass/Vol] 33.5 g/dL 32-36 [facility] Platelets bldOrdered By: Liberty Basurto on 03-30-2023 Platelets (Bld) [#/Vol] 268 10*3/uL 150-450 [facility] Serum Treponema species anti body detectionOrdered By: Genet Basurto on 03-30-2023 Treponema sp Ab Ql (S) Non-Reactive [facility] Laboratory - Chemistry and C hemistry - challengeon 03-28-2023 Glucose Ql (U) Negative [facility] Laboratory - Urinalysison Protein Ql (U) Negative [facility] Absolute lymphocyte countOrd ered By: Tammi Nieves on 03-24-2023 Lymphocytes Auto (Unsp spec) [#/Vol] 1.55 10*3/uL 0.83-4.51 [facility] Basophil percentageOrdered B y: Tammi Nieves on 03-24-2023 Amylase [Catalytic activity/Vol] 115 U/L 25-115 [facility] Basophils/100 WBC (Bld) 0.6 % 0-1 [facility] Bilirubin [Mass/Vol] 0.30 mg/dL 0.20-1.00 [facility] Comment on above: For patients on eltr ombopag therapy, use of Dimension Dixon TBIL is not recommended. Chloride [Moles/Vol] 107 mmol/L 98-107 [facility] Eosinophils/100 WBC (Bld) 0.2 % 0-5 [facility] Glucose [Mass/Vol] 119 mg/dL 74-106 [facility] Comment on above: Fasting Glucose resu lt from 100 to 125 mg/dL suggests IMPAIRED HOMEOSTASIS per A.D.A. criteria. Neutrophils (Bld) [#/Vol] 10.5 10*3/uL 2.0-7.7 [facility] Neutrophils/100 WBC (Bld) 80.2 % 47-70 [facility] Potassium [Moles/Vol] 3.3 mmol/L 3.5-5.1 [facility] Protein [Mass/Vol] 7.1 g/dL 6.4-8.2 [facility] Sodium [Moles/Vol] 138 mmol/L 136-145 [facility] WBC (Bld) [#/Vol] 13.1 10*3/uL 4.4-11.0 [facility] Bilirubin Test strip Ql (U)O rdered By: Tammi Nieves on 03-24-2023 Bilirubin Ql (U) Negative Negative [facility] Blood erythrocytes count (nu mber/volume)Ordered By: Tammi Nieves on 03-24-2023 RBC (Bld) [#/Vol] 4.79 10*6/uL 4.2-5.4 [facility] Blood hemoglobin measurement (mass/volume)Ordered By: Tammi Nieves on 03-24-2023 Hemoglobin (Bld) [Mass/Vol] 13.1 g/dL 12.0-15.0 [facility] Blood lymphocytes/100 leukoc ytesOrdered By: Tammi Nieves on 03-24-2023 Lymphocytes/100 WBC (Bld) 11.9 % 19-41 [facility] Blood monocytes/100 leukocyt esOrdered By: Tammi Nieves on 03-24-2023 Monocytes/100 WBC (Bld) 4.7 % 0-10 [facility] Blood platelet mean volumeOr dered By: Tammi Nieves on 03-24-2023 Platelet mean volume (Bld) [Entitic vol] 9.2 fL 6.2-12.0 [facility] Culture, urineOrdered By: Shorty Nieves on 03-24-2023 Bacteria identified Cx Nom (U) Mixed Gram Pos & Gram Neg Org [facility] Determination of erythrocyte mean corpuscular volume (MCV)Ordered By: Tammi Nieves on 03-24-2023 MCV (RBC) [Entitic vol] 86.2 fL 81-99 [facility] Hematocrit Auto (Bld) [Volum e fraction]Ordered By: Tammi Nieves on 03-24-2023 Hematocrit (Bld) [Volume fraction] 41.3 % 37-47 [facility] Ketones Test strip Ql (U)Ord ered By: Tammi Nieves on 03-24-2023 Ketones Ql (U) 150 mg/dl Negative [facility] Comment on above: CRITICAL VALUE *HCRI TICAL VALUE VERIFIED. CALLED TO Fariha MITCHELL RN WP03/25/23 0051 Tristan Gutiérrez.RESULTS READ BACK BY SAME. Laboratory - Chemistry and C hemistry - challengeOrdered By: Tammi Nieves on 03-24-2023 ALP [Catalytic activity/Vol] 127 U/L 45-117 [facility] ALT [Catalytic activity/Vol] 29 U/L 13-56 [facility] CO2 [Moles/Vol] 24.0 mmol/L 21.0-32.0 [facility] Globulin (S) [Mass/Vol] 3.9 g/dL 2.2-4.2 [facility] Lipase [Catalytic activity/Vol] 47 U/L 13-75 [facility] Comment on above: Please note:LIPASE r evised reference range effective 23. New Lipase methodology. Expected to produce lower values than the previous assay method. NEW Reference Range: 13 - 75 U/L Urea nitrogen/Creatinine [Mass ratio] 12.6 mg/mg 10-20 [facility] Laboratory - Hematology and Cell countsOrdered By: Tammi Nieves on 03-24-2023 Erythrocyte distribution width (RBC) [Entitic vol] 42.7 fL 35.1-43.9 [facility] Erythrocyte distribution width (RBC) [Ratio] 13.8 % 11.6-14.6 [facility] Immature granulocytes/100 WBC (Bld) 2.400 % 0.0-0.9 [facility] Comment on above: IG% - Immature Granu locytes (promyelocytes, myelocytes and metamyelocytes) > 1% indicates that a LEFT SHIFT is Present. MCH (RBC) [Entitic mass] 27.3 pg 27.0-32.0 [facility] [place] Nucleated RBC/100 WBC (Bld) [Ratio] 0 % 0-5 [facility] [place] MCHC Auto (RBC) [Mass/Vol]Or dered By: Tammi Nieves on 03-24-2023 MCHC (RBC) [Mass/Vol] 31.7 g/dL 32-36 [facility] Nitrite Test strip Ql (U)Ord ered By: Tammi Nieves on 03-24-2023 Nitrite Ql (U) Negative Negative [facility] [place] No Panel InformationOrdered By: Tammi Nieves on 03-24-2023 Estimated Creatinine Clearance Calc 124.70 ml/min [facility] [place] Estimated GFR (MDRD) Amer 144 mL/min >60 [facility] [place] Comment on above: GFR Calc Estimated GFR (MDRD) Non-Af Amer 119 mL/min >60 [facility] [place] Comment on above: Non- GFR Calc Platelets bldOrdered By: Dave Nieves on 03-24-2023 Platelets (Bld) [#/Vol] 280 10*3/uL 150-450 [facility] [place] Protein Test strip Ql (U)Ord ered By: Tammi Nieves on 03-24-2023 Protein Ql (U) 30 mg/dl Negative [facility] [place] Serum or plasma albumin sarmad urement (mass/volume)Ordered By: Tammi Nieves on 03-24-2023 Albumin [Mass/Vol] 3.2 g/dL 3.2-5.0 [facility] Serum or plasma albumin/glob ulin mass ratioOrdered By: Tammi Nieves on 03-24-2023 Albumin/Globulin [Mass ratio] 0.8 {ratio} 0.9-2.4 [facility] [place] Serum or plasma calcium sarmad urement (mass/volume)Ordered By: Tammi Nieves on 03-24-2023 Calcium [Mass/Vol] 9.3 mg/dL 8.5-10.1 [facility] Serum or plasma creatinine m easurement (mass/volume)Ordered By: Tammi Nieves on 03-24-2023 Creatinine [Mass/Vol] 0.64 mg/dL 0.55-1.02 [facility] Comment on above: The validity of the calculated GFR & GFRAA in patients over 70 years has not been determined. Clinical correlation is essential. Serum or plasma urea nitroge n measurement (mass/volume)Ordered By: Tammi Nieves on 03-24-2023 Urea nitrogen [Mass/Vol] 8 mg/dL 7-18 [facility] [place] Thin prep Papanicolaou smear with manual screeningOrdered By: Tammi Nieves on 03-24-2023 Thin prep Papanicolaou smear with manual screening 20 U/L 15-37 [facility] [place] Thin prep Papanicolaou smear with manual screening 7 5-15 [facility] [place] Urine blood detectionOrdered By: Tammi Nieves on 03-24-2023 RBC Ql (U) 10 /ul Negative [facility] [place] Urine clarityOrdered By: Dave Nieves on 03-24-2023 Clarity (U) Clear Clear [facility] [place] Urine color determinationOrd ered By: Tammi Nieves on 03-24-2023 Color (U) Yellow Yellow [facility] [place] Urine glucose detectionOrder ed By: Tammi Nieves on 03-24-2023 Glucose Ql (U) Normal mg/dl Normal [facility] [place] Urine leukocyte esterase det ection by dipstickOrdered By: Tammi Nieves on 03-24-2023 Leukocyte esterase Test strip Ql (U) 25 /ul Negative [facility] [place] Urine pHOrdered By: Tammi tavera on 03-24-2023 pH (U) 6.5 [pH] 5.0 - 8.0 [facility] [place] Urine specific gravity measu rementOrdered By: Tammi Nieves on 03-24-2023 Specific gravity (U) [Rel density] 1.020 1.002-1.030 [facility] [place] Urobilinogen Auto test strip Ql (U)Ordered By: Tammi Nieves on 03-24-2023 Urobilinogen Ql (U) Normal mg/dl Normal [facility] Laboratory - Chemistry and C hemistry - challengeon 03-20-2023 Glucose Ql (U) Negative [facility] [place] Laboratory - Urinalysison Protein Ql (U) Negative [facility] [place] Laboratory - Chemistry and C hemistry - challengeon 03-15-2023 Glucose Ql (U) Negative [facility] [place] Laboratory - Urinalysison Protein Ql (U) Negative [facility] [place] No Panel InformationOrdered By: Dr. Ng on 03-08-2023 Group B Streptococcus Culture Group B Beta Streptococcus is not isolated. [facility] [place] No Panel InformationOrdered By: Goldie Ng on 03-05-2023 Group B Streptococcus Culture Group B Beta Streptococcus is not isolated. [facility] [place] Laboratory - Chemistry and C hemistry - challengeon 02-22-2023 Glucose Ql (U) Negative [facility] [place] Laboratory - Urinalysison Protein Ql (U) Negative [facility] [place] Laboratory - Chemistry and C hemistry - challengeon 02-06-2023 Glucose Ql (U) Negative [facility] [place] Laboratory - Urinalysison Protein Ql (U) Negative [facility] [place] Quantitative serum or plasma 3 hour gestational glucose tolerance panelOrdered By: Genet Basurto on 01-11-2023 Glucose tolerance 3 hours gestational panel See comment [facility] [place] Comment on above: FASTING 85 Col: 12/30 [...] Auto (Unsp spec) [#/Vol] 1.95 10*3/uL 0.83-4.51 [facility] [place] Basophil percentageOrdered B y: Dr. Ng on 01-08-2023 Basophil percentage Not Reportable [facility] Basophil percentage 1 % 0-5 [facility] Neutrophils (Bld) [#/Vol] 10.1 10*3/uL 2.0-7.7 [facility] [place] WBC (Bld) [#/Vol] 12.8 10*3/uL 4.4-11.0 [facility] Blood band neutrophil count as percentage of total leukocytesOrdered By: Dr. Ng on 01-08-2023 Band form neutrophils/100 WBC (Bld) 6 % 0-5 [facility] [place] Blood erythrocytes count (nu mber/volume)Ordered By: Dr. Ng on 01-08-2023 RBC (Bld) [#/Vol] 4.30 10*6/uL 4.2-5.4 [facility] Blood hemoglobin measurement (mass/volume)Ordered By: Dr. Ng on 01-08-2023 Hemoglobin (Bld) [Mass/Vol] 12.0 g/dL 12.0-15.0 [facility] [place] Blood lymphocytes/100 leukoc ytesOrdered By: Dr. Ng on 01-08-2023 Lymphocytes/100 WBC (Bld) 15 % 19-41 [facility] [place] Blood monocytes/100 leukocyt esOrdered By: Dr. Ng on 01-08-2023 Monocytes/100 WBC (Bld) 2 % 0-10 [facility] Blood platelet adequacy dete ction by light microscopyOrdered By: Dr. Ng on 01-08-2023 Platelets LM Ql (Bld) ADEQUATE ADEQ [facility] Blood platelet mean volumeOr dered By: Dr. Ng on 01-08-2023 Platelet mean volume (Bld) [Entitic vol] 8.3 fL 6.2-12.0 [facility] [place] Blood segmented neutrophils/ [address]: [address] Ng on 01-08-2023 Segmented neutrophils/100 WBC (Bld) 73 % 47-70 [facility] [place] Determination of erythrocyte mean corpuscular volume (MCV)Ordered By: Dr. Ng on 01-08-2023 MCV (RBC) [Entitic vol] 86.7 fL 81-99 [facility] Gestational diabetes screen 1-hour screen with 50g oral glucose loadOrdered By: Dr. gN on 01-08-2023 Glucose 1 Hr post 50 g glucose PO [Mass/Vol] 162 mg/dL 70-140 [facility] [place] HIV 1 and HIV-2 antibody ass ay with HIV-1 p24 antigen detectionOrdered By: Dr. Ng on 01-08-2023 HIV 1+2 Ab+HIV1 p24 Ag IA Ql Non-Reactive Nonreactive [facility] [place] Hematocrit Auto (Bld) [Volum e fraction]Ordered By: Dr. Ng on 01-08-2023 Hematocrit (Bld) [Volume fraction] 37.3 % 37-47 [facility] [place] Laboratory - Chemistry and C hemistry - challengeon 01-08-2023 Glucose Ql (U) Negative [facility] [place] Laboratory - Hematology and Cell countsOrdered By: Dr. Ng on 01-08-2023 Erythrocyte distribution width (RBC) [Entitic vol] 42.6 fL 35.1-43.9 [facility] [place] Erythrocyte distribution width (RBC) [Ratio] 13.7 % 11.6-14.6 [facility] [place] MCH (RBC) [Entitic mass] 27.9 pg 27.0-32.0 [facility] [place] Myelocytes/100 WBC (Bld) 4 % 0-0 [facility] [place] Laboratory - Urinalysison Protein Ql (U) Negative [facility] [place] MCHC Auto (RBC) [Mass/Vol]Or dered By: Dr. Ng on 01-08-2023 MCHC (RBC) [Mass/Vol] 32.2 g/dL 32-36 [facility] Platelets bldOrdered By: Dr. Ng on 01-08-2023 Platelets (Bld) [#/Vol] 265 10*3/uL 150-450 [facility] [place] RBC morphologyOrdered By: Dr Emerson Ng on 01-08-2023 RBC morphology finding Nom (Bld) NORM C+C NORMAL NORM C&C [facility] [place] Review by pathologistOrdered By: Dr. Ng on 01-08-2023 Pathologist review Karl (Unsp spec) [Interp] Reviewed [facility] [place] Comment on above: Previous reported re sult: Cally melgar Edited by: RGOOD on 01/10/23:1047Neutrophilic leukocytosis with left shift. Clinical correlation necessary.Reynaldo Modi M.D. 01/10/23 AMENDED REPORT 01/10/23 1047 PATH REV previously reported as: January Serum Treponema species anti body detectionOrdered By: Dr. Ng on 01-08-2023 Treponema sp Ab Ql (S) Non-Reactive [facility] [place] Total cell countOrdered By: Dr. gN on 01-08-2023 Cells counted Molgen (Bld/Tiss) [#] 100 MANUAL DIFF [facility] [place] Laboratory - Chemistry and C hemistry - challengeon 12-18-2022 Glucose Ql (U) Negative [facility] [place] Laboratory - Urinalysison Protein Ql (U) Negative [facility] [place] Laboratory - Chemistry and C hemistry - challengeon 11-20-2022 Glucose Ql (U) Negative [facility] [place] Laboratory - Urinalysison Protein Ql (U) Negative [facility] [place] Laboratory - Chemistry and C hemistry - challengeon 10-26-2022 Glucose Ql (U) Negative [facility] [place] Laboratory - Urinalysison Protein Ql (U) Negative [facility] [place] Quantitative serum or plasma 3 hour gestational glucose tolerance panelOrdered By: Pearl Calderon on 10-09-2022 Glucose tolerance 3 hours gestational panel See comment [facility] [place] Comment on above: FASTING 90 Col: 06/23 [...] Auto (Unsp spec) [#/Vol] 1.87 10*3/uL 0.83-4.51 [facility] [place] Basophil percentageOrdered B y: Dr. Ng on 10-02-2022 Basophils/100 WBC (Bld) 0.4 % 0-1 [facility] Eosinophils/100 WBC (Bld) 1.0 % 0-5 [facility] [place] Neutrophils (Bld) [#/Vol] 8.7 10*3/uL 2.0-7.7 [facility] [place] Neutrophils/100 WBC (Bld) 73.2 % 47-70 [facility] [place] WBC (Bld) [#/Vol] 11.8 10*3/uL 4.4-11.0 [facility] Blood erythrocytes count (nu mber/volume)Ordered By: Dr. Ng on 10-02-2022 RBC (Bld) [#/Vol] 4.58 10*6/uL 4.2-5.4 [facility] Blood hemoglobin measurement (mass/volume)Ordered By: Dr. Ng on 10-02-2022 Hemoglobin (Bld) [Mass/Vol] 12.8 g/dL 12.0-15.0 [facility] [place] Blood lymphocytes/100 leukoc ytesOrdered By: Dr. Ng on 10-02-2022 Lymphocytes/100 WBC (Bld) 15.8 % 19-41 [facility] [place] Blood monocytes/100 leukocyt esOrdered By: Dr. Ng on 10-02-2022 Monocytes/100 WBC (Bld) 6.7 % 0-10 [facility] Blood platelet mean volumeOr dered By: Dr. Ng on 10-02-2022 Platelet mean volume (Bld) [Entitic vol] 8.2 fL 6.2-12.0 [facility] [place] Determination of erythrocyte mean corpuscular volume (MCV)Ordered By: Dr. Ng on 10-02-2022 MCV (RBC) [Entitic vol] 83.2 fL 81-99 [facility] Gestational diabetes screen 1-hour screen with 50g oral glucose loadOrdered By: Dr. Ng on 10-02-2022 Glucose 1 Hr post 50 g glucose PO [Mass/Vol] 145 mg/dL 70-140 [facility] [place] HIV 1 and HIV-2 antibody ass ay with HIV-1 p24 antigen detectionOrdered By: Dr. Ng on 10-02-2022 HIV 1+2 Ab+HIV1 p24 Ag IA Ql Non-Reactive Nonreactive [facility] [place] Hematocrit Auto (Bld) [Volum e fraction]Ordered By: Dr. Ng on 10-02-2022 Hematocrit (Bld) [Volume fraction] 38.1 % 37-47 [facility] [place] Laboratory - Hematology and Cell countsOrdered By: Dr. Ng on 10-02-2022 Erythrocyte distribution width (RBC) [Entitic vol] 40.0 fL 35.1-43.9 [facility] [place] Erythrocyte distribution width (RBC) [Ratio] 13.2 % 11.6-14.6 [facility] [place] Immature granulocytes/100 WBC (Bld) 2.900 % 0.0-0.9 [facility] [place] Comment on above: IG% - Immature Granu locytes (promyelocytes, myelocytes and metamyelocytes) > 1% indicates that a LEFT SHIFT is Present. MCH (RBC) [Entitic mass] 27.9 pg 27.0-32.0 [facility] [place] Nucleated RBC/100 WBC (Bld) [Ratio] 0 % 0-5 [facility] [place] MCHC Auto (RBC) [Mass/Vol]Or dered By: Dr. Ng on 10-02-2022 MCHC (RBC) [Mass/Vol] 33.6 g/dL 32-36 [facility] No Panel InformationOrdered By: Dr. Ng on 10-02-2022 Hepatitis B Surface Antigen Non-Reactive Nonreactive [facility] [place] Hepatitis C Antibody Non-Reactive Nonreactive [facility] Comment on above: Non Reactive: < 0.8 Equivocal: >/= 0.8 to < 1.0 Reactive: >/= 1.0The CDC recommends that a reactive/equivocal HCV antibody result be followed up by the HCV Nucleic Acid Amplificationtest (822363) Rubella IgG Antibody Equiv Nonreactive [facility] Comment on above: Antibody Results Int erpretation of Immune Status Non Reactive Presumed Non-Immune Equivocal Equivocal Reactive Presumed Immune Platelets bldOrdered By: Dr. Ng on 10-02-2022 Platelets (Bld) [#/Vol] 354 10*3/uL 150-450 [facility] [place] Serum Treponema species anti body detectionOrdered By: Dr. Ng on 10-02-2022 Treponema sp Ab Ql (S) Non-Reactive [facility] [place] Laboratory - Chemistry and C hemistry - challengeon 09-29-2022 Glucose Ql (U) Negative [facility] [place] Laboratory - Urinalysison Protein Ql (U) Negative [facility] [place] Culture, urineOrdered By: Dr Emerson Ng on 09-02-2022 Bacteria identified Cx Nom (U) Positive [facility] [place] Chlamydia trachomatis rRNA d etection by probe and target amplification methodOrdered By: Dr. Ng on 08-31-2022 C. trachomatis rRNA MINH+probe Ql (Unsp spec) Negative Negative [facility] [place] Laboratory - Drug toxicology Ordered By: Dr. Ng on 08-31-2022 Amphetamines Ql (U) Negative <1000 ng/mL [facility] Benzodiazepines Ql (U) Negative < 200 ng/mL [facility] Cannabinoids Screen Ql (U) Negative < 50 ng/mL [facility] [place] Cocaine Ql (U) Negative < 300 ng/mL [facility] [place] Opiates Ql (U) Negative < 300 ng/mL [facility] [place] Laboratory - Microbiology an d Antimicrobial susceptibilityOrdered By: Dr. Ng on 08-31-2022 N. gonorrhoeae DNA MINH+probe Ql (Unsp spec) Negative Negative [facility] [place] Comment on above: Performed at: =[address] [id number] Director: Abigail Wayne MD, Phone: [phone] No Panel InformationOrdered By: Dr. Ng on 08-31-2022 MDMA (Ecstasy) Screen Negative < 500 ng/mL [facility] Urine Barbiturates Screen Negative < 200 ng/mL [facility] [place] Urine Drug Screen Comment [facility] [place] Comment on above: CONFIRMATORY TESTING FOR ALL [...] Methadone Screen Negative < 300 ng/mL [facility] Urine phencyclidine (PCP) de tectionOrdered By: Dr. Ng on 08-31-2022 Phencyclidine Ql (U) Negative < 25 ng/mL [facility] Culture, urine Bacteria identified Cx Nom (U) Positive [facility] [place] Work Phone: Vital Signs Date Time Vital Sign Value Performing Clinician Radha ackerman 05-18-2025 08:37-0400 Body height 168.91 cm No Primary Care Physician [facility] [place] 05-18-2025 08:37-0400 Body mass index (BMI) [Ratio] 34.4 kg/m2 No Primary Care Physician [facility] [place] 05-18-2025 08:37-0400 Body weight 98.08 kg No Primary Care Physician [facility] [place] 05-18-2025 08:37-0400 Diastolic blood pressure 84 mm[Hg] No Primary Care Physician [facility] [place] 05-18-2025 08:37-0400 Systolic blood pressure 121 mm[Hg] No Primary Care Physician [facility] [place] 05-14-2025 09:27-0400 Body height 168.91 cm No Primary Care Physician [facility] [place] 05-14-2025 09:24-0400 Body mass index (BMI) [Ratio] 34.2 kg/m2 No Primary Care Physician [facility] [place] 05-14-2025 09:24-0400 Body weight 97.72 kg No Primary Care Physician [facility] [place] 05-14-2025 09:24-0400 Diastolic blood pressure 84 mm[Hg] No Primary Care Physician [facility] [place] 05-14-2025 09:24-0400 Systolic blood pressure 128 mm[Hg] No Primary Care Physician [facility] [place] 05-07-2025 10:19-0400 Body height 168.91 cm No Primary Care Physician [facility] [place] 05-07-2025 10:19-0400 Body mass index (BMI) [Ratio] 33.7 kg/m2 No Primary Care Physician [facility] [place] 05-07-2025 10:19-0400 Body weight 96.38 kg No Primary Care Physician [facility] [place] 05-07-2025 10:19-0400 Diastolic blood pressure 82 mm[Hg] No Primary Care Physician [facility] [place] 05-07-2025 10:19-0400 Systolic blood pressure 126 mm[Hg] No Primary Care Physician [facility] [place] 04-30-2025 11:24-0400 Body height 168.91 cm No Primary Care Physician [facility] [place] 04-30-2025 11:24-0400 Body mass index (BMI) [Ratio] 34.2 kg/m2 No Primary Care Physician [facility] [place] 04-30-2025 11:24-0400 Body weight 97.74 kg No Primary Care Physician [facility] [place] 04-30-2025 11:24-0400 Diastolic blood pressure 82 mm[Hg] No Primary Care Physician [facility] [place] 04-30-2025 11:24-0400 Systolic blood pressure 123 mm[Hg] No Primary Care Physician [facility] [place] 04-23-2025 09:39-0400 Body height 168.91 cm No Primary Care Physician [facility] [place] 04-23-2025 09:39-0400 Body mass index (BMI) [Ratio] 33.5 kg/m2 No Primary Care Physician [facility] [place] 04-23-2025 09:39-0400 Body weight 95.7 kg No Primary Care Physician [facility] [place] 04-23-2025 09:39-0400 Diastolic blood pressure 77 mm[Hg] No Primary Care Physician [facility] [place] 04-23-2025 09:39-0400 Systolic blood pressure 131 mm[Hg] No Primary Care Physician [facility] [place] 04-17-2025 10:21-0400 Body height 168.91 cm No Primary Care Physician [facility] [place] 04-17-2025 10:21-0400 Body mass index (BMI) [Ratio] 33.3 kg/m2 No Primary Care Physician [facility] [place] 04-17-2025 10:21-0400 Body weight 95.25 kg No Primary Care Physician [facility] [place] 04-17-2025 10:21-0400 Diastolic blood pressure 77 mm[Hg] No Primary Care Physician [facility] [place] 04-17-2025 10:21-0400 Systolic blood pressure 123 mm[Hg] No Primary Care Physician [facility] [place] 04-09-2025 13:43-0400 Body height 168.91 cm No Primary Care Physician [facility] [place] 04-09-2025 13:43-0400 Body mass index (BMI) [Ratio] 33.2 kg/m2 No Primary Care Physician [facility] [place] 04-09-2025 13:43-0400 Body weight 94.85 kg No Primary Care Physician [facility] [place] 04-09-2025 13:43-0400 Diastolic blood pressure 72 mm[Hg] No Primary Care Physician [facility] [place] 04-09-2025 13:43-0400 Systolic blood pressure 107 mm[Hg] No Primary Care Physician [facility] [place] 03-26-2025 14:33-0400 Body height 168.91 cm No Primary Care Physician [facility] [place] 03-26-2025 14:28-0400 Body mass index (BMI) [Ratio] 33.2 kg/m2 No Primary Care Physician [facility] [place] 03-26-2025 14:28-0400 Body weight 94.8 kg No Primary Care Physician [facility] [place] 03-26-2025 14:28-0400 Diastolic blood pressure 74 mm[Hg] No Primary Care Physician [facility] [place] 03-26-2025 14:28-0400 Systolic blood pressure 113 mm[Hg] No [facility] [facility] [place] 03-04-2025 08:52-0400 Body height 168.91 cm No Primary Care Physician [facility] [place] 03-04-2025 08:52-0400 Body mass index (BMI) [Ratio] 32.3 kg/m2 No Primary Care Physician [facility] [place] 03-04-2025 08:52-0400 Body weight 92.24 kg No Primary Care Physician [facility] [place] 03-04-2025 08:52-0400 Diastolic blood pressure 66 mm[Hg] No Primary Care Physician [facility] [place] 03-04-2025 08:52-0400 Systolic blood pressure 104 mm[Hg] No Primary Care Physician [facility] [place] 02-18-2025 09:49-0400 Body height 168.91 cm No Primary Care Physician [facility] [place] 02-18-2025 09:49-0400 Body mass index (BMI) [Ratio] 31.7 kg/m2 No Primary Care Physician [facility] [place] 02-18-2025 09:49-0400 Body weight 90.49 kg No Primary Care Physician [facility] [place] 02-18-2025 09:49-0400 Diastolic blood pressure 76 mm[Hg] No Primary Care Physician [facility] [place] 02-18-2025 09:49-0400 Systolic blood pressure 113 mm[Hg] No Primary Care Physician [facility] [place] 01-21-2025 09:30-0400 Body mass index (BMI) [Ratio] 31.4 kg/m2 No Primary Care Physician [facility] [place] 01-21-2025 09:30-0400 Body weight 89.58 kg No Primary Care Physician [facility] [place] 01-21-2025 09:30-0400 Diastolic blood pressure 68 mm[Hg] No Primary Care Physician [facility] [place] 01-21-2025 09:30-0400 Systolic blood pressure 108 mm[Hg] No Primary Care Physician [facility] [place] 12-24-2024 08:27-0400 Body mass index (BMI) [Ratio] 30.6 kg/m2 No Primary Care Physician [facility] [place] 12-24-2024 08:27-0400 Body weight 87.25 kg No Primary Care Physician [facility] [place] 12-24-2024 08:27-0400 Diastolic blood pressure 72 mm[Hg] No Primary Care Physician [facility] [place] 12-24-2024 08:27-0400 Systolic blood pressure 120 mm[Hg] No Primary Care Physician [facility] [place] 11-26-2024 11:29-0500 Body mass index (BMI) [Ratio] 30 kg/m2 No Primary Care Physician [facility] [place] 11-26-2024 11:29-0500 Body weight 85.84 kg No Primary Care Physician [facility] [place] 11-26-2024 11:29-0500 Diastolic blood pressure 78 mm[Hg] No Primary Care Physician [facility] [place] 11-26-2024 11:29-0500 Systolic blood pressure 129 mm[Hg] No Primary Care Physician [facility] [place] 10-24-2024 08:58-0500 Body mass index (BMI) [Ratio] 29.2 kg/m2 No Primary Care Physician [facility] [place] 10-24-2024 08:58-0500 Body weight 83.46 kg No Primary Care Physician [facility] [place] 10-24-2024 08:58-0500 Diastolic blood pressure 70 mm[Hg] No Primary Care Physician [facility] [place] 10-24-2024 08:58-0500 Systolic blood pressure 116 mm[Hg] No Primary Care Physician [facility] [place] 05-09-2023 13:35-0400 Body height 167.64 cm No Primary Care Physician [facility] [place] 05-09-2023 13:33-0400 Body mass index (BMI) [Ratio] 30.7 kg/m2 No Primary Care Physician [facility] [place] 05-09-2023 13:33-0400 Body weight 86.18 kg No Primary Care Physician [facility] [place] 05-09-2023 13:33-0400 Diastolic blood pressure 88 mm[Hg] No Primary Care Physician [facility] [place] 05-09-2023 13:33-0400 Systolic blood pressure 128 mm[Hg] No Primary Care Physician [facility] [place] 04-01-2023 08:30-0400 Body temperature 98.7 [degF] No Primary Care Physician [facility] [place] 04-01-2023 08:30-0400 Diastolic blood pressure 74 mm[Hg] No Primary Care Physician [facility] [place] 04-01-2023 08:30-0400 Heart rate 77 /min No Primary Care Physician [facility] [place] 04-01-2023 08:30-0400 Respiratory rate 16 /min No Primary Care Physician [facility] [place] 04-01-2023 08:30-0400 SaO2% (BldA) [Mass fraction] 98 % No Primary Care Physician [facility] [place] 04-01-2023 08:30-0400 Systolic blood pressure 120 mm[Hg] No Primary Care Physician [facility] [place] 03-30-2023 07:22-0400 Body height 167.64 cm No Primary Care Physician [facility] [place] 03-30-2023 07:22-0400 Body mass index (BMI) [Ratio] 34 kg/m2 No Primary Care Physician [facility] [place] 03-30-2023 07:22-0400 Body weight 95.43 kg No Primary Care Physician [facility] [place] 03-28-2023 08:33-0400 Body mass index (BMI) [Ratio] 34.1 kg/m2 No Primary Care Physician [facility] [place] 03-28-2023 08:33-0400 Body weight 95.87 kg No Primary Care Physician [facility] [place] 03-28-2023 08:33-0400 Diastolic blood pressure 80 mm[Hg] No Primary Care Physician [facility] [place] 03-28-2023 08:33-0400 Systolic blood pressure 116 mm[Hg] No Primary Care Physician [facility] [place] 03-25-2023 07:17-0400 Body temperature 97.4 [degF] No Primary Care Physician [facility] [place] 03-25-2023 07:16-0400 Diastolic blood pressure 64 mm[Hg] No Primary Care Physician [facility] [place] 03-25-2023 07:16-0400 Heart rate 107 /min No Primary Care Physician [facility] [place] 03-25-2023 07:16-0400 Systolic blood pressure 109 mm[Hg] No Primary Care Physician [facility] [place] 03-25-2023 02:59-0400 SaO2% (BldA) [Mass fraction] 99 % No Primary Care Physician [facility] [place] 03-24-2023 23:17-0400 Body height 167.64 cm No Primary Care Physician [facility] [place] 03-24-2023 23:17-0400 Body mass index (BMI) [Ratio] 34.2 kg/m2 No Primary Care Physician [facility] [place] 03-24-2023 23:17-0400 Body weight 96.07 kg No Primary Care Physician [facility] [place] 03-20-2023 08:12-0400 Body mass index (BMI) [Ratio] 33.8 kg/m2 No Primary Care Physician [facility] [place] 03-20-2023 08:12-0400 Body weight 96.67 kg No Primary Care Physician [facility] [place] 03-20-2023 08:12-0400 Diastolic blood pressure 75 mm[Hg] No Primary Care Physician [facility] [place] 03-20-2023 08:12-0400 Systolic blood pressure 110 mm[Hg] No Primary Care Physician [facility] [place] 03-15-2023 09:31-0400 Body mass index (BMI) [Ratio] 34.4 kg/m2 No Primary Care Physician [facility] [place] 03-15-2023 09:31-0400 Body weight 98.2 kg No Primary Care Physician [facility] [place] 03-15-2023 09:31-0400 Diastolic blood pressure 79 mm[Hg] No Primary Care Physician [facility] [place] 03-15-2023 09:31-0400 Systolic blood pressure 114 mm[Hg] No Primary Care Physician [facility] [place] 03-05-2023 10:37-0400 Body weight 98.14 kg No Primary Care Physician [facility] [place] 03-05-2023 10:37-0400 Diastolic blood pressure 71 mm[Hg] No Primary Care Physician [facility] [place] 03-05-2023 10:37-0400 Systolic blood pressure 115 mm[Hg] No Primary Care Physician [facility] [place] 02-22-2023 09:10-0400 Body mass index (BMI) [Ratio] 34.2 kg/m2 No Primary Care Physician [facility] [place] 02-22-2023 09:10-0400 Body weight 97.57 kg No Primary Care Physician [facility] [place] 02-22-2023 09:10-0400 Diastolic blood pressure 78 mm[Hg] No Primary Care Physician [facility] [place] 02-22-2023 09:10-0400 Systolic blood pressure 120 mm[Hg] No Primary Care Physician [facility] [place] 02-06-2023 08:56-0400 Diastolic blood pressure 80 mm[Hg] No Primary Care Physician [facility] [place] 02-06-2023 08:56-0400 Systolic blood pressure 119 mm[Hg] No Primary Care Physician [facility] [place] 02-06-2023 08:26-0400 Body mass index (BMI) [Ratio] 34.7 kg/m2 No Primary Care Physician [facility] [place] 02-06-2023 08:26-0400 Body weight 97.63 kg No Primary Care Physician [facility] [place] 01-22-2023 08:28-0400 Body mass index (BMI) [Ratio] 33.9 kg/m2 No Primary Care Physician [facility] [place] 01-22-2023 08:28-0400 Body weight 96.84 kg No Primary Care Physician [facility] [place] 01-22-2023 08:28-0400 Diastolic blood pressure 78 mm[Hg] No Primary Care Physician [facility] [place] 01-22-2023 08:28-0400 Systolic blood pressure 113 mm[Hg] No Primary Care Physician [facility] [place] 01-08-2023 08:36-0400 Body height 168.91 cm No Primary Care Physician [facility] [place] 01-08-2023 08:36-0400 Body mass index (BMI) [Ratio] 34.3 kg/m2 No Primary Care Physician [facility] [place] 01-08-2023 08:36-0400 Body weight 97.97 kg No Primary Care Physician [facility] [place] 01-08-2023 08:36-0400 Diastolic blood pressure 82 mm[Hg] No Primary Care Physician [facility] [place] 01-08-2023 08:36-0400 Systolic blood pressure 125 mm[Hg] No Primary Care Physician [facility] [place] 12-18-2022 08:27-0400 Body mass index (BMI) [Ratio] 33.7 kg/m2 No Primary Care Physician [facility] [place] 12-18-2022 08:27-0400 Body weight 96.33 kg No Primary Care Physician [facility] [place] 12-18-2022 08:27-0400 Diastolic blood pressure 73 mm[Hg] No Primary Care Physician [facility] [place] 12-18-2022 08:27-0400 Systolic blood pressure 115 mm[Hg] No Primary Care Physician [facility] [place] 11-20-2022 09:53-0500 Body mass index (BMI) [Ratio] 32.4 kg/m2 No Primary Care Physician [facility] [place] 11-20-2022 09:53-0500 Body weight 92.58 kg No Primary Care Physician [facility] [place] 11-20-2022 09:53-0500 Diastolic blood pressure 70 mm[Hg] No Primary Care Physician [facility] [place] 11-20-2022 09:53-0500 Systolic blood pressure 118 mm[Hg] No Primary Care Physician [facility] [place] 10-26-2022 08:15-0500 Body mass index (BMI) [Ratio] 31.8 kg/m2 No Primary Care Physician [facility] [place] 10-26-2022 08:15-0500 Body weight 90.88 kg No Primary Care Physician [facility] [place] 10-26-2022 08:15-0500 Diastolic blood pressure 72 mm[Hg] No Primary Care Physician [facility] [place] 10-26-2022 08:15-0500 Systolic blood pressure 126 mm[Hg] No Primary Care Physician [facility] [place] 09-29-2022 08:04-0500 Body height 168.91 cm No Primary Care Physician [facility] [place] 09-29-2022 08:04-0500 Body mass index (BMI) [Ratio] 31.1 kg/m2 No Primary Care Physician [facility] [place] 09-29-2022 08:04-0500 Body weight 88.9 kg No Primary Care Physician [facility] [place] 09-29-2022 08:04-0500 Diastolic blood pressure 81 mm[Hg] No Primary Care Physician [facility] [place] 09-29-2022 08:04-0500 Systolic blood pressure 124 mm[Hg] No Primary Care Physician [facility] [place] 08-31-2022 09:19-0500 Body height 168.91 cm No Primary Care Physician [facility] [place] Work Phone: 08-31-2022 09:18-0500 Body mass index (BMI) [Ratio] 30.5 kg/m2 No Primary Care Physician [facility] [place] 08-31-2022 09:18-0500 Body weight 87.08 kg No Primary Care Physician [facility] [place] 08-31-2022 09:18-0500 Diastolic blood pressure 88 mm[Hg] No Primary Care Physician [facility] [place] 08-31-2022 09:18-0500 Systolic blood pressure 136 mm[Hg] No Primary Care Physician [facility] [place] Encounters Encounter Date Encounter Type Care Provider Facility Start: 05-18-2025 End: 05-18-2025 Patient encounter procedure Tammi Nieves CNM -[facility] Work Phone: Start: 05-18-2025 End: 05-18-2025 ambulatory No Primary Care Physician [facility] Start: 05-14-2025 End: 05-14-[address] Goldie Ng MD -[facility] Work Phone: Start: 05-14-2025 End: 05-14-2025 ambulatory No Primary Care Physician [facility] Start: 05-07-2025 End: 05-07-[address] Dotty Hernandez DO -[facility] Work Phone: Start: 05-07-2025 End: 05-07-2025 ambulatory No Primary Care Physician -[facility] Start: 04-30-2025 End: 04-30-2025 Patient encounter procedure Tammi Nieves CNM -[facility] Work Phone: Start: 04-30-2025 End: 04-30-2025 ambulatory No Primary Care Physician -[facility] Start: 04-23-2025 End: 04-23-[address] Goldie Ng MD -[facility] Work Phone: Start: 04-23-2025 End: 04-23-2025 ambulatory No Primary Care Physician [facility] Start: 04-17-2025 End: 04-17-2025 ambulatory No Primary Care Physician -Labor[facility]imen Start: 04-17-2025 End: 04-17-[address] Goldie Ng MD -[facility] Work Phone: Start: 04-17-2025 End: 04-17-[address] Goldie Ng MD -[facility] Work Phone: Start: 04-17-2025 End: 04-17-2025 ambulatory No Primary Care Physician -[facility] Start: 04-17-2025 End: 04-17-2025 ambulatory No Primary Care Physician Facility:[facility] [place] Start: 04-09-2025 End: 04-09-[address] Dotty Hernandez DO -[facility] Work Phone: Start: 04-09-2025 End: 04-09-2025 ambulatory No Primary Care Physician -[facility] Start: 03-26-2025 End: 03-26-[address] Goldie Ng MD -[facility] Work Phone: Start: 03-26-2025 End: 03-26-2025 ambulatory No Primary Care Physician [facility] Work Phone: Start: 03-04-2025 End: 03-04-2025 Patient encounter procedure Pearl PACHECO -[facility] Work Phone: Start: 03-04-2025 End: 03-04-2025 ambulatory No Primary Care Physician [facility] Work Phone: Start: 02-18-2025 End: 02-18-2025 Patient encounter procedure Tammi Nieves CNM -[facility] Work Phone: Start: 02-18-2025 End: 02-18-2025 ambulatory No Primary Care Physician [facility] Work Phone: Start: 02-18-2025 End: 02-18-2025 ambulatory No Primary Care Physician Facility:[facility] [place] Start: 01-21-2025 End: 01-21-[address] Dotty Hernandez DO -[facility] Work Phone: Start: 01-21-2025 End: 01-21-2025 ambulatory No Primary Care Physician Facility:[facility] Start: 12-25-2024 End: 12-25-2024 ambulatory MD [facility] Start: 12-24-2024 End: 12-24-2024 Patient encounter procedure Pearl PACHECO -[facility] Work Phone: Start: 12-24-2024 End: 12-24-2024 ambulatory No Primary Care Physician Facility:[facility] Start: 11-26-2024 End: 11-26-[address] Goldie Ng MD -[facility] Work Phone: Start: 11-26-2024 End: 11-26-2024 ambulatory No Primary Care Physician Facility:[facility] Start: 10-24-2024 End: 10-24-2024 Patient encounter procedure Tammi Nieves CNM -[facility] Work Phone: Start: 10-24-2024 End: 10-24-2024 ambulatory No Primary Care Physician Facility:[facility] Start: 10-24-2024 End: 10-24-2024 ambulatory No Primary Care Physician Facility:[facility] [place] Start: 05-21-2024 End: 05-21-2024 ambulatory No Primary Care Physician Facility:[facility] Start: 05-09-2023 End: 05-09-2023 ambulatory No Primary Care Physician [facility] [place] Work Phone: Start: 05-09-2023 End: 05-09-2023 Patient encounter procedure No Primary Care Physician [facility] [place]-Laboratory, Specimen Work Phone: Start: 05-09-2023 End: 05-09-2023 Patient encounter procedure No Primary Care Physician [facility] Work Phone: Start: 04-01-2023 Non-patient / Non-visit No Primary Care Physician [facility] Start: 03-31-2023 Non-patient / Non-visit No Primary Care Physician [facility] Start: 03-30-2023 Non-patient / Non-visit No Primary Care Physician [facility] Start: 03-30-2023 End: 04-01-2023 Evaluation and management of inpatient No Primary Care Physician [facility] Work Phone: Start: 03-28-2023 End: 03-28-2023 Patient encounter procedure No Primary Care Physician [facility] Work Phone: Start: 03-25-2023 Non-patient / Non-visit No Primary Care Physician [facility] Start: 03-24-2023 End: 03-25-2023 ambulatory No Primary Care Physician [facility] [place] Work Phone: Start: 03-24-2023 End: 03-25-2023 Patient encounter procedure No Primary Care Physician [facility] Start: 03-20-2023 End: 03-20-2023 Patient encounter procedure No Primary Care Physician [facility] Start: 03-15-2023 End: 03-15-2023 Patient encounter procedure No Primary Care Physician [facility] Start: 03-05-2023 End: 03-05-2023 Patient encounter procedure No Primary Care Physician [facility] [place], Specimen Start: 03-05-2023 End: 03-05-2023 Patient encounter procedure No Primary Care Physician [facility] Start: 02-22-2023 End: 02-22-2023 Patient encounter procedure No Primary Care Physician [facility] Start: 02-06-2023 End: 02-06-2023 Patient encounter procedure No Primary Care Physician [facility] Start: 01-22-2023 End: 01-22-2023 Patient encounter procedure No Primary Care Physician [facility] Start: 01-11-2023 End: 01-11-2023 Patient encounter procedure No Primary Care Physician [facility] [place] Start: 01-08-2023 End: 01-08-2023 ambulatory No Primary Care Physician [facility] [place] Work Phone: Start: 01-08-2023 End: 01-08-2023 Patient encounter procedure No Primary Care Physician [facility] Start: 12-18-2022 End: 12-18-2022 Patient encounter procedure No Primary Care Physician [facility] Start: 11-20-2022 End: 11-20-2022 Patient encounter procedure No Primary Care Physician [facility] Start: 10-26-2022 End: 10-26-2022 Patient encounter procedure No Primary Care Physician [facility] Start: 10-09-2022 End: 10-09-2022 ambulatory No Primary Care Physician [facility] [place] Work Phone: Start: 10-09-2022 End: 10-09-2022 Patient encounter procedure No Primary Care Physician [facility] [place] Start: 10-02-2022 End: 10-02-2022 ambulatory No Primary Care Physician [facility] [place] Work Phone: Start: 10-02-2022 End: 10-02-2022 Patient encounter procedure No Primary Care Physician [facility] [place] Start: 09-29-2022 End: 09-29-2022 Patient encounter procedure No Primary Care Physician [facility] Start: 08-31-2022 End: 08-31-2022 ambulatory No Primary Care Physician [facility] [place] Work Phone: Start: 08-31-2022 End: 08-31-2022 Patient encounter procedure No Primary Care Physician [facility] [place], Specimen Start: 08-31-2022 End: 08-31-2022 Patient encounter procedure No Primary Care Physician [facility] Procedures Date Procedure Procedure Detail Performing Clinician [...] Beta-hemolytic Streptococcus culture Group B Streptococcus Culture [facility] [place] Start: 04-17-2025 Streptococcus agalactiae [Presence] in Unspecified specimen by Organism specific culture [facility] [place] Start: 02-18-2025 CBC W Auto Differential panel - Blood [facility] [facility] Start: 02-18-2025 Measurement of glucose 2 hours after glucose challenge for glucose tolerance test [facility] Start: 02-18-2025 Serologic test for syphilis [facility] Start: 02-18-2025 [facility] Start: 04-01-2023 Patient discharge [facility] Start: 03-30-2023 Administration of medication [facility] Start: 03-30-2023 Application of ice collar, cap or bag [facility] Start: 03-30-2023 Catheterization of vein [facility] Start: 03-30-2023 Introduction of urinary catheter [facility] Start: 03-30-2023 Measuring intake and output [facility] Start: 03-30-2023 Notification of physician [facility] Start: 03-30-2023 Procedure discontinued [facility] Start: 03-30-2023 Provision of activity privileges [facility] Start: 03-30-2023 Vital signs measurements [facility] Start: 03-30-2023 [facility] Start: 03-30-2023 Admission procedure [facility] Start: 03-25-2023 [facility] Start: 03-24-2023 Nonstress test [facility] Start: 03-24-2023 Obstetric monitoring [facility] Start: 03-24-2023 Vital signs measurements [facility] Start: 03-24-2023 [facility] Start: 03-24-2023 Iv infusion therapy prophylaxis/dx ea hour THER/PROPH/DIAG IV [facility]F [facility] Start: 03-24-2023 Iv infusion therapy/prophylaxis /dx 1st to 1 hr THER/PROPH/DIAG IV INF INIT [facility] Start: 03-24-2023 Therapeutic injection iv push each new drug TX/PRO/DX INJ NEW DRUG [facility] Start: 03-24-2023 [facility] Start: 01-11-2023 [facility] Bacteria identified in Urine by Culture Urine Culture [facility] CBC W Auto Different ial panel - Blood [facility] Work Phone: Erythrocyte mean corpuscular volume determination [facility] Glucose [Mass/volume ] in Serum or Plasma --1 hour post 50 g glucose [facility] Work Phone: Hematocrit [Volume Fraction] of Blood [facility] Hemoglobin [Mass/vol ume] in Blood [facility] Hepatitis B surface antigen measurement [facility] Work Phone: Hepatitis C antibody measurement [facility] Work Phone: HIV 1+2 Ab+HIV1 p24 Ag [Presence] in Serum or Plasma by Immunoassay [facility] Work Phone: Leukocytes [#/volume ] in Blood [facility] Mean corpuscular hemoglobin concentration determination [facility] Mean corpuscular hemoglobin determination [facility] Neutrophil count [facility] Neutrophil percent differential count [facility] Patient Education [facility] Work Phone: Patient referral [facility] Work Phone: Platelets [#/volume] in Blood [facility] Red blood cell count [facility] Red cell distributio n width determination [facility] Rubella IgG measurement [facility] Work Phone: Streptococcus agalac tiae [Presence] in Unspecified specimen by Organism specific culture [facility] Treponema sp Ab [Pre sence] in Serum [facility] Work Phone: [facility] Payers Date Payer Category Payer Self-pay [id number] 2023 Unknown [id number] 1995 Unknown [id number] 2. [id number] Medicaid MEDICAID [id number] Unknown R EMANI [id number] Unknown [id number] 2.16.8 [id number] Unknown [id number] 2.16.8 40.1.058919.3.579.2.462 Unknown [id number] 2.16.8 40.1.043538.3.579.2.462 Unknown [id number] 2.16.8 40.1.320126.3.579.2.462 Unknown [id number] 2.16.8 40.1.930465.3.579.2.462 Unknown [id number] 2.16.8 40.1.383316.3.579.2.462 Unknown [id number] 2.16.8 40.1.651532.3.579.2.462 Unknown [id number] 2.16.8 40.1.809517.3.579.2.462 Unknown [id number] 2.16.8 40.1.229196.3.579.2.462 Unknown [id number] 2.16.8 40.1.214246.3.579.2.462 Unknown [id number] 2.16.8 40.1.459137.3.579.2.462 Unknown [id number] 2.16.8 40.1.832252.3.579.2.462 Unknown [id number] 2.16.8 40.1.920988.3.579.2.462 Unknown [id number] 2.16.8 40.1.211245.3.579.2.462 Unknown [id number] 2.16.8 40.1.498144.3.579.2.462 Unknown [id number] 2.16.8 40.1.572680.3.579.2.462 Unknown [id number] 2.16.8 40.1.343758.3.579.2.462 Unknown [id number] 2.16.8 40.1.163762.3.579.2.462 Social History Date Type Detail Facility Start: 08-31-2022 End: 05-09-2023 Tobacco smoking status MNIS Unknown if ever smoked [facility] Start: 04-14-2020 Non-smoker [facility] Start: 1995 Sex Assigned At Female W [facility] Start: 10-09-2024 Tobacco smoking stat us MNIS Never smoked tobacco (finding) [facility] Medical Equipment Procedure Code Equipment Code Equipment [...] & Type Note Facility 05-18-2025 Progress note [facility] 05-14-2025 Progress note [facility] 05-07-2025 Progress note [facility] 04-30-2025 Progress note [facility] 04-23-2025 Progress note [facility] 04-17-2025 Progress note [facility] 02-18-2025 Progress note [facility] 01-21-2025 Evaluation note Diagnosis Onset Date Resolution [...] Supervision of high-risk acute April 30 11:20am [facility] Work Phone: 1(167) 556-466304-23-2025 Evaluation note* Diagnosis Onset Date Resolution Status [...] of high-risk acute May 07, 2025 10:14am [facility] Work Phone: 1(235) 357-107604-23-2025 Evaluation note* Diagnosis Onset Date Resolution Status [...] Supervision of high-risk acute May 14 9:18am [facility] Work Phone: 1(589) 546-670504-23-2025 Evaluation note* Diagnosis Onset Date Resolution Status [...] Supervision of high-risk acute May 18 8:33am [facility] Work Phone: 1([phone]) 410-146103-26-2025 Evaluation note* Diagnosis Onset Date Resolution Status [...] of high-risk acute April 09, 2025 1:40pm [facility] Work Phone: 1(494) [phone] Evaluation note* Diagnosis Onset Date Resolution Status [...] of high-risk acute April 17, 2025 10:18am [facility] Work Phone: 1([phone]) 116-275603-26-2025 Evaluation note* Diagnosis Onset Date Resolution Status [...] of high-risk acute April 23, 2025 9:34am [facility] Work Phone: 1(219) 281-350702-26-2025 Evaluation note* Diagnosis Onset Date Resolution Status [...] high-risk acute February 18, 2025 9 :44am [facility] Work Phone: 1([phone]) 290-273002-26-2025 Evaluation note* Diagnosis Onset Date Resolution Status [...] high-risk acute March 04, 2025 8 :47am [facility] Work Phone: 1(391) [phone] Evaluation note* Diagnosis Onset Date Resolution Status [...] of high-risk acute March 26, 2025 2:20pm [facility] Work Phone: [phone]) 345-612801-24-2025 Evaluation note* Diagnosis Onset Date Resolution Status [...] high-risk acute February 18, 2025 9 :44am [facility] Work Phone: 1([phone]) 219-776907-01-2023 Progress note Author Dotty Olson [facility] March 31, 2023 10:40am Note Date/Time March 31, 2023 10:40 am [facility] Medical Records Department [address] [place] [address] Progress Note - OBGYN 03/31/23 1038 MR#: [id number] Acct: [id number] Name: NATHANAEL MOSCOSO Rep #:[id number] : 1995 27 From: Dotty Hernandez DO PCP: Care Physician,No Primary Status :ADM IN Location: [place] [address] Subjective Subjective Patient doing well without complaints. [...] Cosigner Signature (if applicable): CC: ~ Signed [facility] Work Phone: 1(562) 693-429507-01-2023 Discharge summary Author Dotty Olson [facility] March 31, 2023 10:36am Note Date/Time March 31, 2023 10:35 am [facility] Medical Records Department [address] [place] [address] Instructions for Home/Discharge Instructions 03/31/23 1035 MR#: [id number] Acct: [id number] Name: NATHANAEL MOSCOSO Rep #:[id number] : [...] Up With: Dotty Hernandez DO When: Call [phone] to make an appointment with your doctor [...] PRN (Reason: pain) Qty: 30 0RF Continued [id number]-gtp-fqm-ggyb 27 mg iron-800 mcg-260 mg capsule 1 [...] CC: No Primary Care Physician ~ Signed [facility] Work Phone: [phone]) 412-175506-30-2023 Procedure [facility] 03-30-2023 History and physical note Author Goldie Ng [facility] March 30, 2023 8:33am Note Date/Time March 30, 2023 8:33 am [facility] Medical Records Department [address] [place] [address] H&P Exam - HOSPICE RN 03/30/23 0831 MR#: [id number] Acct: [id number] Name: NATHANAEL MOSCOSO Rep #:[id number] : 1995 27 From: Goldie harris MD PCP: Care Physician,No Primary Status :ADM IN Location: [id number] HPI - General General Date of Admission: [...] PNV no.151-iron 27 mg-folic 800 mcg-omega3 260 ob-bfb-sjw-fish capsule 1 cap PO DAILY 08/29/22 [History [...] house current occupational status: employed 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 03/30/23 0833 <Electronically signed by Goldie Ng MD> Cosigner Signature (if applicable): CC: Dr. Goldie Ng MD; No Primary Care Physician~ Signed [facility] Work Phone: 1([phone]) 437-294406-25-2023 History and physical note Author Tammi Nieves [facility] March 25, 2023 8:19am Note Date/Time March 25, 2023 8:19 am [facility] Medical Records Department [address] [place] [address] OB Triage Physician Note 03/25/23 0810 MR#: [id number] Acct: [id number] Name: NATHANAEL MOSCOSO Rep #:[id number] : 1995 27 From: Tammi Nieves CNM PCP: Care Physician,No Primary Status :REG CLI Y Location: [id number] HPI - General General Date of Admission: [...] US >20 weeks Gestational age: 39.2 weeks [facility] PFS Medical History Amenorrhea Anovulatory cycle Single umbilical artery Home Medications PNV no.151-iron 27 mg-folic 800 mcg-omega3 260 et-abz-uxt-fish capsule cap PO 08/29/22 [History Last Taken [...] house current occupational status: employed 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 [employer] 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 Charges/Coding Multi Select Codes Visit Charges Office Visit/Consults: 00703 OV L3 Est Urinary/Genital Urinary/Genital CPT Codes: 83640-09 non-stress test Interp 03/25/23 0819 <Electronically signed by Tammi wright CNM> Date _ Tammi Nieves CNM Cosignramona Signature (if applicable): Date CC: FUNMI Nieves; No Primary Care Physician ~ Signed [facility] Work Phone: evaluation note* Diagnosis Onset Date Resolution Status BMI 30.0-30.9,adult acute acute Supervision of high risk , antepartum acute [facility] Work Phone: evaluation note* Diagnosis Onset Date Resolution Status acute Supervision of high risk , antepartum acute BMI 30.0-30.9,adult resolved Obesity affecting acute acute Supervision of high risk , antepartum acute [facility] Work Phone: evaluation note* Diagnosis Onset Date [...] Supervision of high risk , antepartum acute [facility] Work Phone: evaluation note* Diagnosis Onset Date [...] Supervision of high risk , antepartum acute [facility] Work Phone: Evaluation note* Diagnosis [...] Supervision of high risk , antepartum acute [facility] Work Phone: Evaluation note* Diagnosis Onset Date [...] labia acute Status post vaginal delivery acute [facility] Work Phone: Progress note Author Dotty Olson [facility] April 01, 2023 9:30am Note Date/Time April 01, 2023 9:31a m [facility] Medical Records Department [address] [place] [address] Progress Note - OBGYN 04/01/23925 MR#: [id number] Acct: [id number] Name: NATHANAEL MOSCOSO Rep #:[id number] : 1995 27 From: Dotty Hernandez DO PCP: Care Physician,No Primary Status :ADM IN [id number] Subjective Subjective Patient doing well without complaints. [...] Supervision of high risk , antepartum: COMMENT: [id number], ZEYNEP 03/30/23, boy Maximus Tito (6) : [...] Cosigner Signature (if applicable): CC: ~ Signed [facility] Work Phone: Progress note Author Tammi Nieves [facility] Note Date/Time February 18, 2025 10:10 am [facility] [address] [place] [address], [address] [place] [address] OFFICE VISIT Date of Service: 02/18/25 MR#: [id number] Acct: [id number] Name: NATHANAEL MOSCOSO Rep #: [id number] : 1995 Provider: FUNMI Nieves Age/Sex: 29/F Location[facility] Status: Signed Intake Vital Signs 12/24/24 08:27 01/21/25 09:31 02/18/25 09:49 Height 5 ft 6.5 in 5 ft 6.5 in 5 ft 6.5 in Weight: 199 lb 8 oz BMI 31.7 BP 113/76 Intake Visit Reasons: 26wk ob *25w6d Chief Complaint: 26 wk OB Switch Engineer Required: No Is patient in pain?: No Allergies No Known Allergies Allergy (Verified 02/18/25 09:47) Medications ?Medication ?Instructions ?Recorded ?Confirmed ?Type PNV no.151-iron 27 mg-folic 800 1 cap PO DAILY Pregnan cy 08/29/22 02/18/25 History mcg-omega3 260 jt-flx-eem-fish capsule omega-3 fatty acids 1,000 mg 2,000 [...] 1 current occupational status: employed 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 Note Date/Time April 17, 2025 11:1 0am [facility] [address], [address] [place] [address] OFFICE VISIT Date of Service: 04/17/25 MR#: [id number] Acct: [id number] Name: NATHANAEL MOSCOSO Rep #: [id number] : 1995 Provider: Dr. Joel Ng MD Age/Sex: 29/F Location: [facility] Status: Signed Intake Vital Signs 04/09/25 13:43 04/17/25 10:21 Height 5 ft 6.5 in 5 ft 6.5 in Weight: 210 lb BMI 33.3 BP 123/77 H Intake Visit Reasons: 36 WK OB Switch Engineer Required: No Is patient in pain?: No Allergies No Known Allergies Allergy (Verified 04/17/25 10:23) Medications ?Medication ?Instructions ?Recorded ?Confirmed ?Type PNV no.151-iron 27 mg-folic 800 1 cap PO DAILY Pregnan cy 08/29/22 04/17/25 History mcg-omega3 260 ue-ikr-vnj-fish capsule omega-3 fatty acids 1,000 mg 2,000 [...] 1 current occupational status: 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 Date Name GA/Weeks Outcome Route Bth Weight Infant Gen Labor Lgth Anesthesia Del Locatn Provider FOB 03/30/23 Maximus 40 live - full term 8lbs 3oz Male epi dural [facility] Dr. Farrar Delivery Date: 03/30/23 Last Updated [...] Symptoms of Preeclampsia, Infant Feeding No , [place] Education, Family Medical Leave or Disability Forms, [...] Cosigner Signature: Date (if applicable) CC: ~ [facility] Work Phone: Progress note Author Goldie Ng [facility] Note Date/Time April 23, 2025 10:2 3am [facility] [address] [place] [address], [address] [place] [address] OFFICE VISIT Date of Service: 04/23/25 MR#: [id number] Acct: [id number] Name: NATHANAEL MOSCOSO Rep #: [id number] : 1995 Provider: Dr. Joel Ng MD Age/Sex: 30/F Location: [facility] Status: Signed Intake Vital Signs 02/18/25 09:49 04/17/25 10:21 04/23/25 09:39 Height 5 ft 6.5 in 5 ft 6.5 in 5 ft 6.5 in Weight: 211 lb BMI 33.5 BP 131/77 H Intake Visit Reasons: 37 wk ob Switch Engineer Required: No Is patient in pain?: No Allergies No Known Allergies Allergy (Verified 04/23/25 09:42) Medications ?Medication ?Instructions ?Recorded ?Confirmed ?Type PNV no.151-iron 27 mg-folic 800 1 cap PO DAILY Pregnan cy 08/29/22 04/23/25 History mcg-omega3 260 ke-fpo-aqe-fish capsule omega-3 fatty acids 1,000 mg 2,000 [...] 1 current occupational status: employed 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 [employer]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 occupational 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/hazards: No pets and animals: [...] 3-4 times per week duration: 30-45 minutes/day wilfred/adventism: None seatbelt use: always do you feel safe at home: Yes 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 2 Elective abortions Hx Para 1 [...] Cosigner Signature: Date (if applicable) CC: ~ [facility] Work Phone: Progress note Author Tammi Nieves [facility] Note Date/Time April 30, 2025 11:[facility] [address] [place] [address], [address] [place] [address] OFFICE VISIT Date of Service: 04/30/25 MR#: [id number] Acct: [id number] Name: NATHANAEL MOSCOSO Rep #: [id number] : 1995 Provider: FUNMI Nieves Age/Sex: 30/F Location: [facility] Status: Signed Intake Vital Signs 03/04/25 08:52 04/23/25 09:39 04/30/25 11:24 Height 5 ft 6.5 in 5 ft 6.5 in 5 ft 6.5 in Weight: 215 lb 8 oz BMI 34.2 BP 123/82 H Intake Visit Reasons: 38wk ob Chief Complaint: 38wk ob Switch Engineer Required: No Is patient in pain?: No Allergies No Known Allergies Allergy (Verified 04/30/25 11:23) Medications ?Medication ?Instructions ?Recorded ?Confirmed ?Type PNV no.151-iron 27 mg-folic 800 1 cap PO DAILY Pregnan cy 08/29/22 04/30/25 History mcg-omega3 260 um-klj-jyp-fish capsule omega-3 fatty acids 1,000 mg 2,000 mg PO QDAY 10/09/24 04/30/25 History capsule Last Menstrual Period: 08/07/24 : No PFSH PFSH Medical History UTI (urinary tract infection) Gallstone Gestational diabetes Single umbilical artery Anovulatory cycle Amenorrhea Surgical History S/P ACL repair Social History adopted: No household members: spouse and children housing: house number of children: 1 current occupational status: employed 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 Note Date/Time May 07, 2025 10: 36am [facility] [address] [place] [address], [address] [place] [address] OFFICE VISIT Date of Service: 05/07/25 MR#: [id number] Acct: [id number] Name: NATHANAEL MOSCOSO Rep #: [id number] : 1995 Provider: Dr. Nette Hernandez, Age/Sex: 30/F Location: [facility] Status: Signed Intake Vital Signs 03/04/25 08:52 04/30/25 11:24 05/07/25 10:19 05/07/25 10:19 Height 5 ft 6.5 in 5 ft 6.5 in 5 ft 6.5 in 5 ft 6.5 in Weight: 212 lb 8 oz BMI 33.7 BP 126/82 H Intake Visit Reasons: 39wk ob Switch Engineer Required: No Is patient in pain?: No Allergies No Known Allergies Allergy (Verified 05/07/25 10:18) Medications ?Medication ?Instructions ?Recorded ?Confirmed ?Type PNV no.151-iron 27 mg-folic 800 1 cap PO DAILY Pregnan cy 08/29/22 05/07/25 History mcg-omega3 260 aw-wkw-qve-fish capsule omega-3 fatty acids 1,000 mg 2,000 [...] 1 current occupational status: 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 Date Name GA/Weeks Outcome Route Bth Weight Gen Labor Lgth Anesthesia Del Locatn Provider FOB 03/30/23 Maximus 40 live - full term 8lbs 3oz Male epi dural [facility] Dr. Farrar Delivery Date: 03/30/23 Last Updated [...] and Symptoms of Preeclampsia, Feeding No , [place] Education, Family Medical Leave or Disability Forms, [...] Walkerignramona Signature: Date (if applicable) CC: ~ [facility] Work Phone: Progress note Author Goldie Ng [facility] Note Date/Time May 14, 2025 9: 54am [facility] [address], [address] [place] [address] OFFICE VISIT Date of Service: 05/14/25 MR#: [id number] Acct: [id number] Name: NATHANAEL MOSCOSO Rep #: [id number] : 1995 Provider: Dr. Joel Ng MD Age/Sex: 30/F Location[place] [facility] Status: Signed Intake Vital Signs 03/04/25 08:52 05/07/25 10:19 05/14/25 09:24 05/14/25 09:27 Height 5 ft 6.5 in 5 ft 6.5 in 5 ft 6.5 in 5 ft 6.5 in Weight: 215 lb 7 oz BMI 34.2 BP 128/84 H Intake Visit Reasons: 40wk ob *HAPPY DUE DATE Switch Engineer Required: No Is patient in pain?: No Allergies No Known Allergies Allergy (Verified 05/14/25 09:24) Medications ?Medication ?Instructions ?Recorded ?Confirmed ?Type PNV no.151-iron 27 mg-folic 800 1 cap PO DAILY Pregnan cy 08/29/22 05/14/25 History mcg-omega3 260 sj-trm-roj-fish capsule omega-3 fatty acids 1,000 mg 2,000 [...] 1 current occupational status: 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 Date Name GA/Weeks Outcome Route Bth Weight Infant Gen Labor Lgth Anesthesia Del Locatn Provider FOB 03/30/23 Maximus 40 live - full term 8lbs 3oz Male epi dural [facility] Dr. Farrar Delivery Date: 03/30/23 Last Updated [...] and Symptoms of Preeclampsia, Feeding No , [place] Education, Family Medical Leave or Disability Forms, [...] Cosigner Signature: Date (if applicable) CC: ~ [facility] Work Phone: Progress note Author Tammi Nieves [facility] Note Date/Time May 18, 2025 8: 58am [facility] [address] [place] [address], [address] [place] [address] OFFICE VISIT Date of Service: 05/18/25 MR#: [id number] Acct: [id number] Name: DANISNATALIAFrench Ernst Rep #: [id number] : 1995 Provider: FUNMI Nieves Age/Sex: 30/F [place] [facility] Status: Signed Intake Vital Signs 05/14/25 09:27 05/18/25 08:37 Height 5 ft 6.5 in 5 ft 6.5 in Weight: 216 lb 4 oz BMI 34.4 BP 121/84 H 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 Visit 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: 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 Chief Complaint: Membrane Sweep Switch Engineer Required: No Is patient in pain?: No Allergies No Known Allergies Allergy (Verified 05/18/25 08:34) Medications ?Medication ?Instructions ?Recorded ?Confirmed ?Type PNV no.151-iron 27 mg-folic 800 1 cap PO DAILY Pregnan cy 08/29/22 05/18/25 History mcg-omega3 260 uy-xsq-xcr-fish capsule omega-3 fatty acids 1,000 mg 2,000 mg PO QDAY 10/09/24 05/18/25 History capsule Last Menstrual Period: 08/07/24 : No PFSH PFSH Medical History UTI (urinary tract infection) Gallstone Gestational diabetes Single umbilical artery Anovulatory cycle Amenorrhea Surgical History S/P ACL repair Social History adopted: No household members: spouse and children housing: house number of children: 1 current occupational status: 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 Date Name GA/Weeks Outcome Route Bth Weight Infant Gen Labor Lgth Anesthesia Del Locatn Provider FOB 03/30/23 Maximus 40 live - full term 8lbs 3oz Male epi dural [facility] Dr. Farrar Delivery Date: 03/30/23 Last Updated [...] Edit by Bev Snow on 05/18/25 08:42 Office Urine Protein Negative [...] Cosigner Signature: Date (if applicable) CC: ~ [facility] Work Phone: Reason for referral (narrative)No reason for referral information [facility] Work Phone: Chief Complaint and [...] 8:2 4am Rubella non-immune status, antepartum [facility] 2024 8:24am Supervision of high-risk December 24, [...] 8:2 4am Rubella non-immune status, antepartum [facility] 2024 8:24am Supervision of high-risk December 24, [...] 8:2 4am Rubella non-immune status, antepartum [facility] 2024 8:24am Supervision of high-risk December 24, [...] bruary 2024 11:25am Supervision of high-risk [facility] 2024 11:25am History of gestational diabe guillermina mellitus (GDM) in prior , currentl December 24, 2024 8:24am Obesity affecting December 24, 2024 8:24am December 24, 2024 8:2 4am Rubella non-immune status, antepartum [facility] 2024 8:24am Supervision of high-risk December 24, [...] 8:2 4am Rubella non-immune status, antepartum [facility] 2024 8:24am Supervision of high-risk December 24, [...] 8:2 4am Rubella non-immune status, antepartum [facility] 2024 8:24am Supervision of high-risk December 24, [...] 8:2 4am Rubella non-immune status, antepartum [facility] 2024 8:24am Supervision of high-risk December 24, [...] No April 14, 2020 12:44pm Power of Dope Edger No April 14 12:44pm Advance Directive Response Recorded Date/ Time Advance Directives No October 26, 2022 9:27am Living Will No October 26 9:27am Power of Dope Edger No October 26, 2022 9:27am Advance Directive Response Recorded Date/ Time Advance Directives No January 22 023 9:32am Living Will No January 22, 2023 9:32am Power of Dope Edger No January 22 9:32am Advance Directive Response Recorded Date/ Time Advance Directives No January 22 023 9:32am Living Will No March 30, 2023 8:55am Power of Dope Edger No March 30 8:55am Advance Directive Response [...] Physician Primary Care Provider Active Pearl Kvng CARE TRANSITION MGR, CARE TRANSITION MGR-C Attending Provider, Referring Provider Active Team Status: Inactive Member Role Status Dates No Primary Care Physician Primary Care Provider, Refer ring Provider Active Pearl Calderon CARE TRANSITION MGR, CARE TRANSITION MGR-C Attending Provider Active Team Status: Inactive Member [...] Care Provider, Refer ring Provider Active Dr. Dtoty Hernandez DO Attending Provider Activ e Team [...] End: December 24, 2024 Pearl Calderon NP, CARE TRANSITION MGR-C Attending Provider Active Start: December 24, 2024 [...] End: March 04, 2025 Pearl Calderon NP, CARE TRANSITION MGR-C Attending Provider Active Start: March 04, 2025 [...] End: December 24, 2024 Pearl Calderon NP, CARE TRANSITION MGR-C Attending Provider Active Start: December 24, 2024 [...] End: March 04, 2025 Pearl Calderon NP, CARE TRANSITION MGR-C Attending Provider Active Start: March 04, 2025 [...] End: March 04, 2025 Pearl Calderon NP, CARE TRANSITION MGR-C Attending Provider Active Start: March 04, 2025 [...] section and content) DATE CREATED AUTHOR 12/26/2024 [facility] DATE CREATED AUTHOR AUTHOR'S ORGANIZ ATION 05/18/2025 [facility] FOR RECORDS PERTAINING TO PATIENTS WHO ARE [...] BE BASED ON THE PRIMARY CLINICAL RECORDS. [facility] [employer] [facility]. provides no warranty or guarantee of the accuracy or completeness of information in this document.
[2025-05-19] MEDS: Lactated Ringers 1,000 ML 50 ML IV (05:45)
[2025-05-19] MEDS: Penicillin G Pot 5,000,000 UNITS in 0.9% Normal Saline (100mL MB+) 100 ML 150 UNITS IV (05:55)
[2025-05-19 06:02] LABS: Hematocrit 39.3 % (37-47); Hemoglobin 13.4 g/dL (12.0-15.0); Immature Granulocytes Count 0.280 X10^3/uL (0.0-0.0); Mean Corp Hgb Conc 34.1 g/dL (32-36); Mean Corpuscular Volume 84.3 fL (81-99); Mean Platelet Vol. 8.7 fl (6.2-12.0); NRBC Flagged by Analyzer 0 % (0-5); Platelet Count 289 K/mm3 (150-450); RBC Distribution Width CV 13.5 % (11.6-14.6); RBC Distribution Width SD 41.5 fl (35.1-43.9); Red Blood Count 4.66 M/mm3 (4.2-5.4); White Blood Count 14.9 K/mm3 (4.4-11.0)
[2025-05-19 06:29] LABS: Syphilis Antibodies Nonreactive (Nonreactive)
--- NOTE | 2025-05-19 07:39 | HP.PCM.OB_ITS ---
HPI - General General Date of Admission: 05/19/25 HPI Narrative NATHANAEL MOSCOSO, is a 30 y/o @ 40 weeks 5 days who presents to L&D in active labor. She was found to be 5.5 cm dilated at 4 am today. She is currently sitting on the birthing ball, pcn running for gbs positive status, and is requesting epidural soon. She denies loss of fluid, vaginal bleeding, or decreased movement. Maternal Data Information ZEYNEP Calculator Estimated Delivery Date Method Current WG Current Estimate 05/14/25 LMP (Certain) 40w 5d Other Estimates 05/20/25 Ultrasound #1 39w 6d PFSH PFSH Medical History UTI (urinary tract infection) Gallstone Gestational diabetes Single umbilical artery Anovulatory cycle Amenorrhea Home Medications ?Medication ?Instructions ?Recorded ?Last Taken ?Type PNV no.151-iron 27 mg-folic 800 1 cap PO DAILY Pregnan cy 08/29/22 05/18/25 History mcg-omega3 260 hr-dgv-vpl-fish capsule omega-3 fatty acids 1,000 mg 2,000 mg PO QDAY 10/09/24 05/18/25 History capsule Allergy/AdvReac Type Severity Reaction Status Date / Time No Known Allergies Allergy Verified 05/19/25 05:51 Surgical History S/P ACL repair Social History adopted: No household members: spouse and children housing: house number of children: 1 current occupational status: employed 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 current occupational exposures/hazards: No pets and animals: Yes (Not managing litterbox ) pets and animals: cat(s), dog(s) and farm animals history of recent travel: No sexually active: Yes Smoking Status: Never smoker alcohol intake: never substance use type: does not use well-balanced diet: daily or most days caffeine: No eating out: rarely or never during the past year weight has: decreased > 10 lbs what type of physical activity do you participate in: walking frequency: 3-4 times per week duration: 30-45 minutes/day wilfred/quaker: None seatbelt use: always do you feel safe at home: Yes additional social history: - 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 Date Name GA/Weeks Outcome Route Bth Weight Gen Labor Lgth Anesthesia Del Locatn Provider FOB 03/30/23 Maximus 40 live - full term 8lbs 3oz Male epi dural [facility] Dr. Farrar Delivery Date: 03/30/23 Last Updated by: Cinda Angeles Gestational diabetes, single umbilical artery Visit Details Expected Delivery Route/Plan Labor Preferences- CB/BF classes: no labor support person: Tito labor intervention preferences: [] pain management options preferred: epidural cut cord/dad catch: cord : yes PP control planned: discussed discussed possible routes of delivery and associated risks: [] special requests: [] Plans Covid status: [] Flu vaccine: [] Tdap vaccine: declines Rhogam: NA LARC form signed: yes . movement and labor precautions reviewed. Problem list reviewed and updated with the most current plan of care details and appropriate orders placed. Relevant counseling for the gestational age provided. Continue routine care and follow up unless otherwise noted in visit notes/problem list details OB Flowsheet Initial Weight: Not Recorded Date -?-?-?-?-?-?-?-?-?-?-?-?- EGA Weight BP Urine Prot -?-?-?-?--?-?-?-?-?-?-?-?- Glucose FHR FuHt Pres Dilation -?-?-?-?-?-?-?-?-?-?--?-?- Effaced St Visit Note 10/24/24 -?-?-?-?-?-?-?-?-?-?-?-?- 11w 1d 184 lb 116/70 -?-?-?-?-?-?-?-?-?-?-?-?- 181 -?-?-?-?-?-?-?-?-?-?-?-?- KW-CRL cons with dates. declines NIPT. 11/26/24 -?-?-?-?-?-?-?-?-?-?-?-?- 15w 6d 189 lb 4 oz 129/78 -?-?-?-?-?-?-?-?-?-?-?-?- 150 -?-?-?-?-?-?-?-?-?-?-?-?- SM- no vb crampi ng 12/24/24 -?-?-?-?-?-?-?-?-?-?-?-?- 19w 6d 192 lb 6 oz 120/72 Nega tive -?-?-?-?-?-?-?-?-?-?-?-?- Negative 156 -?-?-?-?-?-?-?-?-?-?-?-?- MH-No VB. Neetu david. MFM US tomorrow 01/21/25 -?-?-?-?-?-?-?-?-?-?-?-?- 23w 6d 197 lb 8 oz 108/68 Nega tive -?-?-?-?-?-?-?-?-?-?-?-?- Negative 137 -?-?-?-?-?-?-?-?-?-?-?-?- JV- anatomy scan reviewed. no complaints today, feeling good movement. 02/18/25 -?-?-?-?-?-?-?-?-?-?-?-?- 27w 6d 199 lb 8 oz 113/76 Nega tive -?-?-?-?-?-?-?-?-?-?-?-?- Negative 155 29 -?-?-?-?-?-?-?-?-?-?-?-?- KW- no vb/lof/ct x. good fm. glucose and larc today. declines Tdap 03/04/25 -?-?--?-?-?-?-?-?-?-?-?-?- 29w 6d 203 lb 6 oz 104/66 Nega tive -?-?-?-?-?-?-?-?-?-?-?-?- Negative 153 30 -?-?-?-?-?-?-?-?-?-?-?-?- MH-No VB, LOF. g ood FM. Nl 28 wk labs. 03/26/25 -?-?-?-?-?-?-?-?-?-?-?-?- 33w 0d 209 lb 113/74 Negative -?-?-?-?-?-?-?-?-?-?-?-?- Negative 160 34 -?-?--?-?-?-?-?-?-?-?-?-?- SM- no vb lof go od fm n oregular ctx 04/09/25 -?-?-?-?-?-?-?-?-?-?-?-?- 35w 0d 209 lb 2 oz 107/72 Nega tive -?-?-?-?-?-?-?-?-?-?-?-?- Negative 145 36 -?-?-?-?-?-?-?-?-?-?-?-?- JV- no lof, vagi nal bleeding, or dec fm. 04/17/25 -?-?-?-?-?-?-?-?-?-?-?-?- 36w 1d 210 lb 123/77 -?-?-?-?-?-?-?-?-?-?-?-?- 140 37 Cephalic 1 -?-?-?-?-?-?-?-?-?-?-?-?- SM- no vb lof go od fm n oreuglar ctx gbs today 04/23/25 -?-?--?-?-?-?-?-?-?-?-?-?- 37w 0d 211 lb 131/77 Negative -?-?-?-?-?-?-?-?-?-?-?-?- Negative 140 38 Cephalic 1 .5 -?-?-?-?-?-?-?-?-?-?-?-?- 40 -3 SM- no vb lof good fm no regular ctx gbs pos 04/30/25 -?-?-?-?-?-?-?-?-?-?-?-?- 38w 0d 215 lb 8 oz 123/82 Nega tive -?-?-?-?-?-?-?-?-?-?-?-?- Negative 145 39 Cephalic 1 .5 -?-?-?-?-?-?-?-?-?-?-?-?- 40 -4 KW- no vb/ lof/ctx. good fm. handheld US to verify cephalic. 05/07/25 -?-?-?-?-?-?-?-?-?-?-?-?- 39w 0d 212 lb 8 oz 126/82 Nega tive -?-?-?-?-?-?-?-?-?-?-?-?- Negative 140 39 Cephalic 1 .5 -?-?-?-?-?-?-?-?-?-?-?-?- 40 -3 JV- head s till ballotable. no lof, vaginal bleeding, or dec fm. 05/14/25 -?-?-?-?-?-?-?-?-?-?-?-?- 40w 0d 215 lb 7 oz 128/84 Nega tive -?-?-?-?-?-?-?-?-?-?-?-?- Negative 140 41 Cephalic 3 -?-?-?-?-?-?-?-?-?-?-?-?- 40 -3 SM- head s till ballotable unable to membrane sweep, will return next week to posibly sweep, IOL set for 41 weeks but may delay, discussed growth us and nst if is delayed past 41 weeks 05/18/25 -?-?-?-?-?-?-?-?-?-?-?-?- 40w 4d 216 lb 4 oz 121/84 Nega tive -?-?-?-?-?-?-?-?-?-?-?-?- Negative 135 40 Cephalic 4 .5 -?-?-?-?-?-?-?-?-?-?-?-?- 70 -3 KW- head b bc applied today and membrane sweep done. ROS Constitutional Constitutional: Denies change in weight, fatigue, fever(s), headache(s), poor appetite or weakness Eyes Eyes: Denies blurry vision, change in vision, seeing flashes or spots in vision ENT HEENT: Denies dizziness, headache(s), loss taste/smell or sore throat Cardiovascular Cardiovascular: Denies chest pain, dizziness, dyspnea, irregular heart rhythm, leg edema, palpitations, rapid heart rate or vomiting Respiratory/Chest Respiratory/Chest: Denies chest tightness, cough, dyspnea or breast pain Gastrointestinal Gastrointestinal: Denies abdominal pain, anorexia, constipation, cramping, diarrhea, hemorrhoids, vomiting or weight changes Genitourinary Genitourinary: Denies dysuria, flank pain, genital lesions, genital pain, urinary frequency or urinary urgency Musculoskeletal Musculoskeletal: Denies back pain, difficulty walking, joint pain, limited range of motion, muscle cramps or numbness Integumentary Integumentary: Denies lesions or unusual bruising Neurologic Neurologic: Denies abnormal movements, abnormal speech, dizziness, numbness, seizure-like activity or syncope Psychiatric Psychiatric: Denies anxiety, behavioral changes, change in appetite, change in libido, cognitive impairment, confusion, depression, difficulty concentrating, hallucinations or suicidal thoughts Endocrine Endocrinology: Denies excessive sweating, polydipsia or polyuria Hematologic/Lymphatic Hematologic/Lymphatic: Denies easy bleeding, easy bruising or lymphadenopathy Allergic/Immunologic Allergic/Immunologic: Denies itchy eyes, lip swelling, seasonal rhinorrhea, rhinitis, throat swelling, tongue swelling, eczemia, wheezing or asthma Vital Signs Vital Signs Vital Signs: 05/19/25 04:38 05/19/25 04:38 05/19/25 04:43 Temperature Temperature Source Pulse Rate 80 80 Respiratory Rate Blood Pressure BP Systolic BP Diastolic Pulse Ox 98 05/19/25 04:43 05/19/25 04:45 05/19/25 04:45 Temperature Temperature Source Pulse Rate 77 Respiratory Rate Blood Pressure 128/81 H BP Systolic 128 BP Diastolic 81 Pulse Ox 99 05/19/25 06:10 05/19/25 06:10 05/19/25 06:12 Temperature Temperature Source Pulse Rate 82 Respiratory Rate Blood Pressure 128/91 H BP Systolic 128 BP Diastolic 91 Pulse Ox 99 05/19/25 06:12 05/19/25 07:22 05/19/25 07:22 Temperature Temperature Source Pulse Rate 85 83 Respiratory Rate Blood Pressure 130/86 H BP Systolic 130 BP Diastolic 86 Pulse Ox 05/19/25 07:24 05/19/25 07:24 05/19/25 07:24 Temperature 97.9 F Temperature Source Temporal Pulse Rate Respiratory Rate 16 Blood Pressure BP Systolic BP Diastolic Pulse Ox Weight Weight: 215 lb Body Mass Index (BMI) 34.7 Physical Exam Const alert, oriented x3, no apparent distress and healthy appearing General Appearance: cooperative; Negative for anxious HEENT normocephalic Face and Sinus: normal facial exam Eyes EOMs intact bilaterally and no scleral icterus General Eye: normal appearance of both eyes Neck full ROM and supple Lymph Lymphatic: no lymphadenopathy noted Resp normal respiratory effort Effort and Inspection: able to speak in complete sentences Cardio regular rate GI soft to palpation and non-tender Inspection: gravid Palpation: soft; Negative for tender Back/Spine no CVA tenderness Extremity normal to inspection, full ROM and no clubbing, cyanosis or edema General Extremity: Negative for calf tenderness or edema Skin Lesions: no lesions Rashes: no rashes Psych mental status grossly normal Labs Labs Labs: Blood Type A POSITIVE Antibody Screen NEGATIVE Hct 39.3 % (37-47) Hgb 13.4 g/dL (12.0-15.0) Pap Smear Negative Syphilis Total Ab Nonreactive (Nonreactive) Rubella IgG Antibody Equiv (Nonreactive) Hep Bs Antigen Non-Reactive (Nonreactive) Hepatitis C Antibody Non-Reactive (Nonreactive) Chlamydia DNA ([facility]) Negative (Negative) N.gonorrhoeae DNA ([facility]) Negative (Negative) HIV 1&2 Antibody Nonreactive (Nonreactive) Glucose 1 Hr 50 gm 112 mg/dL (70-140) Gest Glucose Tolerance MG/DL Assessment & Plan (1) Positive GBS test: COMMENT: PCN in labor (2) Obesity affecting : QUALIFIERS: Trimester: second trimester Obesity type affecting : unspecified obesity Qualified Code(s): O99.212 - Obesity complicating , second trimester COMMENT: HgbA1c (3) History of gestational diabetes mellitus (GDM) in prior , currently : COMMENT: HgbA1c nl w/NOB (4) Supervision of high-risk : QUALIFIERS: Trimester: third trimester Qualified Code(s): O09.93 - Supervision of high risk , unspecified, third trimester COMMENT: PRR, , ZEYNEP 05/14/25, surprise PC Maximus, Tito (5) : QUALIFIERS: Weeks of gestation: 40 weeks Qualified Code(s): Z3A.40 - 40 weeks gestation of COMMENT: declined NIPT & Carrier testing. nl anatomy. (6) Rubella non-immune status, antepartum: COMMENT: Update MMR post (pt did not get booster after last ) (7) Active labor at term: PLAN: Patient presents IAL, plan expectant management for , pitocin/AROM PRN if needed. Pain management: plans epidural. GBS positive plan IV PCN. Management of any complications: none I have reviewed the [facility] and made any clinically relevant updates.
[2025-05-19] MEDS: Lactated Ringers 1,000 ML 999 ML IV (07:52)
[2025-05-19] MEDS: fentaNYL-bupivacaine (epidural) 100 ML BAG EPIDURAL (08:47)
[2025-05-19] MEDS: Oxytocin 15 Units/NS 250ml 15 UNITS/250 ML IV.SOLN 334 UNITS IV (10:26)
--- NOTE | 2025-05-19 10:34 | EX.PCM.OBVAG ---
Assessment & Plan (1) Vaginal delivery: COMMENT: julissa CABRERA 05/19/25 (2) Active labor at term: (3) Positive GBS test: COMMENT: PCN in labor (4) Obesity affecting : QUALIFIERS: Trimester: second trimester Obesity type affecting : unspecified obesity Qualified Code(s): O99.212 - Obesity complicating , second trimester COMMENT: HgbA1c (5) History of gestational diabetes mellitus (GDM) in prior , currently : COMMENT: HgbA1c nl w/NOB (6) Supervision of high-risk : QUALIFIERS: Trimester: third trimester Qualified Code(s): O09.93 - Supervision of high risk , unspecified, third trimester COMMENT: PRR, , ZEYNEP 05/14/25, surprise PC Maximus, Tito (7) : QUALIFIERS: Weeks of gestation: 40 weeks Qualified Code(s): Z3A.40 - 40 weeks gestation of COMMENT: declined NIPT & Carrier testing. nl anatomy. (8) Rubella non-immune status, antepartum: COMMENT: Update MMR post (pt did not get booster after last ) Maternal Data Information ZEYNEP Calculator Estimated Delivery Date Method Current WG Current Estimate 05/14/25 LMP (Certain) 40w 5d Other Estimates 05/20/25 Ultrasound #1 39w 6d Final ZEYNEP: 05/14/25 Gestational age: 40 weeks 5 days Vaginal Delivery Maternal Presentation Maternal Presentation: Active Labor and Spontaneous Rupture of Membranes Vaginal Delivery Information Procedure Performed: Spontaneous Vaginal Delivery Surgeon/Practitioner: Dotty Hernandez Date of Procedure: 05/19/25 Pre-Procedure Diagnosis: 30 y/o @ 40 weeks 5 days, active labor, GBS pos Post-Procedure Diagnosis: 30 y/o @ 40 weeks 5 days, active labor, GBS pos Type of anesthesia: Epidural Estimated Blood Loss: 50cc Time of Delivery: 10:23 Findings Description of procedure: Patient began pushing and delivered the head in the MIRTHA presentation. The head was delivered atraumatically and a tight nuchal cord ?1 was identified. The anterior and posterior shoulders delivered without complication followed by the rest of the . The infant was untangled from the cord then placed on the maternal abdomen. Delayed cord clamping was employed for approximately 60 seconds. Cord was clamped and cut and gentle traction was applied to the cord and the placenta delivered spontaneously immediately following it was noted to be intact with three-vessel cord. The perineum and vagina were inspected and noted to have no laceration. EBL was 50cc. Patient and tolerated delivery well. 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
--- NOTE | 2025-05-19 10:39 | DCINST_ITS ---
Discharge Instructions DC O2, CPAP, BIPAP needs Home O2 Discharge instructions: No Dressing / Incision Discharge Activity: Return to Normal Activity, May Not Drive (while taking narcotic pain medications.) and May Shower May resume sexual activity in: 4-6 weeks Dressing / Incision Call your doctor if your incision/area has: Continuous Slow Oozing, Sudden Increased Bleeding, Increased Pain/ Swelling, Increased Redness and Foul Smelling Discharge Follow Up Care Please Follow Up With: Dotty Hernandez DO When: Call [phone] to make an appointment with your doctor in 6 weeks. If you had elevated blood pressure or 4th degree laceration, you will need to be seen in 2 weeks. Test Results: Test results from this visit will be discussed in further detail at your follow- up appointment, if applicable. Discharge Plan Admission Admit Date/Time: 05/19/25 05:16 Attending Provider: Tammi Nieves Primary Care Provider: Care PhysicianJess Primary Discharge Orders/Prescriptions Prescriptions: No Action [id number] 27 mg iron-800 mcg-260 mg capsule 1 cap PO DAILY omega-3 fatty acids 1,000 mg capsule 2,000 mg PO QDAY Referrals / Follow Up: Care Physician,No Primary [Primary Care Provider] -
[2025-05-19] MEDS: Oxytocin 15 Units/NS 250ml 15 UNITS/250 ML IV.SOLN 83 UNITS IV (11:29)
[2025-05-20 03:57] VITALS: BP 114/75; PULSE 67; RESP 16; TEMP 36.4; O2SAT 97
--- NOTE | 2025-05-20 07:57 | PCM.PN.OB ---
Subjective Subjective Patient doing well without complaints. Tolerating PO. Ambulating and voiding without difficulty. Feeding well. Denies chest pain, shortness of breath, calf pain/swelling, fevers, chills, lightheadedness. Objective Data Objective Data Vital Signs: Vital Signs Temp Pulse Resp BP Pulse Ox O2 Del Method 97.6 F L 67 16 114/75 97 Room Air 05/20/25 03:57 05/20/25 03:57 05/20/25 03:57 05/20/25 03:57 05/20/25 03:57 05/20/25 03:57 Oxygen Delivery Method Room Air Weight: 215 lb Body Mass Index (BMI) 34.7 Intake & Output: Intake and Output for Last 24 Hours 05/18/25 05/19/25 05/20/25 23:59 23:59 23:59 Intake Total 1947.05 / 1947.05 Output Total 550 / 550 Balance 1397.05 / 1397.05 Lab / Micro Data 05/19/25 05:45 Labs: Laboratory Results - last 24 hr 05/19/25 05:45: Blood Type A POSITIVE, Antibody Screen NEGATIVE Physical Exam Const alert and oriented x3 HEENT normocephalic Eyes PERRL Neck full ROM Resp normal respiratory effort GI soft to palpation GI Narrative: FF below U Assessment & Plan (1) Vaginal delivery: COMMENT: julissa Wing - RICK 05/19/25 (2) Rubella non-immune status, antepartum: COMMENT: Update MMR post (pt did not get booster after last ) PLAN: Plan s/p PPD # 1 1. routine post delivery care 2. breast feeding- support given 3. rh positive 4. rubella non immune-offer pp 5. home today
[2025-05-20 08:40] VITALS: BP 123/77; PULSE 73; RESP 16; TEMP 36.6
== END 2025-05-20 12:20 | disposition home or self-care (01) | DRG 807 ==
LOC: WPOUT 05:23 → WP 05:23
PROVIDERS: Admitting Provider Advanced Practice Midwife; Referring Provider Advanced Practice Midwife; Visit Provider Advanced Practice Midwife
DX: O42.92 Full-term premature rupture of membranes, unspecified as to length of time between rupture and onset of labor (principal); Z37.0 Single live birth; O69.81X0 Labor and delivery complicated by cord around neck, without compression, not applicable or unspecified; O99.214 Obesity complicating childbirth; O99.824 Streptococcus B carrier state complicating childbirth; Z3A.40 40 weeks gestation of pregnancy; Z86.32 Personal history of gestational diabetes
CPT/HCPCS: 59025; 59050; 85025; 86780; 86850; 86900; 86901; 99221; G0378; J2405

== ENCOUNTER → 2025-07-01 | Outpatient (CLI) | payer BC, SELFPAY | END | disposition home or self-care (01) | LOC: LABSPEC 16:06 | PROVIDERS: Visit Provider Nurse Practitioner Women's Health | DX: Z12.4 Encounter for screening for malignant neoplasm of cervix (principal) | CPT/HCPCS: 88175; G0145 ==